=== PATIENT | female | born 1955 | race Caucasian/White ===

== ENCOUNTER → 2016-06-03 | Outpatient (CLI) | payer BC ==
[~2016-06-03] MED LIST: B-COTAB18 PO; CETI10TA84 PO; FENO145T26 PO; FRS/40 PO; GLC/500 PO; HMLI SC; INSDGI SC; LOSA1TAB38 PO; METF1TAB53 PO; MOME50SP5 NAE; MULT-513 PO; OMEG10007 PO; OXYC1TAB3 PO; PRLSR20 PO; SIMV40TA2 PO
== END | disposition home or self-care (01) ==
LOC: C.RDSM 15:00
PROVIDERS: ATTEND Physical Medicine & Rehabilitation Sports Medicine
DX: M25.531 Pain in right wrist (principal)

== ENCOUNTER 2016-06-20 12:43 | Emergency (ER) | payer SELFPAY ==
[~2016-06-20 12:43] MED LIST changes: -OXYC1TAB3 PO
[2016-06-20 12:47] VITALS: TEMP 37.1
[2016-06-20] MEDS ORDERED: OXYCODONE HCL IR 5 MG TAB (IMMEDIATE RELEASE) PO STA (12:57)
--- NOTE | 2016-06-20 13:54 | DIAGNOSTIC IMAGING REPORT ---
LEFT FOOT MIN 3 VIEWS ROUTINE CLINICAL HISTORY: fall trauma. Pain. COMPARISON: None. DISCUSSION: Considerable soft tissue edematous change dorsal to the metatarsals. No well-defined acute bony abnormality. Mild degenerative change. Bunion deformity distal first metatarsal. IMPRESSION: Considerable soft tissue edematous change. Mild degenerative change. No acute bony abnormality. Electronically signed by: Chris Weldon M.D. 06/20/2016 1:53 PM Dictated Date/Time: 06/20/2016 1:52 PM
--- NOTE | 2016-06-20 14:06 | DIAGNOSTIC IMAGING REPORT ---
LEFT HIP 2 VIEWS CLINICAL HISTORY: Fall with left hip pain. FINDINGS: AP and frog-leg views of the left hip are obtained. No prior studies are available for comparison at the time of dictation. The skeletal structures are osteopenic. No fracture is seen. Minimal arthritic change is identified in the left hip. Sclerotic change is noted in the left sacroiliac joint. Enthesophytes arise from the left anterior superior iliac spine. The overlying soft tissues are within normal limits. Small phleboliths are identified in the pelvis. IMPRESSION: No fracture is identified in the left hip. Electronically signed by: Kade Whyte M.D. 06/20/2016 2:05 PM Dictated Date/Time: 06/20/2016 2:00 PM
--- NOTE | 2016-06-20 14:08 | DIAGNOSTIC IMAGING REPORT ---
LEFT KNEE 1 OR 2 VIEWS ROUTINE CLINICAL HISTORY: knee pain/fall trauma. Pain. COMPARISON: None. DISCUSSION: Severe degenerative change all major joint compartments. Several synovial calcifications. No well-defined evidence for fracture. Severe degenerative change. No acute bony abnormality. IMPRESSION: Severe degenerative change. No acute bony abnormality. Electronically signed by: Chris Weldon M.D. 06/20/2016 2:07 PM Dictated Date/Time: 06/20/2016 2:06 PM
--- NOTE | 2016-06-20 14:25 | DIAGNOSTIC IMAGING REPORT ---
RIGHT SHOULDER 3 VIEWS HISTORY: shoulder pain/fall Right COMPARISON: None. FINDINGS: There is no fracture or dislocation. Soft tissues are unremarkable. The right clavicle appears intact. Mild degenerative changes within the right shoulder. IMPRESSION: No fracture or dislocation within the right shoulder. Electronically signed by: Andres Coronel M.D. 06/20/2016 2:23 PM Dictated Date/Time: 06/20/2016 2:22 PM
[2016-06-20] MEDS ORDERED: OXYC1TAB3 PO (15:21)
--- NOTE | 2016-06-20 15:22 | EMERGENCY ROOM VISIT NOTE ---
History First contact with patient: 12:50 Chief Complaint: LEG PAIN,LEG INJURY Stated Complaint: L LEG, KNEE AND FOOT PAIN History of Present Illness The patient is a 61 year old female who presents to the Emergency Room with complaints of left hip left knee left foot and right shoulder pain. The patient states that she was at a restaurant last night at 9 PM and fell on a wet floor and slipped landing onto her buttocks. She is now complaining of pain mainly in her left knee but she also is complaining of pain in the left hip left foot and slight pain in her right shoulder. The patient took ibuprofen just before coming to the emergency room. The patient states she is able to bear weight on the left leg but it is painful. The patient states that she is able to move her shoulder but it is just slightly painful with movement. She denies any pain radiating down her right arm or any numbness and tingling. The patient states that she has chronic edema in both legs. She normally takes Lasix but forgot to take it today. Review of Systems 10 system review was performed and was negative unless stated otherwise history of present illness. Past Medical/Surgical History Diabetes, hypertension, peripheral edema Social History Smoking Status: Never Smoker Alcohol Use: none Drug Use: none Marital Status: Housing Status: lives with family Occupation Status: employed Current/Historical Medications Scheduled B-Complex Vitamins (Vitamin B Complex), 1 TAB PO DAILY Cetirizine (Zyrtec), 10 MG PO DAILY Fenofibrate (Tricor ), 145 MG PO DAILY Fish Oil ([place]-3), 2 CAP PO DAILY Furosemide (Lasix), 40 MG PO DAILY Insulin Glargine (Lantus), 60-70 UNITS SC HS Insulin Lispro (Humalog), UNITS SC UD Losartan Potassium (Cozaar), 100 MG PO DAILY Metformin Hcl (Glucophage Ext Rel), 1,000 MG PO BID Metformin Hcl (Glucophage), 500 MG PO @ 1200 Mometasone Furoate (Nasonex), 1-2 SPRAY CYN DAILY Multivitamins/Minerals (Mvi With Minerals), 1 TAB PO DAILY Omeprazole (Prilosec), 20 MG PO BID Simvastatin (Zocor), 40 MG PO QPM Allergies Coded Allergies: No Known Allergies (Unverified , 06/20/16) Physical Exam Vital Signs Date Time Temp Pulse Resp B/P Pulse Ox O2 Delivery O2 Flow Rate FiO2 06/20/16 14:41 74 20 120/80 06/20/16 12:47 37.1 90 20 155/87 94 Room Air Physical Exam GENERAL: Obese 61-year-old white female appears in no acute distress. MENTAL Status: Alert and oriented 3. NECK: Supple, no lymphadenopathy noted. No carotid bruits noted. LUNGS: Clear auscultation without wheezes rales or rhonchi. CARDIAC: Regular rate and rhythm without murmur. Pulses is full and equal throughout. RIGHT SHOULDER: No gross bony deformity noted. No erythema or edema noted. The patient has point tenderness over the lateral aspect of the humeral head. Otherwise nontender. Full range of motion with pain elicited with abduction past 90. [employer] strength is 5 out of 5 as compared to the left. LEFT HIP: No gross bony deformity noted. No erythema or edema noted. The patient has slight tenderness palpation over the lateral aspect. Limited range of motion of the left hip secondary to pain. LEFT KNEE: No gross bony deformity noted. There is a prior incision noted on the knee from a prior knee surgery at age 17. The patient has limited range of motion secondary to pain. No ligament instability noted. No erythema noted. Difficult to evaluate for edema secondary to patient's size. BILATERAL LOWER EXTREMITIES: 2+ pitting edema bilateral lower legs. LEFT FOOT: No gross bony deformity noted. No erythema noted. There is edema noted which is pitting consistent with her peripheral edema. The patient is able to move her toes without difficulty. She has point tenderness to palpation over the great toe. Medical Decision & Procedures ER Provider Diagnostic Interpretation: LEFT FOOT MIN 3 VIEWS ROUTINE CLINICAL HISTORY: fall trauma. Pain. COMPARISON: None. DISCUSSION: Considerable soft tissue edematous change dorsal to the metatarsals. No well-defined acute bony abnormality. Mild degenerative change. Bunion deformity distal first metatarsal. IMPRESSION: Considerable soft tissue edematous change. Mild degenerative change. No acute bony abnormality. Electronically signed by: Chris Weldon M.D. 06/20/2016 1:53 PM LEFT HIP 2 VIEWS CLINICAL HISTORY: Fall with left hip pain. FINDINGS: AP and frog-leg views of the left hip are obtained. No prior studies are available for comparison at the time of dictation. The skeletal structures are osteopenic. No fracture is seen. Minimal arthritic change is identified in the left hip. Sclerotic change is noted in the left sacroiliac joint. Enthesophytes arise from the left anterior superior iliac spine. The overlying soft tissues are within normal limits. Small phleboliths are identified in the pelvis. IMPRESSION: No fracture is identified in the left hip. Electronically signed by: Kade Whyte M.D. 06/20/2016 2:05 PM LEFT KNEE 1 OR 2 VIEWS ROUTINE CLINICAL HISTORY: knee pain/fall trauma. Pain. COMPARISON: None. DISCUSSION: Severe degenerative change all major joint compartments. Several synovial calcifications. No well-defined evidence for fracture. Severe degenerative change. No acute bony abnormality. IMPRESSION: Severe degenerative change. No acute bony abnormality. Electronically signed by: Chris Weldon M.D. 06/20/2016 2:07 PM Dictated Date/Time: 06/20/2016 2:06 PM RIGHT SHOULDER 3 VIEWS HISTORY: shoulder pain/fall Right COMPARISON: None. FINDINGS: There is no fracture or dislocation. Soft tissues are unremarkable. The right clavicle appears intact. Mild degenerative changes within the right shoulder. IMPRESSION: No fracture or dislocation within the right shoulder. Electronically signed by: Andres Coronel M.D. 06/20/2016 2:23 PM Medications Administered Medications (Trade) Dose Ordered Sig/Oxana Route Start Time Stop Time Status Last Admin Dose Admin Oxycodone HCl (Roxicodone Immediate Rel Tab) 10 mg NOW STAT PO 06/20/16 12:57 06/20/16 13:00 DC 06/20/16 13:04 10 MG ED Course The patient was evaluated. The patient was given OxyIR 5 mg by mouth for pain. X-rays of the right shoulder, left hip, left knee and left foot were ordered and interpreted by the radiologist and myself as above without any acute findings on any of the x-rays. The patient was informed of the findings. She was placed in an Andrea wrap of the left knee and given a walker. The patient was discharged home in stable condition.. Medical Decision Differential diagnosis include fractures versus contusions of multiple areas Impression Primary Impression: Bilateral leg pain Additional Impressions: Right shoulder pain Left hip pain Left knee pain Left foot pain Departure Information Dispostion Home / Self-Care Condition GOOD Prescriptions Oxycodone Immediate Rel Tab (ROXICODONE IR) 5 Mg Tab 1-2 TAB PO Q6 Y for Pain, #24 TAB Prov: Maria Antonia Weldon PA-C 06/20/16 Referrals Salvador Penaloza M.D. (PCP) Forms HOME CARE DOCUMENTATION FORM, IMPORTANT VISIT INFORMATION Patient Instructions [facility] Additional Instructions Take OxyIR as directed for pain. Do not drive while taking the OxyIR. Ice intermittently to affected areas over the next 24 hours. Limit weightbearing over the next 24 hours. Wear Andrea wrap while ambulating until pain is tolerable. Use walker to aid in ambulation. Recommend follow-up with your family physician if symptoms persist for possible referral to orthopedics. Problem Qualifiers Additional Impressions: Right shoulder pain Chronicity: acute Qualified Codes: M25.511 - Pain in right shoulder Left knee pain Chronicity: acute Qualified Codes: M25.562 - Pain in left knee
[2016-06-20 15:30] VITALS: BP 120/80; PULSE 74; O2SAT 98
== END 2016-06-20 15:31 | disposition home or self-care (01) ==
LOC: C.EDB 12:44 → C.EDD 15:31
DX: M79.604 Pain in right leg (principal); M79.605 Pain in left leg; M25.511 Pain in right shoulder; M25.552 Pain in left hip; M25.562 Pain in left knee; M79.672 Pain in left foot; I10 Essential (primary) hypertension; E11.9 Type 2 diabetes mellitus without complications; Z79.4 Long term (current) use of insulin; Z79.899 Other long term (current) drug therapy

== ENCOUNTER → 2017-04-08 | Outpatient (CLI) | payer BC ==
--- NOTE | 2017-04-08 15:28 | MAMMOGRAPHY REPORT ---
BILATERAL DIGITAL SCREENING MAMMOGRAM TOMOSYNTHESIS WITH CAD: 04/08/2017 CLINICAL HISTORY: Routine screening. Patient has no complaints. TECHNIQUE: Breast tomosynthesis in addition to standard 2D mammography was performed. Current study was also evaluated with a Computer Aided Detection (CAD) system. COMPARISON: Comparison is made to exams dated: 04/05/2016 mammogram, 04/05/2015 mammogram, 4 mammogram, 04/05/2013 mammogram, 04/03/2012 mammogram, and 04/05/2011 mammogram - [facility]. BREAST COMPOSITION: There are scattered areas of fibroglandular density in both breasts. FINDINGS: There is a possible 9 mm mass in the upper outer middle one third of the right breast, for which additional spot compression tomosynthesis views and targeted ultrasound are recommended. No other new suspicious mass, architectural distortion or cluster of microcalcifications is seen bila terally. IMPRESSION: ACR BI-RADS CATEGORY 0: INCOMPLETE EVALUATION: NEED ADDITIONAL IMAGING EVALUATION The possible 9 mm mass in the upper outer right breast needs additional evaluation. The patient will be called to schedule an appointment. Approximately 10% of breast cancers are not detected with mammography. A negative mammographic report should not delay biopsy if a clinically suggestive mass is present. Julieta Romero M.D. ay/:04/08/2017 10:41:55 Wash Rack Operator: Mya MAGALLON(Monica)(Laura), [facility] letter sent: Addl Imaging 0 BI-RADS Code: ACR BI-RADS Category 0: Incomplete Evaluation: Need Additional Imaging Evaluation
== END | disposition home or self-care (01) ==
LOC: C.MAMM 09:37
PROVIDERS: ATTEND Internal Medicine
DX: Z12.31 Encounter for screening mammogram for malignant neoplasm of breast (principal); R92.8 Other abnormal and inconclusive findings on diagnostic imaging of breast

== ENCOUNTER → 2017-04-10 | Outpatient (CLI) | payer BC ==
--- NOTE | 2017-04-10 13:46 | MAMMOGRAPHY REPORT ---
UNILATERAL RIGHT DIGITAL DIAGNOSTIC MAMMOGRAM TOMOSYNTHESIS AND TARGETED RIGHT ULTRASOUND: 04/10/2017 CLINICAL HISTORY: Callback from screening mammogram for right breast mass. TECHNIQUE: Breast tomosynthesis in addition to standard 2D mammography was performed. Spot compress ion right CC and MLO 2-D and tomosynthesis images were obtained. COMPARISON: Comparison is made to exams dated: 04/08/2017 mammogram, 04/05/2016 mammogram, 5 mammogram, 04/06/2014 mammogram, 04/05/2013 mammogram, and 04/03/2012 mammogram - [facility]. BREAST COMPOSITION: There are scattered areas of fibroglandular density in the right breast. FINDINGS: Spot compression views demonstrate a persistent low-density lobulated mass measuring 11 mm within the right upper outer quadrant at approximately 9 to 10:00, best seen on the MLO tomosynthesis images. Targeted ultrasound was performed of the right breast in the region of the mammographic mass. In the right breast at 9:00, approximately 6 cm from the nipple, there is a lobulated circumscribed anechoi c mass with a few thin internal septations, measuring 11 x 4 x 6 mm. This correlates with the size, shape, and location of the mammographic mass and is benign and consistent with a cyst. IMPRESSION: ACR BI-RADS CATEGORY 2: BENIGN, TARGETED ULTRASOUND ACR BI-RADS CATEGORY 2: BENIGN Benign 11 mm cyst in the right 9:00 breast on ultrasound, which corresponds with the lobulated mammog raphic mass. There is no mammographic or targeted sonographic evidence of malignancy. A 1 year scree kimmie mammogram is recommended. The patient has been verbally notified of the results. Approximately 10% of breast cancers are not detected with mammography. A negative mammographic report should not delay biopsy if a clinically suggestive mass is present. Whitley Rodriguez M.D. ah/:04/10/2017 10:09:29 Tonger: Josephine ALVAREZ)(Laura), [facility] letter sent: Normal 1/2 BI-RADS Code: ACR BI-RADS Category 2: Benign Ultrasound BI-RADS: ACR BI-RADS Category 2: Benign
== END | disposition home or self-care (01) ==
LOC: C.MAMM 09:32
PROVIDERS: ATTEND Internal Medicine
DX: N60.01 Solitary cyst of right breast (principal)

== ENCOUNTER 2017-07-09 08:31 | Inpatient (IN) | payer OTHER ==
[~2017-07-09] VITALS: Ht 165.1 cm; Wt 119.6 kg
[2017-07-09] MEDS ORDERED: HYDROmorphone INJ 0.5 MG/0.5 ML SYR IV STA ×2 (08:41→09:38)
[2017-07-09] MEDS ORDERED: VANCOMYCIN IV 1,500 MG in SODIUM CHLORIDE 0.9% 250ML 250 ML IV STA (08:41)
[2017-07-09] MEDS ORDERED: VANCOMYCIN IV 1,500 MG in SODIUM CHLORIDE 0.9% 500ML 500 ML IV SCH ×2 (08:43→20:00)
[2017-07-09] MEDS ORDERED: CEFAZOLIN IV 2,000 MG in DEXTROSE 5% 50ML 50 ML IV SCH (08:45)
[2017-07-09] MEDS ORDERED: CEFAZOLIN IV 2,000 MG in SYRINGE 0 ML IV SCH (08:45)
[2017-07-09] MEDS ORDERED: VANCOMYCIN CONSULT ACTIVE PRN ×2 (08:45→10:45)
[2017-07-09] MEDS ORDERED: INSDGIPEN SC (08:49)
[2017-07-09] MEDS ORDERED: NVLGI/PEN SC (08:49)
[2017-07-09 08:53] LABS: BASO % 0.1 %; BASO ABS # 0.02 K/uL (0-0.2); HEMATOCRIT 39.3 % (37-47); IG# 0.11 K/uL (0.00-0.02); LYMPH % 2.2 %; LYMPH ABS # 0.45 K/uL (1.2-3.4); MEAN CELL VOLUME 89.7 fL (80-100); MEAN CORPUSCULAR HEMOGLOBIN 29.7 pg (25-34); MEAN CORPUSCULAR HGB CONC 33.1 g/dl (32-36); MEAN PLATELET VOLUME 11.7 fL (7.4-10.4); MONO % 2.5 %; MONO ABS # 0.51 K/uL (0.11-0.59); NEUT % 94.7 %; NEUT ABS # 19.53 K/uL (1.4-6.5); PLATELET COUNT 174 K/uL (130-400); RED CELL DISTRIBUTION WIDTH CV 14.7 % (11.5-14.5); RED CELL DISTRIBUTION WIDTH SD 48.4 fL (36.4-46.3); WHITE BLOOD COUNT 20.62 K/uL (4.8-10.8)
[2017-07-09 09:09] LABS: CREATININE 2.44 mg/dl (0.60-1.20); POTASSIUM 4.1 mmol/L (3.5-5.1)
[2017-07-09 09:10] LABS: ALBUMIN 3.4 gm/dl (3.4-5.0); CALCIUM 9.1 mg/dl (8.5-10.1)
[2017-07-09 09:12] LABS: TOTAL PROTEIN 7.3 gm/dl (6.4-8.2)
[2017-07-09] MEDS ORDERED: SODIUM CHLORIDE 0.9% 1000ML 1,000 ML IV STA ×3 (09:38→10:35)
[2017-07-09] MEDS ORDERED: INSULIN IV INFUSION PROTOCOL STA ×2 (09:39→10:08)
[2017-07-09] MEDS ORDERED: NovoLIN-R INSULIN PER UNIT CHARGE IV STA (09:39)
[2017-07-09] MEDS ORDERED: MODERATE STRESS LEVEL ONE ×2 (09:45→10:15)
[2017-07-09] MEDS ORDERED: GLUCOSE 40% GEL 15 GM TUBE PO PRN (10:00)
[2017-07-09] MEDS ORDERED: NovoLIN R BOLUS FROM BAG IV ONE (10:00)
[2017-07-09] MEDS ORDERED: DEXTROSE 50% 50 ML SYR IV PRN (10:00)
[2017-07-09] MEDS ORDERED: GLUCOSE 10 TABS/TUBE PO PRN (10:00)
[2017-07-09] MEDS ORDERED: GLUCAGON FOR INJ 1 MG VIAL SQ PRN (10:00)
[2017-07-09] MEDS ORDERED: DKA GOAL RANGE 150-250 mg/dl 1 EA ONE (10:15)
[2017-07-09] MEDS ORDERED: POLYETHYLENE (MIRALAX) 17 GM PACK PO PRN (10:15)
[2017-07-09] MEDS ORDERED: MAGNESIUM HYDROXIDE SUSP 30 ML UDC PO PRN (10:15)
[2017-07-09] MEDS ORDERED: PENDING NSS+20mEq KCL IVF SCH (10:15)
[2017-07-09] MEDS ORDERED: CEFAZOLIN IV 1,000 MG in DEXTROSE 5% 50ML 50 ML IV SCH (10:45)
[2017-07-09] MEDS ORDERED: PHARMACY GLYCEMIC MGMT CONSULT PRN (11:10)
--- NOTE | 2017-07-09 11:12 | History and Physical ---
History & Physical Date & Time of Service: Jul 09, 2017 at 10:50 Chief Complaint: Leg Pain Primary Care Physician: Salvador Penaloza M.D. History of Present Illness Source: patient, family Mr. Jordan is a 62 y/o female with PMHx of T2DM, HLD, Fatty Liver/Chronic Transaminitis, GERD, and PCOS who presents to the ED c/o RLE erythema/pain starting this AM. Patient states acutely she developed generalized fatigue and felt fevered with chills yesterday. She also has a cough, rhinorrhea, and nausea. She also had only pain in the RLE yesterday. She decided to go to bed at approx. 1800 yesterday due to not feeling well. She states she didn't eat much and only took her morning dose of Metformin. She does not remember if she took any Novolog but knows she did not take her Lantus. She had poor sleep overnight due to pain in the leg. When she awoke this morning her leg was significantly erythematous and more edematous then baseline. She states she felt lightheaded and dizzy this morning and felt very thirsty. She is having difficulty ambulating her her RLE. She reports H/O cellulitis in both legs many years ago. Has a skin crack in the plantar aspect of her foot. States this was strictly a crack in the skin and denies puncture wound. No drainage noted from skin crack. In the ED, patient with WBC of 20. BSG 299. Anion gap 17. Cr at 2.44. Vitals stable. Patient was aggressively hydrated and IV Abx initiated. Patient will be admitted for diabetic ketoacidosis, TERESA, and cellulitis of RLE. Past Medical/Surgical History 1. H/O B/L Lower Extremity Cellulitis 2. T2DM 3. HLD 4. Fatty Liver/Chronic Transaminitis 5. GERD 6. PCOS Family History Colon Cancer Diabetes mellitus Heart Disease Hypertension Kidney disease Social History Smoking Status: Never Smoker Smokeless Tobacco Use: No Alcohol Use: none Drug Use: none Marital Status: Occupational Status: employed Allergies Coded Allergies: No Known Allergies (Unverified , 06/20/16) Home Medications Scheduled B-Complex Vitamins (Vitamin B Complex), 1 TAB PO DAILY Cetirizine (Zyrtec), 10 MG PO DAILY Fenofibrate (Tricor ), 145 MG PO DAILY Fish Oil ([place]-3), 2 CAP PO DAILY Furosemide (Lasix), 40 MG PO DAILY Insulin Aspart (Novolog Flexpen), 1 DOSE SC UD Insulin Glargine (Lantus Solostar), 60-70 SC HS Losartan Potassium (Cozaar), 100 MG PO DAILY Metformin Hcl (Glucophage Ext Rel), 1,000 MG PO BID Metformin Hcl (Glucophage), 500 MG PO @ 1200 Multivitamins/Minerals (Mvi With Minerals), 1 TAB PO DAILY Omeprazole (Prilosec), 20 MG PO BID Simvastatin (Zocor), 40 MG PO QPM Review of Systems Constitutional: + fever, + chills, + fatigue ENT: + nasal symptoms, No sore throat, No trouble swallowing Respiratory: + cough, No sputum, No shortness of breath Cardiovascular: No chest pain, No palpitations Abdomen: + nausea, No pain, No vomiting, No diarrhea, No constipation, No GI bleeding Musculoskeletal: + swelling (B/L lower extremities - R > L), + problem reported (diffuse RLE pain below knee) Genitourinary - Female: No dysuria, No urinary frequency Endocrine: + excessive thirst Hematologic / Lymphatic: No abnormal bleeding/bruising Integumentary: + problem reported (acute development of erythema of RLE) Physical Exam Vital Signs Date Time Temp Pulse Resp B/P (MAP) Pulse Ox O2 Delivery O2 Flow Rate FiO2 07/09/17 10:16 95 07/09/17 10:10 94 Nasal Cannula 2.0 07/09/17 10:01 95 16 125/67 88 Room Air 07/09/17 08:42 37.2 100 16 150/74 94 Room Air General Appearance: WD/WN, no apparent distress, + obese Head: normocephalic, atraumatic Eyes: sclerae normal ENT: hearing grossly normal, pharynx normal Neck: supple, no JVD, trachea midline Respiratory/Chest: lungs clear, normal breath sounds, no respiratory distress, no accessory muscle use, + decreased breath sounds (bases b/l) Cardiovascular: regular rate, rhythm, no gallop, no murmur, + pertinent finding (distant heart sounds 2/2 body habitus) Abdomen/GI: normal bowel sounds, non tender, soft Extremities/Musculoskelatal: + pertinent finding (RLE erythema from foot to just below knee (area delineated with marker); tenderness to palpation with at least 1+ pitting edema but limited assessment 2/2 tenderness; immediate cap refill; small skin crack to heel of RLE; LLE with mild diop of medial collins with lymphedema like edema) Neurologic/Psych: alert, oriented x 3 Skin: + pertinent finding (see extremties) Diagnostics Laboratory Results Results Past 24 Hours Test 07/09/17 08:35 07/09/17 09:57 Range/Units White Blood Count 20.62 4.8-10.8 K/uL Red Blood Count 4.38 4.2-5.4 M/uL Hemoglobin 13.0 12.0-16.0 g/dL Hematocrit 39.3 37-47 % Mean Corpuscular Volume 89.7 80-100 fL Mean Corpuscular Hemoglobin 29.7 25-34 pg Mean Corpuscular Hemoglobin Concent 33.1 32-36 g/dl Platelet Count 174 130-400 K/uL Mean Platelet Volume 11.7 7.4-10.4 fL Neutrophils (%) (Auto) 94.7 % Lymphocytes (%) (Auto) 2.2 % Monocytes (%) (Auto) 2.5 % Eosinophils (%) (Auto) 0.0 % Basophils (%) (Auto) 0.1 % Neutrophils # (Auto) 19.53 1.4-6.5 K/uL Lymphocytes # (Auto) 0.45 1.2-3.4 K/uL Monocytes # (Auto) 0.51 0.11-0.59 K/uL Eosinophils # (Auto) 0.00 0-0.5 K/uL Basophils # (Auto) 0.02 0-0.2 K/uL RDW Standard Deviation 48.4 36.4-46.3 fL RDW Coefficient of Variation 14.7 11.5-14.5 % Immature Granulocyte % (Auto) 0.5 % Immature Granulocyte # (Auto) 0.11 0.00-0.02 K/uL Sodium Level 133 136-145 mmol/L Potassium Level 4.1 3.5-5.1 mmol/L Chloride Level 99 98-107 mmol/L Carbon Dioxide Level 17 21-32 mmol/L Anion Gap 17.0 3-11 mmol/L Blood Urea Nitrogen 36 7-18 mg/dl Creatinine 2.44 0.60-1.20 mg/dl Est Creatinine Clear Calc Drug Dose 32.9 ml/min Estimated GFR () 23.6 Estimated GFR (Non- 20.4 BUN/Creatinine Ratio 14.8 10-20 Random Glucose 299 70-99 mg/dl Calcium Level 9.1 8.5-10.1 mg/dl Total Bilirubin 0.9 0.2-1 mg/dl Direct Bilirubin 0.3 0-0.2 mg/dl Aspartate Amino Transf (AST/SGOT) 36 15-37 U/L Alanine Aminotransferase (ALT/SGPT) 40 12-78 U/L Alkaline Phosphatase 69 45-117 U/L Total Protein 7.3 6.4-8.2 gm/dl Albumin 3.4 3.4-5.0 gm/dl Venous Blood pH 7.38 7.36-7.41 Venous Blood Partial Pressure CO2 39 38.0-50.0 mmHg Venous Blood Partial Pressure O2 35 mmHg Venous Blood HCO3 23 mmol/L Venous Blood Oxygen Saturation 63.3 % Venous Blood Base Excess -2.3 mEq/L Lactic Acid Level 4.9 0.4-2.0 mmol/L Microbiology Results 07/09/17 Blood Culture, Received Pending 07/09/17 Blood Culture, Received Pending Impression Assessment and Plan Mr. Jordan is a 62 y/o female with PMHx of T2DM, HLD, Fatty Liver/Chronic Transaminitis, GERD, and PCOS who presents to the ED c/o RLE erythema/pain starting this AM. Diabetic Ketoacidosis/Metabolic Acidosis with T2DM: Anion Gap 17 and Lactic 4.9 - Patient reports missing insulin therapy yesterday - only took AM Metformin - A1c in records is 9 but according to outpatient records has improved to 7.9 and will obtain update - VBG was unremarkable - will repeat lactic acid given ABx initiated and hydration started - Insulin gtt until anion gap closes and transition to SC coverage - appreciate pharmacy assistance with glycemic management - Aggressive IV hydration in ED and will continue with NSS at 150 mL/hr - monitor K and can transition to supplementation pending labs - BMP and electrolyte checks Q4H - Hold home regimen of Metformin, Novolog Scale, and Lantus Scale Sepsis 2/2 RLE Cellulitis superimposed on Chronic Lower Extremity Edema: - Ancef 1 g IV daily and Vancomycin - Obtain U/S to R/O DVT Acute Kidney Injury 2/2 Dehydation/DKA/Sepsis: - Aggressive hydration and will monitor with Q4H labs until stabilized HLD/Fatty Liver Disease/Chronic Transaminitis: - LFTs normal at this time - continue fenofibrate 145 mg daily and simvastatin 40 mg daily GERD: - Protonix 40 mg daily DVT Prophylaxis: Heparin Code Status: FULL RESUSCITATION Disposition: - From home Resuscitation Status VTE Prophylaxis Will order VTE Prophylaxis: Yes
[2017-07-09 11:41] LABS: INR 1.1 (0.9-1.1); PTT PATIENT 27.7 SECONDS (21.0-31.0)
[2017-07-09] MEDS: HYDROmorphone INJ 0.5 MG/0.5 ML SYR IV PRN ×2 (11:47→15:47)
--- NOTE | 2017-07-09 12:14 | Pharmacy Progress Note ---
Pharmacy Abx Initial Consult Date of Service Jul 09, 2017. Pharmacy Dosing Scope Date of Consult: 07/09/17 Consultation requested by: Chuy Myers PA-C Pharmacy is consulted to initiate Vancomycin IV dosing therapy, order appropriate labs and adjust drug dose/frequency. Objective Height (Feet): 5 Height (Inches): 5.00 Weight (Kilograms): 135.000 Vital Signs (Past 12Hrs) Vital Signs Past 12 Hours Date Time Temp Pulse Resp B/P (MAP) Pulse Ox O2 Delivery O2 Flow Rate FiO2 07/09/17 10:16 95 07/09/17 10:10 94 Nasal Cannula 2.0 07/09/17 10:01 95 16 125/67 88 Room Air 07/09/17 08:42 37.2 100 16 150/74 94 Room Air Lab Results (24Hrs) Laboratory Tests (24 Hours) Test 07/09/17 08:35 07/09/17 09:57 White Blood Count 20.62 K/uL (4.8-10.8) H Red Blood Count 4.38 M/uL (4.2-5.4) Platelet Count 174 K/uL (130-400) Neutrophils (%) (Auto) 94.7 % Lymphocytes (%) (Auto) 2.2 % Monocytes (%) (Auto) 2.5 % Eosinophils (%) (Auto) 0.0 % Basophils (%) (Auto) 0.1 % Neutrophils # (Auto) 19.53 K/uL (1.4-6.5) H Lymphocytes # (Auto) 0.45 K/uL (1.2-3.4) L Monocytes # (Auto) 0.51 K/uL (0.11-0.59) Eosinophils # (Auto) 0.00 K/uL (0-0.5) Basophils # (Auto) 0.02 K/uL (0-0.2) Lactic Acid Level 4.9 mmol/L (0.4-2.0) *H Micro Results Date/Time Source Procedure Growth Status 07/09/17 09:57 Blood Blood Culture Pending Received 07/09/17 08:35 Blood Blood Culture Pending Received Assessment & Plan Assessment 62 year old female admitted with hyperglycemia, TERESA, and sepsis secondary RLE cellulitis. Plan Empiric Vancomycin IV for treatment of sepsis, RLE cellulitis. Vancomycin IV: * Patient given Vanc 1500 mg IV (11 mg/kg) in the ED @ 1018 * I have ordered a second dose of 1500 mg for today @ 1999 (I anticipate vanc level to be ~ 15 mcg/mL at that time) * Maintenance dose not ordered due to TERESA. Estimated half life based on current renal function; 22.3 hr, based on baseline; 9.9 hr * Goal trough level for sepsis,cellulitis : 15 to 20 mcg/mL * I have ordered a random level 07/10 @ 0800 (12 hours after dose) d/t TERESA. Also receiving Cefazolin IV (not pharm consult) Pharmacy will continue to follow and will adjust dose/frequency as necessary. Thank you.
[2017-07-09 12:50] LABS: HEMOGLOBIN A1C 8.6 % (4.5-5.6)
--- NOTE | 2017-07-09 12:50 | DIAGNOSTIC IMAGING REPORT ---
ULTRASOUND R VENOUS DOPP LOWER EXT UNILAT CLINICAL HISTORY: Edema/Erythema COMPARISON STUDY: No previous studies for comparison. FINDINGS: Real-time and color flow Doppler imaging were performed. Flow was seen within the femoral, popliteal and calf veins with no intraluminal thrombus demonstrated. The saphenous vein is patent. There is a tiny popliteal cyst. The study was limited from a technical standpoint due to the patient's body habitus. The peroneal veins of the calf were nonvisualized. IMPRESSION: 1. Moderately limited study from a technical standpoint 2. No evidence of right lower extremity DVT (the peroneal veins of the calf were nonvisualized). Electronically signed by: Chuy Montoya M.D. 07/09/2017 12:49 PM Dictated Date/Time: 07/09/2017 12:47 PM
[2017-07-09] MEDS ORDERED: INSULIN ASPART 100 UNITS/ML 3 ML PEN SC SCH ×2 (13:00)
[2017-07-09 13:25] VITALS: BP 110/73; PULSE 99; TEMP 37.1; O2SAT 95; BMI 51.0
[2017-07-09] MEDS ORDERED: SODIUM CHLORIDE 0.9% 1000ML 1,000 ML IV SCH (13:30)
[2017-07-09] MEDS: INSULIN REGULAR 250 UNITS in SODIUM CHLORIDE 0.9% 250ML 250 ML IV SCH (13:36)
[2017-07-09] MEDS ORDERED: INSULIN HUMAN REGULAR IV BOLUS 3 UNIT in SYRINGE 0 ML IV SCH (13:45)
[2017-07-09 13:55] LABS: CALCIUM 8.1 mg/dl (8.5-10.1); CREATININE 2.21 mg/dl (0.60-1.20); POTASSIUM 4.2 mmol/L (3.5-5.1)
[2017-07-09 13:59] LABS: PHOSPHORUS 3.9 mg/dl (2.5-4.9)
--- NOTE | 2017-07-09 14:00 | Pharmacy Progress Note ---
Glycemic Control Intl Consult Date of Service Jul 09, 2017. Scope Glycemic Pharmacist consulted by Lizzie Myers on 07/09/17 for glycemic control and to write orders per [facility] inpatient glycemic control protocol Objective Weight (Kilograms): 138.900 Accuchecks BSG (last 24hrs): Test 07/09/17 08:35 07/09/17 13:15 Random Glucose 299 mg/dl (70-99) Laboratory Data (last 24hrs) Test 07/09/17 08:35 07/09/17 13:15 Anion Gap 17.0 mmol/L BUN/Creatinine Ratio 14.8 Blood Urea Nitrogen 36 mg/dl Creatinine 2.44 mg/dl Hemoglobin A1c 8.6 % Potassium Level 4.1 mmol/L Sodium Level 133 mmol/L White Blood Count 20.62 K/uL Red Blood Count 4.38 M/uL Hemoglobin 13.0 g/dL Hematocrit 39.3 % Mean Corpuscular Volume 89.7 fL Mean Corpuscular Hemoglobin 29.7 pg Mean Corpuscular Hemoglobin Concent 33.1 g/dl Platelet Count 174 K/uL Mean Platelet Volume 11.7 fL Neutrophils (%) (Auto) 94.7 % Lymphocytes (%) (Auto) 2.2 % Monocytes (%) (Auto) 2.5 % Eosinophils (%) (Auto) 0.0 % Basophils (%) (Auto) 0.1 % Neutrophils # (Auto) 19.53 K/uL Lymphocytes # (Auto) 0.45 K/uL Monocytes # (Auto) 0.51 K/uL Eosinophils # (Auto) 0.00 K/uL Basophils # (Auto) 0.02 K/uL HbA1c Test 07/09/17 08:35 Hemoglobin A1c 8.6 % (4.5-5.6) H Recent Pertinent Medications Outpatient Anti-diabetic Regimen: * Lantus 60-70 SQ HS plus Novolog scale with meals; metformin XR 1000 mg PO BID + metformin 500 mg QDL * A1c = 8.6 % 07/09/17 Risk Factors for Insulin Resistance: * Infection: cellulitis on Ancef and vancomycin * Diet: clear liquid, type 2 diabetes Assessment & Plan ASSESSMENT: * Ms Jordan is a 62 y/o F with a PMH of HLD, fatty liver disease, GERD, PCOS, and poorly controlled type 2 diabetes (per Elements of Diabetes Care Scoring Scale patient's goal HbA1C is around 6.6-7.5%). The patient is admitted today with elevated blood sugars and cellulitis. The patient's lactic acid is elevated at 4.9 and she has an acute kidney injury. Anion gap is slightly elevated at 17 and bicarbonate is 17. * Patient is started on insulin infusion secondary to infection and metabolic changes. No plan for titration off as uncertain how patient will respond to infusion/her needs. If infusion instructs to hold reasonable to reduce goal range. PLAN FOR INPATIENT GLYCEMIC CONTROL: * Starting IV insulin infusion per moderate (moderate/severe) stress protocol * Goal Range 150 - 250 mg/dl * In the critical care setting, continuous IV insulin infusion has been shown to be the best method for achieving glycemic targets. * Holding outpatient oral diabetes medications * Please note that the plan above was derived based on current level of insulin resistance and hospital stress. These recommendations are appropriate for inpatient admission only. Plan of care upon discharge will need to be reassessed to avoid potential outpatient hypo/hyperglycemia. Thank you.
--- NOTE | 2017-07-09 14:34 | EMERGENCY ROOM VISIT NOTE ---
History Report prepared by Janes: Rome Henry Under the Supervision of: Dr. Baeu Reyes D.O. First contact with patient: 08:33 Stated Complaint: LEG PAIN History of Present Illness The patient is a 62 year old female who presents to the Emergency Room by EMS with complaints of constant right lower leg pain and redness beginning yesterday. She has a history of cellulitis of her legs and states that her current symptoms feel similar. She states that she had difficulty sleeping last night due to her leg being so sensitive. The patient has a history of plantar fascitis and initially thought her symptoms to be due to this. She also complains of nausea, subjective fevers, chills, lightheadedness with standing, mild cough, and runny nose. Her additional symptoms began yesterday as well. Pt denies headache, change in vision, chest pain, SOB, abdominal pain, vomiting, diarrhea, pain with urination, and melena. She has not been eating or drinking. Pain is a 10 out of 10 on, sharp and constant in nature. Source of History: patient Onset: Yesterday Position: leg (right lower) Quality: other (pain and redness) Timing: constant Associated Symptoms: + fevers (subjective), + chills, + cough (mild), + nausea, No headache, No chest pain, No SOB, No vomiting, No abdominal pain, No melena, No diarrhea, No urinary symptoms Note: Additional symptoms: runny nose and lightheadedness with standing. Review of Systems See HPI for pertinent positives & negatives. A total of 10 systems reviewed and were otherwise negative. Past Medical & Surgical Medical Problems: (1) Cellulitis (2) Diabetes (3) Diabetic Ketoacidosis (4) GERD (gastroesophageal reflux disease) (5) HTN (hypertension) Family History No pertinent family history stated. Social History Smoking Status: Never Smoker Alcohol Use: none Drug Use: none Marital Status: Housing Status: lives with family Occupation Status: employed Current/Historical Medications Scheduled B-Complex Vitamins (Vitamin B Complex), 1 TAB PO DAILY Cetirizine (Zyrtec), 10 MG PO DAILY Fenofibrate (Tricor ), 145 MG PO DAILY Fish Oil (Elk-3), 2 CAP PO DAILY Furosemide (Lasix), 40 MG PO DAILY Insulin Aspart (Novolog Flexpen), 1 DOSE SC UD Insulin Glargine (Lantus Solostar), 60-70 SC HS Losartan Potassium (Cozaar), 100 MG PO DAILY Metformin Hcl (Glucophage Ext Rel), 1,000 MG PO BID Metformin Hcl (Glucophage), 500 MG PO @ 1200 Multivitamins/Minerals (Mvi With Minerals), 1 TAB PO DAILY Omeprazole (Prilosec), 20 MG PO BID Simvastatin (Zocor), 40 MG PO QPM Allergies Coded Allergies: No Known Allergies (Unverified , 06/20/16) Physical Exam Vital Signs Date Time Temp Pulse Resp B/P (MAP) Pulse Ox O2 Delivery O2 Flow Rate FiO2 07/09/17 10:16 95 07/09/17 10:10 94 Nasal Cannula 2.0 07/09/17 10:01 95 16 125/67 88 Room Air 07/09/17 08:42 37.2 100 16 150/74 94 Room Air Physical Exam GENERAL: Laying in bed, alert, moderate distress, non-toxic EYE EXAM: normal conjunctiva. OROPHARYNX: no exudate, no erythema, lips, buccal mucosa, and tongue normal and mucous membranes are moist NECK: supple, no nuchal rigidity, no adenopathy, non-tender LUNGS: Clear to auscultation. Normal chest wall mechanics HEART: no murmurs, S1 normal and S2 normal ABDOMEN: abdomen soft, non-tender, normo-active bowel sounds, no masses, no rebound or guarding. BACK: Back is symmetrical on inspection and there is no deformity, no midline tenderness, no CVA tenderness. SKIN: no rashes and no bruising UPPER EXTREMITIES: upper extremities are grossly normal. LOWER EXTREMITIES: Circumferential redness from the foot to the right knee. Ulcer at the base of the right foot with no drainage. Calves are equal bilaterally. NEURO EXAM: Normal sensorium, cranial nerves II-XII grossly intact, normal speech, no gross weakness of arms, no gross weakness of legs. Medical Decision & Procedures Laboratory Results 07/09/17 08:35 Red Blood Count 4.38, Mean Corpuscular Volume 89.7, Mean Corpuscular Hemoglobin 29.7, Mean Corpuscular Hemoglobin Concent 33.1, Mean Platelet Volume 11.7, Neutrophils (%) (Auto) 94.7, Lymphocytes (%) (Auto) 2.2, Monocytes (%) (Auto) 2.5, Eosinophils (%) (Auto) 0.0, Basophils (%) (Auto) 0.1, Neutrophils # (Auto) 19.53, Lymphocytes # (Auto) 0.45, Monocytes # (Auto) 0.51, Eosinophils # (Auto) 0.00, Basophils # (Auto) 0.02 Test 07/09/17 08:35 07/09/17 09:57 White Blood Count 20.62 K/uL (4.8-10.8) Red Blood Count 4.38 M/uL (4.2-5.4) Hemoglobin 13.0 g/dL (12.0-16.0) Hematocrit 39.3 % (37-47) Mean Corpuscular Volume 89.7 fL (80-100) Mean Corpuscular Hemoglobin 29.7 pg (25-34) Mean Corpuscular Hemoglobin Concent 33.1 g/dl (32-36) Platelet Count 174 K/uL (130-400) Mean Platelet Volume 11.7 fL (7.4-10.4) Neutrophils (%) (Auto) 94.7 % Lymphocytes (%) (Auto) 2.2 % Monocytes (%) (Auto) 2.5 % Eosinophils (%) (Auto) 0.0 % Basophils (%) (Auto) 0.1 % Neutrophils # (Auto) 19.53 K/uL (1.4-6.5) Lymphocytes # (Auto) 0.45 K/uL (1.2-3.4) Monocytes # (Auto) 0.51 K/uL (0.11-0.59) Eosinophils # (Auto) 0.00 K/uL (0-0.5) Basophils # (Auto) 0.02 K/uL (0-0.2) RDW Standard Deviation 48.4 fL (36.4-46.3) RDW Coefficient of Variation 14.7 % (11.5-14.5) Immature Granulocyte % (Auto) 0.5 % Immature Granulocyte # (Auto) 0.11 K/uL (0.00-0.02) Prothrombin Time 11.5 SECONDS (9.0-12.0) Prothromb Time International Ratio 1.1 (0.9-1.1) Activated Partial Thromboplast Time 27.7 SECONDS (21.0-31.0) Partial Thromboplastin Ratio 1.1 Estimated Average Glucose 200 mg/dl Hemoglobin A1c 8.6 % (4.5-5.6) Total Bilirubin 0.9 mg/dl (0.2-1) Direct Bilirubin 0.3 mg/dl (0-0.2) Aspartate Amino Transf (AST/SGOT) 36 U/L (15-37) Alanine Aminotransferase (ALT/SGPT) 40 U/L (12-78) Alkaline Phosphatase 69 U/L (45-117) Total Protein 7.3 gm/dl (6.4-8.2) Albumin 3.4 gm/dl (3.4-5.0) Venous Blood pH 7.38 (7.36-7.41) Venous Blood Partial Pressure CO2 39 mmHg (38.0-50.0) Venous Blood Partial Pressure O2 35 mmHg Venous Blood HCO3 23 mmol/L Venous Blood Oxygen Saturation 63.3 % Venous Blood Base Excess -2.3 mEq/L Laboratory results per my review. Medications Administered Medications (Trade) Dose Ordered Sig/Oxana Route Start Time Stop Time Status Last Admin Dose Admin Hydromorphone HCl (Dilaudid Inj) 0.5 mg NOW STAT IV 07/09/17 08:41 07/09/17 08:43 DC 07/09/17 08:58 0.5 MG Vancomycin HCl 1500 mg/Sodium Chloride 530 ml @ 200 mls/hr TODAY@0843 IV 07/09/17 08:43 07/09/17 11:45 DC 07/09/17 10:18 200 MLS/HR Sodium Chloride 1,000 ml @ 999 mls/hr Q1H1M STAT IV 07/09/17 09:38 07/09/17 10:38 DC 07/09/17 09:58 999 MLS/HR Hydromorphone HCl (Dilaudid Inj) 0.5 mg NOW STAT IV 07/09/17 09:38 07/09/17 09:39 DC 07/09/17 09:56 0.5 MG Insulin Human Regular (Insulin IV Infusion Protocol) 1 ea NOW STAT N/A 07/09/17 09:39 07/09/17 09:41 DC 07/09/17 09:39 1 EA Miscellaneous (Insulin Protocol Moderate Stress Level) 1 ea ONE ONCE N/A 07/09/17 09:45 07/09/17 09:46 DC 3/28/18 09:45 1 EA Sodium Chloride 1,000 ml @ 999 mls/hr Q1H1M STAT IV 07/09/17 09:44 07/09/17 10:44 DC 07/09/17 11:25 999 MLS/HR Cefazolin Sodium 2000 mg/Syringe 15 ml @ 3.75 mls/ min TODAY@0845 IV 07/09/17 08:45 07/09/17 10:00 DC 07/09/17 10:17 3.75 MLS/MIN Insulin Human Regular 250 units/ Sodium Chloride 252.5 ml @ 0 mls/hr Q24H IV 07/09/17 10:00 08/08/17 09:59 07/09/17 13:36 3 MLS/HR Sodium Chloride 1,000 ml @ 999 mls/hr Q1H1M STAT IV 07/09/17 10:35 07/09/17 11:35 DC 07/09/17 11:25 999 MLS/HR ED Course ED COURSE: Vital signs were reviewed and showed tachycardia and hypertension. The patients medical record was reviewed The above diagnostic studies were performed and reviewed. ED treatments and interventions as stated above. 0834: The patient was evaluated in room B11B. A complete history and physical examination was performed. 0841: Ordered Dilaudid Inj 0.5 mg IV, Vancomycin HCl 1500 mg/Sodium Chloride 280 ml @ 125 mls/hr IV. 0845: Ordered Cefazolin Sodium 2000 mg/Dextrose 65 mL @ 100 mL/hr IV. 0938: Ordered Dilaudid Inj 0.5 mg IV, Sodium Chloride 1000 ml @ 999 mls/hr IV, Insulin IV Infusion Protocal. 0943: Upon reevaluation, the patient is resting. I discussed my findings with the patient and she understands and agrees with the treatment plan. Based on the patients age, coexisting illnesses, exam and lab findings the decision to treat as an inpatient was made. The patient remained stable while under my care. The patient will be evaluated for further management. 0944: Ordered Sodium Chloride 1000 ml @ 999 mls/hr IV. Medical Decision Differential diagnosis includes etiologies such as cellulitis, abscess, MRSA infection, DVT, necrotizing fasciitis, dermatitis, drug eruption, as well as others were entertained. Patient is a 62-year-old female who presents the ER for severe right lower leg pain associated with erythema, swelling, chills which all started in the past 24 hours. She notes this feels like her previous bout cellulitis. She has not been eating and drinking much. Labs show a leukocytosis of over 20,000. Creatinine is elevated at 2.4 associated with a cath and a CO2 of 17. Lactate was elevated at 4.9. Blood cultures were drawn. Patient was given 3 L normal saline associated with IV antibiotics. She was admitted to internal medicine with sepsis secondary to cellulitis and DKA on insulin drip following an insulin bolus with blood sugars of 400. Medication Reconcilliation Current Medication List: was personally reviewed by me Blood Pressure Screening Patient's blood pressure: Elevated blood pressure Blood pressure disposition: Referred to PCP Consults Time Called: [phone] Consulting Physician: Dr. Camille CRESPO Hospitalist Returned Call: [phone] I reviewed the patient's case with Dr. Obrien. ZAK will evaluate the patient for further management. Impression Primary Impression: Sepsis Additional Impressions: Cellulitis DKA (diabetic ketoacidosis) Critical Care I have personally spent 35 minutes of critical care time in the direct management of this patient. This includes bedside care, interpretation of diagnostic studies, and testing, discussion with consultants, patient, and family members, and other required patient management activities. This 35 minutes is in excess of all separately billable procedures. Scribe Attestation The scribe's documentation has been prepared under my direction and personally reviewed by me in its entirety. I confirm that the note above accurately reflects all work, treatment, procedures, and medical decision making performed by me. Departure Information Dispostion Being Evaluated By Hospitalist Referrals Salvador Penaloza M.D. (PCP) Problem Qualifiers Primary Impression: Sepsis Sepsis type: sepsis due to unspecified organism Qualified Codes: A41.9 - Sepsis, unspecified organism Additional Impressions: Cellulitis Site of cellulitis: unspecified site Qualified Codes: L03.90 - Cellulitis, unspecified DKA (diabetic ketoacidosis) Diabetes mellitus type: other specified (including CHEMO) Diabetes mellitus complication detail: without coma Qualified Codes: E13.10 - Other specified diabetes mellitus with ketoacidosis without coma
[2017-07-09] MEDS ORDERED: MAGNESIUM SULFATE 1GM / D5W 1 GM in PREMIXED IN D5W 100 ML IV STA (14:36)
[2017-07-09] MEDS ORDERED: INFLUENZA VIRUS QUAD VACCINE 0.5 ML SYR IM. ONE (15:30)
[2017-07-09] MEDS ORDERED: INFLUENZA ADMINISTRATION CHARGE ONE (15:30)
[2017-07-09 15:38] VITALS: BP 131/57; PULSE 99; TEMP 37.1; O2SAT 95
[2017-07-09] MEDS: LACTOBACILLUS ACIDOPHILUS (FLORANEX) TAB PO SCH (15:47)
[2017-07-09] MEDS: HEPARIN SOD 5000 UNIT/0.5 ML CARP SQ SCH ×2 (15:49→22:51)
[2017-07-09 16:08] VITALS: BMI 51.0
[2017-07-09 16:44] LABS: CALCIUM 8.6 mg/dl (8.5-10.1); CREATININE 2.05 mg/dl (0.60-1.20); PHOSPHORUS 3.4 mg/dl (2.5-4.9)
[2017-07-09] MEDS: INSULIN ASPART 100 UNITS/ML 3 ML PEN SC SCH (17:15)
[2017-07-09] MEDS: CEFAZOLIN IV 2,000 MG in SYRINGE 0 ML IV SCH (18:15)
[2017-07-09] MEDS: NSS + 20MEQ KCL 1000ML 1,000 ML IV SCH (20:40)
[2017-07-09] MEDS: ACETAMINOPHEN 325 MG TAB PO PRN (20:40)
[2017-07-09] MEDS: SIMVASTATIN 40 MG TAB PO SCH (20:40)
[2017-07-09 20:51] LABS: CALCIUM 8.2 mg/dl (8.5-10.1); CREATININE 1.92 mg/dl (0.60-1.20)
[2017-07-09 20:58] LABS: PHOSPHORUS 2.1 mg/dl (2.5-4.9)
[2017-07-09] MEDS ORDERED: INSULIN GLARGINE SOLOSTAR 100 UNITS/ML 3 ML PEN SC SCH (21:00)
[2017-07-09 23:47] VITALS: BP 139/66; PULSE 95; TEMP 38.7; O2SAT 91
[2017-07-10] VITALS (8 sets, daily range): BP systolic 112–144; BP diastolic 45–73; PULSE 89–98; TEMP 36.8–37.7; O2SAT 90–99
[2017-07-10] MEDS: NSS + 20MEQ KCL 1000ML 1,000 ML IV SCH ×2 (02:09→09:45)
[2017-07-10] MEDS: CEFAZOLIN IV 2,000 MG in SYRINGE 0 ML IV SCH ×3 (02:09→17:14)
[2017-07-10] MEDS: HEPARIN SOD 5000 UNIT/0.5 ML CARP SQ SCH ×3 (06:01→20:52)
[2017-07-10] MEDS: LACTOBACILLUS ACIDOPHILUS (FLORANEX) TAB PO SCH ×3 (07:36→17:11)
[2017-07-10] MEDS: CETIRIZINE HCL 10 MG TAB PO SCH (07:36)
[2017-07-10] MEDS: PANTOprazole SOD 40 MG TAB PO SCH (07:37)
[2017-07-10] MEDS: FENOFIBRATE 145 MG TAB PO SCH (07:37)
--- NOTE | 2017-07-10 09:01 | Hospitalist Progress Note ---
Hospitalist Progress Note Date of Service Jul 10, 2017. Subjective Pt evaluation today including: conversation w/ patient, physical exam, lab review, review of studies, review of inpatient medication list Patient seen and evaluated. No acute events overnight. Anion gap closed and sugars better controlled. Insulin gtt quickly was able to be titrated off. Kidney function improving. Patient reports feeling a little bit better today. Continues to have leg pain mostly with trying to ambulate. Not much physical improvement in erythema today but has not progressed + BCx x 2 with gram + cocci and will await report Only complaint today is of a headache and lack of sleep Constitutional: + problem reported (headache), No fever, No chills Respiratory: No cough, No shortness of breath Cardiovascular: No chest pain Abdomen: No pain, No nausea, No vomiting, No diarrhea, No constipation Musculoskeletal: + problem reported (RLE pain mostly with ambulation) Female : No dysuria Heme: No abnormal bleeding/bruising Skin: + problem reported (continued erythema/edema of RLE) Medications Current Inpatient Medications Medications (Trade) Dose Ordered Sig/Oxana Route Start Time Stop Time Status Last Admin Dose Admin Insulin Human Regular 250 units/ Sodium Chloride 252.5 ml @ 0 mls/hr Q24H IV 07/09/17 10:00 08/08/17 09:59 07/09/17 13:36 3 MLS/HR Glucose (Glucose 40% Gel) 15-30 GRAMS 15 GRAMS... UD PRN PO 07/09/17 10:00 08/08/17 09:59 Glucose (Glucose Chew Tab) 4-8 Tablets 4 Tabl... UD PRN PO 07/09/17 10:00 08/08/17 09:59 Dextrose (Dextrose 50% 50ML Syringe) 25-50ML OF 50% DW IV FOR... UD PRN IV 07/09/17 10:00 08/08/17 09:59 Glucagon (Glucagon Inj) 1 mg UD PRN SQ 07/09/17 10:00 08/08/17 09:59 Heparin Sodium (Porcine) (Heparin Sq 5000 Unit/0.5ml) 5,000 unit Q8 SQ 07/09/17 14:00 08/08/17 13:59 07/10/17 06:01 5,000 UNIT Acetaminophen (Tylenol Tab) 650 mg Q4H PRN PO 07/09/17 10:15 08/08/17 10:14 07/09/17 20:40 650 MG Al Hydrox/Mg Hydrox/Simethicone (Maalox Max Susp) 15 ml Q4H PRN PO 07/09/17 10:15 08/08/17 10:14 Magnesium Hydroxide (Milk Of Magnesia Susp) 30 ml Q12H PRN PO 07/09/17 10:15 08/08/17 10:14 Ondansetron HCl (Zofran Inj) 4 mg Q6H PRN IV 07/09/17 10:15 08/08/17 10:14 Polyethylene (Miralax Powder Packet) 17 gm DAILY PRN PO 07/09/17 10:15 08/08/17 10:14 Insulin Aspart (novoLOG ASPART) [facility]ING [facility] 07/09/17 13:00 08/08/17 12:59 Miscellaneous Information (Consult Glycemic Management Pharmacy) 1 ea UD PRN N/A 07/09/17 11:10 08/08/17 11:09 Miscellaneous Information (Consult) 1 UD PRN N/A 07/09/17 10:45 08/08/17 10:44 Cetirizine HCl (zyrTEC TAB) 10 mg DAILY PO 07/10/17 09:00 08/09/17 08:59 07/10/17 07:36 10 MG Fenofibrate (Tricor Tab) 145 mg DAILY PO 07/10/17 09:00 08/09/17 08:59 07/10/17 07:37 145 MG Simvastatin (Zocor Tab) 40 mg QPM PO 07/09/17 21:00 08/08/17 20:59 07/09/17 20:40 40 MG Pantoprazole Sodium (Protonix Tab) 40 mg QAM PO 07/10/17 09:00 08/09/17 08:59 07/10/17 07:37 40 MG Hydromorphone HCl (Dilaudid Inj) 0.5 mg Q3H PRN IV 07/09/17 10:45 07/23/17 10:44 07/09/17 15:47 0.5 MG Lactobacillus Acidophilus (Floranex Tab) 4 tab TIDM PO 07/09/17 16:45 08/08/17 16:44 07/10/17 07:36 4 TAB Cefazolin Sodium 2000 mg/Syringe 15 ml @ 3.75 mls/ min Q8H IV 07/09/17 18:00 07/19/17 09:59 07/10/17 02:09 3.75 MLS/MIN Potassium Chloride/Sodium Chloride 1,000 ml @ 150 mls/hr Q6H40M IV 07/09/17 20:15 08/08/17 20:14 07/10/17 02:09 150 MLS/HR Objective Vital Signs Date Time Temp Pulse Resp B/P (MAP) Pulse Ox O2 Delivery O2 Flow Rate FiO2 07/10/17 07:34 95 Room Air 07/10/17 05:48 36.8 89 22 144/63 (90) 94 Nasal Cannula 2.0 07/10/17 04:15 Room Air 07/10/17 00:01 Room Air 07/09/17 23:47 38.7 95 22 139/66 (90) 91 Nasal Cannula 2.0 07/09/17 15:38 37.1 99 22 131/57 (81) 95 Nasal Cannula 2.0 07/09/17 13:25 37.1 99 22 110/73 95 Nasal Cannula 2.0 07/09/17 12:10 96 20 122/74 95 07/09/17 10:16 95 07/09/17 10:10 94 Nasal Cannula 2.0 07/09/17 10:01 95 16 125/67 88 Room Air Physical Exam General Appearance: WD/WN, no apparent distress Eyes: sclerae normal ENT: hearing grossly normal Neck: supple, no JVD, trachea midline Respiratory/Chest: lungs clear, normal breath sounds, no respiratory distress, no accessory muscle use, + decreased breath sounds (at bases - likely due to body habitus) Cardiovascular: regular rate, rhythm, no gallop, no murmur Abdomen: normal bowel sounds, non tender, soft Extremities: + pertinent finding (RLE remains edematous and erythematous without weeping, has not progressed passed the demarcated line; LLE chronic edema without erythema) Neurologic/Psychiatric: alert Skin: normal color (other than documented in extremities) Laboratory Results Last 24 Hours Test 07/09/17 09:57 07/09/17 10:29 07/09/17 13:09 07/09/17 13:15 Venous Blood pH 7.38 Venous Blood Partial Pressure CO2 39 mmHg Venous Blood Partial Pressure O2 35 mmHg Venous Blood HCO3 23 mmol/L Venous Blood Oxygen Saturation 63.3 % Venous Blood Base Excess -2.3 mEq/L Lactic Acid Level 4.9 mmol/L Bedside Glucose 295 mg/dl 273 mg/dl Sodium Level 135 mmol/L Potassium Level 4.2 mmol/L Chloride Level 104 mmol/L Carbon Dioxide Level 21 mmol/L Anion Gap 11.0 mmol/L Blood Urea Nitrogen 36 mg/dl Creatinine 2.21 mg/dl Est Creatinine Clear Calc Drug Dose 36.9 ml/min Estimated GFR () 26.6 Estimated GFR (Non- 23.0 BUN/Creatinine Ratio 16.3 Random Glucose 280 mg/dl Calcium Level 8.1 mg/dl Phosphorus Level 3.9 mg/dl Magnesium Level 1.7 mg/dl Procalcitonin 13.98 ng/ml Test 07/09/17 13:25 07/09/17 13:49 07/09/17 14:25 07/09/17 15:40 Venous Blood pH 7.35 Lactic Acid Level 4.0 mmol/L Hepatitis C Antibody Screen NEG Bedside Glucose 302 mg/dl 279 mg/dl Test 07/09/17 16:16 07/09/17 16:29 07/09/17 17:28 07/09/17 18:59 Venous Blood pH 7.30 Sodium Level 136 mmol/L Potassium Level 4.0 mmol/L Chloride Level 102 mmol/L Carbon Dioxide Level 21 mmol/L Anion Gap 13.0 mmol/L Blood Urea Nitrogen 37 mg/dl Creatinine 2.05 mg/dl Est Creatinine Clear Calc Drug Dose 39.8 ml/min Estimated GFR () 29.2 Estimated GFR (Non- 25.2 BUN/Creatinine Ratio 17.8 Random Glucose 287 mg/dl Calcium Level 8.6 mg/dl Phosphorus Level 3.4 mg/dl Magnesium Level 1.9 mg/dl Bedside Glucose 254 mg/dl 285 mg/dl 259 mg/dl Test 07/09/17 20:01 07/09/17 20:20 07/09/17 21:07 07/09/17 22:09 Bedside Glucose 231 mg/dl 215 mg/dl 217 mg/dl Venous Blood pH 7.43 Sodium Level 133 mmol/L Potassium Level 4.0 mmol/L Chloride Level 103 mmol/L Carbon Dioxide Level 22 mmol/L Anion Gap 9.0 mmol/L Blood Urea Nitrogen 34 mg/dl Creatinine 1.92 mg/dl Est Creatinine Clear Calc Drug Dose 42.5 ml/min Estimated GFR () 31.6 Estimated GFR (Non- 27.2 BUN/Creatinine Ratio 17.5 Random Glucose 230 mg/dl Calcium Level 8.2 mg/dl Phosphorus Level 2.1 mg/dl Magnesium Level 1.9 mg/dl Test 07/09/17 22:57 07/10/17 00:12 07/10/17 01:04 07/10/17 02:08 Bedside Glucose 175 mg/dl 142 mg/dl 165 mg/dl 148 mg/dl Test 07/10/17 03:05 07/10/17 04:03 07/10/17 04:57 07/10/17 06:02 Bedside Glucose 150 mg/dl 171 mg/dl 171 mg/dl 161 mg/dl Test 07/10/17 06:50 07/10/17 07:52 Bedside Glucose 160 mg/dl Random Vancomycin Level 20.2 mcg/ml Assessment and Plan Mr. Jordan is a 62 y/o female with PMHx of T2DM, HLD, Fatty Liver/Chronic Transaminitis, GERD, and PCOS who presents to the ED c/o RLE erythema/pain starting this AM. Diabetic Ketoacidosis/Metabolic Acidosis with T2DM: RESOLVED - Anion Gap Closed - A1c 8.6 - Initially placed on insulin gtt due to presence of anion gap and currently transitioning to SC insulin - will continue to hold Metformin - appreciate pharmacy assistance with glycemic management - Continue fluids with K supplementation - advance diet and likely can reduce fluids today and possibly stop them tomorrow - Daily BMP Sepsis 2/2 RLE Cellulitis superimposed on Chronic Lower Extremity Edema: Gram + Bacteremia - Ancef 2 g IV Q8H daily and Vancomycin Acute Kidney Injury 2/2 Dehydration/DKA/Sepsis: IMPROVING - Continues to improve with IVF - currently at 1.92 - continue to trend with daily BMP HLD/Fatty Liver Disease/Chronic Transaminitis: STABLE - LFTs normal at this time - continue Fenofibrate 145 mg daily and Simvastatin 40 mg daily GERD: - Protonix 40 mg daily DVT Prophylaxis: Heparin Code Status: FULL RESUSCITATION Disposition: - Await BCx and will need repeat to assess for sterility - possible D/C next 2- 3 days Continued [facility] stay due to: multiple IV medications needed Discharge planning: home
[2017-07-10] MEDS: INSULIN ASPART 100 UNITS/ML 3 ML PEN SC SCH ×6 (09:09→23:57)
[2017-07-10] MEDS: ACETAMINOPHEN 325 MG TAB PO PRN (09:45)
[2017-07-10 10:01] LABS: CREATININE 1.83 mg/dl (0.60-1.20)
[2017-07-10] MEDS ORDERED: INSULIN GLARGINE SOLOSTAR 100 UNITS/ML 3 ML PEN SC ONE (10:45)
--- NOTE | 2017-07-10 10:50 | Pharmacy Progress Note ---
Pharmacy Abx Dose Progress Nt Date of Service Jul 10, 2017. Pharmacy Dosing Scope The patient is currently receiving the following antimicrobial agents per Pharmacy consult: Vancomycin Objective Height (Feet): 5 Height (Inches): 5.00 Weight (Kilograms): 141.900 Vital Signs (Past 12Hrs) Vital Signs Past 12 Hours Date Time Temp Pulse Resp B/P (MAP) Pulse Ox O2 Delivery O2 Flow Rate FiO2 07/10/17 07:34 95 Room Air 07/10/17 05:48 36.8 89 22 144/63 (90) 94 Nasal Cannula 2.0 07/10/17 04:15 Room Air 07/10/17 00:01 Room Air 07/09/17 23:47 38.7 95 22 139/66 (90) 91 Nasal Cannula 2.0 Lab Results (24Hrs) Laboratory Tests (24 Hours) Test 07/09/17 13:15 07/09/17 13:25 Procalcitonin 13.98 ng/ml (0-0.5) H Lactic Acid Level 4.0 mmol/L (0.4-2.0) *H Micro Results Date/Time Source Procedure Growth Status 07/09/17 09:57 Blood Blood Culture - Preliminary Gram Positive Cocci Resulted 07/09/17 08:35 Blood Blood Culture - Preliminary Gram Positive Cocci Resulted Assessment & Plan Assessment Ms. Jordan's random lvl this AM came back therapeutic, 20.2mcg/mL. Leukocytosis w/ left shift. Fever. Lactic acid and Procalcitonin elevated. She presented w/ RLE cellulitis but has subsequently grown GPC in 2/2 bottles. Vancomycin dosing in Ms. Jordan will prove to be a challenge given her habitus and poor renal fxn. Her baseline Scr: 1.0/eCrCl=80cc/min. Current pt population p'kinetics: t1/ 2=17h, ke=[id number]. Will dose Vancomycin on current renal fxn. I surmise that her renal fxn will improve with IVF but not to her baseline. If renal fxn continues to trend toward baseline, shortening dosing interval may be prudent. Will discuss with primary team about ordering an ECHO to r/o IE. Plan Vancomycin: * Will start Vancomycin 1750mg (13mg/kg) q18 set to start at 1200 07/10/17 * Goal trough for confirmed bacteremia 15-20mcg/mL * Trough ordered for 07/12/17 @ 2990, this will be at [facility] will continue to follow and will adjust dose/frequency as necessary. Thank you.
--- NOTE | 2017-07-10 10:59 | Pharmacy Progress Note ---
Pharmacy Glycemic Short Note 2 Date of Service Jul 10, 2017. OUTPATIENT ANTIDIABETIC REGIMEN: * Lantus 60-70 units at bedtime and Novolog with scale ASSESSMENT: * Ms Jordan is a 62 y/o F with a PMH of HLD, fatty liver disease, GERD, PCOS, and poorly controlled type 2 diabetes (per Elements of Diabetes Care Scoring Scale patient's goal HbA1C is around 6.6-7.5%). The patient was admitted yesterday with elevated blood sugars and cellulitis. The patient's lactic acid was elevated at 4.9 and she has an acute kidney injury. Anion gap is slightly elevated at 17 and bicarbonate is 17. Patient was started on insulin infusion secondary to infection and metabolic changes. * Today, the patient has stabilized at 2.7 units/hr since midnight Plan to give an additional 35 units this morning to make 1.5 of the patient's home dose. Turn infusion off around 1330 so patient has been on for 24 hours. Give scale for the evening to accommodate higher dosing. Weight-based stress of 3 dosing will be used for Novolog (also correlates with dosing of 120 units/day -- 50 units of Lantus plus 2.7 units/hr x 24 hours). Overnight accuchecks ordered. PLAN FOR INPATIENT GLYCEMIC CONTROL: * Hold outpatient oral diabetes medications * Basal insulin * Lantus 35 units SQ x 1 then 40-60 units SQ BID * 40 units if blood sugar less than 120 mg/dL, 50 units if blood sugar 120-180 mg/dL, 60 units if blood sugar greater than 180 mg/dL * Bolus insulin * NovoLog per scale ACHS or Q6hrs while NPO * Goal Range: Low 110 mg/dL - High 140 mg/dL * Correction Factor: 10 mg/dL/unit * Nutritional / Prandial insulin per carb ratio of 1 unit per 4 grams CHO consumed
[2017-07-10] MEDS: VANCOMYCIN IV 1,750 MG in SODIUM CHLORIDE 0.9% 500ML 500 ML IV SCH (11:16)
[2017-07-10] MEDS: INSULIN REGULAR 250 UNITS in SODIUM CHLORIDE 0.9% 250ML 250 ML IV SCH (11:16)
[2017-07-10] MEDS ORDERED: NURSING VERBAL MED ORDER ONE ×2 (13:00)
[2017-07-10] MEDS ORDERED: DC IV INSULIN INFUSION ONE (13:30)
[2017-07-10] MEDS: ALUMINUM/MAGNESIUM/SIMETH (MAALOX MAX) 30 ML UDC PO PRN ×2 (14:20→20:45)
[2017-07-10] MEDS: HYDROCODONE/ACETAMIN 5/325MG TAB PO PRN ×2 (14:21→20:45)
[2017-07-10 15:12] LABS: CALCIUM 8.5 mg/dl (8.5-10.1); CREATININE 1.75 mg/dl (0.60-1.20); POTASSIUM 3.9 mmol/L (3.5-5.1)
[2017-07-10 16:05] LABS: HEMATOCRIT 37.4 % (37-47); HEMOGLOBIN 12.1 g/dL (12.0-16.0); MEAN CELL VOLUME 91.2 fL (80-100); MEAN CORPUSCULAR HEMOGLOBIN 29.5 pg (25-34); MEAN CORPUSCULAR HGB CONC 32.4 g/dl (32-36); MEAN PLATELET VOLUME 11.4 fL (7.4-10.4); PLATELET COUNT 121 K/uL (130-400); RED CELL DISTRIBUTION WIDTH SD 50.9 fL (36.4-46.3); WHITE BLOOD COUNT 8.38 K/uL (4.8-10.8)
[2017-07-10] MEDS: SIMVASTATIN 40 MG TAB PO SCH (20:45)
[2017-07-10] MEDS ORDERED: INSULIN GLARGINE SOLOSTAR 100 UNITS/ML 3 ML PEN SC SCH (21:00)
[2017-07-11] VITALS (12 sets, daily range): BP systolic 94–163; BP diastolic 46–83; PULSE 81–97; TEMP 36.7–37.3; O2SAT 93–98
[2017-07-11] MEDS: CEFAZOLIN IV 2,000 MG in SYRINGE 0 ML IV SCH ×2 (02:00→10:00)
[2017-07-11] MEDS: INSULIN ASPART 100 UNITS/ML 3 ML PEN SC SCH ×5 (04:15→21:39)
[2017-07-11] MEDS: HYDROCODONE/ACETAMIN 5/325MG TAB PO PRN ×2 (05:04→17:12)
[2017-07-11] MEDS: VANCOMYCIN IV 1,750 MG in SODIUM CHLORIDE 0.9% 500ML 500 ML IV SCH (05:06)
[2017-07-11] MEDS: HEPARIN SOD 5000 UNIT/0.5 ML CARP SQ SCH ×3 (05:07→21:39)
[2017-07-11 05:59] LABS: HEMATOCRIT 33.9 % (37-47); HEMOGLOBIN 11.4 g/dL (12.0-16.0); MEAN CELL VOLUME 89.9 fL (80-100); MEAN CORPUSCULAR HEMOGLOBIN 30.2 pg (25-34); MEAN CORPUSCULAR HGB CONC 33.6 g/dl (32-36); MEAN PLATELET VOLUME 11.8 fL (7.4-10.4); PLATELET COUNT 124 K/uL (130-400); RED CELL DISTRIBUTION WIDTH CV 14.9 % (11.5-14.5); RED CELL DISTRIBUTION WIDTH SD 49.1 fL (36.4-46.3); WHITE BLOOD COUNT 6.42 K/uL (4.8-10.8)
[2017-07-11 06:28] LABS: CALCIUM 8.3 mg/dl (8.5-10.1); CREATININE 1.52 mg/dl (0.60-1.20); POTASSIUM 3.5 mmol/L (3.5-5.1)
[2017-07-11] MEDS: LACTOBACILLUS ACIDOPHILUS (FLORANEX) TAB PO SCH ×3 (08:06→17:10)
[2017-07-11] MEDS: PANTOprazole SOD 40 MG TAB PO SCH (08:06)
[2017-07-11] MEDS: CETIRIZINE HCL 10 MG TAB PO SCH (08:07)
[2017-07-11] MEDS: FENOFIBRATE 145 MG TAB PO SCH (08:07)
[2017-07-11] MEDS ORDERED: FUROSEMIDE 40 MG TAB PO SCH (09:00)
--- NOTE | 2017-07-11 11:29 | INFECT. DISEASE CONSULTATION ---
DATE OF CONSULTATION: 07/11/2017 HISTORY OF PRESENT ILLNESS: This is a 62-year-old female who was admitted to the hospital with worsening right lower extremity pain and erythema. She states that she did have fevers and chills 1 day prior to this, but her leg was not erythematous, not painful and she was able to ambulate without difficulty. She woke up the next morning and noticed worsening erythema and pain in her legs. She denies any trauma to the area. This continued to become more painful and erythematous and she presented to the Emergency Room. She did have an ultrasound, which was negative for clot. She was started on empiric antibiotics. She currently is on vancomycin and Ancef and appears to be tolerating them well. Her T-max is 38.7. She initially had a white blood cell count of 20,000 in the ER, but this has improved to 6000. She did have blood cultures done in the Emergency Room on the , which are growing group A strep in 2/2 bottles. Her repeat blood cultures from the are pending. Her creatinine was elevated at 2.4, but has improved to 1.5. On my examination today, she denies any additional fevers or chills. She denies any abdominal pain, nausea, vomiting or diarrhea. She is eating without difficulty. She denies any chest pain, cough or shortness of breath. With regards to her right lower extremity, she still remains with pain, swelling and erythema, but states this is slightly improved. Her remaining review of systems is unremarkable. PAST MEDICAL HISTORY: Significant for a history of cellulitis, type 2 diabetes, hyperlipidemia, fatty liver with chronic transaminitis, GERD, and PCOS. FAMILY HISTORY: Noncontributory. SOCIAL HISTORY: Negative for tobacco use, alcohol use or drug use. ALLERGIES: She has no known drug allergies. MEDICATIONS: Include Lasix, NovoLog, Percocet, vancomycin, Zyrtec, TriCor, Protonix, Zocor, Ancef, Floranex, subQ heparin, Tylenol, Dilaudid, Maalox, milk of magnesia, Zofran, MiraLax. PHYSICAL EXAMINATION: VITAL SIGNS: She is currently afebrile, pulse 90, respiratory rate 18, blood pressure is 94/46, oxygen saturation is 98% on room air. GENERAL: She is awake, alert and oriented x3. She is in no acute distress. HEENT: Mucous membranes are moist. Extraocular muscles are intact. HEART: Regular. LUNGS: Clear, but decreased at the bases. ABDOMEN: Soft and nondistended. There is significant right lower extremity erythema, warmth and edema. There is no tenderness to palpation. LABORATORY STUDIES: CBC reveals a white blood cell count of 6.4, hemoglobin 11.4, platelets 124. Chemistry panel reveals a sodium of 135, potassium 3.5, chloride 106, bicarbonate 21, BUN 35, creatinine 1.5, glucose is 141. LFTs in the ER were normal. Vancomycin level yesterday was 20.9. Hep C antibody is negative. Again, initial blood cultures are growing group A strep. Final sensitivities are pending. Repeat blood cultures on the are pending. A stool for C. diff on the is negative. Ultrasound was negative for DVT. ASSESSMENT AND PLAN: 1. Group B strep septicemia. 2. Right lower extremity cellulitis. 3. Leukocytosis, improved. She will continue on Ancef. Her vancomycin can be discontinued. I did discuss with her primary service. Certainly, she will likely need a prolonged course of antibiotics secondary to the severity of her cellulitis. I think within the likely range of 21 days, I would prefer to treat her with IV antibiotics upon discharge. If her repeat blood cultures are negative, a PICC line could be placed and depending on sensitivities, she could be placed on a daily dose of Rocephin for ease of use. She certainly can follow up with infectious diseases post-discharge from the hospital. Thank you for this consultation.
--- NOTE | 2017-07-11 11:35 | Progress Note ---
Progress Note Date of Service Jul 11, 2017. Progress Note ID Consult Dictated #[id number] A/P: 1. Group A Strep Sepsis 2. RLE Cellulitis 3. Leukocytosis - improved -Continue ancef for now, can stop vanco -Will likely require 21 days IV abx, if sensitive would change to rocephin 2 g daily -thank you
[2017-07-11] MEDS ORDERED: INSULIN GLARGINE SOLOSTAR 100 UNITS/ML 3 ML PEN SC ONE (12:00)
--- NOTE | 2017-07-11 13:02 | Pharmacy Progress Note ---
Pharmacy Glycemic Short Note 2 Date of Service Jul 11, 2017. OUTPATIENT ANTIDIABETIC REGIMEN: * Lantus 60-70 units at bedtime and Novolog with scale ASSESSMENT: * Ms Jordan is a 62 y/o F with a PMH of HLD, fatty liver disease, GERD, PCOS, and poorly controlled type 2 diabetes (per Elements of Diabetes Care Scoring Scale patient's goal HbA1C is around 6.6-7.5%). The patient was admitted with elevated blood sugars and cellulitis. The patient's lactic acid was elevated at 4.9 and she has an acute kidney injury. Patient was initially started on insulin infusion secondary to infection and metabolic changes. Yesterday she was transitioned off of the insulin infusion. * She was given 35 units of Lantus yesterday morning and then received 50 units per the scale in the evening. Patient received 3 units of insulin overnight. Blood sugars after infusion was turned off were [phone] mg/dL and fasting this morning was 141 mg/dL. Lunch as 296 mg/dL. This is most likely from a lack of basal insulin... gave additional 20 units this morning and increased scale. * Continue weight-based stress of 3 Novolog for the time being as the patient will have some insulin resistance from the insulin infusion. Expect this to be loosened as hospitalization progresses. Continue to hold metformin while hospitalized. PLAN FOR INPATIENT GLYCEMIC CONTROL: * Hold outpatient oral diabetes medications * Basal insulin * Lantus 50-70 units SQ HS * 50 units if blood sugar less than 120 mg/dL, 60 units if blood sugar 120-180 mg/dL, 70 units if blood sugar greater than 180 mg/dL * Bolus insulin * NovoLog per scale ACHS or Q6hrs while NPO * Goal Range: Low 110 mg/dL - High 140 mg/dL * Correction Factor: 10 mg/dL/unit * Nutritional / Prandial insulin per carb ratio of 1 unit per 4 grams CHO consumed RECOMMENDATIONS FOR DISCHARGE * Patient is not controlled on home regimen.... recommend evaluating patient for noncompliance as these are very high doses of insulin. Work with patient to reinforce importance of glycemic management. Work with outpatient provider to titrate insulin to desired blood glucose readings.
--- NOTE | 2017-07-11 14:36 | Progress Note ---
Subjective Date of Service: Jul 11, 2017. Subjective Pt evaluation today including: conversation w/ patient, physical exam, chart review, lab review, review of studies, conversation w/ it support consultant, review of inpatient medication list Normal spiking fever, T-max trend down, has good urine output, but still reported significant right lower extremity pain and hot and swelling Problem List Medical Problems: (1) Bilateral leg pain Status: Acute (2) DKA (diabetic ketoacidosis) Status: Acute (3) Left foot pain Status: Acute (4) Left hip pain Status: Acute (5) Left knee pain Status: Acute (6) Right shoulder pain Status: Acute (7) Sepsis Status: Acute Review of Systems Constitutional: + fever, + weakness, + fatigue, No chills, No sweats, No weight loss, No problem reported Eyes: No worsening of vision, No eye pain, No redness, No discharge, No diplopia ENT: No hearing loss, No unusual epistaxis, No nasal symptoms, No sore throat, No tinnitus, No dental problems, No trouble swallowing Respiratory: No cough, No sputum, No wheezing, No shortness of breath, No dyspnea on exertion, No dyspnea at rest, No hemoptysis Cardiac: + edema, No chest pain, No orthopnea, No PND, No claudication, No palpitations Abdomen: No pain, No nausea, No vomiting, No diarrhea, No constipation Musculoskeletal: + joint pain, No muscle pain, No swelling, No calf pain Female : No dysuria, No urinary frequency, No hematuria, No incontinence, No abnormal vaginal bleeding, No vaginal discharge Neurologic: No memory loss, No paralysis, No weakness, No numbness/tingling, No vertigo, No balance problems Psychiatric: No depression symptoms, No anhedonism, No anxiety, No insomnia, No substance abuse Heme: No abnormal bleeding/bruising, No clotting problems, No swollen lymph nodes, No night sweats Endo: No fatigue, No excessive thirst, No excessive urination Skin: + rash, No itch, No new/changing skin lesions, No color change, No bleeding Objective Vital Signs Date Time Temp Pulse Resp B/P (MAP) Pulse Ox O2 Delivery O2 Flow Rate FiO2 07/11/17 12:00 95 Room Air 07/11/17 11:08 36.8 90 18 163/83 (109) 93 07/11/17 08:00 98 Room Air 07/11/17 07:50 36.8 90 18 94/46 (62) 93 07/11/17 04:00 Room Air 07/11/17 03:19 36.8 94 18 119/63 (81) 94 Nasal Cannula 3.0 07/11/17 00:16 37.3 97 19 121/65 (83) 94 Nasal Cannula 3.0 07/11/17 00:01 Room Air 07/10/17 20:23 37.0 98 20 122/73 (89) 99 Nasal Cannula 2.0 07/10/17 20:00 Room Air 07/10/17 16:00 95 Room Air 07/10/17 15:31 37.2 95 20 112/54 (73) 93 Room Air Physical Exam General Appearance: WD/WN, no apparent distress, + obese Eyes: normal inspection, PERRL, EOMI, sclerae normal ENT: normal ENT inspection, hearing grossly normal, pharynx normal Neck: supple, no adenopathy, thyroid normal, no JVD, no carotid bruits, trachea midline Respiratory/Chest: chest non-tender, normal breath sounds, no respiratory distress, no accessory muscle use, + decreased breath sounds Cardiovascular: regular rate, rhythm, no gallop, no JVD, no murmur, + pertinent finding (2-3+ right bigger than left) Abdomen: normal bowel sounds, non tender, soft, no organomegaly, no pulsatile mass Extremities: normal range of motion, non-tender, normal inspection, no pedal edema, no calf tenderness, normal capillary refill, pelvis stable Neurologic/Psychiatric: patent drafter II-XII nml as tested, no motor/sensory deficits, alert, normal mood/affect, oriented x 3 Skin: normal color, warm/dry, no rash Lymphatic: no adenopathy Laboratory Results Last 24 Hours Test 07/10/17 16:24 07/10/17 20:28 07/10/17 23:54 07/11/17 04:20 Bedside Glucose 162 mg/dl 175 mg/dl 167 mg/dl 124 mg/dl Test 07/11/17 05:22 07/11/17 06:38 07/11/17 11:20 White Blood Count 6.42 K/uL Red Blood Count 3.77 M/uL Hemoglobin 11.4 g/dL Hematocrit 33.9 % Mean Corpuscular Volume 89.9 fL Mean Corpuscular Hemoglobin 30.2 pg Mean Corpuscular Hemoglobin Concent 33.6 g/dl RDW Standard Deviation 49.1 fL RDW Coefficient of Variation 14.9 % Platelet Count 124 K/uL Mean Platelet Volume 11.8 fL Sodium Level 135 mmol/L Potassium Level 3.5 mmol/L Chloride Level 106 mmol/L Carbon Dioxide Level 21 mmol/L Anion Gap 8.0 mmol/L Blood Urea Nitrogen 35 mg/dl Creatinine 1.52 mg/dl Est Creatinine Clear Calc Drug Dose 53.2 ml/min Estimated GFR () 41.9 Estimated GFR (Non- 36.1 BUN/Creatinine Ratio 22.9 Random Glucose 131 mg/dl Calcium Level 8.3 mg/dl Phosphorus Level 2.0 mg/dl Magnesium Level 2.4 mg/dl Bedside Glucose 141 mg/dl 296 mg/dl Assessment and Plan 62 y/o female admitted because of sepsis, bacteremia, secondary to right lower extremity cellulitis, associated with RLE erythema/pain upon admission Mild diabetic Ketoacidosis/Metabolic Acidosis with uncontrolled T2DM upon admission: RESOLVED - Anion Gap Closed - A1c 8.6 Was placed on insulin gtt due to presence of anion gap and currently transitioning to SC insulin continue to hold Metformin - appreciate pharmacy assistance with glycemic management Continue Lantus and insulin sliding scale Sepsis 2/2 RLE Cellulitis superimposed on Chronic Lower Extremity Edema: Gram + Bacteremia Strep bacteremia likely from cellulitis, Discussed with infectious disease, started Rocephin 2 g IV daily, for totally 21 days from the time of negative repeat blood culture, can consider PICC line when repeated culture negative Acute Kidney Injury 2/2 Dehydration/DKA/Sepsis: Stable IMPROVING HLD/Fatty Liver Disease/Chronic Transaminitis: STABLE GERD: - Protonix 40 mg daily Possible fluid overload, was on 40 mg p.o. Lasix daily at home, has restarted Lasix at 20 mg p.o. daily , we will follow-up renal function PMHx of T2DM, HLD, Fatty Liver/Chronic Transaminitis, GERD, and PCOS DVT Prophylaxis: Heparin Code Status: FULL RESUSCITATION Continued [facility] stay due to: multiple IV medications needed Discharge planning: home
[2017-07-11] MEDS: ALBUT/IPRATROP 3MG/0.5MG NEB 3 ML VIAL INH SCH ×2 (15:50→20:00)
[2017-07-11] MEDS: CEFTRIAXONE SOD INJ 2000 MG in DEXTROSE 5% 50ML IV SCH (17:09)
[2017-07-11] MEDS: SIMVASTATIN 40 MG TAB PO SCH (21:37)
[2017-07-11] MEDS: INSULIN GLARGINE SOLOSTAR 100 UNITS/ML 3 ML PEN SC SCH (21:38)
[2017-07-11] MEDS ORDERED: VANCOMYCIN TROUGH ONE (23:30)
[2017-07-12] VITALS (14 sets, daily range): BP systolic 112–166; BP diastolic 71–89; PULSE 74–101; TEMP 36.5–37.7; O2SAT 94–96; Ht 165.1 cm; Wt 119.6 kg
[2017-07-12] MEDS: HEPARIN SOD 5000 UNIT/0.5 ML CARP SQ SCH ×3 (06:06→21:11)
[2017-07-12 06:11] LABS: HEMATOCRIT 35.2 % (37-47); HEMOGLOBIN 11.8 g/dL (12.0-16.0); MEAN CELL VOLUME 88.4 fL (80-100); MEAN CORPUSCULAR HEMOGLOBIN 29.6 pg (25-34); MEAN CORPUSCULAR HGB CONC 33.5 g/dl (32-36); MEAN PLATELET VOLUME 11.2 fL (7.4-10.4); PLATELET COUNT 132 K/uL (130-400); RED CELL DISTRIBUTION WIDTH SD 48.6 fL (36.4-46.3)
[2017-07-12 06:47] LABS: CALCIUM 8.7 mg/dl (8.5-10.1); CREATININE 1.44 mg/dl (0.60-1.20); PHOSPHORUS 1.6 mg/dl (2.5-4.9); POTASSIUM 3.1 mmol/L (3.5-5.1)
[2017-07-12] MEDS: ALBUT/IPRATROP 3MG/0.5MG NEB 3 ML VIAL INH SCH ×3 (06:54→15:21)
[2017-07-12] MEDS ORDERED: POTASSIUM CHLORIDE 10 MEQ TABCR PO STA (07:59)
[2017-07-12] MEDS ORDERED: POTASSIUM PHOS 3 MMOL/1 ML INFUSION IV STA (07:59)
[2017-07-12] MEDS ORDERED: POTASSIUM PHOSPHATE INJ 30 MMOL in SODIUM CHLORIDE 0.9% 500ML 500 ML IV ONE (08:15)
[2017-07-12] MEDS: INSULIN ASPART 100 UNITS/ML 3 ML PEN SC SCH ×4 (08:54→20:41)
[2017-07-12] MEDS: POTASSIUM CHLORIDE 20 MEQ TABCR PO SCH (08:57)
[2017-07-12] MEDS: FENOFIBRATE 145 MG TAB PO SCH (08:58)
[2017-07-12] MEDS: PANTOprazole SOD 40 MG TAB PO SCH (08:58)
[2017-07-12] MEDS: LACTOBACILLUS ACIDOPHILUS (FLORANEX) TAB PO SCH ×3 (08:58→17:39)
[2017-07-12] MEDS: CETIRIZINE HCL 10 MG TAB PO SCH (08:58)
[2017-07-12] MEDS ORDERED: FUROSEMIDE 20 MG TAB PO SCH (09:00)
[2017-07-12] MEDS ORDERED: PERFLUTREN LIPID MICROSPHERE (DEFINITY) IV ONE (09:35)
--- NOTE | 2017-07-12 11:41 | ECHOCARDIOGRAM REPORT ---
*NOTICE TO RECEIVING LIBERTARIAN AGENCY This information is strictly Confidential and protected under [place] law. [place] law prohibits you from making any further disclosure of this information unless further disclosure is expressly permitted by the written consent of the person to whom it pertains or is authorized by law. A general authorization for the release of medical or other information is not sufficient for this purpose. Hospital accepts no responsibility if the information is made available to any other person, INCLUDING THE PATIENT. Interpretation Summary * Name: TEAGAN PERRY Study Date: 07/12/2017 08:59 AM BP: 135/71 mmHg * Patient Location: C.2E\S\E203\S\1 HR: 94 * : 1955 (M/d/yyyy) Gender: Female Height: 65 in * Age: 62 yrs Ethnicity: CA Weight: 312 lb * Ordering Physician: Kyree Obrien * Referring Physician: Self, Referred * Performed By: Ena Sawant RDCS * * Reason For Study: CHF * BSA: 2.4 m2 * -- Conclusions -- * Technically limited study, contrast enhanced. * Left ventricular systolic function is normal. * No regional wall motion abnormalities noted. * Ejection Fraction = 65-70%. * There is borderline concentric left ventricular hypertrophy. * Grade I diastolic dysfunction, (abnormal relaxation pattern). Procedure Details * A complete two-dimensional transthoracic echocardiogram was performed (2D, M-mode, Doppler and color flow Doppler). * A contrast injection of Definity was performed to improve assessment of LV function. * Contrast was injected into an intravenous site in the left arm. * One vial of Definity ultrasound contrast was diluted in normal saline to a total volume of 10 ml. A total of '2' ml of solution was administered during imaging. * Lot # [id number] of Definity utilized for procedure. * Expiration date JUL 31. * The attending nurse who injected the contrast agent was Errol Valenzuela RN. Left Ventricle * The left ventricle is normal in size. * There is borderline concentric left ventricular hypertrophy. * Ejection Fraction = 65-70%. * Left ventricular systolic function is normal. * No regional wall motion abnormalities noted. Right Ventricle * The right ventricle is not well visualized. * The right ventricular systolic function is normal as assessed by tricuspid annular plane systolic excursion (TAPSE) (normal >1.5 cm). Atria * Borderline left atrial enlargement. * Right atrium not well visualized. * There is no evidence of atrial septal defect, but resolution does not allow assessment for a patent foramen ovale. Mitral Valve * The mitral valve anatomy is normal. * There is no mitral valve stenosis. * Significant mitral regurgitation is absent. Tricuspid Valve * The tricuspid valve is not well visualized. * There is no tricuspid stenosis. * Significant tricuspid regurgitation is absent. Aortic Valve * The aortic valve is not well visualized. * The aortic valve opens well. * No hemodynamically significant valvular aortic stenosis. * There is no significant aortic regurgitation. Pulmonic Valve * The pulmonary valve is not well seen, but the Doppler examination is normal without significant regurgitation or stenosis. Great Vessels * The aortic root and proximal ascending aorta are normal sized. * The pulmonary is not well visualized. Pericardium/Pleural * There is no pericardial effusion. Great Vessels * Normal inferior vena cava size and collapsability with sniff indicates a normal right atrial pressure of 3 mmHg Left Ventricular Diastolic Function * Grade I diastolic dysfunction, (abnormal relaxation pattern). MMode 2D Measurements and Calculations IVSd 1.6 cm LVIDd 3.9 cm LVIDs 2.6 cm LVPWd 1.3 cm IVS/LVPW 1.2 FS 32.9 % EDV(Teich) 67.4 ml ESV(Teich) 25.6 ml EF(Teich) 62.0 % EDV(cubed) 61.0 ml ESV(cubed) 18.4 ml EF(cubed) 69.8 % LV mass(C)d 208.9 grams LV mass(C)dI 87.4 grams/m\S\2 SV(Teich) 41.8 ml SI(Teich) 17.5 ml/m\S\2 SV(cubed) 42.6 ml SI(cubed) 17.8 ml/m\S\2 Ao root diam 2.4 cm Ao root area 4.4 cm\S\2 LA dimension 4.0 cm asc Aorta Diam 3.1 cm LA/Ao 1.7 LVOT diam 2.0 cm LVOT area 3.0 cm\S\2 LVAd ap4 32.1 cm\S\2 LVLd ap4 8.2 cm EDV(MOD-sp4) 106.5 ml EDV(sp4-el) 106.7 ml LVAs ap4 17.4 cm\S\2 LVLs ap4 6.7 cm ESV(MOD-sp4) 38.2 ml ESV(sp4-el) 38.7 ml EF(MOD-sp4) 64.1 % EF(sp4-el) 63.8 % LVAd ap2 31.0 cm\S\2 LVLd ap2 7.8 cm EDV(MOD-sp2) 100.3 ml EDV(sp2-el) 103.7 ml LVAs ap2 15.7 cm\S\2 LVLs ap2 5.7 cm ESV(MOD-sp2) 35.6 ml ESV(sp2-el) 37.0 ml EF(MOD-sp2) 64.5 % EF(sp2-el) 64.3 % LVLd %diff -4.37 % EDV(MOD-bp) 102.6 ml LVLs %diff -17.41 % ESV(MOD-bp) 39.9 ml EF(MOD-bp) 61.1 % SV(MOD-sp4) 68.3 ml SI(MOD-sp4) 28.6 ml/m\S\2 SV(MOD-sp2) 64.7 ml SI(MOD-sp2) 27.1 ml/m\S\2 SV(MOD-bp) 62.7 ml SI(MOD-bp) 26.3 ml/m\S\2 SV(sp4-el) 68.1 ml SI(sp4-el) 28.5 ml/m\S\2 SV(sp2-el) 66.6 ml SI(sp2-el) 27.9 ml/m\S\2 Doppler Measurements and Calculations MV E max philly 85.7 cm/sec MV A max philly 122.3 cm/sec MV E/A 0.70 MV dec time 0.26 sec Ao V2 max 236.2 cm/sec Ao max PG 22.3 mmHg Ao max PG (full) 10.2 mmHg TRUPTI(V,A) 2.2 cm\S\2 TRUPTI(V,D) 2.2 cm\S\2 LV V1 max PG 12.1 mmHg LV V1 max 173.8 cm/sec PA V2 max 158.8 cm/sec PA max PG 10.1 mmHg PA acc slope 1242.6 cm/sec\S\2 PA acc time 0.08 sec TR max philly 160.2 cm/sec PA pr(Accel) 42.6 mmHg
[2017-07-12] MEDS ORDERED: LOPERAMIDE HCL 2 MG CAP PO PRN (12:45)
[2017-07-12] MEDS ORDERED: FUROSEMIDE 20 MG TAB PO STA (12:45)
--- NOTE | 2017-07-12 13:38 | Progress Note ---
Subjective Date of Service: Jul 12, 2017. Subjective Pt evaluation today including: conversation w/ patient, conversation w/ family , physical exam, chart review, lab review, review of studies, review of inpatient medication list Voiding: brown catheter in place Mild labored breathing, on oxygen, decreased appetite, no spiking fever, generally feeling a little bit better than yesterday, however right lower extremity still red hot swelling and tender, mild pain has somehow up to bilateral upper thigh, which could be from muscle spasm Problem List Medical Problems: (1) Bilateral leg pain Status: Acute (2) DKA (diabetic ketoacidosis) Status: Acute (3) Left foot pain Status: Acute (4) Left hip pain Status: Acute (5) Left knee pain Status: Acute (6) Right shoulder pain Status: Acute (7) Sepsis Status: Acute Review of Systems Constitutional: + weakness, + fatigue, No fever, No chills, No sweats, No weight loss, No problem reported Eyes: No worsening of vision, No eye pain, No redness, No discharge, No diplopia ENT: No hearing loss, No unusual epistaxis, No nasal symptoms, No sore throat, No tinnitus, No dental problems, No trouble swallowing Respiratory: No cough, No sputum, No wheezing, No shortness of breath, No dyspnea on exertion, No dyspnea at rest, No hemoptysis Cardiac: + edema, No chest pain, No orthopnea, No PND, No claudication, No palpitations Abdomen: No pain, No nausea, No vomiting, No diarrhea, No constipation Musculoskeletal: + joint pain, + swelling, No muscle pain, No calf pain Female : No dysuria, No urinary frequency, No hematuria, No incontinence, No abnormal vaginal bleeding, No vaginal discharge Neurologic: No memory loss, No paralysis, No weakness, No numbness/tingling, No vertigo, No balance problems Psychiatric: No depression symptoms, No anhedonism, No anxiety, No insomnia, No substance abuse Heme: No abnormal bleeding/bruising, No clotting problems, No swollen lymph nodes, No night sweats Endo: No fatigue, No excessive thirst, No excessive urination Skin: + rash, No itch, No new/changing skin lesions, No color change, No bleeding Objective Vital Signs Date Time Temp Pulse Resp B/P (MAP) Pulse Ox O2 Delivery O2 Flow Rate FiO2 3/31/18 12:00 95 Nasal Cannula 2.0 07/12/17 11:41 36.5 92 20 139/79 (99) 95 Nasal Cannula 2.0 07/12/17 11:19 93 18 96 Nasal Cannula 2.0 07/12/17 08:00 96 Nasal Cannula 2.0 07/12/17 07:38 37.7 94 20 135/71 (92) 96 Nasal Cannula 2.0 07/12/17 07:22 83 18 96 Nasal Cannula 3.0 07/12/17 04:00 96 Nasal Cannula 3.0 07/12/17 03:56 36.6 74 23 141/71 (94) 96 Nasal Cannula 3.0 07/12/17 00:12 96 Nasal Cannula 3.0 07/11/17 23:10 36.7 95 21 126/67 (86) 98 Nasal Cannula 3.0 07/11/17 21:03 91 18 96 Nasal Cannula 3.0 07/11/17 20:00 95 Nasal Cannula 2.0 07/11/17 19:30 37.1 90 20 133/74 (93) 94 Nasal Cannula 2.0 07/11/17 16:00 95 Room Air 07/11/17 16:00 37.0 81 22 154/63 (93) 94 Room Air 07/11/17 15:54 96 18 97 Nasal Cannula 3.0 Physical Exam General Appearance: WD/WN, no apparent distress, + obese (Morbid obesity) Eyes: normal inspection, PERRL, EOMI, sclerae normal ENT: normal ENT inspection, hearing grossly normal, pharynx normal Neck: supple, no adenopathy, thyroid normal, no JVD, no carotid bruits, trachea midline Respiratory/Chest: chest non-tender, normal breath sounds, no respiratory distress, no accessory muscle use, + decreased breath sounds, + wheezing ( Occasional) Cardiovascular: regular rate, rhythm, no gallop, no JVD, no murmur, + pertinent finding (1+, right lower extremity more swelling) Abdomen: normal bowel sounds, non tender, soft, no organomegaly, no pulsatile mass Extremities: no calf tenderness, normal capillary refill, pelvis stable, + swelling, + pertinent finding Neurologic/Psychiatric: roller skater II-XII nml as tested, no motor/sensory deficits, alert, normal mood/affect, oriented x 3 Skin: + pertinent finding (Right lower extremity below knee erythema swelling and hot minimal improvement) Lymphatic: no adenopathy Laboratory Results Last 24 Hours Test 07/11/17 15:43 07/11/17 16:10 07/11/17 20:49 07/12/17 06:02 Arterial Blood pH 7.47 Arterial Blood Partial Pressure CO2 31 mmHg Arterial Blood Partial Pressure O2 76 mm/Hg Arterial Blood HCO3 22 mmol/L Arterial Blood Oxygen Saturation 95.4 % Arterial Blood Base Excess -1.0 mEq/L Arterial Blood Gas Delivery 3 LITERS Devin Test POS Pro-B-Type Natriuretic Peptide 1136 pg/ml Bedside Glucose 201 mg/dl 235 mg/dl White Blood Count 10.50 K/uL Red Blood Count 3.98 M/uL Hemoglobin 11.8 g/dL Hematocrit 35.2 % Mean Corpuscular Volume 88.4 fL Mean Corpuscular Hemoglobin 29.6 pg Mean Corpuscular Hemoglobin Concent 33.5 g/dl RDW Standard Deviation 48.6 fL RDW Coefficient of Variation 15.0 % Platelet Count 132 K/uL Mean Platelet Volume 11.2 fL Venous Blood pH 7.44 Sodium Level 135 mmol/L Potassium Level 3.1 mmol/L Chloride Level 104 mmol/L Carbon Dioxide Level 21 mmol/L Anion Gap 10.0 mmol/L Blood Urea Nitrogen 29 mg/dl Creatinine 1.44 mg/dl Est Creatinine Clear Calc Drug Dose 57.4 ml/min Estimated GFR () 44.7 Estimated GFR (Non- 38.6 BUN/Creatinine Ratio 20.4 Random Glucose 156 mg/dl Calcium Level 8.7 mg/dl Phosphorus Level 1.6 mg/dl Magnesium Level 2.4 mg/dl Test 07/12/17 06:53 07/12/17 11:00 Bedside Glucose 149 mg/dl 228 mg/dl Assessment and Plan 62 y/o female admitted on July 09, 2017 because of sepsis, bacteremia, secondary to right lower extremity cellulitis, associated with RLE erythema/ pain upon admission Sepsis 2/2 RLE Cellulitis superimposed on Chronic Lower Extremity Edema: Group B strep bacteremia likely from cellulitis, Discussed with infectious disease, started Rocephin 2 g IV daily, for totally 21 days from the time of negative repeat blood culture, can consider PICC line when repeated culture negative, possible request PICC placement tomorrow, has obtained consent for PICC Possible mild CHF exacerbation with diastolic dysfunction grade 1, with mild elevated BNP, lower extremity swelling, Is on 40 mg Lasix p.o. daily at home, has tolerated 20 mg p.o. nightly daily on Lasix, yesterday, will increase to 40 mg p.o. daily ecgo on july 12 2017: * Technically limited study, contrast enhanced. * Left ventricular systolic function is normal. * No regional wall motion abnormalities noted. * Ejection Fraction = 65-70%. * There is borderline concentric left ventricular hypertrophy. * Grade I diastolic dysfunction, (abnormal relaxation pattern). Diarrhea, possible from side effect of antibiotic, C. difficile is negative, start Imodium Acute Kidney Injury 2/2 Dehydration/DKA/Sepsis: Stable IMPROVING HLD/Fatty Liver Disease/Chronic Transaminitis: STABLE GERD: Protonix 40 mg daily Mild diabetic Ketoacidosis/Metabolic Acidosis with uncontrolled T2DM upon admission: RESOLVED - Anion Gap Closed - A1c 8.6 Was placed on insulin gtt due to presence of anion gap and currently transitioning to SC insulin continue to hold Metformin - appreciate pharmacy assistance with glycemic management Continue Lantus and insulin sliding scale PMHx of T2DM, HLD, Fatty Liver/Chronic Transaminitis, GERD, and PCOS DVT Prophylaxis: Heparin Code Status: FULL RESUSCITATION, increase activity, PT OT, discussed with patient and family about patient conditions, answered all questions Continued [facility] stay due to: multiple IV medications needed Discharge planning: home
--- NOTE | 2017-07-12 14:05 | DIAGNOSTIC IMAGING REPORT ---
CT SCAN OF THE RIGHT LOWER EXTREMITY WITHOUT IV CONTRAST CLINICAL HISTORY: Cellulitis. COMPARISON STUDY: Right lower extremity venous ultrasound dated 07/09/2017. TECHNIQUE: CT scan of the right lower extremity is performed from the knee to the ankle. Images are reviewed in the axial, sagittal, and coronal planes. IV contrast was not administered as per the referring clinician. Note that the examination was performed in suboptimal fashion without IV contrast. A dose lowering technique was utilized adhering to the principles of ALARA. CT DOSE: 283.13 mGy.cm FINDINGS: The skeletal structures are osteopenic. There is no evidence of right tibial or fibular fracture. No bony erosion or periostitis is identified. The knee and ankle joints are grossly maintained noting arthritic change. There is fatty atrophy of the regional musculature. There is diffuse edema and fluid seen throughout the superficial and deep soft tissues of the right lower extremity. Associated dermal thickening is noted. No organized fluid collection is identified on this unenhanced examination to suggest abscess. No subcutaneous gas is identified. No fluid is seen tracking along the myofascial bundles. IMPRESSION: 1. Osteopenia and degenerative change as above. No acute bony abnormality is seen in the right tibia or fibula. 2. Diffuse soft tissue edema and dermal thickening is noted and consistent with the reported history of cellulitis. 3. No organized fluid collection is seen to suggest abscess. Electronically signed by: Kade Whyte M.D. 07/12/2017 2:04 PM Dictated Date/Time: 07/12/2017 1:59 PM
[2017-07-12] MEDS ORDERED: VANCOMYCIN TROUGH ONE (17:30)
[2017-07-12] MEDS: INSULIN GLARGINE SOLOSTAR 100 UNITS/ML 3 ML PEN SC SCH (17:41)
[2017-07-12] MEDS: CEFTRIAXONE SOD INJ 2000 MG in DEXTROSE 5% 50ML IV SCH (17:46)
[2017-07-12] MEDS: IPRATROPIUM BROMIDE/ALBUTEROL respimat INH INH SCH (21:08)
[2017-07-12] MEDS: SIMVASTATIN 40 MG TAB PO SCH (21:08)
[2017-07-13] VITALS (11 sets, daily range): BP systolic 129–161; BP diastolic 61–97; PULSE 85–90; TEMP 36–38.2; O2SAT 91–96
[2017-07-13] MEDS: HYDROmorphone INJ 0.5 MG/0.5 ML SYR IV PRN (03:07)
[2017-07-13] MEDS: HEPARIN SOD 5000 UNIT/0.5 ML CARP SQ SCH ×3 (05:23→21:09)
[2017-07-13 06:12] LABS: CREATININE 1.46 mg/dl (0.60-1.20)
--- NOTE | 2017-07-13 09:48 | Hospitalist Progress Note ---
Hospitalist Progress Note Date of Service Jul 13, 2017. Subjective Pt evaluation today including: conversation w/ patient, physical exam, chart review, lab review, review of studies, review of inpatient medication list Patient seen and evaluated. No acute events overnight. Telemetry reveals NSR in 80-90s with intermittent low 100s sinus tach Patient reports pain is somewhat improved but still with pain. Erythema with new delineated areas that have been marked. Not much visual improvement with lower extremity edema Repeat BCx negative and no further leukocytosis. Continues to have intermittent fevers. She states she does not feel SOB at this time. Constitutional: + fever Respiratory: No cough, No shortness of breath Cardiovascular: No chest pain Abdomen: + diarrhea, No pain, No nausea, No vomiting, No GI bleeding Musculoskeletal: + problem reported (RLE pain and swelling) Female : No dysuria Medications Current Inpatient Medications Medications (Trade) Dose Ordered Sig/Oxana Route Start Time Stop Time Status Last Admin Dose Admin Glucose (Glucose 40% Gel) 15-30 GRAMS 15 GRAMS... UD PRN PO 07/09/17 10:00 08/08/17 09:59 Glucose (Glucose Chew Tab) 4-8 Tablets 4 Tabl... UD PRN PO 07/09/17 10:00 08/08/17 09:59 Dextrose (Dextrose 50% 50ML Syringe) 25-50ML OF 50% DW IV FOR... UD PRN IV 07/09/17 10:00 08/08/17 09:59 Glucagon (Glucagon Inj) 1 mg UD PRN SQ 07/09/17 10:00 08/08/17 09:59 Heparin Sodium (Porcine) (Heparin Sq 5000 Unit/0.5ml) 5,000 unit Q8 SQ 07/09/17 14:00 08/08/17 13:59 07/12/17 21:11 5,000 UNIT Acetaminophen (Tylenol Tab) 650 mg Q4H PRN PO 07/09/17 10:15 08/08/17 10:14 07/10/17 09:45 650 MG Al Hydrox/Mg Hydrox/Simethicone (Maalox Max Susp) 15 ml Q4H PRN PO 07/09/17 10:15 08/08/17 10:14 07/10/17 20:45 15 ML Magnesium Hydroxide (Milk Of Magnesia Susp) 30 ml Q12H PRN PO 07/09/17 10:15 08/08/17 10:14 Ondansetron HCl (Zofran Inj) 4 mg Q6H PRN IV 07/09/17 10:15 08/08/17 10:14 Polyethylene (Miralax Powder Packet) 17 gm DAILY PRN PO 07/09/17 10:15 08/08/17 10:14 Miscellaneous Information (Consult Glycemic Management Pharmacy) 1 ea UD PRN N/A 07/09/17 11:10 08/08/17 11:09 Cetirizine HCl (zyrTEC TAB) 10 mg DAILY PO 07/10/17 09:00 08/09/17 08:59 07/12/17 08:58 10 MG Fenofibrate (Tricor Tab) 145 mg DAILY PO 07/10/17 09:00 08/09/17 08:59 07/12/17 08:58 145 MG Simvastatin (Zocor Tab) 40 mg QPM PO 07/09/17 21:00 08/08/17 20:59 07/12/17 21:08 40 MG Pantoprazole Sodium (Protonix Tab) 40 mg QAM PO 07/10/17 09:00 08/09/17 08:59 07/12/17 08:58 40 MG Hydromorphone HCl (Dilaudid Inj) 0.5 mg Q3H PRN IV 07/09/17 10:45 07/23/17 10:44 07/13/17 03:07 0.5 MG Lactobacillus Acidophilus (Floranex Tab) 4 tab TIDM PO 07/09/17 16:45 08/08/17 16:44 07/12/17 17:39 4 TAB Insulin Aspart (novoLOG ASPART) SLIDING SCALE If CARB RA... ACHS SC 07/10/17 16:15 08/09/17 16:14 07/12/17 17:41 22 UNITS Acetaminophen/ Hydrocodone Bitart ([place] 5/325 Tab) 1 tab Q6H PRN PO 07/10/17 13:00 07/24/17 12:59 07/11/17 17:12 1 TAB Insulin Glargine (Lantus Solostar Pen) SEE PROTOCOL TEXT HS SC 07/11/17 21:00 08/10/17 20:59 07/12/17 17:41 80 UNITS Ceftriaxone Sodium 2000 mg/ Dextrose 70 ml @ 140 mls/hr DAILY@1800 IV 07/11/17 18:00 08/01/17 17:59 07/12/17 17:46 140 MLS/HR Albuterol/ Ipratropium (Duoneb) 3 ml QIDR INH 07/11/17 16:00 08/10/17 15:59 Future Hold 07/12/17 11:19 3 ML Potassium Chloride (Klor-Con Tab) 20 meq DAILY PO 07/12/17 09:00 07/15/17 08:59 07/12/17 08:57 20 MEQ Loperamide HCl (Imodium Cap) 2 mg Q6 PRN PO 07/12/17 12:45 08/11/17 12:44 07/12/17 13:14 2 MG Furosemide (Lasix Tab) 40 mg DAILY PO 07/13/17 09:00 08/10/17 08:59 Albuterol/ Ipratropium (Combivent Respimat Inh) 1 puffs QID INH 07/12/17 21:00 08/11/17 20:59 07/12/17 21:08 1 PUFFS Objective Vital Signs Date Time Temp Pulse Resp B/P (MAP) Pulse Ox O2 Delivery O2 Flow Rate FiO2 07/13/17 07:44 36.3 85 20 148/69 (95) 95 Nasal Cannula 2.0 07/13/17 05:21 38.2 07/13/17 04:00 94 Nasal Cannula 3.0 07/13/17 03:45 36.7 90 24 129/61 (83) 91 Nasal Cannula 2.0 07/13/17 00:00 94 Nasal Cannula 3.0 07/12/17 23:19 36.7 97 23 138/89 (105) 96 Nasal Cannula 2.0 07/12/17 20:38 37.1 101 20 112/74 (87) 94 Nasal Cannula 2.0 07/12/17 20:00 96 Nasal Cannula 3.0 07/12/17 16:27 95 Nasal Cannula 2.0 07/12/17 15:42 36.7 98 20 166/79 (108) 95 Nasal Cannula 2.0 07/12/17 12:00 95 Nasal Cannula 2.0 07/12/17 11:41 36.5 92 20 139/79 (99) 95 Nasal Cannula 2.0 07/12/17 11:19 93 18 96 Nasal Cannula 2.0 Physical Exam General Appearance: WD/WN, no apparent distress, + obese Eyes: sclerae normal ENT: hearing grossly normal Neck: supple, no JVD, trachea midline Respiratory/Chest: no respiratory distress, no accessory muscle use, + wheezing (intermittent, expiratory) Cardiovascular: regular rate, rhythm, no gallop, no murmur Abdomen: normal bowel sounds, non tender, soft Extremities: + pertinent finding (continued erythema with blistering and weeping of RLE; new erythematous areas of R thigh without weeping (areas marked with marker)) Neurologic/Psychiatric: alert Laboratory Results Last 24 Hours Test 07/12/17 11:00 07/12/17 16:18 07/12/17 20:40 07/13/17 05:27 Bedside Glucose 228 mg/dl 184 mg/dl 127 mg/dl Venous Blood pH 7.41 Creatinine 1.46 mg/dl Est Creatinine Clear Calc Drug Dose 55.9 ml/min Estimated GFR () 43.9 Estimated GFR (Non- 37.9 Test 07/13/17 05:56 07/13/17 06:45 Lactic Acid Level 1.1 mmol/L Bedside Glucose 161 mg/dl Assessment and Plan Mr. Jordan is a 62 y/o female with PMHx of T2DM, HLD, Fatty Liver/Chronic Transaminitis, GERD, and PCOS who presents to the ED c/o RLE erythema/pain starting this AM. Diabetic Ketoacidosis/Metabolic Acidosis with T2DM: RESOLVED - Anion Gap Closed - A1c 8.6 - Initially placed on insulin gtt due to presence of anion gap and currently transitioning to SC insulin - will continue to hold Metformin - appreciate pharmacy assistance with glycemic management - Currently maintained on Lantus and SSI - possibility of non-compliance with home regimen Sepsis 2/2 RLE Cellulitis superimposed on Chronic Lower Extremity Edema and Group B Strep Bacteremia - Rocephin 2 g IV daily - Repeat BCx are NGTD; Can place PICC line - ID following - plan for at least 21 days IV antibiotics Acute Kidney Injury 2/2 Dehydration/DKA/Sepsis: IMPROVING - Continues to improve with IVF - currently at 1.92 - continue to trend with daily BMP Mild Acute Diastolic CHF: - Echo reveals normal EF with grade I diastolic dysfunction - Some of her lower extremity edema appears to be lymphedema and will monitor; currently down to + 300 cc balance as aggressive hydration given initially on admission due to TERESA and DKA - Lasix 40 mg daily and monitor renal function Diarrhea 2/2 Abx: - May even be initiation of probiotics on admission as some can have loose stool with initiation - C. diff negative; Imodium 2 mg Q6H PRN HLD/Fatty Liver Disease/Chronic Transaminitis: STABLE - LFTs normal at this time - continue Fenofibrate 145 mg daily and Simvastatin 40 mg daily GERD: - Protonix 40 mg daily DVT Prophylaxis: Heparin Code Status: FULL RESUSCITATION Disposition: - PT/OT evaluations - assess for need for rehab? Continued [facility] stay due to: multiple IV medications needed Discharge planning: uncertain
[2017-07-13] MEDS: INSULIN ASPART 100 UNITS/ML 3 ML PEN SC SCH ×4 (09:55→19:58)
[2017-07-13] MEDS: LACTOBACILLUS ACIDOPHILUS (FLORANEX) TAB PO SCH ×3 (09:57→16:45)
[2017-07-13] MEDS: POTASSIUM CHLORIDE 20 MEQ TABCR PO SCH (09:57)
[2017-07-13] MEDS: FUROSEMIDE 40 MG TAB PO SCH (09:58)
[2017-07-13] MEDS: PANTOprazole SOD 40 MG TAB PO SCH (09:58)
[2017-07-13] MEDS: FENOFIBRATE 145 MG TAB PO SCH (09:58)
[2017-07-13] MEDS: CETIRIZINE HCL 10 MG TAB PO SCH (09:59)
[2017-07-13] MEDS: IPRATROPIUM BROMIDE/ALBUTEROL respimat INH INH SCH ×5 (10:00→20:36)
--- NOTE | 2017-07-13 11:15 | Pharmacy Progress Note ---
Pharmacy Glycemic Short Note 2 Date of Service Jul 13, 2017. OUTPATIENT ANTIDIABETIC REGIMEN: * Lantus 60-70 units at bedtime and Novolog with scale Item Value Date Time Bedside Glucose 149 mg/dl H 07/12/17 0653 Bedside Glucose 228 mg/dl H 07/12/17 1100 Bedside Glucose 184 mg/dl H 07/12/17 1618 Bedside Glucose 127 mg/dl H 07/12/17 2040 Bedside Glucose 161 mg/dl H 07/13/17 0645 ASSESSMENT: * 62yo T2DM female with suboptimal degree of outpatient control. Goal A1c is likely 7.5-8% based on age/comorbidities * Pt with Severe hyperglycemia on admission and was initiated on IV insulin infusion. Pt transitioned to SQ basal bolus on 07/10/17. Pharmacy has been titrating Sq insulin doses daily based on BSG trends. * Pt has been receiving 130 units of insulin per day with near adequate control * 80 units of basal insulin * 50 units of prandial/correctional insulin * AM fasting BSG is slightly above goal range at 161 mg/dl. Hesitant to increase basal insulin dosing further as regimen is already heavily weighted towards basal insulin. Higher insulin doses needed in house as compared to outpatient secondary to infection and metformin on hold. * Post-prandial BSGs are slightly elevated by CR tightened last evening. No changes needed today. PLAN FOR INPATIENT GLYCEMIC CONTROL: * Hold outpatient oral diabetes medications * Basal insulin * Lantus 80 units SQ HS * Bolus insulin * NovoLog per scale ACHS or Q6hrs while NPO * Goal Range: Low 110 mg/dL - High 140 mg/dL * Correction Factor: 10 mg/dL/unit * Nutritional / Prandial insulin per carb ratio of 1 unit per 4 grams CHO consumed RECOMMENDATIONS FOR DISCHARGE * Work with outpatient provider to titrate insulin to desired blood glucose readings.
[2017-07-13] MEDS: CEFTRIAXONE SOD INJ 2000 MG in DEXTROSE 5% 50ML IV SCH (18:13)
[2017-07-13] MEDS: SIMVASTATIN 40 MG TAB PO SCH (19:54)
[2017-07-13] MEDS ORDERED: INSULIN GLARGINE SOLOSTAR 100 UNITS/ML 3 ML PEN SC SCH (21:00)
[2017-07-14] VITALS (8 sets, daily range): BP systolic 109–163; BP diastolic 57–77; PULSE 84–91; TEMP 36.4–37.2; O2SAT 93–96
[2017-07-14] MEDS: HEPARIN SOD 5000 UNIT/0.5 ML CARP SQ SCH ×3 (06:05→21:15)
[2017-07-14 06:54] LABS: CALCIUM 9.1 mg/dl (8.5-10.1); CREATININE 1.32 mg/dl (0.60-1.20); POTASSIUM 3.1 mmol/L (3.5-5.1)
[2017-07-14] MEDS: INSULIN ASPART 100 UNITS/ML 3 ML PEN SC SCH ×3 (07:00→16:15)
[2017-07-14 07:12] LABS: HEMATOCRIT 37.2 % (37-47); HEMOGLOBIN 12.6 g/dL (12.0-16.0); MEAN CELL VOLUME 88.8 fL (80-100); MEAN CORPUSCULAR HEMOGLOBIN 30.1 pg (25-34); MEAN CORPUSCULAR HGB CONC 33.9 g/dl (32-36); MEAN PLATELET VOLUME 10.9 fL (7.4-10.4); PLATELET COUNT 224 K/uL (130-400); RED CELL DISTRIBUTION WIDTH CV 15.4 % (11.5-14.5); RED CELL DISTRIBUTION WIDTH SD 49.6 fL (36.4-46.3); WHITE BLOOD COUNT 34.08 K/uL (4.8-10.8)
[2017-07-14] MEDS ORDERED: POTASSIUM CHLORIDE 10 MEQ TABCR PO STA (07:29)
[2017-07-14] MEDS: LACTOBACILLUS ACIDOPHILUS (FLORANEX) TAB PO SCH ×3 (08:15→16:45)
[2017-07-14] MEDS: IPRATROPIUM BROMIDE/ALBUTEROL respimat INH INH SCH ×4 (08:15→21:00)
[2017-07-14] MEDS: PANTOprazole SOD 40 MG TAB PO SCH (08:15)
[2017-07-14] MEDS: POTASSIUM CHLORIDE 20 MEQ TABCR PO SCH (08:16)
[2017-07-14] MEDS: FUROSEMIDE 40 MG TAB PO SCH (08:16)
[2017-07-14] MEDS: FENOFIBRATE 145 MG TAB PO SCH (08:16)
[2017-07-14] MEDS: CETIRIZINE HCL 10 MG TAB PO SCH (08:16)
--- NOTE | 2017-07-14 09:33 | Hospitalist Progress Note ---
Hospitalist Progress Note Date of Service Jul 14, 2017. Subjective Pt evaluation today including: conversation w/ patient, physical exam, chart review, lab review, review of studies, review of inpatient medication list Patient seen and evaluated. WBC went from 10 to 34 surprisingly patient states she is feeling a little better today. RLE is weeping and with large blistering with clearing of the erythema. Dorsalis Pedis is strong. Cellulitis is marked but no improvement. CT did not reveal abscess but question if MRI needs to be obtained to further assess. Patient has been afebrile x 24 hours. Will add C. diff however it appears most of her BMs are more mucous instead of stool. She is having cramping abdominal pain and C. diff could explain the jump in WBC. May even be reactive given diffuse cellulitis. Will appreciate ID recommendations if Abx should be further adjusted however BCx with group B strep was sensitive to Rocephin. May even need to repeat BCx to assess for possible other organisms? Constitutional: No fever, No chills Respiratory: + cough, No sputum, No shortness of breath Cardiovascular: No chest pain, No orthopnea Abdomen: + pain (cramping), No nausea, No vomiting, No diarrhea, No constipation, No GI bleeding Musculoskeletal: + swelling (B/L Lower Extremities;), + problem reported ( Pain in RLE but reports improvement from yesterday) Female : No dysuria Heme: No abnormal bleeding/bruising Medications Current Inpatient Medications Medications (Trade) Dose Ordered Sig/Oxana Route Start Time Stop Time Status Last Admin Dose Admin Glucose (Glucose 40% Gel) 15-30 GRAMS 15 GRAMS... UD PRN PO 07/09/17 10:00 08/08/17 09:59 Glucose (Glucose Chew Tab) 4-8 Tablets 4 Tabl... UD PRN PO 07/09/17 10:00 08/08/17 09:59 Dextrose (Dextrose 50% 50ML Syringe) 25-50ML OF 50% DW IV FOR... UD PRN IV 07/09/17 10:00 08/08/17 09:59 Glucagon (Glucagon Inj) 1 mg UD PRN SQ 07/09/17 10:00 08/08/17 09:59 Heparin Sodium (Porcine) (Heparin Sq 5000 Unit/0.5ml) 5,000 unit Q8 SQ 07/09/17 14:00 08/08/17 13:59 07/14/17 06:05 5,000 UNIT Acetaminophen (Tylenol Tab) 650 mg Q4H PRN PO 07/09/17 10:15 08/08/17 10:14 07/10/17 09:45 650 MG Al Hydrox/Mg Hydrox/Simethicone (Maalox Max Susp) 15 ml Q4H PRN PO 07/09/17 10:15 08/08/17 10:14 07/10/17 20:45 15 ML Magnesium Hydroxide (Milk Of Magnesia Susp) 30 ml Q12H PRN PO 07/09/17 10:15 08/08/17 10:14 Ondansetron HCl (Zofran Inj) 4 mg Q6H PRN IV 07/09/17 10:15 08/08/17 10:14 Polyethylene (Miralax Powder Packet) 17 gm DAILY PRN PO 07/09/17 10:15 08/08/17 10:14 Miscellaneous Information (Consult Glycemic Management Pharmacy) 1 ea UD PRN N/A 07/09/17 11:10 08/08/17 11:09 Cetirizine HCl (zyrTEC TAB) 10 mg DAILY PO 07/10/17 09:00 08/09/17 08:59 07/14/17 08:16 10 MG Fenofibrate (Tricor Tab) 145 mg DAILY PO 07/10/17 09:00 08/09/17 08:59 07/14/17 08:16 145 MG Simvastatin (Zocor Tab) 40 mg QPM PO 07/09/17 21:00 08/08/17 20:59 07/13/17 19:54 40 MG Pantoprazole Sodium (Protonix Tab) 40 mg QAM PO 07/10/17 09:00 08/09/17 08:59 07/14/17 08:15 40 MG Hydromorphone HCl (Dilaudid Inj) 0.5 mg Q3H PRN IV 07/09/17 10:45 07/23/17 10:44 07/13/17 03:07 0.5 MG Lactobacillus Acidophilus (Floranex Tab) 4 tab TIDM PO 07/09/17 16:45 08/08/17 16:44 07/14/17 08:15 4 TAB Insulin Aspart (novoLOG ASPART) SLIDING SCALE If CARB RA... ACHS SC 07/10/17 16:15 08/09/17 16:14 07/13/17 19:58 1 UNITS Acetaminophen/ Hydrocodone Bitart (Davis 5/325 Tab) 1 tab Q6H PRN PO 07/10/17 13:00 07/24/17 12:59 07/11/17 17:12 1 TAB Ceftriaxone Sodium 2000 mg/ Dextrose 70 ml @ 140 mls/hr DAILY@1800 IV 07/11/17 18:00 08/01/17 17:59 07/13/17 18:13 140 MLS/HR Albuterol/ Ipratropium (Duoneb) 3 ml QIDR INH 07/11/17 16:00 08/10/17 15:59 Future Hold 07/12/17 11:19 3 ML Potassium Chloride (Klor-Con Tab) 20 meq DAILY PO 07/12/17 09:00 07/15/17 08:59 07/14/17 08:16 20 MEQ Loperamide HCl (Imodium Cap) 2 mg Q6 PRN PO 07/12/17 12:45 08/11/17 12:44 07/12/17 13:14 2 MG Furosemide (Lasix Tab) 40 mg DAILY PO 07/13/17 09:00 08/10/17 08:59 07/14/17 08:16 40 MG Albuterol/ Ipratropium (Combivent Respimat Inh) 1 puffs QID INH 07/12/17 21:00 08/11/17 20:59 07/13/17 14:01 1 PUFFS Insulin Glargine (Lantus Solostar Pen) 80 units HS SC 07/13/17 21:00 08/12/17 20:59 07/13/17 19:59 80 UNITS Objective Vital Signs Date Time Temp Pulse Resp B/P (MAP) Pulse Ox O2 Delivery O2 Flow Rate FiO2 07/14/17 07:02 37.2 85 22 154/76 (102) 95 Nasal Cannula 2.0 07/14/17 04:00 Nasal Cannula 2.0 07/14/17 03:37 36.9 84 23 151/77 (101) 96 2.0 07/14/17 00:01 Nasal Cannula 2.0 07/13/17 23:11 37.0 89 23 161/78 (105) 92 Nasal Cannula 2.0 07/13/17 20:00 Nasal Cannula 2.0 07/13/17 19:50 36.6 86 18 153/79 (103) 94 Nasal Cannula 2.0 07/13/17 16:11 37.0 86 22 158/74 (102) 96 Nasal Cannula 2.0 07/13/17 16:00 95 Nasal Cannula 2.0 07/13/17 11:57 95 Nasal Cannula 2.0 07/13/17 11:43 36.0 86 20 155/97 (116) 95 Nasal Cannula Physical Exam General Appearance: WD/WN, no apparent distress Eyes: sclerae normal ENT: hearing grossly normal Neck: supple, no JVD, trachea midline Respiratory/Chest: no respiratory distress, no accessory muscle use, + decreased breath sounds (bases b/l) Cardiovascular: regular rate, rhythm, no gallop, no murmur Abdomen: normal bowel sounds, non tender, soft, + distended Extremities: + pertinent finding (RLE with diffuse erythema extending into R thigh; weeping and blistering with clearing of erythema in those areas; 3-4+ pitting edema; dorsalis pedis 2+) Neurologic/Psychiatric: alert Skin: normal color (other than specified in extremities) Laboratory Results Last 24 Hours Test 07/13/17 11:22 07/13/17 16:09 07/13/17 19:53 07/14/17 06:10 Bedside Glucose 210 mg/dl 122 mg/dl 147 mg/dl White Blood Count 34.08 K/uL Red Blood Count 4.19 M/uL Hemoglobin 12.6 g/dL Hematocrit 37.2 % Mean Corpuscular Volume 88.8 fL Mean Corpuscular Hemoglobin 30.1 pg Mean Corpuscular Hemoglobin Concent 33.9 g/dl RDW Standard Deviation 49.6 fL RDW Coefficient of Variation 15.4 % Platelet Count 224 K/uL Mean Platelet Volume 10.9 fL Sodium Level 137 mmol/L Potassium Level 3.1 mmol/L Chloride Level 104 mmol/L Carbon Dioxide Level 23 mmol/L Anion Gap 10.0 mmol/L Blood Urea Nitrogen 34 mg/dl Creatinine 1.32 mg/dl Est Creatinine Clear Calc Drug Dose 61.5 ml/min Estimated GFR () 49.6 Estimated GFR (Non- 42.8 BUN/Creatinine Ratio 25.5 Random Glucose 121 mg/dl Calcium Level 9.1 mg/dl Test 07/14/17 06:31 Bedside Glucose 109 mg/dl Assessment and Plan Mr. Jordan is a 62 y/o female with PMHx of T2DM, HLD, Fatty Liver/Chronic Transaminitis, GERD, and PCOS who presents to the ED c/o RLE erythema/pain starting this AM. Diabetic Ketoacidosis/Metabolic Acidosis with T2DM: RESOLVED - Anion Gap Closed - A1c 8.6 - Appreciate pharmacy assistance with glycemic management - maintaining improved BSGs with Lantus and SSI with adjustments per pharmacy Sepsis 2/2 RLE Cellulitis superimposed on Chronic Lower Extremity Edema and Group B Strep Bacteremia: - BCx reveal susceptibility to Rocephin however so far no improvement in cellulitis and possibly worsened; Repeat BCx promote sterility; WBC significantly increased to 34 which may be a reactive process; May need further imaging to better assess the RLE vs other infection; will obtain C. diff given Abx - Rocephin 2 g IV daily - ID following - plan for at least 21 days IV antibiotics Acute Kidney Injury 2/2 Dehydration/DKA/Sepsis: IMPROVING - Continues to improve with IVF - currently at 1.32 - continue to trend with daily BMP Mild Acute Diastolic CHF: - Echo reveals normal EF with grade I diastolic dysfunction - Some of her lower extremity edema appears to be lymphedema and will monitor; currently down to - 200 cc balance as aggressive hydration given initially on admission due to TERESA and DKA - Lasix 40 mg daily and monitor renal function Diarrhea 2/2 Abx: - May even be initiation of probiotics on admission as some can have loose stool with initiation - C. diff negative but will repeat given rapid increase in leukocytosis; Imodium 2 mg Q6H PRN HLD/Fatty Liver Disease/Chronic Transaminitis: STABLE - LFTs normal at this time - continue Fenofibrate 145 mg daily and Simvastatin 40 mg daily GERD: - Protonix 40 mg daily DVT Prophylaxis: Heparin Code Status: FULL RESUSCITATION Disposition: - PT/OT evaluations - assess for need for rehab? - Suspect continued stay due to acutely ill Continued [facility] stay due to: multiple IV medications needed Discharge planning: uncertain
--- NOTE | 2017-07-14 11:00 | Progress Note ---
Subjective Date of Service: Jul 14, 2017. Subjective Pt evaluation today including: conversation w/ patient, physical exam, chart review, lab review pt remains on rocephin, tolerating well. no fevers/chills. repeat cultures negative. wbc significantly increased, c diff negative previously. ct leg did not show abscess. pt is lethargic on exam. states leg is sore, denies drainage. remaining ros reviewed and are negative. Problem List Medical Problems: (1) Bilateral leg pain Status: Acute (2) DKA (diabetic ketoacidosis) Status: Acute (3) Left foot pain Status: Acute (4) Left hip pain Status: Acute (5) Left knee pain Status: Acute (6) Right shoulder pain Status: Acute (7) Sepsis Status: Acute Objective Vital Signs Date Time Temp Pulse Resp B/P (MAP) Pulse Ox O2 Delivery O2 Flow Rate FiO2 07/14/17 08:00 Nasal Cannula 2.0 07/14/17 07:02 37.2 85 22 154/76 (102) 95 Nasal Cannula 2.0 07/14/17 04:00 Nasal Cannula 2.0 07/14/17 03:37 36.9 84 23 151/77 (101) 96 2.0 07/14/17 00:01 Nasal Cannula 2.0 07/13/17 23:11 37.0 89 23 161/78 (105) 92 Nasal Cannula 2.0 07/13/17 20:00 Nasal Cannula 2.0 07/13/17 19:50 36.6 86 18 153/79 (103) 94 Nasal Cannula 2.0 07/13/17 16:11 37.0 86 22 158/74 (102) 96 Nasal Cannula 2.0 07/13/17 16:00 95 Nasal Cannula 2.0 07/13/17 11:57 95 Nasal Cannula 2.0 07/13/17 11:43 36.0 86 20 155/97 (116) 95 Nasal Cannula Physical Exam General Appearance: WD/WN, + pertinent finding (lethargic) Eyes: normal inspection ENT: + pertinent finding (mmd) Neck: supple Respiratory/Chest: lungs clear, + decreased breath sounds Cardiovascular: regular rate, rhythm Abdomen: soft Extremities: + inflammation, + swelling Neurologic/Psychiatric: alert Skin: normal color Comments: leg with no increased erythema but not improved. no warmth, + edema, large blister posterior calf. Laboratory Results Item Value Date Time Blood Culture - Final Complete 07/09/17 0957 Blood Group A Beta Strep Blood Culture - Final Complete 07/09/17 0835 Blood Group A Beta Strep Blood Culture - Preliminary Resulted 07/11/17 0737 Blood NO GROWTH TO DATE. Blood Culture - Preliminary Resulted 07/11/17 0736 Blood NO GROWTH TO DATE. C.difficile Toxin B Gene (PCR) - Final Complete 07/10/172019 Stool No C. difficile toxin B gene detected Last 24 Hours Test 07/13/17 11:22 07/13/17 16:09 07/13/17 19:53 07/14/17 06:10 Bedside Glucose 210 mg/dl 122 mg/dl 147 mg/dl White Blood Count 34.08 K/uL Red Blood Count 4.19 M/uL Hemoglobin 12.6 g/dL Hematocrit 37.2 % Mean Corpuscular Volume 88.8 fL Mean Corpuscular Hemoglobin 30.1 pg Mean Corpuscular Hemoglobin Concent 33.9 g/dl RDW Standard Deviation 49.6 fL RDW Coefficient of Variation 15.4 % Platelet Count 224 K/uL Mean Platelet Volume 10.9 fL Blood Smear Review Sodium Level 137 mmol/L Potassium Level 3.1 mmol/L Chloride Level 104 mmol/L Carbon Dioxide Level 23 mmol/L Anion Gap 10.0 mmol/L Blood Urea Nitrogen 34 mg/dl Creatinine 1.32 mg/dl Est Creatinine Clear Calc Drug Dose 61.5 ml/min Estimated GFR () 49.6 Estimated GFR (Non- 42.8 BUN/Creatinine Ratio 25.5 Random Glucose 121 mg/dl Calcium Level 9.1 mg/dl Test 07/14/17 06:31 Bedside Glucose 109 mg/dl Assessment and Plan (1) Beta-hemolytic group A streptococcal sepsis Assessment & Plan: add clinda, continue rocephin. await additional image findings/ortho eval (2) Cellulitis (3) Leukocytosis (4) Cellulitis Continued [facility] stay due to: multiple IV medications needed Discharge planning: uncertain Problem Qualifiers (1) Cellulitis: Site of cellulitis: unspecified site Qualified Codes: L03.90 - Cellulitis, unspecified
--- NOTE | 2017-07-14 12:04 | HISTORY & PHYSICAL EXAMINATION ---
DATE OF ADMISSION: 07/09/2017 CHIEF COMPLAINT: Right lower extremity difficulty. REASON FOR CONSULTATION: Cellulitis right lower extremity, possible necrotizing fasciitis. HISTORY OF PRESENT ILLNESS: Kiki is a pleasant 62 years of age. She is morbidly obese. She is tremendously compromised here seeing her this morning. Evidently, she does get out of bed to chair, I think it will be a difficult task. She developed right lower extremity difficulties over the last several days starting on July 09, which was about 4-5 days ago. She states a week ago she was doing quite well. She had increasing leg pain, had significant erythema, edema, came to the Emergency Room and admitted for evaluation and treatment. She has had some progression of her lower extremity swelling, erythema, and now drainage over the last 48-72 hours. PAST MEDICAL HISTORY: Positive for diabetes mellitus, GERD, fatty liver, lower extremity cellulitis, diabetes mellitus. FAMILY HISTORY: Colon CA, diabetes, heart disease, hypertension. SOCIAL HISTORY: Nonsmoker, no alcohol use, no drug use. , employed. ALLERGIES: Negative. MEDICATIONS: Fairly lengthy. I am reviewing these here. I am not dictating upon these just to be concise. REVIEW OF SYSTEMS: She does not have any fevers or chills here this morning. Denies any ear, nose and throat issues. Denies chest pain, palpitations. She denies nausea, vomiting. She does have distention, quite obese, but no significant pain. No dysuria or frequency. OBJECTIVE: GENERAL: Alert, oriented and cooperative here this morning 62 in distress, certainly concerned, certainly frightened with her overall situation. HEENT: Pupils react to light and accommodation. Ear, nose and throat clear. Pulse at the right radial area normal sinus rhythm about 80 beats per minute. VITAL SIGNS: Respirations 22, blood pressure is 150/60, pulse ox 95. EXTREMITIES: Her right lower extremity, which is the reason of the consult is worrisome. There was significant edema and cellulitis from the foot up to the knee ____ the knee progresses to the thigh. It is nonpainful when she lies here. Any type of passive stretch of the extremity does not cause her significant amount of pain. It is painful with elevation. She has some weeping blisters on the posterior aspect, significant redness ____ +3 pitting edema throughout. There are some markers of demarcation showing the levels of cellulitis. There might be some improvements from this morning on the antibiotics. IMPRESSION: First of all, it is a very difficult problem and I do not have any great input. I have never seen the case just like this before. I have seen cellulitis many times of course and necrotizing fasciitis. This does not seem to be a necrotizing fasciitis. It is more of a cellulitis bacterial involvement. Since she is comfortable in the supine position lying here, I would say probably there is a necrotizing fasciitis. The CT scan did not show any fluid or abscess formation. Does have a high white count. Cultures are pending. Also, I do not think there is any type of compartment syndrome progressing here either. PLAN: At this point in time, ____ what to do overall. I would recommend continue searching for the appropriate antibiotic to treat the appropriate bacteria. There is a chance there is a fungal-type infection going on as well. It is hard to say. I await infectious disease consultation as well. I am not in favor of any type of surgery such as opening up the lower extremity, I think it would be complete disaster and would lead to an amputation. If the patient gets out of control and we cannot figure out or get this rectified, then she will need to be transferred to a higher level of care would be appropriate and not in violation of ____ rules. I will continue to follow.
--- NOTE | 2017-07-14 12:12 | Pharmacy Progress Note ---
Glycemic: Assessment & Plan Date of Service Jul 14, 2017. Assessment & Plan The patient is currently receiving 128 units of insulin per day. BSGs ranging 109 - 210 mg/dl over the past 24hrs. The patient received 80 units of lantus last night. Due to the significant decrease in fasting BSG I will slightly decrease lantus dose and provide a scale for this evening. Meal time coverage continue to be appropriate. * Basal insulin: Lantus based on BSG scale units every evening * Correctional Insulin: Novolog Correction per scale ACHS Goal Range: Low 110 mg/dL - High 140 mg/dL Correction Factor: 10 mg/dL/unit * Prandial insulin: Per carb ratio of 1 unit per 3 grams CHO consumed Pharmacy will continue to monitor patient daily and write orders per [facility] inpatient glycemic control protocol. Thanks. * Please note that the plan above was derived based on current level of insulin resistance and hospital stress. These recommendations are appropriate for inpatient admission only. Plan of care upon discharge will need to be reassessed to avoid potential outpatient hypo/hyperglycemia.
[2017-07-14] MEDS: CLINDAMYCIN IV 600 MG in DEXTROSE 5% 50ML 50 ML IV SCH ×2 (12:22→21:09)
--- NOTE | 2017-07-14 15:06 | DIAGNOSTIC IMAGING REPORT ---
KUB CLINICAL HISTORY: Ileus. FINDINGS: 3 AP supine abdominal radiographs are correlated with abdominal CT dated 11/20/2010. The examination is degraded by large body habitus. There is gaseous distention of the small bowel loops and colon. No evidence of intraperitoneal free air is seen. No abnormal abdominal calcifications are identified. The skeletal structures are osteopenic. The lumbosacral spine and bony pelvis are grossly intact. IMPRESSION: There is nonspecific gaseous distention of the small bowel and colon. This could represent ileus versus bowel obstruction. Clinical correlation will be essential. Electronically signed by: Kade Whyte M.D. 07/14/2017 3:04 PM Dictated Date/Time: 07/14/2017 3:02 PM
[2017-07-14] MEDS: NSS + 20MEQ KCL 1000ML 1,000 ML IV SCH (15:29)
--- NOTE | 2017-07-14 16:41 | Medical Consult ---
Consultation Date of Consultation: Jul 14, 2017. Attending Physician: Kyree Obrien MD, PhD History of Present Illness 62 y/o female admitted 5 days ago for RLE cellulitis and DKA. KUB was ordered today for abdominal distention, and surgery consulted for ileus vs SBO. She didn 't have an appetite for a day or two prior to admission. Was then NPO a few days , went on to do ok with liquids but had nausea when given broccoli. Did not complain of any specific pain to me but nurse reports she hasn't wanted to move much today due to discomfort. No previous surgery. Her PCP had U/S done at 611 in Mar 2017 because her abdomen was firm, but she does not know the results. She had approx 12 bowel movements a few days ago and had a dose of Imodium and today she has passed some mucus and flatus. Has colonoscopy every 5 years, last was 4 years ago and had first polyp removed. C. diff was negative. Father has gastric cancer, mother had pancreatic cancer. Past Medical/Surgical History Medical Problems: (1) Cellulitis (2) Diabetes (3) Diabetic Ketoacidosis (4) GERD (gastroesophageal reflux disease) (5) HTN (hypertension) Surgical: no previous abdominal surgery Family History Colon Cancer Diabetes mellitus Heart Disease Hypertension Kidney disease Social History Smoking Status: Never Smoker Smokeless Tobacco Use: No Alcohol Use: none Drug Use: none Marital Status: Housing Status: lives with family Occupation Status: employed Allergies Coded Allergies: No Known Allergies (Unverified , 06/20/16) Current Inpatient Medications Current Inpatient Medications Medications (Trade) Dose Ordered Sig/Oxana Route Start Time Stop Time Status Last Admin Dose Admin Glucose (Glucose 40% Gel) 15-30 GRAMS 15 GRAMS... UD PRN PO 07/09/17 10:00 08/08/17 09:59 Glucose (Glucose Chew Tab) 4-8 Tablets 4 Tabl... UD PRN PO 07/09/17 10:00 08/08/17 09:59 Dextrose (Dextrose 50% 50ML Syringe) 25-50ML OF 50% DW IV FOR... UD PRN IV 07/09/17 10:00 08/08/17 09:59 Glucagon (Glucagon Inj) 1 mg UD PRN SQ 07/09/17 10:00 08/08/17 09:59 Heparin Sodium (Porcine) (Heparin Sq 5000 Unit/0.5ml) 5,000 unit Q8 SQ 07/09/17 14:00 08/08/17 13:59 07/14/17 06:05 5,000 UNIT Acetaminophen (Tylenol Tab) 650 mg Q4H PRN PO 07/09/17 10:15 08/08/17 10:14 07/10/17 09:45 650 MG Al Hydrox/Mg Hydrox/Simethicone (Maalox Max Susp) 15 ml Q4H PRN PO 07/09/17 10:15 08/08/17 10:14 07/10/17 20:45 15 ML Magnesium Hydroxide (Milk Of Magnesia Susp) 30 ml Q12H PRN PO 07/09/17 10:15 08/08/17 10:14 Ondansetron HCl (Zofran Inj) 4 mg Q6H PRN IV 07/09/17 10:15 08/08/17 10:14 Polyethylene (Miralax Powder Packet) 17 gm DAILY PRN PO 07/09/17 10:15 08/08/17 10:14 Miscellaneous Information (Consult Glycemic Management Pharmacy) 1 ea UD PRN N/A 07/09/17 11:10 08/08/17 11:09 Cetirizine HCl (zyrTEC TAB) 10 mg DAILY PO 07/10/17 09:00 08/09/17 08:59 07/14/17 08:16 10 MG Fenofibrate (Tricor Tab) 145 mg DAILY PO 07/10/17 09:00 08/09/17 08:59 07/14/17 08:16 145 MG Simvastatin (Zocor Tab) 40 mg QPM PO 07/09/17 21:00 08/08/17 20:59 07/13/17 19:54 40 MG Pantoprazole Sodium (Protonix Tab) 40 mg QAM PO 07/10/17 09:00 08/09/17 08:59 07/14/17 08:15 40 MG Hydromorphone HCl (Dilaudid Inj) 0.5 mg Q3H PRN IV 07/09/17 10:45 07/23/17 10:44 07/13/17 03:07 0.5 MG Lactobacillus Acidophilus (Floranex Tab) 4 tab TIDM PO 07/09/17 16:45 08/08/17 16:44 07/14/17 12:21 4 TAB Insulin Aspart (novoLOG ASPART) SLIDING SCALE If CARB RA... ACHS SC 07/10/17 16:15 08/09/17 16:14 07/14/17 12:24 17 UNITS Acetaminophen/ Hydrocodone Bitart ([place] 5/325 Tab) 1 tab Q6H PRN PO 07/10/17 13:00 07/24/17 12:59 07/11/17 17:12 1 TAB Ceftriaxone Sodium 2000 mg/ Dextrose 70 ml @ 140 mls/hr DAILY@1800 IV 07/11/17 18:00 08/01/17 17:59 07/13/17 18:13 140 MLS/HR Albuterol/ Ipratropium (Duoneb) 3 ml QIDR INH 07/11/17 16:00 08/10/17 15:59 Future Hold 07/12/17 11:19 3 ML Potassium Chloride (Klor-Con Tab) 20 meq DAILY PO 07/12/17 09:00 07/15/17 08:59 07/14/17 08:16 20 MEQ Loperamide HCl (Imodium Cap) 2 mg Q6 PRN PO 07/12/17 12:45 08/11/17 12:44 07/12/17 13:14 2 MG Furosemide (Lasix Tab) 40 mg DAILY PO 07/13/17 09:00 08/10/17 08:59 07/14/17 08:16 40 MG Albuterol/ Ipratropium (Combivent Respimat Inh) 1 puffs QID INH 07/12/17 21:00 08/11/17 20:59 07/14/17 12:21 1 PUFFS Clindamycin Phosphate 600 mg/ Dextrose 54 ml @ 100 mls/hr Q8H IV 07/14/17 12:00 07/28/17 11:59 07/14/17 12:22 100 MLS/HR Heparin Sodium (Porcine) (Heparin 10 Unit/ ml 5 ml Flush) 5 ml PRN PRN FLUSH 07/14/17 12:00 08/13/17 11:59 Insulin Glargine (Lantus Solostar Pen) see protocol HS SC 07/14/17 21:00 08/13/17 20:59 Potassium Chloride/Sodium Chloride 1,000 ml @ 75 mls/hr [id number] IV 07/14/17 16:00 08/13/17 15:59 07/14/17 15:29 75 MLS/HR Review of Systems Abdomen: + nausea, + diarrhea (off and onsince starting metformin), No pain, No vomiting, No GI bleeding Physical Exam Date Time Temp Pulse Resp B/P (MAP) Pulse Ox O2 Delivery O2 Flow Rate FiO2 07/14/17 12:11 93 Nasal Cannula 2.0 07/14/17 11:35 36.4 89 18 149/73 (98) 93 Nasal Cannula 07/14/17 08:00 Nasal Cannula 2.0 07/14/17 07:02 37.2 85 22 154/76 (102) 95 Nasal Cannula 2.0 07/14/17 04:00 Nasal Cannula 2.0 07/14/17 03:37 36.9 84 23 151/77 (101) 96 2.0 07/14/17 00:01 Nasal Cannula 2.0 07/13/17 23:11 37.0 89 23 161/78 (105) 92 Nasal Cannula 2.0 07/13/17 20:00 Nasal Cannula 2.0 07/13/17 19:50 36.6 86 18 153/79 (103) 94 Nasal Cannula 2.0 General Appearance: no apparent distress, + obese Respiratory/Chest: lungs clear, no respiratory distress Cardiovascular: regular rate, rhythm, + pertinent finding (LLE edema +1) Abdomen/GI: + tenderness (minimal generalized), + distended Extremities/Musculoskelatal: + pertinent finding (significant induration and erythema right calf and erythema skips the knee but present in the thigh ) Laboratory Results Last 24 Hours Test 07/13/17 19:53 07/14/17 06:10 07/14/17 06:31 07/14/17 11:16 Bedside Glucose 147 mg/dl 109 mg/dl 176 mg/dl White Blood Count 34.08 K/uL Red Blood Count 4.19 M/uL Hemoglobin 12.6 g/dL Hematocrit 37.2 % Mean Corpuscular Volume 88.8 fL Mean Corpuscular Hemoglobin 30.1 pg Mean Corpuscular Hemoglobin Concent 33.9 g/dl RDW Standard Deviation 49.6 fL RDW Coefficient of Variation 15.4 % Platelet Count 224 K/uL Mean Platelet Volume 10.9 fL Blood Smear Review Sodium Level 137 mmol/L Potassium Level 3.1 mmol/L Chloride Level 104 mmol/L Carbon Dioxide Level 23 mmol/L Anion Gap 10.0 mmol/L Blood Urea Nitrogen 34 mg/dl Creatinine 1.32 mg/dl Est Creatinine Clear Calc Drug Dose 61.5 ml/min Estimated GFR () 49.6 Estimated GFR (Non- 42.8 BUN/Creatinine Ratio 25.5 Random Glucose 121 mg/dl Calcium Level 9.1 mg/dl Assessment & Plan Abdominal distention, ileus vs SBO WBC spiked today although afebrile and HR normal. Difficult to examine. XR and U/S also limited. Will order CT to further evaluate.
[2017-07-14] MEDS: CEFTRIAXONE SOD INJ 2000 MG in DEXTROSE 5% 50ML IV SCH (18:36)
--- NOTE | 2017-07-14 20:39 | DIAGNOSTIC IMAGING REPORT ---
ABD/PELVIS ORAL CONT ONLY CLINICAL HISTORY: Abdominal distention. Evaluate for small bowel obstruction. COMPARISON STUDY: CT of the abdomen and pelvis November 20, 2010, MRI of the abdomen April 09, 2012 and KUB July 14, 2017. FINDINGS: No pneumatosis, free air or portal venous gas is present. There is probable fatty infiltration of the liver. Moderate splenomegaly has increased since exam of November 20, 2010. Unenhanced images of the spleen and kidneys are unremarkable. There is no hydronephrosis. Pancreatic glandular atrophy is noted. Equivocal peripancreatic infiltration is noted. There are pancreatic parenchymal calcifications. Oral contrast reaches the cecum. There is mild small bowel dilatation and moderate colonic dilatation without transition point. Ascending colon measures 9.7 cm in transverse dimension. There is no evidence for a bowel obstruction. There is mild left groin edema. There is no fluid collection to suggest an abscess. No lymphadenopathy. No hydronephrosis is present. There is mild anasarca. Colonic diverticulosis without evidence for acute diverticulitis. IMPRESSION: 1. No evidence for a bowel obstruction. 2. Moderate colonic dilatation and mild small bowel dilatation. Oral contrast reaches the cecum. No transition point. The findings favor an ileus or pseudoobstruction. 3. Equivocal peripancreatic infiltration. Acute pancreatitis is considered unlikely however the findings could be correlated with biochemical assays. 4. Moderate nonspecific splenomegaly. 5. Mild anasarca and trace ascites. Electronically signed by: Robbie Box M.D. 07/14/2017 8:37 PM Dictated Date/Time: 07/14/2017 8:27 PM
[2017-07-14] MEDS: SIMVASTATIN 40 MG TAB PO SCH (21:00)
[2017-07-14] MEDS: INSULIN GLARGINE SOLOSTAR 100 UNITS/ML 3 ML PEN SC SCH (21:14)
[2017-07-14] MEDS ORDERED: NURSING VERBAL MED ORDER ONE (21:30)
[2017-07-15] VITALS (10 sets, daily range): BP systolic 120–155; BP diastolic 68–76; PULSE 81–84; TEMP 36.7–37; O2SAT 94–96
[2017-07-15] MEDS: INSULIN ASPART 100 UNITS/ML 3 ML PEN SC SCH ×5 (00:21→21:22)
[2017-07-15] MEDS: CLINDAMYCIN IV 600 MG in DEXTROSE 5% 50ML 50 ML IV SCH ×3 (03:22→21:12)
[2017-07-15] MEDS: NSS + 20MEQ KCL 1000ML 1,000 ML IV SCH (05:53)
[2017-07-15] MEDS: HEPARIN SOD 5000 UNIT/0.5 ML CARP SQ SCH ×3 (05:57→21:34)
[2017-07-15 06:09] LABS: HEMATOCRIT 35.7 % (37-47); HEMOGLOBIN 11.9 g/dL (12.0-16.0); MEAN CELL VOLUME 88.6 fL (80-100); MEAN CORPUSCULAR HEMOGLOBIN 29.5 pg (25-34); MEAN CORPUSCULAR HGB CONC 33.3 g/dl (32-36); NUCLEATED RED BLOOD CELL ABS 0.03 K/uL (0-0); PLATELET COUNT 264 K/uL (130-400); RED CELL DISTRIBUTION WIDTH CV 15.7 % (11.5-14.5); RED CELL DISTRIBUTION WIDTH SD 50.7 fL (36.4-46.3); WHITE BLOOD COUNT 35.58 K/uL (4.8-10.8)
[2017-07-15 06:30] LABS: CALCIUM 8.7 mg/dl (8.5-10.1); CREATININE 1.19 mg/dl (0.60-1.20); POTASSIUM 3.3 mmol/L (3.5-5.1)
--- NOTE | 2017-07-15 07:39 | Surgery Progress Note ---
Surgery Progress Note Date of Service Jul 15, 2017. Subjective wants to eat/drink, no complaints Objective Vital Signs: Date Time Temp Pulse Resp B/P (MAP) Pulse Ox O2 Delivery O2 Flow Rate FiO2 07/15/17 04:00 94 Nasal Cannula 2.0 07/15/17 03:27 36.7 81 20 155/75 (101) 94 Nasal Cannula 2.0 07/14/17 23:59 93 Nasal Cannula 2.0 07/14/17 23:29 37.0 85 22 163/74 (103) 93 Nasal Cannula 2.0 07/14/17 20:00 95 Nasal Cannula 2.0 07/14/17 16:22 37.0 91 20 109/57 (74) 95 Nasal Cannula 2.0 07/14/17 12:11 93 Nasal Cannula 2.0 07/14/17 11:35 36.4 89 18 149/73 (98) 93 Nasal Cannula 07/14/17 08:00 Nasal Cannula 2.0 Abdomen: non tender, soft Laboratory Results: Results Past 24 Hours Test 07/14/17 11:16 07/14/17 16:26 07/14/17 21:02 07/14/17 21:30 Range/Units Bedside Glucose 176 144 148 70-90 mg/dl Lipase 754 73-393 U/L Test 07/15/17 00:08 07/15/17 05:31 07/15/17 05:45 07/15/17 06:18 Range/Units Bedside Glucose 141 147 124 70-90 mg/dl White Blood Count 35.58 4.8-10.8 K/uL Red Blood Count 4.03 4.2-5.4 M/uL Hemoglobin 11.9 12.0-16.0 g/dL Hematocrit 35.7 37-47 % Mean Corpuscular Volume 88.6 80-100 fL Mean Corpuscular Hemoglobin 29.5 25-34 pg Mean Corpuscular Hemoglobin Concent 33.3 32-36 g/dl RDW Standard Deviation 50.7 36.4-46.3 fL RDW Coefficient of Variation 15.7 11.5-14.5 % Platelet Count 264 130-400 K/uL Mean Platelet Volume 11.0 7.4-10.4 fL Nucleated RBC Absolute Count (auto) 0.03 0-0 K/uL Nucleated Red Blood Cells % 0.1 % Sodium Level 140 136-145 mmol/L Potassium Level 3.3 3.5-5.1 mmol/L Chloride Level 106 98-107 mmol/L Carbon Dioxide Level 25 21-32 mmol/L Anion Gap 9.0 3-11 mmol/L Blood Urea Nitrogen 35 7-18 mg/dl Creatinine 1.19 0.60-1.20 mg/dl Est Creatinine Clear Calc Drug Dose 68.9 ml/min Estimated GFR () 56.3 Estimated GFR (Non- 48.5 BUN/Creatinine Ratio 29.0 10-20 Random Glucose 138 70-99 mg/dl Calcium Level 8.7 8.5-10.1 mg/dl Magnesium Level 2.2 1.8-2.4 mg/dl Microbiology Results 07/14/17 C.difficile Toxin B Gene (PCR) - Final, Complete No C. difficile toxin B gene detected Assessment & Plan RLE cellulitis CT with some small bowel and colon dilation favors ileus. She is on fluid restriction, but can begin diet as tolerated.
[2017-07-15] MEDS: IPRATROPIUM BROMIDE/ALBUTEROL respimat INH INH SCH ×4 (08:30→21:11)
[2017-07-15] MEDS: LACTOBACILLUS ACIDOPHILUS (FLORANEX) TAB PO SCH ×3 (08:30→17:25)
[2017-07-15] MEDS: FUROSEMIDE 40 MG TAB PO SCH (08:31)
[2017-07-15] MEDS: FENOFIBRATE 145 MG TAB PO SCH (08:31)
[2017-07-15] MEDS: PANTOprazole SOD 40 MG TAB PO SCH (08:31)
[2017-07-15] MEDS: CETIRIZINE HCL 10 MG TAB PO SCH (08:31)
--- NOTE | 2017-07-15 11:11 | Hospitalist Progress Note ---
Hospitalist Progress Note Date of Service Jul 15, 2017. (Lizzie Myers PA-C) Subjective Pt evaluation today including: conversation w/ patient, physical exam, chart review, lab review, review of studies, review of inpatient medication list Patient seen and evaluated. No acute events overnight. Sinus rhythm on monitor. Had a CT with evidence of ileus and peripancreatic infiltration with mild elevation of Lipase Patient would like to eat but is still distended. Will start with clear liquids and will loosen fluid restriction to 1800 mL. Erythema is slowly starting to recede today in some areas but still with blistering and significant edema No pain with rest only with bearing weight. Leukocytosis remains high. Constitutional: No fever, No chills Respiratory: No cough, No shortness of breath Cardiovascular: No chest pain Abdomen: No pain, No nausea, No vomiting, No diarrhea, No constipation Musculoskeletal: + swelling (B/L lower extremities with R > L) Female : No dysuria Heme: No abnormal bleeding/bruising (Lizzie Myers, ALMAC) Medications Current Inpatient Medications Medications (Trade) Dose Ordered Sig/Oxana Route Start Time Stop Time Status Last Admin Dose Admin Glucose (Glucose 40% Gel) 15-30 GRAMS 15 GRAMS... UD PRN PO 07/09/17 10:00 08/08/17 09:59 Glucose (Glucose Chew Tab) 4-8 Tablets 4 Tabl... UD PRN PO 07/09/17 10:00 08/08/17 09:59 Dextrose (Dextrose 50% 50ML Syringe) 25-50ML OF 50% DW IV FOR... UD PRN IV 07/09/17 10:00 08/08/17 09:59 Glucagon (Glucagon Inj) 1 mg UD PRN SQ 07/09/17 10:00 08/08/17 09:59 Heparin Sodium (Porcine) (Heparin Sq 5000 Unit/0.5ml) 5,000 unit Q8 SQ 07/09/17 14:00 08/08/17 13:59 07/15/17 05:57 5,000 UNIT Acetaminophen (Tylenol Tab) 650 mg Q4H PRN PO 07/09/17 10:15 08/08/17 10:14 07/10/17 09:45 650 MG Al Hydrox/Mg Hydrox/Simethicone (Maalox Max Susp) 15 ml Q4H PRN PO 07/09/17 10:15 08/08/17 10:14 07/10/17 20:45 15 ML Magnesium Hydroxide (Milk Of Magnesia Susp) 30 ml Q12H PRN PO 07/09/17 10:15 08/08/17 10:14 Ondansetron HCl (Zofran Inj) 4 mg Q6H PRN IV 07/09/17 10:15 08/08/17 10:14 Polyethylene (Miralax Powder Packet) 17 gm DAILY PRN PO 07/09/17 10:15 08/08/17 10:14 Miscellaneous Information (Consult Glycemic Management Pharmacy) 1 ea UD PRN N/A 07/09/17 11:10 08/08/17 11:09 Cetirizine HCl (zyrTEC TAB) 10 mg DAILY PO 07/10/17 09:00 08/09/17 08:59 07/15/17 08:31 10 MG Fenofibrate (Tricor Tab) 145 mg DAILY PO 07/10/17 09:00 08/09/17 08:59 07/15/17 08:31 145 MG Simvastatin (Zocor Tab) 40 mg QPM PO 07/09/17 21:00 08/08/17 20:59 07/13/17 19:54 40 MG Pantoprazole Sodium (Protonix Tab) 40 mg QAM PO 07/10/17 09:00 08/09/17 08:59 07/15/17 08:31 40 MG Hydromorphone HCl (Dilaudid Inj) 0.5 mg Q3H PRN IV 07/09/17 10:45 07/23/17 10:44 07/13/17 03:07 0.5 MG Lactobacillus Acidophilus (Floranex Tab) 4 tab TIDM PO 07/09/17 16:45 08/08/17 16:44 07/15/17 08:30 4 TAB Acetaminophen/ Hydrocodone Bitart ([place] 5/325 Tab) 1 tab Q6H PRN PO 07/10/17 13:00 07/24/17 12:59 07/11/17 17:12 1 TAB Ceftriaxone Sodium 2000 mg/ Dextrose 70 ml @ 140 mls/hr DAILY@1800 IV 07/11/17 18:00 08/01/17 17:59 4/2/18 18:36 140 MLS/HR Albuterol/ Ipratropium (Duoneb) 3 ml QIDR INH 07/11/17 16:00 08/10/17 15:59 Future Hold 07/12/17 11:19 3 ML Loperamide HCl (Imodium Cap) 2 mg Q6 PRN PO 07/12/17 12:45 08/11/17 12:44 07/12/17 13:14 2 MG Furosemide (Lasix Tab) 40 mg DAILY PO 07/13/17 09:00 08/10/17 08:59 07/15/17 08:31 40 MG Albuterol/ Ipratropium (Combivent Respimat Inh) 1 puffs QID INH 07/12/17 21:00 08/11/17 20:59 07/15/17 08:30 1 PUFFS Clindamycin Phosphate 600 mg/ Dextrose 54 ml @ 100 mls/hr Q8H IV 07/14/17 12:00 07/28/17 11:59 07/15/17 03:22 100 MLS/HR Heparin Sodium (Porcine) (Heparin 10 Unit/ ml 5 ml Flush) 5 ml PRN PRN FLUSH 07/14/17 12:00 08/13/17 11:59 Insulin Glargine (Lantus Solostar Pen) see protocol HS SC 07/14/17 21:00 08/13/17 20:59 07/14/17 21:14 70 UNITS Potassium Chloride/Sodium Chloride 1,000 ml @ 75 mls/hr [id number] IV 07/14/17 16:00 08/13/17 15:59 07/15/17 05:53 75 MLS/HR Insulin Aspart (novoLOG ASPART) SLIDING SCALE If CARB RA... Q6 SC 07/15/17 00:00 08/14/17 00:00 07/15/17 05:56 1 UNITS (Lizzie Myers, MELISSA) Objective Vital Signs Date Time Temp Pulse Resp B/P (MAP) Pulse Ox O2 Delivery O2 Flow Rate FiO2 07/15/17 08:25 36.9 82 20 140/72 (94) 94 07/15/17 08:00 94 Room Air 2.0 Nasal Cannula 07/15/17 04:00 94 Nasal Cannula 2.0 4/3/18 03:27 36.7 81 20 155/75 (101) 94 Nasal Cannula 2.0 07/14/17 23:59 93 Nasal Cannula 2.0 07/14/17 23:29 37.0 85 22 163/74 (103) 93 Nasal Cannula 2.0 07/14/17 20:00 95 Nasal Cannula 2.0 07/14/17 16:22 37.0 91 20 109/57 (74) 95 Nasal Cannula 2.0 07/14/17 12:11 93 Nasal Cannula 2.0 07/14/17 11:35 36.4 89 18 149/73 (98) 93 Nasal Cannula (Lizzie Myers PA-C) Physical Exam General Appearance: WD/WN, no apparent distress Eyes: sclerae normal ENT: hearing grossly normal Neck: supple, no JVD, trachea midline Respiratory/Chest: lungs clear, no respiratory distress, no accessory muscle use, + decreased breath sounds (bases b/l) Cardiovascular: regular rate, rhythm, no gallop, no murmur Abdomen: normal bowel sounds, non tender, + distended Extremities: + pertinent finding (RLE with diffuse erythema that appears to be reducing around marked sights; edema remains unchanged and seems superimposed on lymphedema; dorsalis pedis remains 2+) Neurologic/Psychiatric: alert Skin: normal color, warm/dry (Lizzie Myers, RAGHAVENDRA-C) Laboratory Results Last 24 Hours Test 07/14/17 11:16 07/14/17 16:26 07/14/17 21:02 07/14/17 21:30 Bedside Glucose 176 mg/dl 144 mg/dl 148 mg/dl Lipase 754 U/L Test 07/15/17 00:08 07/15/17 05:31 07/15/17 05:45 07/15/17 06:18 Bedside Glucose 141 mg/dl 147 mg/dl 124 mg/dl White Blood Count 35.58 K/uL Red Blood Count 4.03 M/uL Hemoglobin 11.9 g/dL Hematocrit 35.7 % Mean Corpuscular Volume 88.6 fL Mean Corpuscular Hemoglobin 29.5 pg Mean Corpuscular Hemoglobin Concent 33.3 g/dl RDW Standard Deviation 50.7 fL RDW Coefficient of Variation 15.7 % Platelet Count 264 K/uL Mean Platelet Volume 11.0 fL Nucleated RBC Absolute Count (auto) 0.03 K/uL Nucleated Red Blood Cells % 0.1 % Sodium Level 140 mmol/L Potassium Level 3.3 mmol/L Chloride Level 106 mmol/L Carbon Dioxide Level 25 mmol/L Anion Gap 9.0 mmol/L Blood Urea Nitrogen 35 mg/dl Creatinine 1.19 mg/dl Est Creatinine Clear Calc Drug Dose 68.9 ml/min Estimated GFR () 56.3 Estimated GFR (Non- 48.5 BUN/Creatinine Ratio 29.0 Random Glucose 138 mg/dl Calcium Level 8.7 mg/dl Magnesium Level 2.2 mg/dl (Lizzie Myers, MELISSA) Assessment and Plan Mr. Jordan is a 62 y/o female with PMHx of T2DM, HLD, Fatty Liver/Chronic Transaminitis, GERD, and PCOS who presents to the ED c/o RLE erythema/pain starting this AM. Diabetic Ketoacidosis/Metabolic Acidosis with T2DM: RESOLVED - Anion Gap Closed - A1c 8.6 - STABLE - Appreciate pharmacy assistance with glycemic management - maintaining improved BSGs with Lantus and SSI with adjustments per pharmacy Sepsis 2/2 RLE Cellulitis superimposed on Chronic Lower Extremity Edema and Group B Strep Bacteremia: STARTING TO IMPROVE - WBC remain elevated at 34 which may be in part from a reactive process; Did assess for C. diff and is negative - Rocephin 2 g IV daily and Clindamycin 600 mg Q8H added on 07/14 - ID following - continue to monitor and likely needs at least 21 days coverage Ileus: - CT supporting ileus and did mention peripancreatic infiltration with mildly elevated lipase - Will advance diet to clear liquids and will loosen fluid restriction to 1800 cc - Gen Surg following - appreciate recommendations Acute Kidney Injury 2/2 Dehydration/DKA/Sepsis: RESOLVED - Continue to trend with daily BMP Mild Acute Diastolic CHF: RESOLVED - Echo reveals normal EF with grade I diastolic dysfunction - Some of her lower extremity edema appears to be lymphedema and will monitor - Lasix 40 mg daily and monitor renal function Diarrhea 2/2 Abx: RESOLVED - Have more mucous like stool - will monitor; did repeat C. diff given significant leukocytosis but is negative HLD/Fatty Liver Disease/Chronic Transaminitis: STABLE - Fenofibrate 145 mg daily and Simvastatin 40 mg daily GERD: - Protonix 40 mg daily DVT Prophylaxis: Heparin Code Status: FULL RESUSCITATION Disposition: - PT/OT evaluations - assess for need for rehab? - Suspect continued stay due to acutely ill - uncertain of D/C at this time Continued [facility] stay due to: inadequate po fluid intake, multiple IV medications needed Discharge planning: uncertain (Lizzie Myers, PACatrachitaC) PA Physician Supervision Note: I interviewed and examined the patient. Discussed with Lizzie Myers PAC and agree with findings and plan as documented in the note. Any exceptions or clarifications are listed here: None This pt is fatigued and has mild improvement to RLE cellulitis with skin blistering daughter is at bedside and updated 36.7 81 20 155/75 diabetic le cellulitis, erythema is receeding slowly complicated by chronic LE swelling associated with morbid obesity and likley stasis dermatitis car is regular, lungs are clear, legs are with b/l edema and erythema to rle with blisters and bullae continue antibiotics with ID oversight, if bullae and blisters unroof will need wound care mangment, diabetes is being treated and will follow Documented By: Malcolm Oconnor (Malcolm Oconnor M.D.)
--- NOTE | 2017-07-15 11:33 | Progress Note ---
Subjective Date of Service: Jul 15, 2017. Subjective Pt evaluation today including: conversation w/ patient, conversation w/ family , physical exam, chart review, lab review family at bedside, feeling better today, thirsty, asking for something to drink , on fluid restriction. repeat cultures negative to date. c diff negative, no diarrhea, denies abd pain. no f/c. leg feeling better. less eryhtema but pain when moved. tolerating abx, clinda added yesterday. ct a/p without significant findings. wbc remains elevated. all remaining ros reviewed and are negative. Problem List Medical Problems: (1) Bilateral leg pain Status: Acute (2) DKA (diabetic ketoacidosis) Status: Acute (3) Left foot pain Status: Acute (4) Left hip pain Status: Acute (5) Left knee pain Status: Acute (6) Right shoulder pain Status: Acute (7) Sepsis Status: Acute Objective Vital Signs Date Time Temp Pulse Resp B/P (MAP) Pulse Ox O2 Delivery O2 Flow Rate FiO2 07/15/17 08:25 36.9 82 20 140/72 (94) 94 07/15/17 08:00 94 Room Air 2.0 Nasal Cannula 07/15/17 04:00 94 Nasal Cannula 2.0 07/15/17 03:27 36.7 81 20 155/75 (101) 94 Nasal Cannula 2.0 07/14/17 23:59 93 Nasal Cannula 2.0 07/14/17 23:29 37.0 85 22 163/74 (103) 93 Nasal Cannula 2.0 07/14/17 20:00 95 Nasal Cannula 2.0 07/14/17 16:22 37.0 91 20 109/57 (74) 95 Nasal Cannula 2.0 07/14/17 12:11 93 Nasal Cannula 2.0 07/14/17 11:35 36.4 89 18 149/73 (98) 93 Nasal Cannula Physical Exam General Appearance: WD/WN, no apparent distress Eyes: normal inspection, EOMI Neck: supple Respiratory/Chest: lungs clear, normal breath sounds, no respiratory distress, + decreased breath sounds Cardiovascular: regular rate, rhythm Abdomen: soft Extremities: + inflammation, + pedal edema, + swelling Neurologic/Psychiatric: alert, oriented x 3 Skin: normal color Comments: rle erythema improving, no warmth, non tender. still with edema and significant blistering. Laboratory Results Item Value Date Time Blood Culture - Final Complete 07/09/17 0957 Blood Group A Beta Strep Blood Culture - Final Complete 07/09/17 0835 Blood Group A Beta Strep Blood Culture - Preliminary Resulted 07/11/17 0737 Blood NO GROWTH TO DATE. Blood Culture - Preliminary Resulted 07/11/17 0736 Blood NO GROWTH TO DATE. C.difficile Toxin B Gene (PCR) - Final Complete 07/10/17 2020 Stool No C. difficile toxin B gene detected C.difficile Toxin B Gene (PCR) - Final Complete 07/14/17 1350 Stool No C. difficile toxin B gene detected Last 24 Hours Test 07/14/17 16:26 07/14/17 21:02 07/14/17 21:30 07/15/17 00:08 Bedside Glucose 144 mg/dl 148 mg/dl 141 mg/dl Lipase 754 U/L Test 07/15/17 05:31 07/15/17 05:45 07/15/17 06:18 White Blood Count 35.58 K/uL Red Blood Count 4.03 M/uL Hemoglobin 11.9 g/dL Hematocrit 35.7 % Mean Corpuscular Volume 88.6 fL Mean Corpuscular Hemoglobin 29.5 pg Mean Corpuscular Hemoglobin Concent 33.3 g/dl RDW Standard Deviation 50.7 fL RDW Coefficient of Variation 15.7 % Platelet Count 264 K/uL Mean Platelet Volume 11.0 fL Nucleated RBC Absolute Count (auto) 0.03 K/uL Nucleated Red Blood Cells % 0.1 % Sodium Level 140 mmol/L Potassium Level 3.3 mmol/L Chloride Level 106 mmol/L Carbon Dioxide Level 25 mmol/L Anion Gap 9.0 mmol/L Blood Urea Nitrogen 35 mg/dl Creatinine 1.19 mg/dl Est Creatinine Clear Calc Drug Dose 68.9 ml/min Estimated GFR () 56.3 Estimated GFR (Non- 48.5 BUN/Creatinine Ratio 29.0 Random Glucose 138 mg/dl Calcium Level 8.7 mg/dl Magnesium Level 2.2 mg/dl Bedside Glucose 147 mg/dl 124 mg/dl Assessment and Plan (1) Beta-hemolytic group A streptococcal sepsis Assessment & Plan: add clinda, continue rocephin. await additional image findings/ortho eval (2) Cellulitis (3) Leukocytosis (4) Cellulitis Continued [facility] stay due to: inadequate po fluid intake, multiple IV medications needed Discharge planning: uncertain Problem Qualifiers (1) Cellulitis: Site of cellulitis: unspecified site Qualified Codes: L03.90 - Cellulitis, unspecified
[2017-07-15] MEDS: CEFTRIAXONE SOD INJ 2000 MG in DEXTROSE 5% 50ML IV SCH (18:45)
[2017-07-15] MEDS: SIMVASTATIN 40 MG TAB PO SCH (21:14)
[2017-07-15] MEDS: INSULIN GLARGINE SOLOSTAR 100 UNITS/ML 3 ML PEN SC SCH (21:33)
[2017-07-15] MEDS: ACETAMINOPHEN 325 MG TAB PO PRN (22:33)
[2017-07-16 00:02] VITALS: BP 116/54; PULSE 84; TEMP 36.6; O2SAT 94
[2017-07-16] MEDS: CLINDAMYCIN IV 600 MG in DEXTROSE 5% 50ML 50 ML IV SCH ×3 (03:03→21:07)
[2017-07-16 06:05] LABS: CALCIUM 8.5 mg/dl (8.5-10.1); CREATININE 1.07 mg/dl (0.60-1.20); POTASSIUM 3.1 mmol/L (3.5-5.1)
[2017-07-16] MEDS: HEPARIN SOD 5000 UNIT/0.5 ML CARP SQ SCH ×3 (06:12→21:14)
[2017-07-16 07:11] VITALS: BP 95/62; PULSE 81; TEMP 36.4; O2SAT 97
[2017-07-16] MEDS: IPRATROPIUM BROMIDE/ALBUTEROL respimat INH INH SCH ×4 (08:19→21:08)
[2017-07-16] MEDS: PANTOprazole SOD 40 MG TAB PO SCH (08:20)
[2017-07-16] MEDS: FENOFIBRATE 145 MG TAB PO SCH (08:21)
[2017-07-16] MEDS: CETIRIZINE HCL 10 MG TAB PO SCH (08:21)
[2017-07-16] MEDS: FUROSEMIDE 40 MG TAB PO SCH (08:21)
[2017-07-16] MEDS: LACTOBACILLUS ACIDOPHILUS (FLORANEX) TAB PO SCH ×3 (08:21→18:05)
[2017-07-16] MEDS: INSULIN ASPART 100 UNITS/ML 3 ML PEN SC SCH ×4 (08:29→21:13)
[2017-07-16] MEDS ORDERED: MAGNESIUM CITRATE 296 ML/BTL PO ONE (08:30)
--- NOTE | 2017-07-16 08:35 | Surgery Progress Note ---
Surgery Progress Note Date of Service Jul 16, 2017. Subjective some nausea last night, tolerating clears this AM, hasn't had BM in several days other than mucus Objective Vital Signs: Date Time Temp Pulse Resp B/P (MAP) Pulse Ox O2 Delivery O2 Flow Rate FiO2 07/16/17 07:11 36.4 81 22 95/62 (73) 97 2.0 07/16/17 00:02 36.6 84 24 116/54 (74) 94 2.0 07/15/17 23:59 94 Nasal Cannula 2.0 07/15/17 16:00 95 Nasal Cannula 2.0 07/15/17 15:05 37.0 84 18 120/68 (85) 95 Nasal Cannula 2.0 07/15/17 14:00 37.0 84 18 95 2.0 07/15/17 12:00 96 Nasal Cannula 2.0 07/15/17 11:52 36.7 84 20 139/76 (97) 96 Abdomen: non tender Laboratory Results: Results Past 24 Hours Test 07/15/17 11:24 07/15/17 17:19 07/15/17 20:03 07/16/17 05:11 Range/Units Bedside Glucose 150 105 133 70-90 mg/dl Sodium Level 137 136-145 mmol/L Potassium Level 3.1 3.5-5.1 mmol/L Chloride Level 104 98-107 mmol/L Carbon Dioxide Level 24 21-32 mmol/L Anion Gap 9.0 3-11 mmol/L Blood Urea Nitrogen 33 7-18 mg/dl Creatinine 1.07 0.60-1.20 mg/dl Est Creatinine Clear Calc Drug Dose 76.6 ml/min Estimated GFR () 64.0 Estimated GFR (Non- 55.2 BUN/Creatinine Ratio 31.1 10-20 Random Glucose 91 70-99 mg/dl Calcium Level 8.5 8.5-10.1 mg/dl Magnesium Level 2.2 1.8-2.4 mg/dl Assessment & Plan RLE cellulitis Ileus Will try dose of mag citrate. Tolerating clears, advance to fulls as tolerated. Seen with Dr. Ortega.
[2017-07-16 08:36] VITALS: BP 122/74; PULSE 84
[2017-07-16 08:37] VITALS: O2SAT 94
[2017-07-16] MEDS: POTASSIUM CHLORIDE 20 MEQ TABCR PO SCH ×2 (09:49→18:11)
[2017-07-16] MEDS: HYDROCODONE/ACETAMIN 5/325MG TAB PO PRN (13:15)
--- NOTE | 2017-07-16 14:20 | Pharmacy Progress Note ---
Glycemic: Assessment & Plan Date of Service Jul 16, 2017. Assessment & Plan Ms. Jordan received 95units of insulin 07/15/17. Daily insulin requirement appears to be decreasing. BSGs ranging from 91-103-106 over the past 24hrs. Ms. Jordan received 70units of lantus 07/15/17. Will adjust lantus scale: 60units or 65units based on BSGs to prevent any future fasting lows. Meal time coverage has been good. However, BSGs have been steadily trending down over the past 24hrs. Will loosen up CR to 5. I hesitate to adjust both the CF/CR. * Basal insulin: Lantus based on BSG scale tonight: give 60units with BSG <120, >/=120 give 65units * Correctional Insulin: Novolog Correction per scale ACHS Goal Range: Low 110 mg/dL - High 140 mg/dL Correction Factor: 10 mg/dL/unit * Prandial insulin: Per carb ratio of 1 unit per 5 grams CHO consumed Pharmacy will continue to monitor patient daily and write orders per [facility] inpatient glycemic control protocol. Thanks. * Please note that the plan above was derived based on current level of insulin resistance and hospital stress. These recommendations are appropriate for inpatient admission only. Plan of care upon discharge will need to be reassessed to avoid potential outpatient hypo/hyperglycemia.
--- NOTE | 2017-07-16 14:21 | Progress Note ---
Subjective Date of Service: Jul 16, 2017. Subjective Pt evaluation today including: conversation w/ patient, conversation w/ family , physical exam, chart review, lab review pt transferred, oob to chair on my exam, feeling tired. no f/c tolerating abx. leg now wrapped, states blisters opened spontaneously this am. no pain. repeat blood cultures negative. wound care following. no n/v/d/abd pain. no cbc today, daughter concerned regarding wbc. all remaining ros reviewed and are negative. Problem List Medical Problems: (1) Bilateral leg pain Status: Acute (2) DKA (diabetic ketoacidosis) Status: Acute (3) Left foot pain Status: Acute (4) Left hip pain Status: Acute (5) Left knee pain Status: Acute (6) Right shoulder pain Status: Acute (7) Sepsis Status: Acute Objective Vital Signs Date Time Temp Pulse Resp B/P (MAP) Pulse Ox O2 Delivery O2 Flow Rate FiO2 07/16/17 08:37 94 Room Air 2.0 Nasal Cannula 07/16/17 08:36 84 122/74 (90) 07/16/17 07:11 36.4 81 22 95/62 (73) 97 2.0 07/16/17 00:02 36.6 84 24 116/54 (74) 94 2.0 07/15/17 23:59 94 Nasal Cannula 2.0 07/15/17 16:00 95 Nasal Cannula 2.0 07/15/17 15:05 37.0 84 18 120/68 (85) 95 Nasal Cannula 2.0 Physical Exam General Appearance: WD/WN, no apparent distress Eyes: normal inspection, EOMI Neck: supple Respiratory/Chest: normal breath sounds, no respiratory distress Cardiovascular: regular rate, rhythm Abdomen: soft Extremities: non-tender, + inflammation, + swelling, + pertinent finding ( dressing c/d/i, less erythema today) Neurologic/Psychiatric: alert, oriented x 3 Skin: normal color Laboratory Results Item Value Date Time Blood Culture - Preliminary Resulted 07/11/17 0736 Blood NO GROWTH TO DATE. Blood Culture - Preliminary Resulted 07/11/17 0737 Blood NO GROWTH TO DATE. C.difficile Toxin B Gene (PCR) - Final Complete 07/14/17 1350 Stool No C. difficile toxin B gene detected Blood Culture - Final Complete 07/09/17 0957 Blood Group A Beta Strep Blood Culture - Final Complete 07/09/17 0835 Blood Group A Beta Strep Last 24 Hours Test 07/15/17 17:19 07/15/17 20:03 07/16/17 05:11 07/16/17 07:15 Bedside Glucose 105 mg/dl 133 mg/dl 103 mg/dl Sodium Level 137 mmol/L Potassium Level 3.1 mmol/L Chloride Level 104 mmol/L Carbon Dioxide Level 24 mmol/L Anion Gap 9.0 mmol/L Blood Urea Nitrogen 33 mg/dl Creatinine 1.07 mg/dl Est Creatinine Clear Calc Drug Dose 76.6 ml/min Estimated GFR () 64.0 Estimated GFR (Non- 55.2 BUN/Creatinine Ratio 31.1 Random Glucose 91 mg/dl Calcium Level 8.5 mg/dl Magnesium Level 2.2 mg/dl Test 07/16/17 11:15 Bedside Glucose 106 mg/dl Assessment and Plan (1) Beta-hemolytic group A streptococcal sepsis Assessment & Plan: add clinda, continue rocephin. await additional image findings/ortho eval (2) Cellulitis Assessment & Plan: continue abx and local wound care. will likely 14 days IV abx with transition to po abx. can follow in wound center post d/c. (3) Leukocytosis Assessment & Plan: follow cbc. Continued [facility] stay due to: inadequate po fluid intake, multiple IV medications needed Discharge planning: uncertain
[2017-07-16 15:09] VITALS: BP 153/73; PULSE 92; TEMP 36.3; O2SAT 94
[2017-07-16 16:03] VITALS: O2SAT 94
--- NOTE | 2017-07-16 16:50 | Hospitalist Progress Note ---
Hospitalist Progress Note Date of Service Jul 16, 2017. (Lizzie Myers PA-C) Subjective Pt evaluation today including: conversation w/ patient, physical exam, chart review, lab review, review of studies, review of inpatient medication list Patient seen and evaluated. No acute events overnight. Continues to have mucus like stool but no actual BM. Trial milk of molasses but not really holding and was unsuccessful. Reviewed CT and stool does appear more in the ascending colon but contrast was able to reach the cecum so does not appear as an obstruction. Unfortunately KUB will likely be limited given body habitus. Abd remains distended and will keep on clears. Will do Miralax BID. Likely will implement Golytely until BM occurs. Wound care in to see patient and dressing applied. Appreciate their assistance Constitutional: No fever, No chills Respiratory: No shortness of breath Cardiovascular: No chest pain Abdomen: No pain, No nausea, No vomiting, No diarrhea Female : No dysuria Heme: No abnormal bleeding/bruising (Lizzie Myers, ALMAC) Medications Current Inpatient Medications Medications (Trade) Dose Ordered Sig/Oxana Route Start Time Stop Time Status Last Admin Dose Admin Glucose (Glucose 40% Gel) 15-30 GRAMS 15 GRAMS... UD PRN PO 07/09/17 10:00 08/08/17 09:59 Glucose (Glucose Chew Tab) 4-8 Tablets 4 Tabl... UD PRN PO 07/09/17 10:00 08/08/17 09:59 Dextrose (Dextrose 50% 50ML Syringe) 25-50ML OF 50% DW IV FOR... UD PRN IV 07/09/17 10:00 08/08/17 09:59 Glucagon (Glucagon Inj) 1 mg UD PRN SQ 07/09/17 10:00 08/08/17 09:59 Heparin Sodium (Porcine) (Heparin Sq 5000 Unit/0.5ml) 5,000 unit Q8 SQ 07/09/17 14:00 08/08/17 13:59 07/16/17 13:11 5,000 UNIT Acetaminophen (Tylenol Tab) 650 mg Q4H PRN PO 07/09/17 10:15 08/08/17 10:14 07/15/17 22:33 650 MG Al Hydrox/Mg Hydrox/Simethicone (Maalox Max Susp) 15 ml Q4H PRN PO 07/09/17 10:15 08/08/17 10:14 07/10/17 20:45 15 ML Magnesium Hydroxide (Milk Of Magnesia Susp) 30 ml Q12H PRN PO 07/09/17 10:15 08/08/17 10:14 Ondansetron HCl (Zofran Inj) 4 mg Q6H PRN IV 07/09/17 10:15 08/08/17 10:14 Miscellaneous Information (Consult Glycemic Management Pharmacy) 1 ea UD PRN N/A 07/09/17 11:10 08/08/17 11:09 Cetirizine HCl (zyrTEC TAB) 10 mg DAILY PO 07/10/17 09:00 08/09/17 08:59 07/16/17 08:21 10 MG Fenofibrate (Tricor Tab) 145 mg DAILY PO 07/10/17 09:00 08/09/17 08:59 07/16/17 08:21 145 MG Simvastatin (Zocor Tab) 40 mg QPM PO 07/09/17 21:00 08/08/17 20:59 07/15/17 21:14 40 MG Pantoprazole Sodium (Protonix Tab) 40 mg QAM PO 07/10/17 09:00 08/09/17 08:59 07/16/17 08:20 40 MG Hydromorphone HCl (Dilaudid Inj) 0.5 mg Q3H PRN IV 07/09/17 10:45 07/23/17 10:44 07/13/17 03:07 0.5 MG Lactobacillus Acidophilus (Floranex Tab) 4 tab TIDM PO 07/09/17 16:45 08/08/17 16:44 07/16/17 13:01 4 TAB Acetaminophen/ Hydrocodone Bitart (Hemphill 5/325 Tab) 1 tab Q6H PRN PO 07/10/17 13:00 07/24/17 12:59 07/16/17 13:15 1 TAB Ceftriaxone Sodium 2000 mg/ Dextrose 70 ml @ 140 mls/hr DAILY@1800 IV 07/11/17 18:00 08/01/17 17:59 07/15/17 18:45 140 MLS/HR Loperamide HCl (Imodium Cap) 2 mg Q6 PRN PO 3/31/18 12:45 08/11/17 12:44 07/12/17 13:14 2 MG Furosemide (Lasix Tab) 40 mg DAILY PO 07/13/17 09:00 08/10/17 08:59 07/16/17 08:21 40 MG Albuterol/ Ipratropium (Combivent Respimat Inh) 1 puffs QID INH 07/12/17 21:00 08/11/17 20:59 07/16/17 13:01 1 PUFFS Clindamycin Phosphate 600 mg/ Dextrose 54 ml @ 100 mls/hr Q8H IV 07/14/17 12:00 07/28/17 11:59 07/16/17 13:01 100 MLS/HR Heparin Sodium (Porcine) (Heparin 10 Unit/ ml 5 ml Flush) 5 ml PRN PRN FLUSH 07/14/17 12:00 08/13/17 11:59 07/16/17 05:30 5 ML Insulin Glargine (Lantus Solostar Pen) see protocol HS SC 07/14/17 21:00 08/13/17 20:59 07/15/17 21:33 70 UNITS Insulin Aspart (novoLOG ASPART) SLIDING SCALE If CARB RA... ACHS SC 07/15/17 16:15 08/14/17 16:14 07/16/17 13:03 13 UNITS Potassium Chloride (Klor-Con Tab) 20 meq BIDM PO 07/16/17 09:30 07/17/17 08:01 07/16/17 09:49 20 MEQ Polyethylene (Miralax Powder Packet) 17 gm BID PO 07/16/17 20:00 08/08/17 10:14 (Lizzie Myers, PA-C) Objective Vital Signs Date Time Temp Pulse Resp B/P (MAP) Pulse Ox O2 Delivery O2 Flow Rate FiO2 07/16/17 15:09 36.3 92 18 153/73 (99) 94 Nasal Cannula 2.0 07/16/17 08:37 94 Room Air 2.0 Nasal Cannula 07/16/17 08:36 84 122/74 (90) 07/16/17 07:11 36.4 81 22 95/62 (73) 97 2.0 07/16/17 00:02 36.6 84 24 116/54 (74) 94 2.0 07/15/17 23:59 94 Nasal Cannula 2.0 (Lizzie Myers PA-C) Physical Exam General Appearance: no apparent distress ENT: hearing grossly normal Neck: supple, no JVD, trachea midline Respiratory/Chest: lungs clear, no respiratory distress, no accessory muscle use, + decreased breath sounds Cardiovascular: regular rate, rhythm Abdomen: normal bowel sounds, + distended Extremities: + pertinent finding (RLE with dressing applied remains erythematous but appears to be improving) Neurologic/Psychiatric: alert (Lizzie Myers PA-C) Laboratory Results Last 24 Hours Test 07/15/17 17:19 07/15/17 20:03 07/16/17 05:11 07/16/17 07:15 Bedside Glucose 105 mg/dl 133 mg/dl 103 mg/dl Sodium Level 137 mmol/L Potassium Level 3.1 mmol/L Chloride Level 104 mmol/L Carbon Dioxide Level 24 mmol/L Anion Gap 9.0 mmol/L Blood Urea Nitrogen 33 mg/dl Creatinine 1.07 mg/dl Est Creatinine Clear Calc Drug Dose 76.6 ml/min Estimated GFR () 64.0 Estimated GFR (Non- 55.2 BUN/Creatinine Ratio 31.1 Random Glucose 91 mg/dl Calcium Level 8.5 mg/dl Magnesium Level 2.2 mg/dl Test 07/16/17 11:15 Bedside Glucose 106 mg/dl (Lizzie Myers PA-C) Assessment and Plan Mr. Jordan is a 62 y/o female with PMHx of T2DM, HLD, Fatty Liver/Chronic Transaminitis, GERD, and PCOS who presents to the ED c/o RLE erythema/pain starting this AM. Diabetic Ketoacidosis/Metabolic Acidosis with T2DM: RESOLVED - Anion Gap Closed - A1c 8.6 - STABLE - Will need to watch for hypoglycemia given reduced diet at this point - Appreciate pharmacy assistance with glycemic management - maintaining improved BSGs with Lantus and SSI with adjustments per pharmacy Sepsis 2/2 RLE Cellulitis superimposed on Chronic Lower Extremity Edema and Group B Strep Bacteremia: SLOW IMPROVEMENT - Will assess CBC tomorrow to assess for any changes with WBC - clinically appearing better and this may be some reactive process - Rocephin 2 g IV daily and Clindamycin 600 mg Q8H added on 07/14 - ID following - appreciate recommendations for ongoing Abx coverage Ileus: - CT supporting ileus and did mention peripancreatic infiltration with mildly elevated lipase - Maintain clear liquids; implement more aggressive bowel regimen as mostly just defecating mucous; likely will implement Golytely until BM -- Milk of Molasses was unsuccessful but unsure of ability to appropriately hold enema - Gen Surg following - appreciate recommendations Acute Kidney Injury 2/2 Dehydration/DKA/Sepsis: RESOLVED - Continue to trend with daily BMP Mild Acute Diastolic CHF: RESOLVED - Echo reveals normal EF with grade I diastolic dysfunction - Some of her lower extremity edema appears to be lymphedema and will monitor - Lasix 40 mg daily and monitor renal function Diarrhea 2/2 Abx: RESOLVED - Continues to have mucous-like bowel movements; continue with bowel regimen HLD/Fatty Liver Disease/Chronic Transaminitis: STABLE - Fenofibrate 145 mg daily and Simvastatin 40 mg daily GERD: - Protonix 40 mg daily DVT Prophylaxis: Heparin Code Status: FULL RESUSCITATION Disposition: - PT/OT evaluations - recommendation for rehab on D/C; - Continued stay due to acutely ill - uncertain of D/C at this time Continued [facility] stay due to: ambulation difficulties, multiple IV medications needed Discharge planning: rehab hospital (Lizzie Myers, PA-C) PA Physician Supervision Note: I interviewed and examined the patient. Discussed with Yadira Myers PAC and agree with findings and plan as documented in the note. Any exceptions or clarifications are listed here: None Pt had unroofing of her leg blister on the lower right leg 364 84 122/74 22 car is regular, le swelling is lessening and erythema is reducing continue parenteral antibiotics, local wound care and elevation along with gentle diuresis, TERESA and acute diastolic heart failure transitioned to chronic Documented By: Malcolm Oconnor (Malcolm Oconnor M.D.)
[2017-07-16] MEDS: CEFTRIAXONE SOD INJ 2000 MG in DEXTROSE 5% 50ML IV SCH (18:20)
[2017-07-16] MEDS: SIMVASTATIN 40 MG TAB PO SCH (21:08)
[2017-07-16] MEDS: POLYETHYLENE (MIRALAX) 17 GM PACK PO SCH (21:08)
[2017-07-16] MEDS: INSULIN GLARGINE SOLOSTAR 100 UNITS/ML 3 ML PEN SC SCH (21:14)
[2017-07-17 00:24] VITALS: BP 122/92; PULSE 87; TEMP 36.6; O2SAT 96
[2017-07-17] MEDS: ONDANSETRON INJ 2 MG/ML 2 ML VIAL IV PRN (04:08)
[2017-07-17] MEDS ORDERED: PROCHLORPERAZINE INJ 5 MG in SYRINGE 4 ML IV STA (05:33)
[2017-07-17] MEDS: CLINDAMYCIN IV 600 MG in DEXTROSE 5% 50ML 50 ML IV SCH ×3 (05:59→21:47)
[2017-07-17] MEDS: HEPARIN SOD 5000 UNIT/0.5 ML CARP SQ SCH ×3 (06:00→21:54)
[2017-07-17 06:18] LABS: HEMATOCRIT 37.6 % (37-47); HEMOGLOBIN 12.9 g/dL (12.0-16.0); MEAN CELL VOLUME 89.1 fL (80-100); MEAN CORPUSCULAR HEMOGLOBIN 30.6 pg (25-34); MEAN CORPUSCULAR HGB CONC 34.3 g/dl (32-36); MEAN PLATELET VOLUME 10.4 fL (7.4-10.4); NUCLEATED RED BLOOD CELL ABS 0.06 K/uL (0-0); PLATELET COUNT 349 K/uL (130-400); RED CELL DISTRIBUTION WIDTH CV 15.6 % (11.5-14.5); RED CELL DISTRIBUTION WIDTH SD 49.8 fL (36.4-46.3); WHITE BLOOD COUNT 40.22 K/uL (4.8-10.8)
[2017-07-17 06:32] LABS: CALCIUM 8.2 mg/dl (8.5-10.1); CREATININE 1.17 mg/dl (0.60-1.20); POTASSIUM 3.5 mmol/L (3.5-5.1)
[2017-07-17 07:13] VITALS: BP 133/79; PULSE 88; TEMP 36.8; O2SAT 93
[2017-07-17] MEDS: LACTOBACILLUS ACIDOPHILUS (FLORANEX) TAB PO SCH ×3 (08:00→17:54)
--- NOTE | 2017-07-17 08:39 | Pharmacy Progress Note ---
Pharmacy Glycemic Short Note 2 Date of Service Jul 17, 2017. OUTPATIENT ANTIDIABETIC REGIMEN: * Lantus 60-70 units at bedtime and Novolog with scale ASSESSMENT: * 62yo T2DM female with suboptimal degree of outpatient control. Goal A1c is likely 7.5-8% based on age/comorbidities * Pt with Severe hyperglycemia on admission and was initiated on IV insulin infusion. Pt transitioned to SQ basal bolus on 07/10/17. Pharmacy has been titrating Sq insulin doses daily based on BSG trends. * Pt has been receiving 85-100 units of insulin per day with near adequate control * 65 units of basal insulin * 33 units of prandial/correctional insulin * AM fasting BSG is slightly above goal range at 179 mg/dl. Patient did receive only 65 units of basal yesterday per scale. Therefore increased back to 70 units of Lantus for evening with 60 units to be given if blood sugar less than 120 mg/dL. * Post-prandial BSGs trended upwards yesterday. Carbohydrate ratio had been loosened yesterday to 1 units per 5 grams of carbohydrates consumed. Tighten back to 1 unit per 4 grams of carbohydrates consumed. PLAN FOR INPATIENT GLYCEMIC CONTROL: * Hold outpatient oral diabetes medications * Basal insulin * Lantus 70 units SQ HS if blood sugar 120 mg/dL or greater; 60 units if blood sugar less than 120 mg/dL. * Bolus insulin * NovoLog per scale ACHS or Q6hrs while NPO * Goal Range: Low 110 mg/dL - High 140 mg/dL * Correction Factor: 10 mg/dL/unit * Nutritional / Prandial insulin per carb ratio of 1 unit per 4 grams CHO consumed RECOMMENDATIONS FOR DISCHARGE * Work with outpatient provider to titrate insulin to desired blood glucose readings as patient's HbA1C is out of goal range.
[2017-07-17] MEDS: IPRATROPIUM BROMIDE/ALBUTEROL respimat INH INH SCH ×4 (08:55→21:48)
[2017-07-17] MEDS: INSULIN ASPART 100 UNITS/ML 3 ML PEN SC SCH ×4 (08:58→21:52)
--- NOTE | 2017-07-17 09:51 | DIAGNOSTIC IMAGING REPORT ---
ABDOMEN 2VIEW W/PA CHEST RTN (11 views) CLINICAL HISTORY: Small bowel obstruction. Abdominal distention. COMPARISON STUDY: CT scan dated July 14, 2017 FINDINGS: The erect chest reveals a right-sided PICC catheter projected over the atriocaval junction. The heart is mildly enlarged. No free intraperitoneal air is visualized. There is no focal pulmonary consolidation. Erect and decubitus views of the abdomen reveal dilated large and small bowel loops with multiple air-fluid levels. There is decreased gas within the left colon as compared with the remainder the colon. The findings are consistent with either a left colonic obstruction or ileus/pseudoobstruction. IMPRESSION: 1. No evidence of free air 2. Moderately dilated large and small bowel loops. The findings are consistent with either left colonic obstruction, or ileus/pseudoobstruction. This should be noted that no obstructing left-sided colonic mass was demonstrated on the recent CT scan. Electronically signed by: Chuy Montoya M.D. 07/17/2017 9:49 AM Dictated Date/Time: 07/17/2017 9:46 AM
[2017-07-17] MEDS ORDERED: SOAP SUDS ENEMA PR ONE (10:15)
[2017-07-17] MEDS: SODIUM CHLORIDE 0.9% 1000ML 1,000 ML IV SCH ×2 (11:35→21:55)
[2017-07-17] MEDS: CETIRIZINE HCL 10 MG TAB PO SCH (11:35)
[2017-07-17] MEDS: POTASSIUM CHLORIDE 20 MEQ TABCR PO SCH (11:35)
[2017-07-17] MEDS: FENOFIBRATE 145 MG TAB PO SCH (11:35)
[2017-07-17] MEDS: PANTOprazole SOD 40 MG TAB PO SCH (11:36)
[2017-07-17] MEDS: FUROSEMIDE 40 MG TAB PO SCH (11:36)
[2017-07-17] MEDS: POLYETHYLENE (MIRALAX) 17 GM PACK PO SCH ×2 (11:38→21:48)
--- NOTE | 2017-07-17 14:12 | Progress Note ---
Subjective Date of Service: Jul 17, 2017. Subjective afebrile. wbc increased to 40. abd x ray will dilated loops small bowel. tolerating abx. repeat blood cultures negative. underoing wound care. Problem List Medical Problems: (1) Bilateral leg pain Status: Acute (2) DKA (diabetic ketoacidosis) Status: Acute (3) Left foot pain Status: Acute (4) Left hip pain Status: Acute (5) Left knee pain Status: Acute (6) Right shoulder pain Status: Acute (7) Sepsis Status: Acute Objective Vital Signs Date Time Temp Pulse Resp B/P (MAP) Pulse Ox O2 Delivery O2 Flow Rate FiO2 07/17/17 10:23 Nasal Cannula 2.0 07/17/17 07:13 36.8 88 20 133/79 (97) 93 2.0 07/17/17 00:24 36.6 87 20 122/92 (102) 96 2.5 07/17/17 00:00 Nasal Cannula 2.0 07/16/17 16:03 94 Nasal Cannula 2.0 07/16/17 15:09 36.3 92 18 153/73 (99) 94 Nasal Cannula 2.0 Laboratory Results Item Value Date Time Blood Culture - Preliminary Resulted 07/11/17 0736 Blood NO GROWTH TO DATE. Blood Culture - Preliminary Resulted 07/11/17 0737 Blood NO GROWTH TO DATE. C.difficile Toxin B Gene (PCR) - Final Complete 07/14/17 1350 Stool No C. difficile toxin B gene detected Blood Culture - Final Complete 07/09/17 0957 Blood Group A Beta Strep Blood Culture - Final Complete 07/09/17 0835 Blood Group A Beta Strep Blood Culture - Final Complete 07/11/17 0737 Blood NO GROWTH Blood Culture - Final Complete 07/11/17 0736 Blood NO GROWTH Last 24 Hours Test 07/16/17 17:02 07/16/17 20:57 07/17/17 05:21 07/17/17 07:32 Bedside Glucose 136 mg/dl 155 mg/dl 179 mg/dl White Blood Count 40.22 K/uL Red Blood Count 4.22 M/uL Hemoglobin 12.9 g/dL Hematocrit 37.6 % Mean Corpuscular Volume 89.1 fL Mean Corpuscular Hemoglobin 30.6 pg Mean Corpuscular Hemoglobin Concent 34.3 g/dl RDW Standard Deviation 49.8 fL RDW Coefficient of Variation 15.6 % Platelet Count 349 K/uL Mean Platelet Volume 10.4 fL Nucleated RBC Absolute Count (auto) 0.06 K/uL Nucleated Red Blood Cells % 0.1 % Sodium Level 136 mmol/L Potassium Level 3.5 mmol/L Chloride Level 100 mmol/L Carbon Dioxide Level 28 mmol/L Anion Gap 8.0 mmol/L Blood Urea Nitrogen 31 mg/dl Creatinine 1.17 mg/dl Est Creatinine Clear Calc Drug Dose 70.1 ml/min Estimated GFR () 57.4 Estimated GFR (Non- 49.6 BUN/Creatinine Ratio 26.8 Random Glucose 164 mg/dl Calcium Level 8.2 mg/dl Magnesium Level 2.6 mg/dl Total Creatine Kinase 58 U/L Lipase 255 U/L Test 07/17/17 11:27 Bedside Glucose 166 mg/dl Assessment and Plan (1) Beta-hemolytic group A streptococcal sepsis Assessment & Plan: add clinda, continue rocephin.will need min 14 days IV abx from first negative blood culture. then likely transition to po abx. will follow in wound center post d/c. (2) Cellulitis (3) Leukocytosis Assessment & Plan: doubt related to strep infection. Continued [facility] stay due to: ambulation difficulties, multiple IV medications needed Discharge planning: rehab hospital
--- NOTE | 2017-07-17 15:41 | Surgery Progress Note ---
Surgery Progress Note Date of Service Jul 17, 2017. Subjective feels better this afternoon after two BM's after enema/Miralax, right abdominal discomfort/bloating has resolved Objective Vital Signs: Date Time Temp Pulse Resp B/P (MAP) Pulse Ox O2 Delivery O2 Flow Rate FiO2 07/17/17 10:23 Nasal Cannula 2.0 07/17/17 07:13 36.8 88 20 133/79 (97) 93 2.0 07/17/17 00:24 36.6 87 20 122/92 (102) 96 2.5 07/17/17 00:00 Nasal Cannula 2.0 07/16/17 16:03 94 Nasal Cannula 2.0 Abdomen: non tender, soft, + distended (mild) Extremities: + pertinent finding (thigh erythema resolved, calf erythema less intense and receeding from foot and knee) Laboratory Results: Results Past 24 Hours Test 07/16/17 17:02 07/16/17 20:57 07/17/17 05:21 07/17/17 07:32 Range/Units Bedside Glucose 136 155 179 70-90 mg/dl White Blood Count 40.22 4.8-10.8 K/uL Red Blood Count 4.22 4.2-5.4 M/uL Hemoglobin 12.9 12.0-16.0 g/dL Hematocrit 37.6 37-47 % Mean Corpuscular Volume 89.1 80-100 fL Mean Corpuscular Hemoglobin 30.6 25-34 pg Mean Corpuscular Hemoglobin Concent 34.3 32-36 g/dl RDW Standard Deviation 49.8 36.4-46.3 fL RDW Coefficient of Variation 15.6 11.5-14.5 % Platelet Count 349 130-400 K/uL Mean Platelet Volume 10.4 7.4-10.4 fL Nucleated RBC Absolute Count (auto) 0.06 0-0 K/uL Nucleated Red Blood Cells % 0.1 % Sodium Level 136 136-145 mmol/L Potassium Level 3.5 3.5-5.1 mmol/L Chloride Level 100 98-107 mmol/L Carbon Dioxide Level 28 21-32 mmol/L Anion Gap 8.0 3-11 mmol/L Blood Urea Nitrogen 31 7-18 mg/dl Creatinine 1.17 0.60-1.20 mg/dl Est Creatinine Clear Calc Drug Dose 70.1 ml/min Estimated GFR () 57.4 Estimated GFR (Non- 49.6 BUN/Creatinine Ratio 26.8 10-20 Random Glucose 164 70-99 mg/dl Calcium Level 8.2 8.5-10.1 mg/dl Magnesium Level 2.6 1.8-2.4 mg/dl Total Creatine Kinase 58 26-192 U/L Lipase 255 73-393 U/L Test 07/17/17 11:27 Range/Units Bedside Glucose 166 70-90 mg/dl Diagnostic Interpretation: ABDOMEN 2VIEW W/PA CHEST RTN (11 views) CLINICAL HISTORY: Small bowel obstruction. Abdominal distention. COMPARISON STUDY: CT scan dated July 14, 2017 FINDINGS: The erect chest reveals a right-sided PICC catheter projected over the atriocaval junction. The heart is mildly enlarged. No free intraperitoneal air is visualized. There is no focal pulmonary consolidation. Erect and decubitus views of the abdomen reveal dilated large and small bowel loops with multiple air-fluid levels. There is decreased gas within the left colon as compared with the remainder the colon. The findings are consistent with either a left colonic obstruction or ileus/pseudoobstruction. IMPRESSION: 1. No evidence of free air 2. Moderately dilated large and small bowel loops. The findings are consistent with either left colonic obstruction, or ileus/pseudoobstruction. This should be noted that no obstructing left-sided colonic mass was demonstrated on the recent CT scan. Electronically signed by: Chuy Montoya M.D. 07/17/2017 9:49 AM Dictated Date/Time: 07/17/2017 9:46 AM Assessment & Plan RLE cellulitis Ileus Abdomen is improved since XR were taken this AM. WBC remains elevated but cellulitis is improving and there is no apparent abdominal source. CPK and lipase are normal. Discussed with Dr. Oconnor.
[2017-07-17 15:57] VITALS: BP 136/77; PULSE 87; TEMP 36.2; O2SAT 98
[2017-07-17 16:03] VITALS: O2SAT 94
--- NOTE | 2017-07-17 18:02 | Progress Note ---
Subjective Date of Service: Jul 17, 2017. Subjective this pt has massive abdominal distension and X ray reveals colonic and small bowel dilation. The pt did eventually had bowel movements after soap suds enema , there is some discussion of decompression colonoscopy but since we have had some bowel production will hold at this time according general surgery Problem List Medical Problems: (1) Bilateral leg pain Status: Acute (2) DKA (diabetic ketoacidosis) Status: Acute (3) Left foot pain Status: Acute (4) Left hip pain Status: Acute (5) Left knee pain Status: Acute (6) Right shoulder pain Status: Acute (7) Sepsis Status: Acute Review of Systems Constitutional: + weakness, + fatigue, No fever, No chills Respiratory: No cough, No shortness of breath Cardiac: No chest pain, No edema Abdomen: + pain, No nausea, No vomiting, No diarrhea, No constipation Female : No dysuria, No urinary frequency Psychiatric: No depression symptoms, No anxiety Skin: + rash, + color change Objective Vital Signs Date Time Temp Pulse Resp B/P (MAP) Pulse Ox O2 Delivery O2 Flow Rate FiO2 07/17/17 15:57 36.2 87 24 136/77 (96) 98 Nasal Cannula 2.0 07/17/17 10:23 Nasal Cannula 2.0 07/17/17 07:13 36.8 88 20 133/79 (97) 93 2.0 07/17/17 00:24 36.6 87 20 122/92 (102) 96 2.5 07/17/17 00:00 Nasal Cannula 2.0 Physical Exam General Appearance: WD/WN, + mild distress Eyes: normal inspection, sclerae normal Neck: supple, no JVD Respiratory/Chest: chest non-tender, lungs clear, + decreased breath sounds Cardiovascular: regular rate, rhythm, no murmur Abdomen: normal bowel sounds, soft, + distended, + guarding Extremities: normal range of motion, no pedal edema, no calf tenderness 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, alert, oriented x 3 Skin: normal color, no rash Laboratory Results Last 24 Hours Test 07/16/17 20:57 07/17/17 05:21 07/17/17 07:32 07/17/17 11:27 Bedside Glucose 155 mg/dl 179 mg/dl 166 mg/dl White Blood Count 40.22 K/uL Red Blood Count 4.22 M/uL Hemoglobin 12.9 g/dL Hematocrit 37.6 % Mean Corpuscular Volume 89.1 fL Mean Corpuscular Hemoglobin 30.6 pg Mean Corpuscular Hemoglobin Concent 34.3 g/dl RDW Standard Deviation 49.8 fL RDW Coefficient of Variation 15.6 % Platelet Count 349 K/uL Mean Platelet Volume 10.4 fL Nucleated RBC Absolute Count (auto) 0.06 K/uL Nucleated Red Blood Cells % 0.1 % Sodium Level 136 mmol/L Potassium Level 3.5 mmol/L Chloride Level 100 mmol/L Carbon Dioxide Level 28 mmol/L Anion Gap 8.0 mmol/L Blood Urea Nitrogen 31 mg/dl Creatinine 1.17 mg/dl Est Creatinine Clear Calc Drug Dose 70.1 ml/min Estimated GFR () 57.4 Estimated GFR (Non- 49.6 BUN/Creatinine Ratio 26.8 Random Glucose 164 mg/dl Calcium Level 8.2 mg/dl Magnesium Level 2.6 mg/dl Total Creatine Kinase 58 U/L Lipase 255 U/L Test 07/17/17 16:38 Bedside Glucose 167 mg/dl Assessment and Plan Mr. Jordan is a 62 y/o female with PMHx of T2DM, HLD, Fatty Liver/Chronic Transaminitis, GERD, and PCOS who presents to the ED c/o RLE erythema/pain Ileus:colonic and small bowel feels maybe pseudoobstruction as did have abdominal CT without suggestion of bowel pathology - CT supporting ileus and did mention peripancreatic infiltration with mildly elevated lipase npo status, ivf, did have results with sse, now will have increased cathartics, - Gen Surg following - appreciate them following Diabetic Ketoacidosis/Metabolic Acidosis with T2DM: RESOLVED - Anion Gap Closed - A1c 8.6 - STABLE pharmacy assistance with glycemic management - maintaining improved BSGs with Lantus and SSI Sepsis 2/2 RLE Cellulitis superimposed on Chronic Lower Extremity Edema and Group B Strep Bacteremia: continues with SLOW IMPROVEMENT - wbc remains elevated but no acidosis suggested on peripheral chem - Rocephin 2 g IV daily and Clindamycin 600 mg Q8H added on 07/14 - ID following Acute Kidney Injury 2/2 Dehydration/DKA/Sepsis: RESOLVED, follow closely with ivf and npo status - Mild Acute Diastolic CHF: RESOLVED, once again follow carefully with ivf - Echo reveals normal EF with grade I diastolic dysfunction - Lasix 40 mg daily Diarrhea 2/2 Abx: RESOLVED HLD/Fatty Liver Disease/Chronic Transaminitis: STABLE- Fenofibrate 145 mg daily and Simvastatin 40 mg daily GERD:- Protonix 40 mg daily DVT Prophylaxis: Heparin Code Status: FULL RESUSCITATION Continued [facility] stay due to: ambulation difficulties, multiple IV medications needed Discharge planning: rehab hospital
[2017-07-17] MEDS: CEFTRIAXONE SOD INJ 2000 MG in DEXTROSE 5% 50ML IV SCH (18:08)
[2017-07-17] MEDS: METHYLNALTREXONE BROMIDE INJ 12 MG/0.6 ML SYR SQ SCH (19:23)
[2017-07-17] MEDS: SIMVASTATIN 40 MG TAB PO SCH (21:48)
[2017-07-17] MEDS ORDERED: INSULIN GLARGINE SC SCH (22:00)
[2017-07-17] MEDS ORDERED: INSULIN GLARGINE SOLOSTAR 100 UNITS/ML 3 ML PEN SC SCH (22:00)
[2017-07-17 23:48] VITALS: BP 137/72; PULSE 83; TEMP 36.4; O2SAT 95
[2017-07-18] MEDS: CLINDAMYCIN IV 600 MG in DEXTROSE 5% 50ML 50 ML IV SCH ×3 (03:26→21:32)
[2017-07-18 05:47] LABS: HEMATOCRIT 33.9 % (37-47); MEAN CELL VOLUME 89.7 fL (80-100); MEAN CORPUSCULAR HEMOGLOBIN 29.1 pg (25-34); MEAN CORPUSCULAR HGB CONC 32.4 g/dl (32-36); MEAN PLATELET VOLUME 9.8 fL (7.4-10.4); PLATELET COUNT 265 K/uL (130-400); RED CELL DISTRIBUTION WIDTH CV 15.6 % (11.5-14.5); RED CELL DISTRIBUTION WIDTH SD 50.2 fL (36.4-46.3); WHITE BLOOD COUNT 25.71 K/uL (4.8-10.8)
[2017-07-18] MEDS: INSULIN ASPART 100 UNITS/ML 3 ML PEN SC SCH ×3 (06:01→21:33)
[2017-07-18] MEDS: HEPARIN SOD 5000 UNIT/0.5 ML CARP SQ SCH ×3 (06:19→21:35)
[2017-07-18 06:23] LABS: CALCIUM 7.9 mg/dl (8.5-10.1); CREATININE 1.12 mg/dl (0.60-1.20); POTASSIUM 3.5 mmol/L (3.5-5.1)
--- NOTE | 2017-07-18 07:54 | Surgery Progress Note ---
Surgery Progress Note Date of Service Jul 18, 2017. Subjective no BM since yesterday afternoon, no nausea, hungry Objective Vital Signs: Date Time Temp Pulse Resp B/P (MAP) Pulse Ox O2 Delivery O2 Flow Rate FiO2 07/18/17 00:00 Nasal Cannula 2.0 07/17/17 23:48 36.4 83 20 137/72 (93) 95 Nasal Cannula 2.0 07/17/17 16:03 94 Nasal Cannula 2.0 07/17/17 15:57 36.2 87 24 136/77 (96) 98 Nasal Cannula 2.0 07/17/17 10:23 Nasal Cannula 2.0 Abdomen: non tender, soft, + distended (minimal) Extremities: + pertinent finding (less erythema) Laboratory Results: Results Past 24 Hours Test 07/17/17 11:27 07/17/17 16:38 07/17/17 20:40 07/18/17 05:12 Range/Units Bedside Glucose 166 167 163 70-90 mg/dl White Blood Count 25.71 4.8-10.8 K/uL Red Blood Count 3.78 4.2-5.4 M/uL Hemoglobin 11.0 12.0-16.0 g/dL Hematocrit 33.9 37-47 % Mean Corpuscular Volume 89.7 80-100 fL Mean Corpuscular Hemoglobin 29.1 25-34 pg Mean Corpuscular Hemoglobin Concent 32.4 32-36 g/dl RDW Standard Deviation 50.2 36.4-46.3 fL RDW Coefficient of Variation 15.6 11.5-14.5 % Platelet Count 265 130-400 K/uL Mean Platelet Volume 9.8 7.4-10.4 fL Sodium Level 134 136-145 mmol/L Potassium Level 3.5 3.5-5.1 mmol/L Chloride Level 100 98-107 mmol/L Carbon Dioxide Level 29 21-32 mmol/L Anion Gap 5.0 3-11 mmol/L Blood Urea Nitrogen 31 7-18 mg/dl Creatinine 1.12 0.60-1.20 mg/dl Est Creatinine Clear Calc Drug Dose 73.2 ml/min Estimated GFR () 60.5 Estimated GFR (Non- 52.2 BUN/Creatinine Ratio 27.3 10-20 Random Glucose 132 70-99 mg/dl Calcium Level 7.9 8.5-10.1 mg/dl Test 07/18/17 05:54 Range/Units Bedside Glucose 128 70-90 mg/dl Assessment & Plan RLE cellulitis Ileus WBC improving. If her bowel function does not continue to improve would consider GI consult. She also has PICC for PPN/TPN if her intake is not improving. Will sign out to [facility] surgery for he weekend.
[2017-07-18] MEDS: PANTOprazole SOD 40 MG TAB PO SCH (08:09)
[2017-07-18] MEDS: CETIRIZINE HCL 10 MG TAB PO SCH (08:09)
[2017-07-18] MEDS: LACTOBACILLUS ACIDOPHILUS (FLORANEX) TAB PO SCH ×3 (08:09→18:47)
[2017-07-18] MEDS: FENOFIBRATE 145 MG TAB PO SCH (08:09)
[2017-07-18] MEDS: POLYETHYLENE (MIRALAX) 17 GM PACK PO SCH ×4 (08:09→21:33)
[2017-07-18] MEDS: FUROSEMIDE 40 MG TAB PO SCH (08:09)
[2017-07-18] MEDS: IPRATROPIUM BROMIDE/ALBUTEROL respimat INH INH SCH ×4 (08:09→21:32)
[2017-07-18] MEDS: SODIUM CHLORIDE 0.9% 1000ML 1,000 ML IV SCH ×2 (08:15→18:43)
[2017-07-18 08:24] VITALS: BP 130/73; PULSE 80; TEMP 36.5; O2SAT 96
--- NOTE | 2017-07-18 09:34 | Pharmacy Progress Note ---
Pharmacy Glycemic Short Note 2 Date of Service Jul 18, 2017. OUTPATIENT ANTIDIABETIC REGIMEN: * Lantus 60-70 units at bedtime and Novolog with scale ASSESSMENT: * 62yo T2DM female with suboptimal degree of outpatient control. Goal A1c is likely 7.5-8% based on age/comorbidities * Pt with Severe hyperglycemia on admission and was initiated on IV insulin infusion. Pt transitioned to SQ basal bolus on 07/10/17. Pharmacy has been titrating Sq insulin doses daily based on BSG trends. * Pt has been receiving 85-100 units of insulin per day with near adequate control. With new NPO status, this has reduced to 64 units yesterday. * 50 units of basal insulin * 14 units of prandial/correctional insulin * AM fasting BSG is within goal range at 128 mg/dL. At lunchtime patient was restarted on a clear liquid diet. Provide a scale of Lantus for tonight as uncertain how patient will respond to diet and how her blood sugars will fluctuate. * Post-prandial BSGs trended downwards yesterday. Loosened correction factor to 12 mg/dL/unit as do not want to aggressive correct blood sugars with patient just resumed on diet. * Continue to hold oral medications. PLAN FOR INPATIENT GLYCEMIC CONTROL: * Hold outpatient oral diabetes medications * Basal insulin * Lantus 50 units SQ HS if blood sugar 120 mg/dL -180 mg/dl; 40 units if blood sugar less than 120 mg/dL; 60 units if blood sugar greater than 180 mg/dL. * Bolus insulin * NovoLog per scale ACHS or Q6hrs while NPO * Goal Range: Low 120 mg/dL - High 160 mg/dL * Correction Factor: 12 mg/dL/unit * Nutritional / Prandial insulin per carb ratio of 1 unit per 4 grams CHO consumed RECOMMENDATIONS FOR DISCHARGE * Work with outpatient provider to titrate insulin to desired blood glucose readings as patient's HbA1C is out of goal range.
--- NOTE | 2017-07-18 09:43 | DIAGNOSTIC IMAGING REPORT ---
ABDOMEN 2 VIEWS HISTORY: eval colonic atony COMPARISON: Chest and abdominal series 07/17/2017. FINDINGS: No pneumoperitoneum. No pneumatosis. Multiple distended gas and fluid-filled loops of large and small bowel seen throughout the abdomen. The transverse colon is distended up to 10 cm. IMPRESSION: No significant change in the multiple distended gas and fluid-filled loops of large and small bowel seen throughout the abdomen. This could represent an ileus or pseudoobstruction. A distal large bowel obstruction could also have a similar appearance. Electronically signed by: Andres Coronel M.D. 07/18/2017 9:42 AM Dictated Date/Time: 07/18/2017 9:40 AM
--- NOTE | 2017-07-18 10:29 | SURGERY PROGRESS NOTE ---
DATE: 07/18/2017 Kiki is resting comfortably. She is hungry. She has no abdominal discomfort. Her last vitals showed a temperature of 36.5, pulse 80, respirations 20, blood pressure 130/73, O2 sats 96 on 2 liters. White count is down this morning 25,000, hemoglobin is 11. The BUN is 31, creatinine 1.1. She had 1 bowel movement yesterday. She has had nothing further today. The imaging are concerning. She does have a moderate colonic distention about 10 cm. I discussed the situation with Dr. Oconnor. I think it may be prudent to have the gastroenterology see the patient for possibility of decompressing her. We had put a rectal tube there yesterday. I am not sure how much it helped or not.
--- NOTE | 2017-07-18 11:03 | Gastrointestinal Consultation ---
Gastrointestinal Consultation Date of Consultation: Jul 18, 2017 Attending Physician: Dr. Oconnor Consulting Physician: Dr. Goff/LUCIO Santiago Reason for Consultation: Pseudoobstruction History of Present Illness Patient is a 62 year old female with a history of morbid obesity admitted with DKA and sepsis related to RLE cellulitis. She states that during her hospital course, she has had reduced fecal output in the setting of opioid analgesic use. She denies any nausea or vomiting or abdominal pain. In fact, patient states her abdomen has been firm "for as long as I can remember". She has been sedentary in the hospital and states she has been out of bed yesterday but not today and minimally during her hospitalization due to weakness. She has been improving in regard to her infection and WBC has been improving with antibiotics. She is being managed by Dr. Lowery of [place]. Patient has also been followed by general surgery and ortho. CT and x-ray imaging have been performed due to reduced fecal output. Imaging demonstrates colonic wall dilation measuring up to nearly 10cm. There is fecal and gas retention suggestive of ileus vs pseudoobstruction. She has been given MiraLAX BID, milk and molasses enema and soap suds enema yesterday with some fecal output. No bowel movement today. Repeat x ray this morning without any significant change. No prior history of C Difficile colitis or use of psychiatric medications. Has had recent opioid analgesics as an outpatient and has used during this hospitalization. Due for routine colorectal screening this year. Past Medical/Surgical History Medical Problems: (1) Bilateral leg pain Status: Acute (2) DKA (diabetic ketoacidosis) Status: Acute (3) Left foot pain Status: Acute (4) Left hip pain Status: Acute (5) Left knee pain Status: Acute (6) Right shoulder pain Status: Acute (7) Sepsis Status: Acute Past Medical History: 1. GERD 2. Chronic pancreatitis 3. Dermatitis 4. Diabetes, type 2 with complications 5. Hyperlipidemia 6. Hypertension 7. Muscle spasm 8. Osteoarthritis 9. Sleep apnea 10. Plantar fasciitis Past Surgical History: 1. Colonoscopy 2. Hand surgery 3. Knee surgery 4. Left foot surgery Family History Colon Cancer Diabetes mellitus Heart Disease Hypertension Kidney disease Colon cancer but not IBD Social History Smoking Status: Never Smoker Alcohol Use: none Drug Use: none Marital Status: Housing Status: lives with family Occupation Status: employed Allergies Coded Allergies: No Known Allergies (Unverified , 06/20/16) Current Medications Home Meds and Scripts Medications Dose Route/Sig Max Daily Dose Days Date Category Dose Instructions Lantus Solostar (Insulin Glargine) 100 Unit/Ml Inj 60-70 SC HS 07/09/17 Reported Novolog Flexpen (Insulin Aspart) 100 Units/Ml Inj 1 Dose SC UD 07/09/17 Reported DIRECTED PER SLIDING SCALE Vitamin B Complex (B-Complex Vitamins) 1 Tab Tab 1 Tab PO DAILY 04/02/13 Reported Zocor (Simvastatin) 40 Mg Tab 40 Mg PO QPM 04/02/13 Reported Prilosec (Omeprazole) 20 Mg Capcr 20 Mg PO BID 04/02/13 Reported Mvi With Minerals (Multivitamins/Minerals) Tab 1 Tab PO DAILY 04/02/13 Reported Glucophage (Metformin Hcl) 500 Mg Tab 500 Mg PO @ 1200 04/02/13 Reported Glucophage Ext Rel (Metformin Hcl) 1,000 Mg Tab 1,000 Mg PO BID 04/02/13 Reported Cozaar (Losartan Potassium) 100 Mg Tab 100 Mg PO DAILY 04/02/13 Reported Lasix (Furosemide) 40 Mg Tab 40 Mg PO DAILY 04/02/[address] [place]-3 (Fish Oil) 1 Ea Cap 2 Cap PO DAILY 04/02/13 Reported Tricor (Fenofibrate) 145 Mg Tab 145 Mg PO DAILY 04/02/13 Reported Zyrtec (Cetirizine HCl) 10 Mg Tab 10 Mg PO DAILY 04/02/13 Reported Review of Systems Constitutional: + see HPI, + weakness, + fatigue, No fever, No chills Eyes: No problem reported ENT: No problem reported Respiratory: + shortness of breath, No dyspnea at rest Cardiac: No chest pain, No palpitations Abdomen: + see HPI Musculoskeletal: + swelling Female : No problem reported Neuro: No problem reported Psych: No problem reported Skin: No problem reported Physical Exam Date Time Temp Pulse Resp B/P (MAP) Pulse Ox O2 Delivery O2 Flow Rate FiO2 07/18/17 08:24 36.5 80 20 130/73 (92) 96 Nasal Cannula 2.0 07/18/17 08:10 Nasal Cannula 2.0 07/18/17 00:00 Nasal Cannula 2.0 07/17/17 23:48 36.4 83 20 137/72 (93) 95 Nasal Cannula 2.0 07/17/17 16:03 94 Nasal Cannula 2.0 07/17/17 15:57 36.2 87 24 136/77 (96) 98 Nasal Cannula 2.0 General Appearance: no apparent distress, + obese Eyes: EOMI ENT: hearing grossly normal Neck: supple Respiratory/Chest: lungs clear, + decreased breath sounds (bases) Cardiovascular: regular rate, rhythm Abdomen: non tender, + abnormal bowel sounds (hypoactive), + distended Extremities: + inflammation, + swelling (RLE) Neurologic/Psych: alert Skin: warm/dry Laboratory Results Last 24 Hours Test 07/17/17 11:27 07/17/17 16:38 07/17/17 20:40 07/18/17 05:12 Bedside Glucose 166 mg/dl 167 mg/dl 163 mg/dl White Blood Count 25.71 K/uL Red Blood Count 3.78 M/uL Hemoglobin 11.0 g/dL Hematocrit 33.9 % Mean Corpuscular Volume 89.7 fL Mean Corpuscular Hemoglobin 29.1 pg Mean Corpuscular Hemoglobin Concent 32.4 g/dl RDW Standard Deviation 50.2 fL RDW Coefficient of Variation 15.6 % Platelet Count 265 K/uL Mean Platelet Volume 9.8 fL Sodium Level 134 mmol/L Potassium Level 3.5 mmol/L Chloride Level 100 mmol/L Carbon Dioxide Level 29 mmol/L Anion Gap 5.0 mmol/L Blood Urea Nitrogen 31 mg/dl Creatinine 1.12 mg/dl Est Creatinine Clear Calc Drug Dose 73.2 ml/min Estimated GFR () 60.5 Estimated GFR (Non- 52.2 BUN/Creatinine Ratio 27.3 Random Glucose 132 mg/dl Calcium Level 7.9 mg/dl Test 07/18/17 05:54 07/18/17 07:55 Bedside Glucose 128 mg/dl 129 mg/dl Impression Patient is a 62 year old female admitted with RLE cellulitis and DKA with decreased fecal output and abnormal imaging suggestive of colonic dilation and ileus vs pseudoobstruction. Plan 1. Patient refuses GoLytely PO and via NG. 2. Increase MiraLAX to 17 g QID in 8 ounces of liquid. 3. Continue Relistor 12 mg every other day. Limit use of opioid analgesics. 4. Encouraged ambulation to stimulate GI motility. 5. Supportive care per primary team. Thank you for allowing us to participate in the care of this patient. If you have any questions or concerns, please do not hesitate to contact us. Agree with LUCIO Santiago as above Nursing and patient reports that she had a BM today Gen: Morbidly obese, chronic ill-appearing, NAD Abd: Soft, NT, slightly distended, +BS Continue current therapy Limit narcotic analgesics as they can cause decreased GI motility. Ensure that electrolytes remain in normal range. No plans for invasive workup at this time.
[2017-07-18] MEDS ORDERED: INSULIN ASPART 100 UNITS/ML 3 ML PEN SC SCH (12:00)
--- NOTE | 2017-07-18 14:33 | Progress Note ---
Subjective Date of Service: Jul 18, 2017. Subjective pt wbc improved to 25 today, rectal tube placed. gi following. Repeat blood cultures from 07/11 negative and final. tolerating abx. afebrile. wound care ongoing. Problem List Medical Problems: (1) Bilateral leg pain Status: Acute (2) DKA (diabetic ketoacidosis) Status: Acute (3) Left foot pain Status: Acute (4) Left hip pain Status: Acute (5) Left knee pain Status: Acute (6) Right shoulder pain Status: Acute (7) Sepsis Status: Acute Objective Vital Signs Date Time Temp Pulse Resp B/P (MAP) Pulse Ox O2 Delivery O2 Flow Rate FiO2 07/18/17 08:24 36.5 80 20 130/73 (92) 96 Nasal Cannula 2.0 07/18/17 08:10 Nasal Cannula 2.0 07/18/17 00:00 Nasal Cannula 2.0 07/17/17 23:48 36.4 83 20 137/72 (93) 95 Nasal Cannula 2.0 07/17/17 16:03 94 Nasal Cannula 2.0 07/17/17 15:57 36.2 87 24 136/77 (96) 98 Nasal Cannula 2.0 Laboratory Results Item Value Date Time Blood Culture - Final Complete 07/11/17 0737 Blood NO GROWTH Blood Culture - Final Complete 07/11/17 0736 Blood NO GROWTH Blood Culture - Final Complete 07/09/17 0957 Blood Group A Beta Strep Blood Culture - Final Complete 07/09/17 0835 Blood Group A Beta Strep Last 24 Hours Test 07/17/17 16:38 07/17/17 20:40 07/18/17 05:12 07/18/17 05:54 Bedside Glucose 167 mg/dl 163 mg/dl 128 mg/dl White Blood Count 25.71 K/uL Red Blood Count 3.78 M/uL Hemoglobin 11.0 g/dL Hematocrit 33.9 % Mean Corpuscular Volume 89.7 fL Mean Corpuscular Hemoglobin 29.1 pg Mean Corpuscular Hemoglobin Concent 32.4 g/dl RDW Standard Deviation 50.2 fL RDW Coefficient of Variation 15.6 % Platelet Count 265 K/uL Mean Platelet Volume 9.8 fL Sodium Level 134 mmol/L Potassium Level 3.5 mmol/L Chloride Level 100 mmol/L Carbon Dioxide Level 29 mmol/L Anion Gap 5.0 mmol/L Blood Urea Nitrogen 31 mg/dl Creatinine 1.12 mg/dl Est Creatinine Clear Calc Drug Dose 73.2 ml/min Estimated GFR () 60.5 Estimated GFR (Non- 52.2 BUN/Creatinine Ratio 27.3 Random Glucose 132 mg/dl Calcium Level 7.9 mg/dl Test 07/18/17 07:55 07/18/17 11:35 Bedside Glucose 129 mg/dl 129 mg/dl Assessment and Plan (1) Beta-hemolytic group A streptococcal sepsis Assessment & Plan: add clinda, continue rocephin.will need min 14 days IV abx from first negative blood culture. then likely transition to po abx with clinda. will follow in wound center post d/c and duration will be determined as wound heals. (2) Cellulitis (3) Leukocytosis Continued [facility] stay due to: ambulation difficulties, multiple IV medications needed Discharge planning: rehab hospital
[2017-07-18] MEDS ORDERED: NURSING VERBAL MED ORDER ONE (15:30)
[2017-07-18 16:09] VITALS: O2SAT 94
[2017-07-18 16:45] VITALS: BP 133/73; PULSE 87; TEMP 36.3; O2SAT 96
--- NOTE | 2017-07-18 18:08 | Progress Note ---
Subjective Date of Service: Jul 18, 2017. Subjective this pt states she feels somewhat better, she has some improvement in her abdominal distension and is desiring to take in po, general surgery and Gi medicine are not planning to have any intervention and have increased her cathartics Problem List Medical Problems: (1) Bilateral leg pain Status: Acute (2) DKA (diabetic ketoacidosis) Status: Acute (3) Left foot pain Status: Acute (4) Left hip pain Status: Acute (5) Left knee pain Status: Acute (6) Right shoulder pain Status: Acute (7) Sepsis Status: Acute Review of Systems Constitutional: No fever, No chills, No weakness, No fatigue Respiratory: No cough, No shortness of breath Cardiac: No chest pain, No edema Abdomen: + pain, + nausea, + diarrhea, + constipation Female : No dysuria, No urinary frequency Psychiatric: No depression symptoms, No anxiety Objective Vital Signs Date Time Temp Pulse Resp B/P (MAP) Pulse Ox O2 Delivery O2 Flow Rate FiO2 07/18/17 16:45 36.3 87 20 133/73 (93) 96 2.0 07/18/17 08:24 36.5 80 20 130/73 (92) 96 Nasal Cannula 2.0 07/18/17 08:10 Nasal Cannula 2.0 07/18/17 00:00 Nasal Cannula 2.0 07/17/17 23:48 36.4 83 20 137/72 (93) 95 Nasal Cannula 2.0 Physical Exam General Appearance: WD/WN, + mild distress Eyes: normal inspection, sclerae normal Neck: supple, no carotid bruits Respiratory/Chest: chest non-tender, lungs clear, normal breath sounds Cardiovascular: regular rate, rhythm, no murmur Abdomen: + distended, + guarding, + tenderness Extremities: non-tender, no pedal edema Neurologic/Psychiatric: alert, oriented x 3 Laboratory Results Last 24 Hours Test 07/17/17 20:40 07/18/17 05:12 07/18/17 05:54 07/18/17 07:55 Bedside Glucose 163 mg/dl 128 mg/dl 129 mg/dl White Blood Count 25.71 K/uL Red Blood Count 3.78 M/uL Hemoglobin 11.0 g/dL Hematocrit 33.9 % Mean Corpuscular Volume 89.7 fL Mean Corpuscular Hemoglobin 29.1 pg Mean Corpuscular Hemoglobin Concent 32.4 g/dl RDW Standard Deviation 50.2 fL RDW Coefficient of Variation 15.6 % Platelet Count 265 K/uL Mean Platelet Volume 9.8 fL Sodium Level 134 mmol/L Potassium Level 3.5 mmol/L Chloride Level 100 mmol/L Carbon Dioxide Level 29 mmol/L Anion Gap 5.0 mmol/L Blood Urea Nitrogen 31 mg/dl Creatinine 1.12 mg/dl Est Creatinine Clear Calc Drug Dose 73.2 ml/min Estimated GFR () 60.5 Estimated GFR (Non- 52.2 BUN/Creatinine Ratio 27.3 Random Glucose 132 mg/dl Calcium Level 7.9 mg/dl Test 07/18/17 11:35 07/18/17 16:25 Bedside Glucose 129 mg/dl 146 mg/dl Assessment and Plan Mr. Jordan is a 62 y/o female with PMHx of T2DM, HLD, Fatty Liver/Chronic Transaminitis, GERD, and PCOS who presents to the ED c/o RLE erythema/pain Ileus:colonic and small bowel feels pseudoobstruction as did have abdominal CT without suggestion of bowel pathology - CT supporting ileus and did mention peripancreatic infiltration with mildly elevated lipase clear liquid diet, contine ivf, increased cathartics, - Gen Surg/ Gi medicine following - appreciate them following Diabetic Ketoacidosis/Metabolic Acidosis with T2DM: RESOLVED - Anion Gap Closed - A1c 8.6 - STABLE pharmacy assistance with glycemic management - maintaining improved BSGs with Lantus and SSI this has been adjusted with recent npo status Sepsis 2/2 RLE Cellulitis superimposed on Chronic Lower Extremity Edema and Group B Strep Bacteremia: continues with improvement in leg with less swelling but still with blisters and will have wound care provider evaluate - wbc remains has improved overnight - Rocephin 2 g IV daily and Clindamycin 600 mg Q8H added on 07/14 - ID following Acute Kidney Injury 2/2 Dehydration/DKA/Sepsis: RESOLVED, - Mild Acute Diastolic CHF: RESOLVED, once again follow carefully with ivf - Echo reveals normal EF with grade I diastolic dysfunction Diarrhea 2/2 Abx: RESOLVED HLD/Fatty Liver Disease/Chronic Transaminitis: STABLE- Fenofibrate 145 mg daily and Simvastatin 40 mg daily GERD:- Protonix 40 mg daily DVT Prophylaxis: Heparin Code Status: FULL RESUSCITATION Continued [facility] stay due to: ambulation difficulties, multiple IV medications needed Discharge planning: rehab hospital
[2017-07-18] MEDS: CEFTRIAXONE SOD INJ 2000 MG in DEXTROSE 5% 50ML IV SCH (18:43)
[2017-07-18] MEDS: SIMVASTATIN 40 MG TAB PO SCH (21:33)
[2017-07-18] MEDS: INSULIN GLARGINE SOLOSTAR 100 UNITS/ML 3 ML PEN SQ SCH (21:35)
[2017-07-18] MEDS: HYDROmorphone INJ 0.5 MG/0.5 ML SYR IV PRN (23:41)
[2017-07-19] VITALS (8 sets, daily range): BP systolic 130–157; BP diastolic 70–97; PULSE 79–97; TEMP 36.4–36.8; O2SAT 92–97
[2017-07-19] MEDS: CLINDAMYCIN IV 600 MG in DEXTROSE 5% 50ML 50 ML IV SCH ×3 (04:52→19:54)
[2017-07-19] MEDS: HEPARIN SOD 5000 UNIT/0.5 ML CARP SQ SCH ×3 (06:27→21:12)
[2017-07-19 06:28] LABS: HEMATOCRIT 33.2 % (37-47); HEMOGLOBIN 10.7 g/dL (12.0-16.0); MEAN CORPUSCULAR HEMOGLOBIN 29.3 pg (25-34); MEAN CORPUSCULAR HGB CONC 32.2 g/dl (32-36); NUCLEATED RED BLOOD CELL ABS 0.03 K/uL (0-0); PLATELET COUNT 244 K/uL (130-400); RED CELL DISTRIBUTION WIDTH CV 15.7 % (11.5-14.5); RED CELL DISTRIBUTION WIDTH SD 51.9 fL (36.4-46.3); WHITE BLOOD COUNT 18.52 K/uL (4.8-10.8)
[2017-07-19 07:04] LABS: CALCIUM 8.1 mg/dl (8.5-10.1); CREATININE 0.93 mg/dl (0.60-1.20); POTASSIUM 3.5 mmol/L (3.5-5.1)
[2017-07-19] MEDS: POLYETHYLENE (MIRALAX) 17 GM PACK PO SCH ×4 (08:00→20:00)
[2017-07-19] MEDS: IPRATROPIUM BROMIDE/ALBUTEROL respimat INH INH SCH ×4 (08:31→19:54)
[2017-07-19] MEDS: FUROSEMIDE 40 MG TAB PO SCH (08:33)
[2017-07-19] MEDS: CETIRIZINE HCL 10 MG TAB PO SCH (08:34)
[2017-07-19] MEDS: FENOFIBRATE 145 MG TAB PO SCH (08:34)
[2017-07-19] MEDS: LACTOBACILLUS ACIDOPHILUS (FLORANEX) TAB PO SCH ×3 (08:34→17:38)
[2017-07-19] MEDS: INSULIN ASPART 100 UNITS/ML 3 ML PEN SC SCH ×4 (08:36→21:09)
[2017-07-19] MEDS: PANTOprazole SOD 40 MG TAB PO SCH (08:37)
[2017-07-19] MEDS: SODIUM CHLORIDE 0.9% 1000ML 1,000 ML IV SCH (08:42)
--- NOTE | 2017-07-19 10:44 | Pharmacy Progress Note ---
Pharmacy Glycemic Short Note 2 Date of Service Jul 19, 2017. OUTPATIENT ANTIDIABETIC REGIMEN: * Lantus 60-70 units at bedtime and Novolog with scale ASSESSMENT: * 62yo T2DM female with suboptimal degree of outpatient control. Goal A1c is likely 7.5-8% based on age/comorbidities * Pt with Severe hyperglycemia on admission and was initiated on IV insulin infusion. Pt transitioned to SQ basal bolus on 07/10/17. Pharmacy has been titrating Sq insulin doses daily based on BSG trends. * Pt has been receiving 85-100 units of insulin per day with near adequate control. With new NPO status changed to clear liquid diet, this has been closer to 65 units * 50 units of basal insulin * 15 units of prandial/correctional insulin * AM fasting BSG is below goal range at 99 mg/dL. This is excellent control and will most likely trend upwards with improved diet. Still though will remove 60 units entry for Lantus and increase threshold for patient to receive 50 units of Lantus tonight. Do not want to try further downwards. * Post-prandial BSGs trended upwards yesterday once diet was restarted. Loosened correction factor to 12 mg/dL/unit yesterday and will continue that. Tighten carbohydrate ratio back to 3. * Continue to hold oral medications. PLAN FOR INPATIENT GLYCEMIC CONTROL: * Hold outpatient oral diabetes medications * Basal insulin * Lantus 50 units SQ HS if blood sugar 160 mg/dL or greater; 40 units if blood sugar less than 160 mg/dL * Bolus insulin * NovoLog per scale ACHS or Q6hrs while NPO * Goal Range: Low 120 mg/dL - High 160 mg/dL * Correction Factor: 12 mg/dL/unit * Nutritional / Prandial insulin per carb ratio of 1 unit per 3 grams CHO consumed (tighten) RECOMMENDATIONS FOR DISCHARGE * Work with outpatient provider to titrate insulin to desired blood glucose readings as patient's HbA1C is out of goal range.
[2017-07-19] MEDS: ACETAMINOPHEN 325 MG TAB PO PRN (11:16)
--- NOTE | 2017-07-19 12:39 | Surgery Progress Note ---
Surgery Progress Note Date of Service Jul 19, 2017. Subjective + bowel movement (large bm this AM), + flatus, No nausea, No vomiting Feels better today Feels as though abdomen less distended Asking for more to eat Denies abdominal pain Objective Vital Signs: Date Time Temp Pulse Resp B/P (MAP) Pulse Ox O2 Delivery O2 Flow Rate FiO2 07/19/17 08:00 Nasal Cannula 2.0 07/19/17 07:06 36.6 79 20 130/70 (90) 96 2.0 07/19/17 00:03 36.5 84 20 134/73 (93) 97 Nasal Cannula 2.0 07/19/17 00:00 94 Nasal Cannula 2.0 07/18/17 16:45 36.3 87 20 133/73 (93) 96 2.0 07/18/17 16:09 94 Nasal Cannula 2.0 Abdomen: normal bowel sounds, non tender, soft, + distended Laboratory Results: Results Past 24 Hours Test 07/18/17 16:25 07/18/17 20:29 07/19/17 06:04 07/19/17 07:45 Range/Units Bedside Glucose 146 154 98 70-90 mg/dl White Blood Count 18.52 4.8-10.8 K/uL Red Blood Count 3.65 4.2-5.4 M/uL Hemoglobin 10.7 12.0-16.0 g/dL Hematocrit 33.2 37-47 % Mean Corpuscular Volume 91.0 80-100 fL Mean Corpuscular Hemoglobin 29.3 25-34 pg Mean Corpuscular Hemoglobin Concent 32.2 32-36 g/dl RDW Standard Deviation 51.9 36.4-46.3 fL RDW Coefficient of Variation 15.7 11.5-14.5 % Platelet Count 244 130-400 K/uL Mean Platelet Volume 10.0 7.4-10.4 fL Nucleated RBC Absolute Count (auto) 0.03 0-0 K/uL Nucleated Red Blood Cells % 0.1 % Sodium Level 135 136-145 mmol/L Potassium Level 3.5 3.5-5.1 mmol/L Chloride Level 103 98-107 mmol/L Carbon Dioxide Level 28 21-32 mmol/L Anion Gap 4.0 3-11 mmol/L Blood Urea Nitrogen 24 7-18 mg/dl Creatinine 0.93 0.60-1.20 mg/dl Est Creatinine Clear Calc Drug Dose 88.2 ml/min Estimated GFR () 75.8 Estimated GFR (Non- 65.4 BUN/Creatinine Ratio 25.8 10-20 Random Glucose 99 70-99 mg/dl Calcium Level 8.1 8.5-10.1 mg/dl Assessment & Plan Ileus/colonic distension Bowels moving this AM No indication for surgical intervention at this time
--- NOTE | 2017-07-19 14:46 | Progress Note ---
Subjective Date of Service: Jul 19, 2017. Subjective pt has had a bowel movement today again, reducing wbc( that seems to coincide with starting clindamycin) and continued improving rle erythema Problem List Medical Problems: (1) Bilateral leg pain Status: Acute (2) DKA (diabetic ketoacidosis) Status: Acute (3) Left foot pain Status: Acute (4) Left hip pain Status: Acute (5) Left knee pain Status: Acute (6) Right shoulder pain Status: Acute (7) Sepsis Status: Acute Review of Systems Constitutional: + weakness, No fever, No chills, No fatigue Respiratory: No cough, No wheezing, No shortness of breath Cardiac: + edema, No chest pain Abdomen: No pain, No nausea, No vomiting, No diarrhea, No constipation Female : No dysuria, No urinary frequency Neurologic: No memory loss, No weakness Psychiatric: + depression symptoms, No anxiety Objective Vital Signs Date Time Temp Pulse Resp B/P (MAP) Pulse Ox O2 Delivery O2 Flow Rate FiO2 07/19/17 07:06 36.6 79 20 130/70 (90) 96 2.0 07/19/17 00:03 36.5 84 20 134/73 (93) 97 Nasal Cannula 2.0 07/19/17 00:00 94 Nasal Cannula 2.0 07/18/17 16:45 36.3 87 20 133/73 (93) 96 2.0 07/18/17 16:09 94 Nasal Cannula 2.0 07/18/17 08:24 36.5 80 20 130/73 (92) 96 Nasal Cannula 2.0 07/18/17 08:10 Nasal Cannula 2.0 Physical Exam General Appearance: + mild distress, + obese Respiratory/Chest: chest non-tender, lungs clear Cardiovascular: regular rate, rhythm, no murmur Abdomen: normal bowel sounds, + distended Extremities: no pedal edema, no calf tenderness Neurologic/Psychiatric: alert, oriented x 3 Skin: normal color, warm/dry, no rash Laboratory Results Last 24 Hours Test 07/18/17 07:55 07/18/17 11:35 07/18/17 16:25 07/18/17 20:29 Bedside Glucose 129 mg/dl 129 mg/dl 146 mg/dl 154 mg/dl Test 07/19/17 06:04 White Blood Count 18.52 K/uL Red Blood Count 3.65 M/uL Hemoglobin 10.7 g/dL Hematocrit 33.2 % Mean Corpuscular Volume 91.0 fL Mean Corpuscular Hemoglobin 29.3 pg Mean Corpuscular Hemoglobin Concent 32.2 g/dl RDW Standard Deviation 51.9 fL RDW Coefficient of Variation 15.7 % Platelet Count 244 K/uL Mean Platelet Volume 10.0 fL Nucleated RBC Absolute Count (auto) 0.03 K/uL Nucleated Red Blood Cells % 0.1 % Sodium Level 135 mmol/L Potassium Level 3.5 mmol/L Chloride Level 103 mmol/L Carbon Dioxide Level 28 mmol/L Anion Gap 4.0 mmol/L Blood Urea Nitrogen 24 mg/dl Creatinine 0.93 mg/dl Est Creatinine Clear Calc Drug Dose 88.2 ml/min Estimated GFR () 75.8 Estimated GFR (Non- 65.4 BUN/Creatinine Ratio 25.8 Random Glucose 99 mg/dl Calcium Level 8.1 mg/dl Assessment and Plan Mr. Jordan is a 62 y/o female with PMHx of T2DM, HLD, Fatty Liver/Chronic Transaminitis, GERD, and PCOS who presents to the ED c/o RLE erythema/pain Ileus:colonic and small bowel feels pseudoobstruction as did have abdominal CT without suggestion of bowel pathology tolerating clear liquid diet will progress to full liquids with surgery oversight, contine ivf, increased cathartics, - Gen Surg/ Gi medicine following -no intervention planned at this time Diabetic Ketoacidosis/Metabolic Acidosis with T2DM: RESOLVED - Anion Gap Closed - A1c 8.6 - STABLE pharmacy assistance with glycemic management - maintaining improved BSGs with Lantus and SSI pt it starting to take po again Sepsis 2/2 RLE Cellulitis superimposed on Chronic Lower Extremity Edema and Group B Strep Bacteremia: continues with improvement in leg with less swelling but still with blisters and will have wound care provider evaluate - wbc continues to trending downward seems to correlate with starting clindamycin - Rocephin 2 g IV daily and Clindamycin 600 mg Q8H added on 4/2 Acute Kidney Injury 2/2 Dehydration/DKA/Sepsis:following renal function - Mild Acute Diastolic CHF: remains stable - Echo reveals normal EF with grade I diastolic dysfunction Diarrhea has reverted to constipation, initially remedied with SSE and increased cathartics plus relistor, this continues as her bowel habits are not completely returned to normal HLD/Fatty Liver Disease/Chronic Transaminitis continues with- Fenofibrate 145 mg daily and Simvastatin 40 mg daily GERD:- Protonix 40 mg daily DVT Prophylaxis: Heparin Code Status: FULL RESUSCITATION Continued [facility] stay due to: ambulation difficulties, multiple IV medications needed Discharge planning: rehab hospital
[2017-07-19] MEDS: ALUMINUM/MAGNESIUM/SIMETH (MAALOX MAX) 30 ML UDC PO PRN (16:58)
[2017-07-19] MEDS: METHYLNALTREXONE BROMIDE INJ 12 MG/0.6 ML SYR SQ SCH (17:39)
[2017-07-19] MEDS: CEFTRIAXONE SOD INJ 2000 MG in DEXTROSE 5% 50ML IV SCH (17:55)
[2017-07-19] MEDS: ONDANSETRON INJ 2 MG/ML 2 ML VIAL IV PRN (19:55)
[2017-07-19] MEDS: SIMVASTATIN 40 MG TAB PO SCH (21:11)
[2017-07-19] MEDS: INSULIN GLARGINE SOLOSTAR 100 UNITS/ML 3 ML PEN SQ SCH (22:00)
[2017-07-19] MEDS: PROMETHAZINE HCL INJ 25 MG in SODIUM CHLORIDE 0.9% 50ML 50 ML IV PRN (23:16)
[2017-07-20] MEDS ORDERED: INSULIN GLARGINE SOLOSTAR 100 UNITS/ML 3 ML PEN SQ STA (00:08)
[2017-07-20] MEDS ORDERED: INSULIN ASPART 100 UNITS/ML 3 ML PEN SC SCH ×2 (04:00)
[2017-07-20] MEDS: CLINDAMYCIN IV 600 MG in DEXTROSE 5% 50ML 50 ML IV SCH ×3 (04:49→19:44)
[2017-07-20] MEDS: HEPARIN SOD 5000 UNIT/0.5 ML CARP SQ SCH ×3 (05:47→21:37)
[2017-07-20 06:28] LABS: HEMATOCRIT 33.6 % (37-47); HEMOGLOBIN 10.9 g/dL (12.0-16.0); MEAN CELL VOLUME 91.1 fL (80-100); MEAN CORPUSCULAR HEMOGLOBIN 29.5 pg (25-34); MEAN CORPUSCULAR HGB CONC 32.4 g/dl (32-36); MEAN PLATELET VOLUME 10.2 fL (7.4-10.4); PLATELET COUNT 273 K/uL (130-400); RED CELL DISTRIBUTION WIDTH CV 15.6 % (11.5-14.5); WHITE BLOOD COUNT 21.75 K/uL (4.8-10.8)
[2017-07-20 06:35] LABS: CALCIUM 8.1 mg/dl (8.5-10.1); CREATININE 0.91 mg/dl (0.60-1.20); POTASSIUM 3.7 mmol/L (3.5-5.1)
[2017-07-20 07:26] VITALS: BP 151/84; PULSE 97; TEMP 36.9; O2SAT 94
[2017-07-20] MEDS: ACETAMINOPHEN 325 MG TAB PO PRN (07:43)
[2017-07-20] MEDS: IPRATROPIUM BROMIDE/ALBUTEROL respimat INH INH SCH ×4 (07:43→19:44)
[2017-07-20] MEDS: FENOFIBRATE 145 MG TAB PO SCH (07:43)
[2017-07-20] MEDS: CETIRIZINE HCL 10 MG TAB PO SCH (07:44)
[2017-07-20] MEDS: FUROSEMIDE 40 MG TAB PO SCH (07:44)
[2017-07-20] MEDS: PANTOprazole SOD 40 MG TAB PO SCH (07:44)
[2017-07-20] MEDS: LACTOBACILLUS ACIDOPHILUS (FLORANEX) TAB PO SCH ×2 (07:45→11:34)
[2017-07-20] MEDS: POLYETHYLENE (MIRALAX) 17 GM PACK PO SCH (07:45)
--- NOTE | 2017-07-20 09:00 | DIAGNOSTIC IMAGING REPORT ---
ABDOMEN 2 VIEWS CLINICAL HISTORY: abdominal distension COMPARISON STUDY: 07/18/2017 FINDINGS: Supine and decubitus views the abdomen are provided for interpretation. There is persistent bowel dilatation. There are multiple air-fluid levels. No free air is visualized. IMPRESSION: Persistent large and small bowel dilatation with multiple air-fluid levels. Electronically signed by: Chuy Montoya M.D. 07/20/2017 8:58 AM Dictated Date/Time: 07/20/2017 8:57 AM
[2017-07-20] MEDS: INSULIN ASPART 100 UNITS/ML 3 ML PEN SC SCH ×4 (09:07→23:38)
[2017-07-20] MEDS: METOCLOPRAMIDE HCL INJ 20 MG in SODIUM CHLORIDE 0.9% 50ML 50 ML IV PRN (10:07)
--- NOTE | 2017-07-20 10:42 | Pharmacy Progress Note ---
Pharmacy Glycemic Short Note 2 Date of Service Jul 20, 2017. OUTPATIENT ANTIDIABETIC REGIMEN: * Lantus 60-70 units at bedtime and Novolog with scale ASSESSMENT: * 62yo T2DM female with suboptimal degree of outpatient control. Goal A1c is likely 7.5-8% based on age/comorbidities * Pt with Severe hyperglycemia on admission and was initiated on IV insulin infusion. Pt transitioned to SQ basal bolus on 07/10/17. Pharmacy has been titrating Sq insulin doses daily based on BSG trends. * Pt has been receiving 85-100 units of insulin per day with near adequate control. With new NPO status changed to clear liquid diet, this has been closer to 53 units * 20 units of basal insulin * 33 units of prandial/correctional insulin * AM fasting BSG is below goal range at 120 mg/dL. This is excellent control and will most likely trend upwards with improved diet. Towards the evening, the patient develop nausea and is not currently tolerating diet. Trends of fasting indicates that 50 units is too aggressive and 20 units may not be enough. Adjusted scale to accommodate. * Post-prandial BSGs trended downwards yesterday - loosen Novolog parameters. * Continue to hold oral medications. PLAN FOR INPATIENT GLYCEMIC CONTROL: * Hold outpatient oral diabetes medications * Basal insulin * Lantus 30 units SQ HS if blood sugar greater than 160 mg; 20 units if blood sugar less than 140 mg/dL * Bolus insulin * NovoLog per scale ACHS or Q6hrs while NPO * Goal Range: Low 120 mg/dL - High 160 mg/dL * Correction Factor: 20 mg/dL/unit * Nutritional / Prandial insulin per carb ratio of 1 unit per 6 grams CHO consumed RECOMMENDATIONS FOR DISCHARGE * Work with outpatient provider to titrate insulin to desired blood glucose readings as patient's HbA1C is out of goal range.
[2017-07-20] MEDS ORDERED: HYDROmorphone INJ 0.5 MG/0.5 ML SYR IV PRN (12:00)
[2017-07-20] MEDS ORDERED: SCOPOLAMINE 1.5 MG TDSY TD SCH (12:00)
--- NOTE | 2017-07-20 12:25 | Surgery Progress Note ---
Surgery Progress Note Date of Service Jul 20, 2017. Subjective + bowel movement, + flatus, + nausea, + vomiting Not feeling as well this AM Objective Vital Signs: Date Time Temp Pulse Resp B/P (MAP) Pulse Ox O2 Delivery O2 Flow Rate FiO2 07/20/17 08:00 Nasal Cannula 2.0 07/20/17 07:26 36.9 97 22 151/84 (106) 94 Nasal Cannula 2.0 07/20/17 00:05 Room Air 2.0 07/19/17 23:39 36.8 94 18 146/76 (99) 92 Nasal Cannula 2.0 07/19/17 20:45 97 141/79 (99) 07/19/17 20:15 Room Air 2.0 07/19/17 18:01 137/82 (100) 07/19/17 16:09 36.4 94 21 137/85 (102) 93 Room Air 07/19/17 16:00 Nasal Cannula Abdomen: + distended (more than yesterday), + tenderness (minimal) Laboratory Results: Results Past 24 Hours Test 07/19/17 16:54 07/19/17 20:15 07/19/17 20:49 07/19/17 22:24 Range/Units Bedside Glucose 81 71 77 86 70-90 mg/dl Test 07/20/17 00:04 07/20/17 04:53 07/20/17 05:54 07/20/17 07:39 Range/Units Bedside Glucose 116 120 101 70-90 mg/dl White Blood Count 21.75 4.8-10.8 K/uL Red Blood Count 3.69 4.2-5.4 M/uL Hemoglobin 10.9 12.0-16.0 g/dL Hematocrit 33.6 37-47 % Mean Corpuscular Volume 91.1 80-100 fL Mean Corpuscular Hemoglobin 29.5 25-34 pg Mean Corpuscular Hemoglobin Concent 32.4 32-36 g/dl RDW Standard Deviation 51.0 36.4-46.3 fL RDW Coefficient of Variation 15.6 11.5-14.5 % Platelet Count 273 130-400 K/uL Mean Platelet Volume 10.2 7.4-10.4 fL Sodium Level 137 136-145 mmol/L Potassium Level 3.7 3.5-5.1 mmol/L Chloride Level 102 98-107 mmol/L Carbon Dioxide Level 29 21-32 mmol/L Anion Gap 6.0 3-11 mmol/L Blood Urea Nitrogen 18 7-18 mg/dl Creatinine 0.91 0.60-1.20 mg/dl Est Creatinine Clear Calc Drug Dose 90.1 ml/min Estimated GFR () 77.8 Estimated GFR (Non- 67.1 BUN/Creatinine Ratio 19.8 10-20 Random Glucose 122 70-99 mg/dl Calcium Level 8.1 8.5-10.1 mg/dl Test 07/20/17 11:28 Range/Units Bedside Glucose 121 70-90 mg/dl Assessment & Plan Ileus/colonic distension Bowels are moving but also having nausea and vomiting NGT to be placed AXR noted Suspect pseudoobstruction Consider discussion with GI for decompression No indication for surgical intervention at this time
[2017-07-20] MEDS: HYDROmorphone INJ 2 MG/ML SYR/VIAL IV PRN ×3 (12:34→23:38)
[2017-07-20] MEDS: BISACODYL 5 MG TABEC PO SCH ×2 (12:46→19:51)
[2017-07-20] MEDS: SODIUM CHLORIDE 0.9% 1000ML 1,000 ML IV SCH ×2 (12:46→21:38)
--- NOTE | 2017-07-20 15:00 | Progress Note ---
Subjective Date of Service: Jul 20, 2017. Subjective this pt has marked distension of abdomen and some vomiting last pm, she is still having some bm but obviously not enought given clinical picture and ileus remaining on x ray Problem List Medical Problems: (1) Bilateral leg pain Status: Acute (2) DKA (diabetic ketoacidosis) Status: Acute (3) Left foot pain Status: Acute (4) Left hip pain Status: Acute (5) Left knee pain Status: Acute (6) Right shoulder pain Status: Acute (7) Sepsis Status: Acute Review of Systems Constitutional: + weakness, + fatigue, No fever, No chills Respiratory: + shortness of breath, + dyspnea on exertion, No cough Cardiac: No chest pain, No orthopnea, No edema Abdomen: + pain, + nausea, + vomiting, + constipation Neurologic: No memory loss, No weakness Objective Vital Signs Date Time Temp Pulse Resp B/P (MAP) Pulse Ox O2 Delivery O2 Flow Rate FiO2 07/20/17 08:00 Nasal Cannula 2.0 07/20/17 07:26 36.9 97 22 151/84 (106) 94 Nasal Cannula 2.0 07/20/17 00:05 Room Air 2.0 07/19/17 23:39 36.8 94 18 146/76 (99) 92 Nasal Cannula 2.0 07/19/17 20:45 97 141/79 (99) 07/19/17 20:15 Room Air 2.0 07/19/17 18:01 137/82 (100) 07/19/17 16:09 36.4 94 21 137/85 (102) 93 Room Air 07/19/17 16:00 Nasal Cannula Physical Exam General Appearance: + moderate distress, + obese Eyes: normal inspection, sclerae normal Respiratory/Chest: chest non-tender, + decreased breath sounds Cardiovascular: regular rate, rhythm, no murmur Abdomen: + abnormal bowel sounds, + distended, + guarding Extremities: no calf tenderness, + pedal edema, + pertinent finding (erythema is improving) Neurologic/Psychiatric: alert, normal mood/affect Laboratory Results Last 24 Hours Test 07/19/17 16:54 07/19/17 20:15 07/19/17 20:49 07/19/17 22:24 Bedside Glucose 81 mg/dl 71 mg/dl 77 mg/dl 86 mg/dl Test 07/20/17 00:04 07/20/17 04:53 07/20/17 05:54 07/20/17 07:39 Bedside Glucose 116 mg/dl 120 mg/dl 101 mg/dl White Blood Count 21.75 K/uL Red Blood Count 3.69 M/uL Hemoglobin 10.9 g/dL Hematocrit 33.6 % Mean Corpuscular Volume 91.1 fL Mean Corpuscular Hemoglobin 29.5 pg Mean Corpuscular Hemoglobin Concent 32.4 g/dl RDW Standard Deviation 51.0 fL RDW Coefficient of Variation 15.6 % Platelet Count 273 K/uL Mean Platelet Volume 10.2 fL Sodium Level 137 mmol/L Potassium Level 3.7 mmol/L Chloride Level 102 mmol/L Carbon Dioxide Level 29 mmol/L Anion Gap 6.0 mmol/L Blood Urea Nitrogen 18 mg/dl Creatinine 0.91 mg/dl Est Creatinine Clear Calc Drug Dose 90.1 ml/min Estimated GFR () 77.8 Estimated GFR (Non- 67.1 BUN/Creatinine Ratio 19.8 Random Glucose 122 mg/dl Calcium Level 8.1 mg/dl Test 07/20/17 11:28 Bedside Glucose 121 mg/dl Assessment and Plan Mr. Jordan is a 62 y/o female with PMHx of T2DM, HLD, Fatty Liver/Chronic Transaminitis, GERD, and PCOS who presents to the ED c/o RLE erythema/pain Ileus:colonic and small bowel feels pseudoobstruction as did have abdominal CT without suggestion of bowel pathology Markedly clinically worsening will have NGT 07/20 will make npo except chips and meds, contine ivf, holding cathartics - Gen Surg/ Gi medicine following -may need to consider decompression Diabetic Ketoacidosis/Metabolic Acidosis with T2DM: RESOLVED - Anion Gap Closed - A1c 8.6 - STABLE pharmacy assistance with glycemic management - SSI Sepsis 2/2 RLE Cellulitis superimposed on Chronic Lower Extremity Edema and Group B Strep Bacteremia: continues with improvement - wbc continues to be elevated - Rocephin 2 g IV daily and Clindamycin 600 mg Q8H added on 2 Acute Kidney Injury 2/2 Dehydration/DKA/Sepsis:following renal function - Mild Acute Diastolic CHF: remains stable, has not had issues with ivf thus far in her stay - Echo reveals normal EF with grade I diastolic dysfunction constipation, initially remedied with SSE and increased cathartics plus relistor, this continues as her bowel habits are not completely returned to normal HLD/Fatty Liver Disease/Chronic Transaminitis continues with- Fenofibrate 145 mg daily and Simvastatin 40 mg daily GERD:- Protonix 40 mg daily DVT Prophylaxis: Heparin Code Status: FULL RESUSCITATION Continued [facility] stay due to: ambulation difficulties, multiple IV medications needed Discharge planning: rehab hospital
[2017-07-20 15:04] VITALS: BP 149/86; PULSE 90; TEMP 36.8; O2SAT 95
[2017-07-20] MEDS: CHECK SCOPOLAMINE PATCH PLACEMENT SCH ×2 (16:00→23:38)
[2017-07-20] MEDS ORDERED: NURSING VERBAL MED ORDER ONE (16:45)
[2017-07-20] MEDS: CEFTRIAXONE SOD INJ 2000 MG in DEXTROSE 5% 50ML IV SCH (17:59)
[2017-07-20] MEDS: PANTOprazole INJ 40 MG in SYRINGE 0 ML IV SCH (21:16)
[2017-07-20] MEDS: INSULIN GLARGINE SOLOSTAR 100 UNITS/ML 3 ML PEN SQ SCH (21:42)
[2017-07-20 22:31] VITALS: BP 142/77; PULSE 88; TEMP 36.7; O2SAT 93
[2017-07-21] MEDS: CLINDAMYCIN IV 600 MG in DEXTROSE 5% 50ML 50 ML IV SCH ×3 (03:33→20:06)
[2017-07-21] MEDS: INSULIN ASPART 100 UNITS/ML 3 ML PEN SC SCH ×3 (05:53→17:57)
[2017-07-21] MEDS: HEPARIN SOD 5000 UNIT/0.5 ML CARP SQ SCH ×3 (05:53→20:43)
[2017-07-21] MEDS: HYDROmorphone INJ 2 MG/ML SYR/VIAL IV PRN ×2 (06:06→22:43)
[2017-07-21 06:09] LABS: HEMATOCRIT 34.3 % (37-47); MEAN CELL VOLUME 92.2 fL (80-100); MEAN CORPUSCULAR HEMOGLOBIN 29.6 pg (25-34); MEAN CORPUSCULAR HGB CONC 32.1 g/dl (32-36); PLATELET COUNT 249 K/uL (130-400); RED CELL DISTRIBUTION WIDTH CV 15.9 % (11.5-14.5); RED CELL DISTRIBUTION WIDTH SD 53.1 fL (36.4-46.3); WHITE BLOOD COUNT 17.17 K/uL (4.8-10.8)
[2017-07-21 06:40] LABS: CALCIUM 8.2 mg/dl (8.5-10.1); CREATININE 0.84 mg/dl (0.60-1.20)
[2017-07-21 07:02] VITALS: BP 159/79; PULSE 93; TEMP 36.8; O2SAT 91
[2017-07-21] MEDS: CHECK SCOPOLAMINE PATCH PLACEMENT SCH ×3 (07:27→22:43)
[2017-07-21] MEDS: IPRATROPIUM BROMIDE/ALBUTEROL respimat INH INH SCH ×4 (07:28→20:06)
[2017-07-21] MEDS: SODIUM CHLORIDE 0.9% 1000ML 1,000 ML IV SCH ×2 (07:30→16:59)
[2017-07-21] MEDS: BISACODYL 5 MG TABEC PO SCH ×2 (07:30→20:11)
[2017-07-21 08:00] VITALS: O2SAT 91
[2017-07-21] MEDS: PANTOprazole INJ 40 MG in SYRINGE 0 ML IV SCH ×2 (09:07→20:43)
--- NOTE | 2017-07-21 10:58 | Progress Note ---
Subjective Date of Service: Jul 21, 2017. Subjective pt working with PT, family at bedside. pt with improved wbc, 17, but worsening abd distention, now with NGT. states she feels miserable. repeat blood cultures negative and final. tolerating abx, remains on rocephin and clinda. wound care ongoing. Problem List Medical Problems: (1) Bilateral leg pain Status: Acute (2) DKA (diabetic ketoacidosis) Status: Acute (3) Left foot pain Status: Acute (4) Left hip pain Status: Acute (5) Left knee pain Status: Acute (6) Right shoulder pain Status: Acute (7) Sepsis Status: Acute Objective Vital Signs Date Time Temp Pulse Resp B/P (MAP) Pulse Ox O2 Delivery O2 Flow Rate FiO2 07/21/17 08:00 91 Room Air 07/21/17 07:02 36.8 93 20 159/79 (105) 91 Room Air 07/20/17 23:50 Nasal Cannula 2.0 07/20/17 22:31 36.7 88 20 142/77 (98) 93 Nasal Cannula 2.0 07/20/17 19:45 Nasal Cannula 2.0 07/20/17 15:04 36.8 90 20 149/86 (107) 95 Nasal Cannula 2.0 Physical Exam General Appearance: WD/WN Eyes: normal inspection ENT: + pertinent finding (ngt in place) Neck: supple Respiratory/Chest: no respiratory distress Extremities: + pedal edema Neurologic/Psychiatric: alert Comments: dressing c/d/i Laboratory Results Item Value Date Time Blood Culture - Final Complete 07/11/17 0737 Blood NO GROWTH Blood Culture - Final Complete 07/11/17 0736 Blood NO GROWTH Blood Culture - Final Complete 07/09/17 0957 Blood Group A Beta Strep Blood Culture - Final Complete 07/09/17 0835 Blood Group A Beta Strep Last 24 Hours Test 07/20/17 11:28 07/20/17 18:05 07/20/17 21:40 07/20/17 23:31 Bedside Glucose 121 mg/dl 116 mg/dl 124 mg/dl 110 mg/dl Test 07/21/17 05:31 07/21/17 05:58 Bedside Glucose 114 mg/dl White Blood Count 17.17 K/uL Red Blood Count 3.72 M/uL Hemoglobin 11.0 g/dL Hematocrit 34.3 % Mean Corpuscular Volume 92.2 fL Mean Corpuscular Hemoglobin 29.6 pg Mean Corpuscular Hemoglobin Concent 32.1 g/dl RDW Standard Deviation 53.1 fL RDW Coefficient of Variation 15.9 % Platelet Count 249 K/uL Mean Platelet Volume 10.0 fL Sodium Level 136 mmol/L Potassium Level 4.0 mmol/L Chloride Level 102 mmol/L Carbon Dioxide Level 27 mmol/L Anion Gap 7.0 mmol/L Blood Urea Nitrogen 17 mg/dl Creatinine 0.84 mg/dl Est Creatinine Clear Calc Drug Dose 97.6 ml/min Estimated GFR () 85.7 Estimated GFR (Non- 74.0 BUN/Creatinine Ratio 19.7 Random Glucose 125 mg/dl Calcium Level 8.2 mg/dl Assessment and Plan (1) Beta-hemolytic group A streptococcal sepsis Assessment & Plan: add clinda, continue rocephin.will need min 14 days IV abx from first negative blood culture. then likely transition to po abx with clinda. will follow in wound center post d/c and duration will be determined as wound heals. (2) Cellulitis (3) Leukocytosis Continued [facility] stay due to: ambulation difficulties, multiple IV medications needed Discharge planning: rehab hospital
--- NOTE | 2017-07-21 12:23 | Surgery Progress Note ---
Surgery Progress Note Date of Service Jul 21, 2017. Subjective NG placed yesterday after she had bloating/nausea from full liquids, had another BM this morning but loose/liquid, felt better after NG was placed Objective Vital Signs: Date Time Temp Pulse Resp B/P (MAP) Pulse Ox O2 Delivery O2 Flow Rate FiO2 07/21/17 08:00 91 Room Air 07/21/17 07:02 36.8 93 20 159/79 (105) 91 Room Air 07/20/17 23:50 Nasal Cannula 2.0 07/20/17 22:31 36.7 88 20 142/77 (98) 93 Nasal Cannula 2.0 07/20/17 19:45 Nasal Cannula 2.0 07/20/17 15:04 36.8 90 20 149/86 (107) 95 Nasal Cannula 2.0 Physical Exam: nasogastric drainage (120) Abdomen: non tender, soft, + distended Laboratory Results: Results Past 24 Hours Test 07/20/17 18:05 07/20/17 21:40 07/20/17 23:31 07/21/17 05:31 Range/Units Bedside Glucose 116 124 110 114 70-90 mg/dl Test 07/21/17 05:58 Range/Units White Blood Count 17.17 4.8-10.8 K/uL Red Blood Count 3.72 4.2-5.4 M/uL Hemoglobin 11.0 12.0-16.0 g/dL Hematocrit 34.3 37-47 % Mean Corpuscular Volume 92.2 80-100 fL Mean Corpuscular Hemoglobin 29.6 25-34 pg Mean Corpuscular Hemoglobin Concent 32.1 32-36 g/dl RDW Standard Deviation 53.1 36.4-46.3 fL RDW Coefficient of Variation 15.9 11.5-14.5 % Platelet Count 249 130-400 K/uL Mean Platelet Volume 10.0 7.4-10.4 fL Sodium Level 136 136-145 mmol/L Potassium Level 4.0 3.5-5.1 mmol/L Chloride Level 102 98-107 mmol/L Carbon Dioxide Level 27 21-32 mmol/L Anion Gap 7.0 3-11 mmol/L Blood Urea Nitrogen 17 7-18 mg/dl Creatinine 0.84 0.60-1.20 mg/dl Est Creatinine Clear Calc Drug Dose 97.6 ml/min Estimated GFR () 85.7 Estimated GFR (Non- 74.0 BUN/Creatinine Ratio 19.7 10-20 Random Glucose 125 70-99 mg/dl Calcium Level 8.2 8.5-10.1 mg/dl Assessment & Plan RLE cellulitis Ileus Limited progress, not able to advance past clear liquids. Discussed with Dr. Goff who will re-evaluate her.
--- NOTE | 2017-07-21 13:54 | Pharmacy Progress Note ---
Glycemic: Assessment & Plan Date of Service Jul 21, 2017. Assessment & Plan The patient is currently receiving ~20 units of insulin per day while NPO. This is all basal insulin, no correctional insulin has been needed. No proandial insulin needed since pt NPO. BSGs ranging 110 - 125 mg/dl over the past 24hrs. * Basal insulin: Lantus 20 units every 24 hours given at bedtime ( this is reduced dosing for NPO) * Correctional Insulin: Novolog Correction per scale ACHS Goal Range: Low 120 mg/dL - High 160 mg/dL Correction Factor: 20 mg/dL/unit * Prandial insulin: Per carb ratio of 1 unit per 6 grams CHO consumed BSGs continue to improve, no changes needed to inpatient regimen at this time. Pharmacy will continue to monitor patient daily and write orders per [facility] inpatient glycemic control protocol. Thanks. * Please note that the plan above was derived based on current level of insulin resistance and hospital stress. These recommendations are appropriate for inpatient admission only. Plan of care upon discharge will need to be reassessed to avoid potential outpatient hypo/hyperglycemia.
[2017-07-21 15:19] VITALS: BP 161/82; PULSE 95; TEMP 36.7; O2SAT 96
--- NOTE | 2017-07-21 16:47 | Progress Note ---
Subjective Date of Service: Jul 21, 2017. Subjective Pt evaluation today including: conversation w/ patient, conversation w/ family , physical exam, chart review, lab review, review of studies, review of inpatient medication list Pain: controlled PO Intake: currently NPO Voiding: no voiding problems patient reported having bowel movement at 7 am , was diarrhea 3 BMs yesterday all diarrhea Problem List Medical Problems: (1) Bilateral leg pain Status: Acute (2) DKA (diabetic ketoacidosis) Status: Acute (3) Left foot pain Status: Acute (4) Left hip pain Status: Acute (5) Left knee pain Status: Acute (6) Right shoulder pain Status: Acute (7) Sepsis Status: Acute Review of Systems Constitutional: + weakness, + fatigue, No see HPI, No fever, No chills, No sweats, No weight loss, No problem reported Eyes: No see HPI, No worsening of vision, No eye pain, No redness, No discharge , No diplopia, No problem reported ENT: No see HPI, No hearing loss, No unusual epistaxis, No nasal symptoms, No sore throat, No tinnitus, No dental problems, No trouble swallowing, No problem reported Respiratory: No see HPI, No cough, No sputum, No wheezing, No shortness of breath, No dyspnea on exertion, No dyspnea at rest, No hemoptysis, No problem reported Cardiac: No see HPI, No chest pain, No orthopnea, No PND, No edema, No claudication, No palpitations, No problem reported Breast: No see HPI, No breast lump, No change in shape, No nipple discharge, No breast pain, No problem reported Abdomen: + pain, + diarrhea, + problem reported (distension), No see HPI, No nausea, No vomiting, No constipation, No GI bleeding Musculoskeletal: + swelling, No see HPI, No joint pain, No muscle pain, No calf pain, No problem reported Female : No see HPI, No dysuria, No urinary frequency, No hematuria, No incontinence, No abnormal vaginal bleeding, No vaginal discharge, No problem reported Neurologic: No see HPI, No memory loss, No paralysis, No weakness, No numbness/ tingling, No vertigo, No balance problems, No problem reported Psychiatric: No see HPI, No depression symptoms, No anhedonism, No anxiety, No insomnia, No substance abuse, No problem reported Heme: No see HPI, No abnormal bleeding/bruising, No clotting problems, No swollen lymph nodes, No night sweats, No problem reported Endo: No see HPI, No fatigue, No excessive thirst, No excessive urination, No problem reported Skin: + rash, + problem reported (B/L lower ext wrapped), No see HPI, No new/ changing skin lesions, No color change, No bleeding Objective Vital Signs Date Time Temp Pulse Resp B/P (MAP) Pulse Ox O2 Delivery O2 Flow Rate FiO2 07/21/17 15:19 36.7 95 20 161/82 (108) 96 Nasal Cannula 2.0 07/21/17 08:00 91 Room Air 07/21/17 07:02 36.8 93 20 159/79 (105) 91 Room Air 07/20/17 23:50 Nasal Cannula 2.0 07/20/17 22:31 36.7 88 20 142/77 (98) 93 Nasal Cannula 2.0 07/20/17 19:45 Nasal Cannula 2.0 Physical Exam General Appearance: + mild distress, + obese Eyes: normal inspection, EOMI ENT: normal ENT inspection, hearing grossly normal Neck: supple Respiratory/Chest: chest non-tender, lungs clear, normal breath sounds, no respiratory distress, no accessory muscle use Cardiovascular: regular rate, rhythm, no edema, no gallop, no JVD, no murmur Abdomen: normal bowel sounds, no organomegaly, no pulsatile mass, + distended Extremities: normal range of motion, non-tender, normal inspection, + swelling 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, no motor/sensory deficits, alert, normal mood/affect, oriented x 3 Skin: normal color, + pertinent finding (b/l lower ext are wrapped) Laboratory Results Last 24 Hours Test 07/20/17 18:05 07/20/17 21:40 07/20/17 23:31 07/21/17 05:31 Bedside Glucose 116 mg/dl 124 mg/dl 110 mg/dl 114 mg/dl Test 07/21/17 05:58 White Blood Count 17.17 K/uL Red Blood Count 3.72 M/uL Hemoglobin 11.0 g/dL Hematocrit 34.3 % Mean Corpuscular Volume 92.2 fL Mean Corpuscular Hemoglobin 29.6 pg Mean Corpuscular Hemoglobin Concent 32.1 g/dl RDW Standard Deviation 53.1 fL RDW Coefficient of Variation 15.9 % Platelet Count 249 K/uL Mean Platelet Volume 10.0 fL Sodium Level 136 mmol/L Potassium Level 4.0 mmol/L Chloride Level 102 mmol/L Carbon Dioxide Level 27 mmol/L Anion Gap 7.0 mmol/L Blood Urea Nitrogen 17 mg/dl Creatinine 0.84 mg/dl Est Creatinine Clear Calc Drug Dose 97.6 ml/min Estimated GFR () 85.7 Estimated GFR (Non- 74.0 BUN/Creatinine Ratio 19.7 Random Glucose 125 mg/dl Calcium Level 8.2 mg/dl Assessment and Plan 62 years old female with morbid obesity, DMII, dyslipidemia, jeane liver/ transaminitis, PCOS and GERD p/w DKA, severe sepsis and RLE cellulitis, she developed intestinal obstruction while in the hospital. Assessment: severe Sepsis POA Lower ext cellulitis with bacteremia DKA resolved Ileus / pseudoobstruction Acute Kidney Injury 2/2 Dehydration/DKA/Sepsis Diastolic CHF , acute on chronic Fatty liver/transaminitis dyslipidemia GERD Plan: continue Abx as per ID, CTX/clinda continue npo but allow ice chips continue NGT surgery consult appreciated, no surgical intervention at this point awaiting GI input pharmacy assistance with glycemic management - SSI Echo reviewed, revealed normal EF with grade I diastolic dysfunction continues with- Fenofibrate 145 mg daily and Simvastatin 40 mg daily continue Protonix 40 mg daily DVT Prophylaxis: Heparin Code Status: FULL RESUSCITATION Continued [facility] stay due to: ambulation difficulties, multiple IV medications needed Discharge planning: rehab hospital
[2017-07-21] MEDS: CEFTRIAXONE SOD INJ 2000 MG in DEXTROSE 5% 50ML IV SCH (16:59)
[2017-07-21] MEDS: METHYLNALTREXONE BROMIDE INJ 12 MG/0.6 ML SYR SQ SCH (16:59)
--- NOTE | 2017-07-21 18:01 | PROGRESS NOTE ---
DATE: 07/21/2017 RACE: . SUBJECTIVE: I had the pleasure of seeing Kiki Jordan at her bedside today. She continues to complain of abdominal distention. She had nausea, vomiting yesterday requiring NG tube placement. She does note that since that time she has had improvement in her abdominal distention. She does report having multiple bowel movements over the last 24 hours, mainly liquid in nature and her most recent abdominal x-ray was yesterday and showed persistent large and small bowel dilation with multiple air fluid levels. She has received Relistor throughout the last 5 days, receiving at 12 mg subQ every other day. She is still receiving narcotic analgesics. She does complain of some generalized abdominal tenderness, though does admit that her distention has improved. She denies any further complaints. PHYSICAL EXAMINATION: Includes, VITAL SIGNS: Temp 36.7, pulse 95, respirations 20, blood pressure 161/82, pulse ox 96% on 2 L via nasal cannula. GENERAL: She is morbidly obese, chronic ill appearing. CHEST: Decreased breath sounds in bilateral bases. CARDIOVASCULAR SYSTEM: Regular rate and rhythm. ABDOMEN: Soft. It is distended. There are positive bowel sounds. There is no appreciable hepatosplenomegaly. LABORATORY STUDIES: From today show sodium 136, potassium 4.0, chloride 102, bicarbonate 27, BUN 17, creatinine 0.84, blood glucose 125. White blood cell count 17.17, hemoglobin 11, hematocrit 34.3, and platelet count of 249. IMPRESSION: A 62-year-old female with morbid obesity and colonic pseudoobstruction versus ileus. PLAN: I would recommend continuing Relistor 12 mg every other day. I would also recommend that the patient not receive narcotic analgesics as this can cause decreased GI motility throughout the GI tract. I would recommend ambulation and sitting up to stimulate GI motility. I would also recommend maintaining electrolytes in the normal range, more specifically, potassium, which it is today. I would recommend that she undergo a colonoscopy tomorrow which will be unprepped and I will make further recommendations following this exam. Once again, thanks for allowing me to participate in the care of this patient. If you have any further questions, please do not hesitate in contacting me.
[2017-07-21] MEDS: INSULIN GLARGINE SOLOSTAR 100 UNITS/ML 3 ML PEN SQ SCH (21:42)
[2017-07-21 23:33] VITALS: BP_SYST 135; BP_SYST 141; BP_DIAS 67; BP_DIAS 74; PULSE 97; TEMP 36.9; O2SAT 100
[2017-07-22] VITALS (9 sets, daily range): BP systolic 122–165; BP diastolic 62–79; PULSE 83–98; TEMP 36.4–37.7; O2SAT 93–99
[2017-07-22] MEDS: CLINDAMYCIN IV 600 MG in DEXTROSE 5% 50ML 50 ML IV SCH ×3 (04:11→20:50)
[2017-07-22] MEDS: SODIUM CHLORIDE 0.9% 1000ML 1,000 ML IV SCH ×2 (04:12→17:14)
[2017-07-22] MEDS: INSULIN ASPART 100 UNITS/ML 3 ML PEN SC SCH ×5 (06:00→20:54)
[2017-07-22] MEDS: HEPARIN SOD 5000 UNIT/0.5 ML CARP SQ SCH ×3 (06:00→20:56)
[2017-07-22 06:21] LABS: HEMOGLOBIN 10.9 g/dL (12.0-16.0); MEAN CELL VOLUME 92.8 fL (80-100); MEAN CORPUSCULAR HEMOGLOBIN 28.9 pg (25-34); MEAN CORPUSCULAR HGB CONC 31.1 g/dl (32-36); MEAN PLATELET VOLUME 10.1 fL (7.4-10.4); PLATELET COUNT 252 K/uL (130-400); RED CELL DISTRIBUTION WIDTH CV 15.8 % (11.5-14.5); RED CELL DISTRIBUTION WIDTH SD 52.8 fL (36.4-46.3)
[2017-07-22 06:58] LABS: CALCIUM 8.3 mg/dl (8.5-10.1); CREATININE 0.85 mg/dl (0.60-1.20)
[2017-07-22] MEDS: BISACODYL 5 MG TABEC PO SCH ×2 (07:34→20:00)
[2017-07-22] MEDS: IPRATROPIUM BROMIDE/ALBUTEROL respimat INH INH SCH ×4 (07:35→20:50)
[2017-07-22] MEDS: CHECK SCOPOLAMINE PATCH PLACEMENT SCH ×2 (07:35→17:11)
--- NOTE | 2017-07-22 09:00 | Surgery Progress Note ---
Surgery Progress Note Date of Service Jul 22, 2017. Subjective No complaints, No flatus Objective Vital Signs: Date Time Temp Pulse Resp B/P (MAP) Pulse Ox O2 Delivery O2 Flow Rate FiO2 07/22/17 06:52 36.8 94 22 136/70 (92) 93 07/22/17 00:37 Nasal Cannula 2.0 07/21/17 23:33 36.9 97 20 141/74 (96) 100 CPAP 3.0 07/21/17 20:19 Nasal Cannula 2.0 07/21/17 16:00 Nasal Cannula 2.0 07/21/17 15:19 36.7 95 20 161/82 (108) 96 Nasal Cannula 2.0 Physical Exam: nasogastric drainage (450/50) Abdomen: non tender, soft, + distended Laboratory Results: Results Past 24 Hours Test 07/21/17 12:03 07/21/17 17:40 07/21/17 21:36 07/21/17 23:53 Range/Units Bedside Glucose 120 122 147 109 70-90 mg/dl Test 07/22/17 06:00 07/22/17 06:22 Range/Units White Blood Count 11.60 4.8-10.8 K/uL Red Blood Count 3.77 4.2-5.4 M/uL Hemoglobin 10.9 12.0-16.0 g/dL Hematocrit 35.0 37-47 % Mean Corpuscular Volume 92.8 80-100 fL Mean Corpuscular Hemoglobin 28.9 25-34 pg Mean Corpuscular Hemoglobin Concent 31.1 32-36 g/dl RDW Standard Deviation 52.8 36.4-46.3 fL RDW Coefficient of Variation 15.8 11.5-14.5 % Platelet Count 252 130-400 K/uL Mean Platelet Volume 10.1 7.4-10.4 fL Sodium Level 138 136-145 mmol/L Potassium Level 4.0 3.5-5.1 mmol/L Chloride Level 105 98-107 mmol/L Carbon Dioxide Level 26 21-32 mmol/L Anion Gap 7.0 3-11 mmol/L Blood Urea Nitrogen 19 7-18 mg/dl Creatinine 0.85 0.60-1.20 mg/dl Est Creatinine Clear Calc Drug Dose 96.5 ml/min Estimated GFR () 84.5 Estimated GFR (Non- 72.9 BUN/Creatinine Ratio 22.4 10-20 Random Glucose 162 70-99 mg/dl Calcium Level 8.3 8.5-10.1 mg/dl Bedside Glucose 145 70-90 mg/dl Assessment & Plan RLE cellulitis Ileus Limited progress, not able to advance past clear liquids. Colonoscopy today. Seen with Dr. Ortega
[2017-07-22] MEDS: PANTOprazole INJ 40 MG in SYRINGE 0 ML IV SCH ×2 (09:04→20:51)
--- NOTE | 2017-07-22 09:27 | Wound Consultation: Inpatient ---
Wound Consultation Date of Consultation: Jul 21, 2017. Attending Physician: Ayush Walker MD Reason for Consultation: Cellulitis/ulceration right lower extremity History of Present Illness Patient was recently admitted to [facility] for further evaluation and treatment of cellulitis to the right lower extremity. Patient states she noticed a crack in her right heel approximately 1 month ago and suddenly developed redness swelling and pain in the right lower leg approximately 2 weeks ago. Patient currently denies any fever chills or night sweats. Patient denies any chest pain shortness of breath abdominal discomfort nausea or vomiting. Patient states she has had a prior history of cellulitis. Patient denies any other systemic complaints at this time. Family History Colon Cancer Diabetes mellitus Heart Disease Hypertension Kidney disease Social History Smoking Status: Never Smoker Smokeless Tobacco Use: No Alcohol Use: none Drug Use: none Marital Status: Housing Status: lives with family Occupation Status: employed Allergies Coded Allergies: No Known Allergies (Unverified , 06/20/16) Home Medications Scheduled B-Complex Vitamins (Vitamin B Complex), 1 TAB PO DAILY Cetirizine (Zyrtec), 10 MG PO DAILY Fenofibrate (Tricor ), 145 MG PO DAILY Fish Oil (Dinosaur-3), 2 CAP PO DAILY Furosemide (Lasix), 40 MG PO DAILY Insulin Aspart (Novolog Flexpen), 1 DOSE SC UD Insulin Glargine (Lantus Solostar), 60-70 SC HS Losartan Potassium (Cozaar), 100 MG PO DAILY Metformin Hcl (Glucophage Ext Rel), 1,000 MG PO BID Metformin Hcl (Glucophage), 500 MG PO @ 1200 Multivitamins/Minerals (Mvi With Minerals), 1 TAB PO DAILY Omeprazole (Prilosec), 20 MG PO BID Simvastatin (Zocor), 40 MG PO QPM Inpatient Medications Current Inpatient Medications Medications (Trade) Dose Ordered Sig/Oxana Route Start Time Stop Time Status Last Admin Dose Admin Glucose (Glucose 40% Gel) 15-30 GRAMS 15 GRAMS... UD PRN PO 07/09/17 10:00 08/08/17 09:59 Glucose (Glucose Chew Tab) 4-8 Tablets 4 Tabl... UD PRN PO 07/09/17 10:00 08/08/17 09:59 Dextrose (Dextrose 50% 50ML Syringe) 25-50ML OF 50% DW IV FOR... UD PRN IV 07/09/17 10:00 08/08/17 09:59 Glucagon (Glucagon Inj) 1 mg UD PRN SQ 07/09/17 10:00 08/08/17 09:59 Heparin Sodium (Porcine) (Heparin Sq 5000 Unit/0.5ml) 5,000 unit Q8 SQ 07/09/17 14:00 08/08/17 13:59 07/21/17 20:43 5,000 UNIT Acetaminophen (Tylenol Tab) 650 mg Q4H PRN PO 07/09/17 10:15 08/08/17 10:14 Future Hold 07/20/17 07:43 650 MG Al Hydrox/Mg Hydrox/Simethicone (Maalox Max Susp) 15 ml Q4H PRN PO 07/09/17 10:15 08/08/17 10:14 Future Hold 07/19/17 16:58 15 ML Magnesium Hydroxide (Milk Of Magnesia Susp) 30 ml Q12H PRN PO 07/09/17 10:15 08/08/17 10:14 Future Hold 07/16/17 21:20 30 ML Ondansetron HCl (Zofran Inj) 4 mg Q6H PRN IV 07/09/17 10:15 08/08/17 10:14 07/19/17 19:55 4 MG Miscellaneous Information (Consult Glycemic Management Pharmacy) 1 ea UD PRN N/A 07/09/17 11:10 08/08/17 11:09 Cetirizine HCl (zyrTEC TAB) 10 mg DAILY PO 07/10/17 09:00 08/09/17 08:59 Future Hold 07/20/17 07:44 10 MG Fenofibrate (Tricor Tab) 145 mg DAILY PO 07/10/17 09:00 08/09/17 08:59 Future Hold 07/20/17 07:43 145 MG Simvastatin (Zocor Tab) 40 mg QPM PO 07/09/17 21:00 08/08/17 20:59 Future Hold 07/19/17 21:11 40 MG Pantoprazole Sodium (Protonix Tab) 40 mg QAM PO 07/10/17 09:00 08/09/17 08:59 Future Hold 07/20/17 07:44 40 MG Lactobacillus Acidophilus (Floranex Tab) 4 tab TIDM PO 07/09/17 16:45 08/08/17 16:44 Future Hold 07/20/17 11:34 4 TAB Ceftriaxone Sodium 2000 mg/ Dextrose 70 ml @ 140 mls/hr DAILY@1800 IV 07/11/17 18:00 08/01/17 17:59 07/21/17 16:59 140 MLS/HR Loperamide HCl (Imodium Cap) 2 mg Q6 PRN PO 07/12/17 12:45 08/11/17 12:44 Future Hold 07/12/17 13:14 2 MG Furosemide (Lasix Tab) 40 mg DAILY PO 07/13/17 09:00 08/10/17 08:59 Future Hold 07/20/17 07:44 40 MG Albuterol/ Ipratropium (Combivent Respimat Inh) 1 puffs QID INH 07/12/17 21:00 08/11/17 20:59 07/22/17 07:35 1 PUFFS Clindamycin Phosphate 600 mg/ Dextrose 54 ml @ 100 mls/hr Q8H IV 07/14/17 12:00 07/28/17 11:59 07/22/17 04:11 100 MLS/HR Heparin Sodium (Porcine) (Heparin 10 Unit/ ml 5 ml Flush) 5 ml PRN PRN FLUSH 07/14/17 12:00 08/13/17 11:59 07/20/17 10:52 5 ML Methylnaltrexone Decker (Relistor Inj) 12 mg Q2D SQ 07/17/17 18:15 08/16/17 18:14 07/21/17 16:59 12 MG Insulin Glargine (Lantus Solostar Pen) SEE PROTOCOL TEXT HS SQ 07/18/17 22:00 08/17/17 21:59 07/21/17 21:42 20 UNITS Polyethylene (Miralax Powder Packet) 17 gm QID PO 07/18/17 12:00 08/08/17 10:14 Future Hold 07/19/17 17:38 17 GM Promethazine HCl 25 mg/Sodium Chloride 51 ml @ 204 mls/hr Q6H PRN IV 07/19/17 22:45 08/18/17 22:44 07/19/17 23:16 204 MLS/HR Metoclopramide HCl 20 mg/Sodium Chloride 54 ml @ 162 mls/hr Q6H PRN IV 07/20/17 03:30 08/19/17 03:29 07/20/17 10:07 162 MLS/HR Bisacodyl (Dulcolax Tab) 10 mg BID PO 07/20/17 12:00 08/19/17 11:59 07/21/17 20:11 10 MG Scopolamine (Transderm-Scop Patch) 1.5 mg Q3D@0900 TD 07/20/17 12:00 08/19/17 11:59 07/20/17 12:59 1.5 MG Miscellaneous (Remove Transderm-Scop Patch) 1 ea Q3D@0859 N/A 07/23/17 08:59 08/22/17 08:58 Miscellaneous Information (Check Scopolamine Patch Placement) 1 ea QS N/A 07/20/17 16:00 08/19/17 15:59 07/22/17 07:35 1 EA Pantoprazole Sodium 40 mg/ Syringe 10 ml @ 5 mls/min DAILY@09,21 IV 07/20/17 21:00 08/19/17 20:59 07/22/17 09:04 5 MLS/MIN Hydromorphone HCl (Dilaudid Inj) 0.5 mg Q4H PRN IV 07/20/17 12:00 07/23/17 10:44 07/21/17 10:34 0.5 MG Sodium Chloride 1,000 ml @ 100 mls/hr Q10H IV 07/20/17 12:00 08/19/17 11:59 07/22/17 04:12 100 MLS/HR Hydromorphone HCl (Dilaudid Inj) 1 mg Q4 PRN IV 07/20/17 12:00 08/03/17 11:59 07/21/17 22:43 1 MG Insulin Aspart (novoLOG ASPART) SLIDING SCALE If CARB RA... Q6 SC 07/20/17 18:00 08/17/17 16:29 Physical Exam Date Time Temp Pulse Resp B/P (MAP) Pulse Ox O2 Delivery O2 Flow Rate FiO2 07/22/17 06:52 36.8 94 22 136/70 (92) 93 07/22/17 00:37 Nasal Cannula 2.0 07/21/17 23:33 36.9 97 20 141/74 (96) 100 CPAP 3.0 07/21/17 20:19 Nasal Cannula 2.0 07/21/17 16:00 Nasal Cannula 2.0 07/21/17 15:19 36.7 95 20 161/82 (108) 96 Nasal Cannula 2.0 General: The patient is lying in a hospital bed in no distress. Alert, cooperative and appropriate to all questions. HEENT: Pupils equal and reactive to light. Sclera clear, EOM intact. Neck: Supple, No JVD noted Chest: CTA in all levin. No deformity Heart: RRR without murmurs, S3, S4, thrills, rubs or heaves Extremities: Edema with erythema is noted to the distal right lower extremity. The site also includes blister formation and early ulcerations to be noted scattered throughout the site. Prior markings delineated the proximal extent of the inflammatory process has contracted. Current site today measures 12 x 28 x 0.1 cm. No active drainage or odor is present. +2-3 edema of the lower extremity is noted which the patient states is chronic. Distal pulses both the dorsal pedalis and posterior tibial +2. Distal neurovascular bundle is intact. Neurological: Alert and oriented x3. No focal deficits. Laboratory Results Last 24 Hours Test 07/21/17 12:03 07/21/17 17:40 07/21/17 21:36 07/21/17 23:53 Bedside Glucose 120 mg/dl 122 mg/dl 147 mg/dl 109 mg/dl Test 07/22/17 06:00 07/22/17 06:22 White Blood Count 11.60 K/uL Red Blood Count 3.77 M/uL Hemoglobin 10.9 g/dL Hematocrit 35.0 % Mean Corpuscular Volume 92.8 fL Mean Corpuscular Hemoglobin 28.9 pg Mean Corpuscular Hemoglobin Concent 31.1 g/dl RDW Standard Deviation 52.8 fL RDW Coefficient of Variation 15.8 % Platelet Count 252 K/uL Mean Platelet Volume 10.1 fL Sodium Level 138 mmol/L Potassium Level 4.0 mmol/L Chloride Level 105 mmol/L Carbon Dioxide Level 26 mmol/L Anion Gap 7.0 mmol/L Blood Urea Nitrogen 19 mg/dl Creatinine 0.85 mg/dl Est Creatinine Clear Calc Drug Dose 96.5 ml/min Estimated GFR () 84.5 Estimated GFR (Non- 72.9 BUN/Creatinine Ratio 22.4 Random Glucose 162 mg/dl Calcium Level 8.3 mg/dl Bedside Glucose 145 mg/dl Assessment & Plan Assessment: Cellulitis with scattered blister formation right lower extremity Plan: At this time the blister sites did require debridement. With patient's permission after the application of topical Xylocaine 4% the sites were deroofed and removed with underlying slough removed as well using a #5 curette. Minimal bleeding occurred which was controlled with direct pressure. The area will be dressed with Aquacel Ag ABDs and a Coban light compression wrap. Patient will be rewrapped and evaluated again tomorrow. This represented a non- excisional debridement of approximately 200 cm. Patient will continue her current antibiotic therapy with bed rest and elevation as possible.
[2017-07-22] MEDS ORDERED: MINERAL OIL 30 ML UDC ONE (12:53)
[2017-07-22] MEDS ORDERED: PROPOFOL IV EMULSION 10 MG/ML 20 ML VIAL IV ONE (14:47)
[2017-07-22] MEDS ORDERED: LIDOCAINE HCL 2% 2 ML VIAL (20MG/ML) ONE (14:47)
--- NOTE | 2017-07-22 15:00 | Anesthesiology Progress Note ---
Anesthesia Post Op Note Date & Time Jul 22, 2017 at 15:00 Vital Signs Pain Intensity: 5.0 Vital Signs Past 12 Hours Date Time Temp Pulse Resp B/P (MAP) Pulse Ox O2 Delivery O2 Flow Rate FiO2 07/22/17 14:53 97 18 123/66 (85) 95 Nasal Cannula 2 07/22/17 13:14 83 15 97 Nasal Cannula 2.0 07/22/17 13:12 36.7 103 24 146/78 (100) 95 Nasal Cannula 2 07/22/17 08:00 Nasal Cannula 2.0 07/22/17 06:52 36.8 94 22 136/70 (92) 93 Notes Mental Status: alert / awake / arousable, participated in evaluation Pt Amnestic to Procedure: Yes Nausea / Vomiting: adequately controlled Pain: adequately controlled Airway Patency, RR, SpO2: stable & adequate BP & HR: stable & adequate Hydration State: stable & adequate Anesthetic Complications: no major complications apparent
--- NOTE | 2017-07-22 15:01 | GI REPORT ---
Procedure Date: 07/22/2017 2:08 PM Procedure: Colonoscopy Indications: Abnormal CT of the GI tract, Colonic decompression Medicines: Monitored Anesthesia Care Complications: No immediate complications. Estimated Blood Loss: Estimated blood loss: none. Procedure: Pre-Anesthesia Assessment: - Prior to the procedure, a History and Physical was performed, and patient medications and allergies were reviewed. The patient's tolerance of previous anesthesia was also reviewed. The risks and benefits of the procedure and the sedation options and risks were discussed with the patient. All questions were answered, and informed consent was obtained. Prior Anticoagulants: The patient has taken no previous anticoagulant or antiplatelet agents. ASA Grade Assessment: IV - A patient with severe systemic disease that is a constant threat to life. After reviewing the risks and benefits, the patient was deemed in satisfactory condition to undergo the procedure. After I obtained informed consent, the scope was passed under direct vision. Throughout the procedure, the patient's blood pressure, pulse, and oxygen saturations were monitored continuously. The scope was introduced through the anus and advanced to the terminal ileum. The colonoscopy was performed without difficulty. The patient tolerated the procedure well. The terminal ileum, ileocecal valve, appendiceal orifice, and rectum were photographed. Findings: Hemorrhoids were found on perianal exam. A large amount of semi-liquid stool was found in the entire colon, precluding visualization. Multiple small-mouthed diverticula were found in the sigmoid colon. Non-bleeding external internal hemorrhoids were found during retroflexion and during perianal exam. The hemorrhoids were small. Impression: - Hemorrhoids found on perianal exam. - Stool in the entire examined colon. - Diverticulosis in the sigmoid colon. - Non-bleeding external internal hemorrhoids. - No specimens collected. Recommendation: - Return patient to [facility] for ongoing care. - Advance diet as tolerated. - Continue present medications. Viral Goff DO 07/22/2017 3:01:28 PM This report has been signed electronically. Note Initiated On: 07/22/2017 2:08 PM I attest to the content of the Intraoperative Record and orders documented therein, exceptions below
[2017-07-22] MEDS ORDERED: NURSING VERBAL MED ORDER ONE (16:30)
[2017-07-22] MEDS: CEFTRIAXONE SOD INJ 2000 MG in DEXTROSE 5% 50ML IV SCH (17:46)
--- NOTE | 2017-07-22 20:40 | Progress Note ---
Subjective Date of Service: Jul 22, 2017. Subjective Pt evaluation today including: conversation w/ patient, conversation w/ family , physical exam, chart review, lab review, review of studies Pain: controlled PO Intake: adequate feeling much better after colonoscopy Problem List Medical Problems: (1) Bilateral leg pain Status: Acute (2) DKA (diabetic ketoacidosis) Status: Acute (3) Left foot pain Status: Acute (4) Left hip pain Status: Acute (5) Left knee pain Status: Acute (6) Right shoulder pain Status: Acute (7) Sepsis Status: Acute Review of Systems Constitutional: No see HPI, No fever, No chills, No sweats, No weight loss, No weakness, No fatigue, No problem reported Eyes: No see HPI, No worsening of vision, No eye pain, No redness, No discharge , No diplopia, No problem reported ENT: No see HPI, No hearing loss, No unusual epistaxis, No nasal symptoms, No sore throat, No tinnitus, No dental problems, No trouble swallowing, No problem reported Respiratory: No see HPI, No cough, No sputum, No wheezing, No shortness of breath, No dyspnea on exertion, No dyspnea at rest, No hemoptysis, No problem reported Cardiac: No see HPI, No chest pain, No orthopnea, No PND, No edema, No claudication, No palpitations, No problem reported Abdomen: + nausea, + vomiting, No see HPI, No pain, No diarrhea, No constipation, No GI bleeding, No problem reported Musculoskeletal: + joint pain, + muscle pain, No see HPI, No swelling, No calf pain, No problem reported Female : No see HPI, No dysuria, No urinary frequency, No hematuria, No incontinence, No abnormal vaginal bleeding, No vaginal discharge, No problem reported Neurologic: No see HPI, No memory loss, No paralysis, No weakness, No numbness/ tingling, No vertigo, No balance problems, No problem reported Psychiatric: No see HPI, No depression symptoms, No anhedonism, No anxiety, No insomnia, No substance abuse, No problem reported Heme: No see HPI, No abnormal bleeding/bruising, No clotting problems, No swollen lymph nodes, No night sweats, No problem reported Endo: No see HPI, No fatigue, No excessive thirst, No excessive urination, No problem reported Skin: No see HPI, No rash, No itch, No new/changing skin lesions, No color change, No bleeding, No problem reported Medications Current Inpatient Medications Medications (Trade) Dose Ordered Sig/Oxana Route Start Time Stop Time Status Last Admin Dose Admin Glucose (Glucose 40% Gel) 15-30 GRAMS 15 GRAMS... UD PRN PO 07/09/17 10:00 08/08/17 09:59 Glucose (Glucose Chew Tab) 4-8 Tablets 4 Tabl... UD PRN PO 07/09/17 10:00 08/08/17 09:59 Dextrose (Dextrose 50% 50ML Syringe) 25-50ML OF 50% DW IV FOR... UD PRN IV 07/09/17 10:00 08/08/17 09:59 Glucagon (Glucagon Inj) 1 mg UD PRN SQ 07/09/17 10:00 08/08/17 09:59 Heparin Sodium (Porcine) (Heparin Sq 5000 Unit/0.5ml) 5,000 unit Q8 SQ 07/09/17 14:00 08/08/17 13:59 07/22/17 17:17 5,000 UNIT Acetaminophen (Tylenol Tab) 650 mg Q4H PRN PO 07/09/17 10:15 08/08/17 10:14 Future Hold 07/20/17 07:43 650 MG Al Hydrox/Mg Hydrox/Simethicone (Maalox Max Susp) 15 ml Q4H PRN PO 07/09/17 10:15 08/08/17 10:14 Future Hold 07/19/17 16:58 15 ML Magnesium Hydroxide (Milk Of Magnesia Susp) 30 ml Q12H PRN PO 07/09/17 10:15 08/08/17 10:14 Future Hold 07/16/17 21:20 30 ML Ondansetron HCl (Zofran Inj) 4 mg Q6H PRN IV 07/09/17 10:15 08/08/17 10:14 07/19/17 19:55 4 MG Miscellaneous Information (Consult Glycemic Management Pharmacy) 1 ea UD PRN N/A 07/09/17 11:10 08/08/17 11:09 Cetirizine HCl (zyrTEC TAB) 10 mg DAILY PO 07/10/17 09:00 08/09/17 08:59 Future Hold 07/20/17 07:44 10 MG Fenofibrate (Tricor Tab) 145 mg DAILY PO 07/10/17 09:00 08/09/17 08:59 Future Hold 07/20/17 07:43 145 MG Simvastatin (Zocor Tab) 40 mg QPM PO 07/09/17 21:00 08/08/17 20:59 Future Hold 07/19/17 21:11 40 MG Pantoprazole Sodium (Protonix Tab) 40 mg QAM PO 07/10/17 09:00 08/09/17 08:59 Future Hold 07/20/17 07:44 40 MG Lactobacillus Acidophilus (Floranex Tab) 4 tab TIDM PO 07/09/17 16:45 08/08/17 16:44 Future Hold 07/20/17 11:34 4 TAB Ceftriaxone Sodium 2000 mg/ Dextrose 70 ml @ 140 mls/hr DAILY@1800 IV 07/11/17 18:00 08/01/17 17:59 07/22/17 17:46 140 MLS/HR Loperamide HCl (Imodium Cap) 2 mg Q6 PRN PO 07/12/17 12:45 08/11/17 12:44 Future Hold 07/12/17 13:14 2 MG Furosemide (Lasix Tab) 40 mg DAILY PO 07/13/17 09:00 08/10/17 08:59 Future Hold 07/20/17 07:44 40 MG Albuterol/ Ipratropium (Combivent Respimat Inh) 1 puffs QID INH 07/12/17 21:00 08/11/17 20:59 07/22/17 17:10 1 PUFFS Clindamycin Phosphate 600 mg/ Dextrose 54 ml @ 100 mls/hr Q8H IV 07/14/17 12:00 07/28/17 11:59 07/22/17 12:37 100 MLS/HR Heparin Sodium (Porcine) (Heparin 10 Unit/ ml 5 ml Flush) 5 ml PRN PRN FLUSH 07/14/17 12:00 08/13/17 11:59 07/20/17 10:52 5 ML Methylnaltrexone [place] (Relistor Inj) 12 mg Q2D SQ 07/17/17 18:15 08/16/17 18:14 07/21/17 16:59 12 MG Insulin Glargine (Lantus Solostar Pen) SEE PROTOCOL TEXT HS SQ 07/18/17 22:00 08/17/17 21:59 07/21/17 21:42 20 UNITS Polyethylene (Miralax Powder Packet) 17 gm QID PO 07/18/17 12:00 08/08/17 10:14 Future Hold 07/19/17 17:38 17 GM Promethazine HCl 25 mg/Sodium Chloride 51 ml @ 204 mls/hr Q6H PRN IV 07/19/17 22:45 08/18/17 22:44 07/19/17 23:16 204 MLS/HR Metoclopramide HCl 20 mg/Sodium Chloride 54 ml @ 162 mls/hr Q6H PRN IV 07/20/17 03:30 08/19/17 03:29 07/20/17 10:07 162 MLS/HR Bisacodyl (Dulcolax Tab) 10 mg BID PO 07/20/17 12:00 08/19/17 11:59 07/21/17 20:11 10 MG Scopolamine (Transderm-Scop Patch) 1.5 mg Q3D@0900 TD 07/20/17 12:00 08/19/17 11:59 07/20/17 12:59 1.5 MG Miscellaneous (Remove Transderm-Scop Patch) 1 ea Q3D@0859 N/A 07/23/17 08:59 08/22/17 08:58 Miscellaneous Information (Check Scopolamine Patch Placement) 1 ea QS N/A 07/20/17 16:00 08/19/17 15:59 07/22/17 17:11 1 EA Pantoprazole Sodium 40 mg/ Syringe 10 ml @ 5 mls/min DAILY@ IV 07/20/17 21:00 08/19/17 20:59 07/22/17 09:04 5 MLS/MIN Hydromorphone HCl (Dilaudid Inj) 0.5 mg Q4H PRN IV 07/20/17 12:00 07/23/17 10:44 07/21/17 10:34 0.5 MG Sodium Chloride 1,000 ml @ 100 mls/hr Q10H IV 07/20/17 12:00 08/19/17 11:59 07/22/17 17:14 100 MLS/HR Hydromorphone HCl (Dilaudid Inj) 1 mg Q4 PRN IV 07/20/17 12:00 08/03/17 11:59 07/21/17 22:43 1 MG Insulin Aspart (novoLOG ASPART) SLIDING SCALE If CARB RA... ACHS SC 07/22/17 16:30 08/21/17 16:29 Objective Vital Signs Date Time Temp Pulse Resp B/P (MAP) Pulse Ox O2 Delivery O2 Flow Rate FiO2 07/22/17 19:41 36.8 93 18 132/75 (94) 94 Nasal Cannula 2.0 07/22/17 18:00 36.4 91 18 153/72 (99) 96 Nasal Cannula 2.0 07/22/17 17:00 36.5 92 18 146/79 (101) 98 Room Air 07/22/17 16:06 37.7 93 20 165/73 (103) 99 Nasal Cannula 2.0 07/22/17 15:55 36.8 98 20 159/73 (101) 98 Nasal Cannula 2.0 07/22/17 15:33 36.8 98 20 159/73 (101) 93 Nasal Cannula 2.0 07/22/17 15:21 96 18 135/65 (88) 96 Nasal Cannula 2 07/22/17 15:07 95 18 145/74 (97) 96 Nasal Cannula 2 07/22/17 14:53 97 18 123/66 (85) 95 Nasal Cannula 2 07/22/17 13:14 83 15 97 Nasal Cannula 2.0 07/22/17 13:12 36.7 103 24 146/78 (100) 95 Nasal Cannula 2 07/22/17 08:00 Nasal Cannula 2.0 07/22/17 06:52 36.8 94 22 136/70 (92) 93 07/22/17 00:37 Nasal Cannula 2.0 07/21/17 23:33 36.9 97 20 141/74 (96) 100 CPAP 3.0 Physical Exam General Appearance: WD/WN, no apparent distress Eyes: normal inspection, PERRL, EOMI ENT: normal ENT inspection, hearing grossly normal Neck: supple Respiratory/Chest: chest non-tender, lungs clear, normal breath sounds, no respiratory distress, no accessory muscle use Cardiovascular: regular rate, rhythm, no edema, no gallop, no JVD, no murmur Abdomen: normal bowel sounds, non tender, no pulsatile mass, + distended Extremities: normal range of motion, non-tender, normal inspection, no pedal edema, no calf tenderness 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, no motor/sensory deficits, alert, normal mood/affect, oriented x 3 Skin: normal color, warm/dry, no rash Laboratory Results Last 24 Hours Test 07/21/17 21:36 07/21/17 23:53 07/22/17 06:00 07/22/17 06:22 Bedside Glucose 147 mg/dl 109 mg/dl 145 mg/dl White Blood Count 11.60 K/uL Red Blood Count 3.77 M/uL Hemoglobin 10.9 g/dL Hematocrit 35.0 % Mean Corpuscular Volume 92.8 fL Mean Corpuscular Hemoglobin 28.9 pg Mean Corpuscular Hemoglobin Concent 31.1 g/dl RDW Standard Deviation 52.8 fL RDW Coefficient of Variation 15.8 % Platelet Count 252 K/uL Mean Platelet Volume 10.1 fL Sodium Level 138 mmol/L Potassium Level 4.0 mmol/L Chloride Level 105 mmol/L Carbon Dioxide Level 26 mmol/L Anion Gap 7.0 mmol/L Blood Urea Nitrogen 19 mg/dl Creatinine 0.85 mg/dl Est Creatinine Clear Calc Drug Dose 96.5 ml/min Estimated GFR () 84.5 Estimated GFR (Non- 72.9 BUN/Creatinine Ratio 22.4 Random Glucose 162 mg/dl Calcium Level 8.3 mg/dl Test 07/22/17 08:02 07/22/17 11:35 07/22/17 16:37 07/22/17 19:40 Bedside Glucose 138 mg/dl 167 mg/dl 155 mg/dl 192 mg/dl Assessment and Plan 62 years old female with morbid obesity, DMII, dyslipidemia, jeane liver/ transaminitis, PCOS and GERD p/w DKA, severe sepsis and RLE cellulitis, she developed intestinal obstruction while in the hospital. Assessment: severe Sepsis POA Lower ext cellulitis with bacteremia DKA resolved Ileus / pseudoobstruction Acute Kidney Injury 2/2 Dehydration/DKA/Sepsis Diastolic CHF , acute on chronic Fatty liver/transaminitis dyslipidemia GERD Plan: continue Abx as per ID, CTX/clinda advance to liquid continue NGT surgery consult appreciated, no surgical intervention at this point s/p colonoscopy, found Hemorrhoids, diverticulosis in sigmoid colon. DC dilaudid, start toradol for pain DC scopolamine patch pharmacy assistance with glycemic management - SSI Echo reviewed, revealed normal EF with grade I diastolic dysfunction continues with- Fenofibrate 145 mg daily and Simvastatin 40 mg daily continue Protonix 40 mg daily DVT Prophylaxis: Heparin Code Status: FULL RESUSCITATION Continued [facility] stay due to: ambulation difficulties, multiple IV medications needed Discharge planning: rehab hospital
[2017-07-22] MEDS: INSULIN GLARGINE SOLOSTAR 100 UNITS/ML 3 ML PEN SQ SCH (20:55)
[2017-07-23] MEDS: SODIUM CHLORIDE 0.9% 1000ML 1,000 ML IV SCH ×3 (00:27→23:13)
[2017-07-23] MEDS: KETOROLAC TROMETHAMINE 15 MG/ML VIAL IV. PRN ×2 (00:28→20:42)
[2017-07-23] MEDS: CLINDAMYCIN IV 600 MG in DEXTROSE 5% 50ML 50 ML IV SCH ×3 (03:59→23:12)
[2017-07-23] MEDS: HEPARIN SOD 5000 UNIT/0.5 ML CARP SQ SCH ×3 (05:57→20:41)
[2017-07-23 06:11] LABS: BASO % 0.2 %; BASO ABS # 0.02 K/uL (0-0.2); EOS % 0.8 %; EOS ABS # 0.07 K/uL (0-0.5); HEMATOCRIT 31.8 % (37-47); HEMOGLOBIN 10.1 g/dL (12.0-16.0); IG# 0.04 K/uL (0.00-0.02); LYMPH ABS # 0.94 K/uL (1.2-3.4); MEAN CELL VOLUME 91.6 fL (80-100); MEAN CORPUSCULAR HEMOGLOBIN 29.1 pg (25-34); MEAN CORPUSCULAR HGB CONC 31.8 g/dl (32-36); MEAN PLATELET VOLUME 9.8 fL (7.4-10.4); MONO % 5.9 %; NEUT % 81.6 %; NEUT ABS # 6.97 K/uL (1.4-6.5); PLATELET COUNT 223 K/uL (130-400); RED CELL DISTRIBUTION WIDTH CV 15.7 % (11.5-14.5); RED CELL DISTRIBUTION WIDTH SD 52.1 fL (36.4-46.3); WHITE BLOOD COUNT 8.54 K/uL (4.8-10.8)
[2017-07-23 06:58] LABS: ALBUMIN 1.7 gm/dl (3.4-5.0); CALCIUM 7.9 mg/dl (8.5-10.1); CREATININE 0.77 mg/dl (0.60-1.20); POTASSIUM 3.3 mmol/L (3.5-5.1); TOTAL PROTEIN 5.6 gm/dl (6.4-8.2)
[2017-07-23 07:25] VITALS: BP 135/68; PULSE 86; TEMP 36.6; O2SAT 96
[2017-07-23] MEDS: BISACODYL 5 MG TABEC PO SCH ×2 (08:00→20:00)
[2017-07-23] MEDS: IPRATROPIUM BROMIDE/ALBUTEROL respimat INH INH SCH ×4 (08:32→20:37)
[2017-07-23] MEDS: PANTOprazole INJ 40 MG in SYRINGE 0 ML IV SCH ×2 (08:33→20:38)
[2017-07-23] MEDS: INSULIN ASPART 100 UNITS/ML 3 ML PEN SC SCH ×4 (08:35→20:38)
--- NOTE | 2017-07-23 09:46 | Surgery Progress Note ---
Surgery Progress Note Date of Service Jul 23, 2017. Subjective multiple BMs yesterday and one today, still has NG and drinking juice Objective Vital Signs: Date Time Temp Pulse Resp B/P (MAP) Pulse Ox O2 Delivery O2 Flow Rate FiO2 07/23/17 07:25 36.6 86 20 135/68 (90) 96 Room Air 07/23/17 01:22 Room Air 07/22/17 22:09 36.8 91 20 122/62 (82) 94 Room Air 07/22/17 19:41 36.8 93 18 132/75 (94) 94 Nasal Cannula 2.0 07/22/17 18:00 36.4 91 18 153/72 (99) 96 Nasal Cannula 2.0 07/22/17 17:00 36.5 92 18 146/79 (101) 98 Room Air 07/22/17 16:06 37.7 93 20 165/73 (103) 99 Nasal Cannula 2.0 07/22/17 16:00 Nasal Cannula 2.0 07/22/17 15:55 36.8 98 20 159/73 (101) 98 Nasal Cannula 2.0 07/22/17 15:33 36.8 98 20 159/73 (101) 93 Nasal Cannula 2.0 07/22/17 15:21 96 18 135/65 (88) 96 Nasal Cannula 2 07/22/17 15:07 95 18 145/74 (97) 96 Nasal Cannula 2 07/22/17 14:53 97 18 123/66 (85) 95 Nasal Cannula 2 07/22/17 13:14 83 15 97 Nasal Cannula 2.0 07/22/17 13:12 36.7 103 24 146/78 (100) 95 Nasal Cannula 2 Physical Exam: nasogastric drainage (50/400) Abdomen: non tender, non distended, soft Laboratory Results: Results Past 24 Hours Test 07/22/17 11:35 07/22/17 16:37 07/22/17 19:40 07/23/17 05:55 Range/Units Bedside Glucose 167 155 192 70-90 mg/dl White Blood Count 8.54 4.8-10.8 K/uL Red Blood Count 3.47 4.2-5.4 M/uL Hemoglobin 10.1 12.0-16.0 g/dL Hematocrit 31.8 37-47 % Mean Corpuscular Volume 91.6 80-100 fL Mean Corpuscular Hemoglobin 29.1 25-34 pg Mean Corpuscular Hemoglobin Concent 31.8 32-36 g/dl Platelet Count 223 130-400 K/uL Mean Platelet Volume 9.8 7.4-10.4 fL Neutrophils (%) (Auto) 81.6 % Lymphocytes (%) (Auto) 11.0 % Monocytes (%) (Auto) 5.9 % Eosinophils (%) (Auto) 0.8 % Basophils (%) (Auto) 0.2 % Neutrophils # (Auto) 6.97 1.4-6.5 K/uL Lymphocytes # (Auto) 0.94 1.2-3.4 K/uL Monocytes # (Auto) 0.50 0.11-0.59 K/uL Eosinophils # (Auto) 0.07 0-0.5 K/uL Basophils # (Auto) 0.02 0-0.2 K/uL RDW Standard Deviation 52.1 36.4-46.3 fL RDW Coefficient of Variation 15.7 11.5-14.5 % Immature Granulocyte % (Auto) 0.5 % Immature Granulocyte # (Auto) 0.04 0.00-0.02 K/uL Sodium Level 136 136-145 mmol/L Potassium Level 3.3 3.5-5.1 mmol/L Chloride Level 106 98-107 mmol/L Carbon Dioxide Level 25 21-32 mmol/L Anion Gap 5.0 3-11 mmol/L Blood Urea Nitrogen 17 7-18 mg/dl Creatinine 0.77 0.60-1.20 mg/dl Est Creatinine Clear Calc Drug Dose 106.5 ml/min Estimated GFR () 95.2 Estimated GFR (Non- 82.2 BUN/Creatinine Ratio 21.4 10-20 Random Glucose 150 70-99 mg/dl Calcium Level 7.9 8.5-10.1 mg/dl Magnesium Level 2.0 1.8-2.4 mg/dl Total Bilirubin 0.6 0.2-1 mg/dl Aspartate Amino Transf (AST/SGOT) 15 15-37 U/L Alanine Aminotransferase (ALT/SGPT) 12 12-78 U/L Alkaline Phosphatase 80 45-117 U/L Total Protein 5.6 6.4-8.2 gm/dl Albumin 1.7 3.4-5.0 gm/dl Globulin 3.9 2.5-4.0 gm/dl Albumin/Globulin Ratio 0.4 0.9-2 Test 07/23/17 07:46 Range/Units Bedside Glucose 134 70-90 mg/dl Assessment & Plan RLE cellulitis Ileus seen this AM by GI XR pending, consider removing NG if improved
--- NOTE | 2017-07-23 09:48 | Gastroenterology Progress Note ---
Progress Note Date of Service: Jul 23, 2017 Subjective Pt evaluation today including: conversation w/ patient, physical exam, lab review, review of studies Patient is a 62 yo female with abnormal CT scan indicated possible dilatation of the colon and small bowel favoring an ileus vs pseudo-obstruction. She underwent a CT scan yesterday for colonic decompression and further evaluation. Stool was noted throughout the colon as well as diverticula. She is being followed by surgery. She still has an NG tube in place. She reports that she has no abdominal pain today. She notes that she moved her bowels this morning. She offers no further complaints today. She is no longer on narcotic analgesics. She is on Relistor 12 mg injections every other day. Review of Systems Constitutional: No fever, No chills Eyes: No problem reported ENT: No hearing loss Respiratory: No cough, No shortness of breath Cardiac: No chest pain Abdomen: No pain, No nausea, No vomiting, No diarrhea, No constipation Musculoskeletal: No joint pain Medications Current Inpatient Medications Medications (Trade) Dose Ordered Sig/Oxana Route Start Time Stop Time Status Last Admin Dose Admin Glucose (Glucose 40% Gel) 15-30 GRAMS 15 GRAMS... UD PRN PO 07/09/17 10:00 08/08/17 09:59 Glucose (Glucose Chew Tab) 4-8 Tablets 4 Tabl... UD PRN PO 07/09/17 10:00 08/08/17 09:59 Dextrose (Dextrose 50% 50ML Syringe) 25-50ML OF 50% DW IV FOR... UD PRN IV 07/09/17 10:00 08/08/17 09:59 Glucagon (Glucagon Inj) 1 mg UD PRN SQ 07/09/17 10:00 08/08/17 09:59 Heparin Sodium (Porcine) (Heparin Sq 5000 Unit/0.5ml) 5,000 unit Q8 SQ 07/09/17 14:00 08/08/17 13:59 07/23/17 05:57 5,000 UNIT Acetaminophen (Tylenol Tab) 650 mg Q4H PRN PO 07/09/17 10:15 08/08/17 10:14 Future Hold 07/20/17 07:43 650 MG Al Hydrox/Mg Hydrox/Simethicone (Maalox Max Susp) 15 ml Q4H PRN PO 07/09/17 10:15 08/08/17 10:14 Future Hold 07/19/17 16:58 15 ML Magnesium Hydroxide (Milk Of Magnesia Susp) 30 ml Q12H PRN PO 07/09/17 10:15 08/08/17 10:14 Future Hold 07/16/17 21:20 30 ML Ondansetron HCl (Zofran Inj) 4 mg Q6H PRN IV 07/09/17 10:15 08/08/17 10:14 07/19/17 19:55 4 MG Miscellaneous Information (Consult Glycemic Management Pharmacy) 1 ea UD PRN N/A 07/09/17 11:10 08/08/17 11:09 Cetirizine HCl (zyrTEC TAB) 10 mg DAILY PO 07/10/17 09:00 08/09/17 08:59 Future Hold 07/20/17 07:44 10 MG Fenofibrate (Tricor Tab) 145 mg DAILY PO 07/10/17 09:00 08/09/17 08:59 Future Hold 07/20/17 07:43 145 MG Simvastatin (Zocor Tab) 40 mg QPM PO 07/09/17 21:00 08/08/17 20:59 Future Hold 07/19/17 21:11 40 MG Pantoprazole Sodium (Protonix Tab) 40 mg QAM PO 07/10/17 09:00 08/09/17 08:59 Future Hold 07/20/17 07:44 40 MG Lactobacillus Acidophilus (Floranex Tab) 4 tab TIDM PO 07/09/17 16:45 08/08/17 16:44 Future Hold 07/20/17 11:34 4 TAB Ceftriaxone Sodium 2000 mg/ Dextrose 70 ml @ 140 mls/hr DAILY@1800 IV 07/11/17 18:00 08/01/17 17:59 07/22/17 17:46 140 MLS/HR Loperamide HCl (Imodium Cap) 2 mg Q6 PRN PO 07/12/17 12:45 08/11/17 12:44 Future Hold 07/12/17 13:14 2 MG Furosemide (Lasix Tab) 40 mg DAILY PO 07/13/17 09:00 08/10/17 08:59 Future Hold 07/20/17 07:44 40 MG Albuterol/ Ipratropium (Combivent Respimat Inh) 1 puffs QID INH 07/12/17 21:00 08/11/17 20:59 07/23/17 08:32 1 PUFFS Clindamycin Phosphate 600 mg/ Dextrose 54 ml @ 100 mls/hr Q8H IV 07/14/17 12:00 07/28/17 11:59 07/23/17 03:59 100 MLS/HR Heparin Sodium (Porcine) (Heparin 10 Unit/ ml 5 ml Flush) 5 ml PRN PRN FLUSH 07/14/17 12:00 08/13/17 11:59 07/20/17 10:52 5 ML Methylnaltrexone [place] (Relistor Inj) 12 mg Q2D SQ 07/17/17 18:15 08/16/17 18:14 07/21/17 16:59 12 MG Insulin Glargine (Lantus Solostar Pen) SEE PROTOCOL TEXT HS SQ 07/18/17 22:00 08/17/17 21:59 07/22/17 20:55 20 UNITS Polyethylene (Miralax Powder Packet) 17 gm QID PO 07/18/17 12:00 08/08/17 10:14 Future Hold 07/19/17 17:38 17 GM Promethazine HCl 25 mg/Sodium Chloride 51 ml @ 204 mls/hr Q6H PRN IV 07/19/17 22:45 08/18/17 22:44 07/19/17 23:16 204 MLS/HR Metoclopramide HCl 20 mg/Sodium Chloride 54 ml @ 162 mls/hr Q6H PRN IV 07/20/17 03:30 08/19/17 03:29 07/20/17 10:07 162 MLS/HR Bisacodyl (Dulcolax Tab) 10 mg BID PO 07/20/17 12:00 08/19/17 11:59 07/21/17 20:11 10 MG Pantoprazole Sodium 40 mg/ Syringe 10 ml @ 5 mls/min DAILY@09,21 IV 07/20/17 21:00 08/19/17 20:59 07/23/17 08:33 5 MLS/MIN Sodium Chloride 1,000 ml @ 100 mls/hr Q10H IV 07/20/17 12:00 08/19/17 11:59 07/23/17 00:27 100 MLS/HR Insulin Aspart (novoLOG ASPART) SLIDING SCALE If CARB RA... ACHS SC 07/22/17 16:30 08/21/17 16:29 07/23/17 08:35 8 UNITS Ketorolac Tromethamine (Toradol Inj) 15 mg BID PRN IV. 07/22/17 20:45 07/27/17 20:44 07/23/17 00:28 15 MG Objective Vital Signs Date Time Temp Pulse Resp B/P (MAP) Pulse Ox O2 Delivery O2 Flow Rate FiO2 07/23/17 07:25 36.6 86 20 135/68 (90) 96 Room Air 07/23/17 01:22 Room Air 07/22/17 22:09 36.8 91 20 122/62 (82) 94 Room Air 07/22/17 19:41 36.8 93 18 132/75 (94) 94 Nasal Cannula 2.0 07/22/17 18:00 36.4 91 18 153/72 (99) 96 Nasal Cannula 2.0 07/22/17 17:00 36.5 92 18 146/79 (101) 98 Room Air 07/22/17 16:06 37.7 93 20 165/73 (103) 99 Nasal Cannula 2.0 07/22/17 16:00 Nasal Cannula 2.0 07/22/17 15:55 36.8 98 20 159/73 (101) 98 Nasal Cannula 2.0 07/22/17 15:33 36.8 98 20 159/73 (101) 93 Nasal Cannula 2.0 07/22/17 15:21 96 18 135/65 (88) 96 Nasal Cannula 2 07/22/17 15:07 95 18 145/74 (97) 96 Nasal Cannula 2 07/22/17 14:53 97 18 123/66 (85) 95 Nasal Cannula 2 07/22/17 13:14 83 15 97 Nasal Cannula 2.0 07/22/17 13:12 36.7 103 24 146/78 (100) 95 Nasal Cannula 2 Physical Exam General Appearance: WD/WN, no apparent distress Eyes: normal inspection, PERRL ENT: + pertinent finding (NG in place) Respiratory/Chest: chest non-tender, lungs clear, normal breath sounds Cardiovascular: regular rate, rhythm Abdomen: normal bowel sounds, non tender, soft Extremities: non-tender (improved bowel sounds) Neurologic/Psych: alert, oriented x 3 Skin: normal color Laboratory Results Last 24 Hours Test 07/22/17 11:35 07/22/17 16:37 07/22/17 19:40 07/23/17 05:55 Bedside Glucose 167 mg/dl 155 mg/dl 192 mg/dl White Blood Count 8.54 K/uL Red Blood Count 3.47 M/uL Hemoglobin 10.1 g/dL Hematocrit 31.8 % Mean Corpuscular Volume 91.6 fL Mean Corpuscular Hemoglobin 29.1 pg Mean Corpuscular Hemoglobin Concent 31.8 g/dl Platelet Count 223 K/uL Mean Platelet Volume 9.8 fL Neutrophils (%) (Auto) 81.6 % Lymphocytes (%) (Auto) 11.0 % Monocytes (%) (Auto) 5.9 % Eosinophils (%) (Auto) 0.8 % Basophils (%) (Auto) 0.2 % Neutrophils # (Auto) 6.97 K/uL Lymphocytes # (Auto) 0.94 K/uL Monocytes # (Auto) 0.50 K/uL Eosinophils # (Auto) 0.07 K/uL Basophils # (Auto) 0.02 K/uL RDW Standard Deviation 52.1 fL RDW Coefficient of Variation 15.7 % Immature Granulocyte % (Auto) 0.5 % Immature Granulocyte # (Auto) 0.04 K/uL Sodium Level 136 mmol/L Potassium Level 3.3 mmol/L Chloride Level 106 mmol/L Carbon Dioxide Level 25 mmol/L Anion Gap 5.0 mmol/L Blood Urea Nitrogen 17 mg/dl Creatinine 0.77 mg/dl Est Creatinine Clear Calc Drug Dose 106.5 ml/min Estimated GFR () 95.2 Estimated GFR (Non- 82.2 BUN/Creatinine Ratio 21.4 Random Glucose 150 mg/dl Calcium Level 7.9 mg/dl Magnesium Level 2.0 mg/dl Total Bilirubin 0.6 mg/dl Aspartate Amino Transf (AST/SGOT) 15 U/L Alanine Aminotransferase (ALT/SGPT) 12 U/L Alkaline Phosphatase 80 U/L Total Protein 5.6 gm/dl Albumin 1.7 gm/dl Globulin 3.9 gm/dl Albumin/Globulin Ratio 0.4 Test 07/23/17 07:46 Bedside Glucose 134 mg/dl Assessment and Plan Patient is a 62 yo female who underwent a colonoscopy on 07/22 for colonic decompression given CT findings of ileus vs pseudoobstruction. 1) Abdominal Xray series today. 2) Continue Relistor 12 mg every other day. 3) Avoid narcotic analgesics. 4) Supportive care per primary team. Thank you for allowing us to participate in the care of this patient. If you should have any further questions or concerns, do not hesitate to contact us. Agree with AMISHA Rolle as above Abd: Soft, NT, ND, +BS Recommend D/C NG tube Advance diet as tolerated Continue current therapy. Avoid Narcotic analagesics and Scopolamine patch as they can worsen GI motility
--- NOTE | 2017-07-23 11:55 | DIAGNOSTIC IMAGING REPORT ---
ABDOMEN 2VIEW W/PA CHEST RTN CLINICAL HISTORY: 62 years-old Female presenting with ileus. TECHNIQUE: PA view of the chest and supine and left lateral decubitus views of the abdomen were obtained. COMPARISON: 07/20/2017. FINDINGS: Nasogastric tube descends below the diaphragm and terminates in the gastric fundus, sidehole also contained within the gastric lumen. Right upper extremity PICC terminates in the lower SVC. Atherosclerosis of aortic arch. Cardiac silhouette moderately enlarged. No focal opacity. No large effusion or pneumothorax. Marked gaseous distention of small bowel with apparent diameter of nearly 6 cm though this is likely affected by magnification. The presence of large bowel gas is noted. No gross pneumoperitoneum. Osseous structures normal. IMPRESSION: 1. Cardiomegaly. No other convincing evidence of acute cardiopulmonary disease. 2. Nasogastric tube within the gastric lumen. 3. Persistent small bowel distention. The presence of colonic gas makes small bowel obstruction less likely. This may represent persistent ileus. Electronically signed by: Shai Rodas M.D. 07/23/2017 11:54 AM Dictated Date/Time: 07/23/2017 11:51 AM
--- NOTE | 2017-07-23 12:39 | Pharmacy Progress Note ---
Glycemic: Assessment & Plan Date of Service Jul 23, 2017. Assessment & Plan The patient is currently receiving ~23 units of insulin per day. This is mostly all basal insulin, since pt with limited PO intake. BSGs ranging 106 - 192 mg/dl over the past 24hrs. Diet advanced but carb coverage is ordered * Basal insulin: Lantus 20 units every 24 hours given at bedtime * Correctional Insulin: Novolog Correction per scale ACHS Goal Range: Low 120 mg/dL - High 160 mg/dL Correction Factor: 20 mg/dL/unit * Prandial insulin: Per carb ratio of 1 unit per 6 grams CHO consumed BSGs continue to improve, no changes needed to inpatient regimen at this time. Pharmacy will continue to monitor patient daily and write orders per [facility] inpatient glycemic control protocol. Thanks. * Please note that the plan above was derived based on current level of insulin resistance and hospital stress. These recommendations are appropriate for inpatient admission only. Plan of care upon discharge will need to be reassessed to avoid potential outpatient hypo/hyperglycemia.
[2017-07-23 15:22] VITALS: BP 124/65; PULSE 85; TEMP 36.6; O2SAT 94
[2017-07-23] MEDS: METHYLNALTREXONE BROMIDE INJ 12 MG/0.6 ML SYR SQ SCH (18:15)
--- NOTE | 2017-07-23 18:19 | Progress Note ---
Subjective Date of Service: Jul 23, 2017. Subjective Pt evaluation today including: conversation w/ patient, physical exam, chart review, lab review Pain: controlled PO Intake: adequate Voiding: no voiding problems Patient had 3 bowel movements today Abdominal pain and distended and improved Inquiring about removing the nasogastric tube Problem List Medical Problems: (1) Bilateral leg pain Status: Acute (2) DKA (diabetic ketoacidosis) Status: Acute (3) Left foot pain Status: Acute (4) Left hip pain Status: Acute (5) Left knee pain Status: Acute (6) Right shoulder pain Status: Acute (7) Sepsis Status: Acute Review of Systems Review of system Constitutional: No fever / no chills / no sweats / no weakness / no fatigue Eyes: no blurring of vision / no eye pain / no discharge / no redness ENT: no hearing loss / no epistaxis /no swallowing problems Respiratory: no cough / no wheezing / no SOB / no hemoptysis Cardiovascular: no Chest pain / no lower extremity edema / no palpitation Abdomen: no pain / no nausea / no vomiting / no constipation Musculoskeletal: no joint pain / no muscle pain / no joint swelling Genitourinary: no dysuria / no incontinence / no urinary retention Neurologic: no focal weakness / no numbness/tingling / no ataxia Psychiatric: no depression symptoms / no anxiety / no insomnia Endocrine: no excessive thirst / no excessive urination Hematologic: no abnormal bleeding / no bruising / no LN swelling Skin: No rash / no pallor Objective Vital Signs Date Time Temp Pulse Resp B/P (MAP) Pulse Ox O2 Delivery O2 Flow Rate FiO2 07/23/17 16:00 Room Air 07/23/17 15:22 36.6 85 20 124/65 (84) 94 Room Air 07/23/17 08:15 Room Air 07/23/17 07:25 36.6 86 20 135/68 (90) 96 Room Air 07/23/17 01:22 Room Air 07/22/17 22:09 36.8 91 20 122/62 (82) 94 Room Air 07/22/17 19:41 36.8 93 18 132/75 (94) 94 Nasal Cannula 2.0 Physical Exam Comments: Physical examination General patient appears to be comfortable, not in acute distress HEENT: Atraumatic , normocephalic /no jaundice /no pallor /anicteric /no dry mucous membrane /normal external ear inspection Neck: Supple /no swelling /central trach Heart: S1/S2 normal/regular rate and rhythm/no gallop /no rub /no murmur Lungs: Clear to auscultation bilaterally/normal chest with expansion/no rhonchi/ no rales/no wheezing/no use of accessory muscles of respiration Abdomen: Soft/nontender/no guarding/no rebound/no organomegaly/no pulsatile mass Musculoskeletal: No swelling/no edema/no tenderness/normal range of motion Neuro exam: Awake alert oriented 3/cranial nerves II through XII appear to be intact/sensation intact/moves all extremities/no abnormal movements Psychiatric evaluation: No depressed mood/normal affect Skin: No rash on exposed skin area/no erythema Extremity: Normal pulse/no pitting edema/no clubbing or cyanosis Endocrine/lymphatic: No obvious lymphadenopathy /no lymphedema Laboratory Results Last 24 Hours Test 07/22/17 19:40 07/23/17 05:55 07/23/17 07:46 07/23/17 11:52 Bedside Glucose 192 mg/dl 134 mg/dl 106 mg/dl White Blood Count 8.54 K/uL Red Blood Count 3.47 M/uL Hemoglobin 10.1 g/dL Hematocrit 31.8 % Mean Corpuscular Volume 91.6 fL Mean Corpuscular Hemoglobin 29.1 pg Mean Corpuscular Hemoglobin Concent 31.8 g/dl Platelet Count 223 K/uL Mean Platelet Volume 9.8 fL Neutrophils (%) (Auto) 81.6 % Lymphocytes (%) (Auto) 11.0 % Monocytes (%) (Auto) 5.9 % Eosinophils (%) (Auto) 0.8 % Basophils (%) (Auto) 0.2 % Neutrophils # (Auto) 6.97 K/uL Lymphocytes # (Auto) 0.94 K/uL Monocytes # (Auto) 0.50 K/uL Eosinophils # (Auto) 0.07 K/uL Basophils # (Auto) 0.02 K/uL RDW Standard Deviation 52.1 fL RDW Coefficient of Variation 15.7 % Immature Granulocyte % (Auto) 0.5 % Immature Granulocyte # (Auto) 0.04 K/uL Sodium Level 136 mmol/L Potassium Level 3.3 mmol/L Chloride Level 106 mmol/L Carbon Dioxide Level 25 mmol/L Anion Gap 5.0 mmol/L Blood Urea Nitrogen 17 mg/dl Creatinine 0.77 mg/dl Est Creatinine Clear Calc Drug Dose 106.5 ml/min Estimated GFR () 95.2 Estimated GFR (Non- 82.2 BUN/Creatinine Ratio 21.4 Random Glucose 150 mg/dl Calcium Level 7.9 mg/dl Magnesium Level 2.0 mg/dl Total Bilirubin 0.6 mg/dl Aspartate Amino Transf (AST/SGOT) 15 U/L Alanine Aminotransferase (ALT/SGPT) 12 U/L Alkaline Phosphatase 80 U/L Total Protein 5.6 gm/dl Albumin 1.7 gm/dl Globulin 3.9 gm/dl Albumin/Globulin Ratio 0.4 Test 07/23/17 16:33 Bedside Glucose 88 mg/dl Assessment and Plan She had 3 bowel movements today 62 years old female with morbid obesity, DMII, dyslipidemia, jeane liver/transaminitis, PCOS and GERD p/w DKA, severe sepsis and RLE cellulitis, she developed intestinal obstruction while in the hospital. Assessment: severe Sepsis POA Lower ext cellulitis with bacteremia DKA resolved Ileus / pseudoobstruction Acute Kidney Injury 2/2 Dehydration/DKA/Sepsis Diastolic CHF , acute on chronic Fatty liver/transaminitis dyslipidemia GERD Plan: She had 3 bowel movements a day, abdominal pain improved Sepsis improved, creatinine normalized, white blood cell count normalized, continue Abx as per ID, CTX/clinda advance to liquid Clamp NGT, continue oral intake, if abdominal pain is not worse can DC nasogastric tube. surgery consult appreciated, no surgical intervention at this point s/p colonoscopy, found Hemorrhoids, diverticulosis in sigmoid colon. DC dilaudid, start toradol for pain DC scopolamine patch pharmacy assistance with glycemic management - SSI Echo reviewed, revealed normal EF with grade I diastolic dysfunction continues with- Fenofibrate 145 mg daily and Simvastatin 40 mg daily continue Protonix 40 mg daily DVT Prophylaxis: Heparin Code Status: FULL RESUSCITATION Continued [facility] stay due to: ambulation difficulties, multiple IV medications needed Discharge planning: rehab hospital
[2017-07-23] MEDS: CEFTRIAXONE SOD INJ 2000 MG in DEXTROSE 5% 50ML IV SCH (18:38)
[2017-07-23] MEDS: INSULIN GLARGINE SOLOSTAR 100 UNITS/ML 3 ML PEN SQ SCH (20:41)
[2017-07-23] MEDS ORDERED: LORAZEPAM INJ 2 MG in SYRINGE 1 ML IV ONE (23:45)
[2017-07-23 23:47] VITALS: BP 124/66; PULSE 83; TEMP 36.8; O2SAT 93
[2017-07-24 05:45] LABS: BASO % 0.3 %; BASO ABS # 0.03 K/uL (0-0.2); EOS ABS # 0.09 K/uL (0-0.5); HEMATOCRIT 31.7 % (37-47); HEMOGLOBIN 10.1 g/dL (12.0-16.0); IG# 0.05 K/uL (0.00-0.02); LYMPH % 15.3 %; LYMPH ABS # 1.38 K/uL (1.2-3.4); MEAN CELL VOLUME 91.6 fL (80-100); MEAN CORPUSCULAR HEMOGLOBIN 29.2 pg (25-34); MEAN CORPUSCULAR HGB CONC 31.9 g/dl (32-36); MEAN PLATELET VOLUME 9.9 fL (7.4-10.4); MONO % 6.2 %; MONO ABS # 0.56 K/uL (0.11-0.59); NEUT % 76.6 %; NEUT ABS # 6.93 K/uL (1.4-6.5); PLATELET COUNT 238 K/uL (130-400); RED CELL DISTRIBUTION WIDTH CV 15.7 % (11.5-14.5); WHITE BLOOD COUNT 9.04 K/uL (4.8-10.8)
[2017-07-24] MEDS: HEPARIN SOD 5000 UNIT/0.5 ML CARP SQ SCH ×3 (06:20→21:26)
[2017-07-24] MEDS: SODIUM CHLORIDE 0.9% 1000ML 1,000 ML IV SCH ×2 (06:21→15:48)
[2017-07-24] MEDS: CLINDAMYCIN IV 600 MG in DEXTROSE 5% 50ML 50 ML IV SCH ×3 (06:21→21:18)
[2017-07-24 06:29] LABS: ALBUMIN 1.7 gm/dl (3.4-5.0); CALCIUM 7.9 mg/dl (8.5-10.1); CREATININE 0.75 mg/dl (0.60-1.20); POTASSIUM 2.8 mmol/L (3.5-5.1); TOTAL PROTEIN 5.4 gm/dl (6.4-8.2)
[2017-07-24 07:02] VITALS: BP 109/67; PULSE 81; TEMP 36.6; O2SAT 96
[2017-07-24] MEDS: BISACODYL 5 MG TABEC PO SCH ×2 (08:00→20:00)
--- NOTE | 2017-07-24 08:07 | SURGERY PROGRESS NOTE ---
DATE: 07/24/2017 Kiki is resting in bed. At this time, she has no complaints. Her NG tube had been removed yesterday. Her abdomen is softly distended. She has no localized tenderness. She tolerated clear liquids. She is moving her bowels. The last vitals showed a temperature of 36.8, pulse 83, respirations 18, blood pressure 124/66, O2 sats 93 on room air. I and O, she has had 6 bowel movements yesterday, 1 overnight. I was concerned that her NG output yesterday was 2650, but apparently the NG tube has been removed. She is not complaining of any nausea and her abdomen seems soft at this time. The x-rays yesterday were all similarly reviewed which showed still moderate amount of small bowel distention up to about 6 cm at times. This was done prior to NG tube was removed. At this point, watch the patient, but if she does have any evidence of any recurrent symptoms of nausea or vomiting, then she should be scheduked to get an upper GI with small bowel follow-through. I initially thought about ordering that today, but after seeing her clinically, I think we could wait at this time. BITA
[2017-07-24] MEDS: INSULIN ASPART 100 UNITS/ML 3 ML PEN SC SCH ×4 (08:31→21:25)
[2017-07-24] MEDS: PANTOprazole INJ 40 MG in SYRINGE 0 ML IV SCH ×2 (08:34→20:14)
[2017-07-24] MEDS: IPRATROPIUM BROMIDE/ALBUTEROL respimat INH INH SCH ×4 (08:35→20:12)
[2017-07-24] MEDS ORDERED: POTASSIUM CHLORIDE PWD 20 MEQ PACK PO STA (11:22)
[2017-07-24] MEDS ORDERED: BOOST GLUCOSE CONTROL PO SCH (12:00)
--- NOTE | 2017-07-24 12:12 | Progress Note ---
Subjective Date of Service: Jul 24, 2017. Subjective Pt evaluation today including: conversation w/ patient, conversation w/ family , physical exam, chart review, lab review, review of inpatient medication list Pain: controlled PO Intake: adequate Voiding: no voiding problems NGT was removed appears comfortable tolerating oral intake Problem List Medical Problems: (1) Bilateral leg pain Status: Acute (2) DKA (diabetic ketoacidosis) Status: Acute (3) Left foot pain Status: Acute (4) Left hip pain Status: Acute (5) Left knee pain Status: Acute (6) Right shoulder pain Status: Acute (7) Sepsis Status: Acute Review of Systems Review of system Constitutional: No fever / no chills / no sweats / no weakness / no fatigue Eyes: no blurring of vision / no eye pain / no discharge / no redness ENT: no hearing loss / no epistaxis /no swallowing problems Respiratory: no cough / no wheezing / no SOB / no hemoptysis Cardiovascular: no Chest pain / no lower extremity edema / no palpitation Abdomen: no pain / no nausea / no vomiting / no constipation, positive for diarrhea Musculoskeletal: no joint pain / no muscle pain / no joint swelling Genitourinary: no dysuria / no incontinence / no urinary retention Neurologic: no focal weakness / no numbness/tingling / no ataxia Psychiatric: no depression symptoms / no anxiety / no insomnia Endocrine: no excessive thirst / no excessive urination Hematologic: no abnormal bleeding / no bruising / no LN swelling Skin: No rash / no pallor Objective Vital Signs Date Time Temp Pulse Resp B/P (MAP) Pulse Ox O2 Delivery O2 Flow Rate FiO2 07/24/17 08:00 Room Air 07/24/17 07:02 36.6 81 20 109/67 (81) 96 Room Air 07/24/17 00:42 Room Air 07/23/17 23:47 36.8 83 18 124/66 (85) 93 Room Air 07/23/17 16:00 Room Air 07/23/17 15:22 36.6 85 20 124/65 (84) 94 Room Air Physical Exam Comments: Physical examination General patient appears to be comfortable, not in acute distress HEENT: Atraumatic , normocephalic /no jaundice /no pallor /anicteric /no dry mucous membrane /normal external ear inspection Neck: Supple /no swelling /central trach Heart: S1/S2 normal/regular rate and rhythm/no gallop /no rub /no murmur Lungs: Clear to auscultation bilaterally/normal chest with expansion/no rhonchi/ no rales/no wheezing/no use of accessory muscles of respiration Abdomen: Soft/nontender/no guarding/no rebound/no organomegaly/no pulsatile mass but slightly distended Musculoskeletal: No swelling/no edema/no tenderness/normal range of motion Neuro exam: Awake alert oriented 3/cranial nerves II through XII appear to be intact/sensation intact/moves all extremities/no abnormal movements Psychiatric evaluation: No depressed mood/normal affect Skin: No rash on exposed skin area/no erythema, B/L lower ext wrapped Extremity: Normal pulse/no pitting edema/no clubbing or cyanosis Endocrine/lymphatic: No obvious lymphadenopathy /no lymphedema Laboratory Results Last 24 Hours Test 07/23/17 16:33 07/23/17 20:21 07/24/17 05:18 07/24/17 07:59 Bedside Glucose 88 mg/dl 133 mg/dl 86 mg/dl White Blood Count 9.04 K/uL Red Blood Count 3.46 M/uL Hemoglobin 10.1 g/dL Hematocrit 31.7 % Mean Corpuscular Volume 91.6 fL Mean Corpuscular Hemoglobin 29.2 pg Mean Corpuscular Hemoglobin Concent 31.9 g/dl Platelet Count 238 K/uL Mean Platelet Volume 9.9 fL Neutrophils (%) (Auto) 76.6 % Lymphocytes (%) (Auto) 15.3 % Monocytes (%) (Auto) 6.2 % Eosinophils (%) (Auto) 1.0 % Basophils (%) (Auto) 0.3 % Neutrophils # (Auto) 6.93 K/uL Lymphocytes # (Auto) 1.38 K/uL Monocytes # (Auto) 0.56 K/uL Eosinophils # (Auto) 0.09 K/uL Basophils # (Auto) 0.03 K/uL RDW Standard Deviation 52.0 fL RDW Coefficient of Variation 15.7 % Immature Granulocyte % (Auto) 0.6 % Immature Granulocyte # (Auto) 0.05 K/uL Sodium Level 139 mmol/L Potassium Level 2.8 mmol/L Chloride Level 108 mmol/L Carbon Dioxide Level 24 mmol/L Anion Gap 7.0 mmol/L Blood Urea Nitrogen 11 mg/dl Creatinine 0.75 mg/dl Est Creatinine Clear Calc Drug Dose 109.3 ml/min Estimated GFR () 98.3 Estimated GFR (Non- 84.8 BUN/Creatinine Ratio 14.9 Random Glucose 81 mg/dl Calcium Level 7.9 mg/dl Phosphorus Level 3.0 mg/dl Magnesium Level 1.8 mg/dl Total Bilirubin 0.4 mg/dl Aspartate Amino Transf (AST/SGOT) 21 U/L Alanine Aminotransferase (ALT/SGPT) 11 U/L Alkaline Phosphatase 86 U/L Total Protein 5.4 gm/dl Albumin 1.7 gm/dl Globulin 3.7 gm/dl Albumin/Globulin Ratio 0.5 Assessment and Plan She had 3 bowel movements today 62 years old female with morbid obesity, DMII, dyslipidemia, jeane liver/transaminitis, PCOS and GERD p/w DKA, severe sepsis and RLE cellulitis, she developed intestinal obstruction while in the hospital. Assessment: severe Sepsis POA Lower ext cellulitis with bacteremia DKA resolved diarrhea with hypokalemia Ileus / pseudoobstruction Acute Kidney Injury 2/2 Dehydration/DKA/Sepsis, resolved Diastolic CHF , acute on chronic Fatty liver/transaminitis dyslipidemia GERD Plan: send C diff potassium replacement Sepsis improved, creatinine normalized, white blood cell count normalized, continue Abx as per ID, CTX/clinda advance to liquid NGT was removed surgery consult appreciated, no surgical intervention at this point s/p colonoscopy, found Hemorrhoids, diverticulosis in sigmoid colon. DC dilaudid, start toradol for pain DC scopolamine patch pharmacy assistance with glycemic management - SSI Echo reviewed, revealed normal EF with grade I diastolic dysfunction continues with- Fenofibrate 145 mg daily and Simvastatin 40 mg daily continue Protonix 40 mg daily DVT Prophylaxis: Heparin Code Status: FULL RESUSCITATION Continued [facility] stay due to: ambulation difficulties, multiple IV medications needed Discharge planning: rehab hospital
--- NOTE | 2017-07-24 13:16 | Pharmacy Progress Note ---
Pharmacy Glycemic Short Note 2 Date of Service Jul 24, 2017. OUTPATIENT ANTIDIABETIC REGIMEN: * Lantus 60-70 units at bedtime and Novolog with scale * Metformin Test 07/23/17 16:33 07/23/17 20:21 07/24/17 05:18 07/24/17 07:59 Bedside Glucose 88 mg/dl (70-90) 133 mg/dl (70-90) 86 mg/dl (70-90) Random Glucose 81 mg/dl (70-99) Test 07/24/17 12:10 Bedside Glucose 87 mg/dl (70-90) ASSESSMENT: 07/24/17 * Patient received 43 units of insulin yesterday, BSGs on the lower side as noted above * Diet and PO intake has advanced so I am surprised that her BSGs are lower * Current basal dose has worked well for awhile so I will plan to loosen CF/CR since they are fairly aggressive for the basal dose PLAN FOR INPATIENT GLYCEMIC CONTROL: * Continue to hold outpatient oral diabetes medications * Basal insulin - no change * Lantus 30 units SQ HS if blood sugar greater than 250 mg/dL; 20 units if blood sugar less than 250 * Bolus insulin - loosen parameters * NovoLog per scale ACHS or Q6hrs while NPO * Goal Range: Low 120 mg/dL - High 160 mg/dL * Correction Factor: 25 mg/dL/unit * Nutritional / Prandial insulin per carb ratio of 1 unit per 8 grams CHO consumed
[2017-07-24 15:49] VITALS: BP 125/70; PULSE 96; TEMP 36.8; O2SAT 93
[2017-07-24] MEDS: KETOROLAC TROMETHAMINE 15 MG/ML VIAL IV. PRN (16:21)
[2017-07-24] MEDS: BOOST GLUCOSE CONTROL PO SCH (17:26)
[2017-07-24] MEDS: CEFTRIAXONE SOD INJ 2000 MG in DEXTROSE 5% 50ML IV SCH (18:18)
[2017-07-24] MEDS: PROMETHAZINE HCL INJ 25 MG in SODIUM CHLORIDE 0.9% 50ML 50 ML IV PRN (19:44)
[2017-07-24] MEDS: ONDANSETRON INJ 2 MG/ML 2 ML VIAL IV PRN ×2 (20:11→20:12)
[2017-07-24] MEDS: KETOCONAZOLE 2% CR 15 GM TUBE EXT SCH (20:14)
[2017-07-24] MEDS: INSULIN GLARGINE SOLOSTAR 100 UNITS/ML 3 ML PEN SQ SCH (21:26)
[2017-07-24 23:20] VITALS: BP 169/69; PULSE 96; TEMP 36.8; O2SAT 91
[2017-07-24 23:40] VITALS: BP 126/73
[2017-07-25] MEDS: KETOROLAC TROMETHAMINE 15 MG/ML VIAL IV. PRN ×2 (02:30→22:24)
[2017-07-25] MEDS: SODIUM CHLORIDE 0.9% 1000ML 1,000 ML IV SCH ×3 (02:30→22:24)
[2017-07-25] MEDS: ONDANSETRON INJ 2 MG/ML 2 ML VIAL IV PRN (03:03)
[2017-07-25] MEDS: HEPARIN SOD 5000 UNIT/0.5 ML CARP SQ SCH ×3 (05:32→22:02)
[2017-07-25] MEDS: CLINDAMYCIN IV 600 MG in DEXTROSE 5% 50ML 50 ML IV SCH (05:32)
[2017-07-25 05:45] LABS: BASO % 0.4 %; BASO ABS # 0.04 K/uL (0-0.2); EOS % 1.1 %; EOS ABS # 0.11 K/uL (0-0.5); HEMATOCRIT 32.3 % (37-47); HEMOGLOBIN 10.3 g/dL (12.0-16.0); IG# 0.03 K/uL (0.00-0.02); LYMPH % 13.2 %; LYMPH ABS # 1.32 K/uL (1.2-3.4); MEAN CELL VOLUME 92.3 fL (80-100); MEAN CORPUSCULAR HEMOGLOBIN 29.4 pg (25-34); MEAN CORPUSCULAR HGB CONC 31.9 g/dl (32-36); NEUT ABS # 7.81 K/uL (1.4-6.5); PLATELET COUNT 247 K/uL (130-400); RED CELL DISTRIBUTION WIDTH CV 16.1 % (11.5-14.5); WHITE BLOOD COUNT 10.01 K/uL (4.8-10.8)
[2017-07-25 06:15] LABS: ALBUMIN 1.9 gm/dl (3.4-5.0); CALCIUM 7.9 mg/dl (8.5-10.1); CREATININE 0.91 mg/dl (0.60-1.20); POTASSIUM 3.2 mmol/L (3.5-5.1)
[2017-07-25 06:16] LABS: TOTAL PROTEIN 5.9 gm/dl (6.4-8.2)
[2017-07-25 07:05] VITALS: BP 110/59; PULSE 89; TEMP 36.7; O2SAT 92
[2017-07-25] MEDS: IPRATROPIUM BROMIDE/ALBUTEROL respimat INH INH SCH ×4 (07:29→21:40)
[2017-07-25] MEDS: BISACODYL 5 MG TABEC PO SCH ×2 (07:29→20:00)
[2017-07-25] MEDS: KETOCONAZOLE 2% CR 15 GM TUBE EXT SCH ×2 (07:30→21:40)
[2017-07-25] MEDS: BOOST GLUCOSE CONTROL PO SCH ×3 (08:00→17:00)
[2017-07-25] MEDS: PANTOprazole INJ 40 MG in SYRINGE 0 ML IV SCH ×2 (08:50→21:40)
[2017-07-25] MEDS: INSULIN ASPART 100 UNITS/ML 3 ML PEN SC SCH ×4 (08:52→21:41)
--- NOTE | 2017-07-25 10:57 | Pharmacy Progress Note ---
Pharmacy Glycemic Short Note 2 Date of Service Jul 25, 2017. OUTPATIENT ANTIDIABETIC REGIMEN: * Lantus 60-70 units at bedtime and Novolog with scale * Metformin Item Value Date Time Bedside Glucose 86 mg/dl 07/24/17 0759 Bedside Glucose 87 mg/dl 07/24/17 1210 Bedside Glucose 135 mg/dl H 07/24/17 1654 Bedside Glucose 126 mg/dl H 07/24/17 2105 Bedside Glucose 153 mg/dl H 07/25/17 0731 ASSESSMENT: * Pt has been receiving 43 units of insulin per day since diet advanced * 20 units of basal insulin with Lantus * 23 units of bolus insulin with NovoLog * BSGs are in range with current orders. * BSGs may start to trend upwards with increasing PO intake * Will adjust Lantus scale so that more insulin is given if hyperglycemia occurs * Current CF/CR are working well for current PO intake PLAN FOR INPATIENT GLYCEMIC CONTROL: * Continue to hold outpatient oral diabetes medications * Basal insulin - no change * Lantus 20 units if blood sugar less than 180 mg/dl * Lantus 25 units SQ HS if blood sugar 180 mg/dl or greater * Bolus insulin - loosen parameters * NovoLog per scale ACHS or Q6hrs while NPO * Goal Range: Low 120 mg/dL - High 160 mg/dL * Correction Factor: 25 mg/dL/unit * Nutritional / Prandial insulin per carb ratio of 1 unit per 8 grams CHO consumed
--- NOTE | 2017-07-25 11:09 | Progress Note ---
Subjective Date of Service: Jul 25, 2017. Subjective Pt evaluation today including: conversation w/ patient, physical exam, chart review, lab review Pt seen in followup, doing well but states indigestion this am. c diff done yesterday and is negative. still with abd distention, no n/v/d this am. would like to keep abx IV for now as she is not eating. denies f/c. no cp. no pain in leg. all remaining ros reviewed and are negative. Problem List Medical Problems: (1) Bilateral leg pain Status: Acute (2) DKA (diabetic ketoacidosis) Status: Acute (3) Left foot pain Status: Acute (4) Left hip pain Status: Acute (5) Left knee pain Status: Acute (6) Right shoulder pain Status: Acute (7) Sepsis Status: Acute Objective Vital Signs Date Time Temp Pulse Resp B/P (MAP) Pulse Ox O2 Delivery O2 Flow Rate FiO2 07/25/17 07:40 Room Air 07/25/17 07:05 36.7 89 20 110/59 (76) 92 Room Air 07/24/17 23:40 Room Air 07/24/17 23:40 126/73 (90) 07/24/17 23:20 36.8 96 20 169/69 (102) 91 Room Air 07/24/17 16:00 Room Air 07/24/17 15:49 36.8 96 20 125/70 (88) 93 Room Air Physical Exam General Appearance: WD/WN, no apparent distress Eyes: normal inspection, EOMI Neck: supple Respiratory/Chest: lungs clear, normal breath sounds, no respiratory distress Cardiovascular: regular rate, rhythm Abdomen: soft, + distended Extremities: non-tender, + pedal edema, + pertinent finding (erythema much improved) Neurologic/Psychiatric: alert, oriented x 3 Skin: normal color Laboratory Results Item Value Date Time Blood Culture - Final Complete 07/11/17 0737 Blood NO GROWTH Blood Culture - Final Complete 07/11/17 0736 Blood NO GROWTH Blood Culture - Final Complete 07/09/17 0957 Blood Group A Beta Strep Blood Culture - Final Complete 07/09/17 0835 Blood Group A Beta Strep C.difficile Toxin B Gene (PCR) - Final Complete 07/24/17 1540 Stool No C. difficile toxin B gene detected Last 24 Hours Test 07/24/17 12:10 07/24/17 16:54 4/12/18 21:05 07/25/17 05:12 Bedside Glucose 87 mg/dl 135 mg/dl 126 mg/dl White Blood Count 10.01 K/uL Red Blood Count 3.50 M/uL Hemoglobin 10.3 g/dL Hematocrit 32.3 % Mean Corpuscular Volume 92.3 fL Mean Corpuscular Hemoglobin 29.4 pg Mean Corpuscular Hemoglobin Concent 31.9 g/dl Platelet Count 247 K/uL Mean Platelet Volume 10.0 fL Neutrophils (%) (Auto) 78.0 % Lymphocytes (%) (Auto) 13.2 % Monocytes (%) (Auto) 7.0 % Eosinophils (%) (Auto) 1.1 % Basophils (%) (Auto) 0.4 % Neutrophils # (Auto) 7.81 K/uL Lymphocytes # (Auto) 1.32 K/uL Monocytes # (Auto) 0.70 K/uL Eosinophils # (Auto) 0.11 K/uL Basophils # (Auto) 0.04 K/uL RDW Standard Deviation 53.0 fL RDW Coefficient of Variation 16.1 % Immature Granulocyte % (Auto) 0.3 % Immature Granulocyte # (Auto) 0.03 K/uL Sodium Level 137 mmol/L Potassium Level 3.2 mmol/L Chloride Level 109 mmol/L Carbon Dioxide Level 22 mmol/L Anion Gap 6.0 mmol/L Blood Urea Nitrogen 9 mg/dl Creatinine 0.91 mg/dl Est Creatinine Clear Calc Drug Dose 90.1 ml/min Estimated GFR () 77.8 Estimated GFR (Non- 67.1 BUN/Creatinine Ratio 9.7 Random Glucose 178 mg/dl Calcium Level 7.9 mg/dl Magnesium Level 1.8 mg/dl Total Bilirubin 0.3 mg/dl Aspartate Amino Transf (AST/SGOT) 24 U/L Alanine Aminotransferase (ALT/SGPT) 14 U/L Alkaline Phosphatase 100 U/L Total Protein 5.9 gm/dl Albumin 1.9 gm/dl Globulin 4.0 gm/dl Albumin/Globulin Ratio 0.5 Test 07/25/17 07:31 Bedside Glucose 153 mg/dl Assessment and Plan (1) Beta-hemolytic group A streptococcal sepsis Assessment & Plan: continue rocephin.will need min 14 days IV abx from first negative blood culture. today will be day 14, but will extend ctx due to gi distress. then likely transition to po abx with augmentin when able to tolerate po. stop clinda will follow in wound center post d/c and duration will be determined as wound heals. (2) Cellulitis (3) Leukocytosis Continued [facility] stay due to: ambulation difficulties, multiple IV medications needed Discharge planning: rehab hospital
--- NOTE | 2017-07-25 11:15 | DIAGNOSTIC IMAGING REPORT ---
KUB CLINICAL HISTORY: Abdominal pain. COMPARISON STUDY: Abdominal series July 23, 2017. FINDINGS: There is marked gaseous distention of small and large bowel. Colonic loops measure up to 10.8 cm in caliber in small bowel loops measure up to 6.2 cm in caliber. Small bowel dilatation is similar to exam of July 23, 2017. Colonic dilatation has increased. IMPRESSION: Marked gaseous distention of small and large bowel. Colonic distention has increased since exam of July 23, 2017 while small bowel dilatation is similar. The findings favor an ileus or colonic pseudoobstruction however a distal colonic obstruction could appear similar. Electronically signed by: Robbie Box M.D. 07/25/2017 11:14 AM Dictated Date/Time: 07/25/2017 11:08 AM
[2017-07-25] MEDS: METOCLOPRAMIDE HCL INJ 20 MG in SODIUM CHLORIDE 0.9% 50ML 50 ML IV PRN (12:55)
--- NOTE | 2017-07-25 13:38 | Surgery Progress Note ---
Surgery Progress Note Date of Service Jul 25, 2017. Subjective + complaints (heartburn last night after having clears), + bowel movement ( multiple yesterday, 1 today), No nausea Objective Vital Signs: Date Time Temp Pulse Resp B/P (MAP) Pulse Ox O2 Delivery O2 Flow Rate FiO2 07/25/17 07:40 Room Air 07/25/17 07:05 36.7 89 20 110/59 (76) 92 Room Air 07/24/17 23:40 Room Air 07/24/17 23:40 126/73 (90) 07/24/17 23:20 36.8 96 20 169/69 (102) 91 Room Air 07/24/17 16:00 Room Air 07/24/17 15:49 36.8 96 20 125/70 (88) 93 Room Air Abdomen: non tender, soft, + distended Laboratory Results: Results Past 24 Hours Test 07/24/17 16:54 07/24/17 21:05 07/25/17 05:12 07/25/17 07:31 Range/Units Bedside Glucose 135 126 153 70-90 mg/dl White Blood Count 10.01 4.8-10.8 K/uL Red Blood Count 3.50 4.2-5.4 M/uL Hemoglobin 10.3 12.0-16.0 g/dL Hematocrit 32.3 37-47 % Mean Corpuscular Volume 92.3 80-100 fL Mean Corpuscular Hemoglobin 29.4 25-34 pg Mean Corpuscular Hemoglobin Concent 31.9 32-36 g/dl Platelet Count 247 130-400 K/uL Mean Platelet Volume 10.0 7.4-10.4 fL Neutrophils (%) (Auto) 78.0 % Lymphocytes (%) (Auto) 13.2 % Monocytes (%) (Auto) 7.0 % Eosinophils (%) (Auto) 1.1 % Basophils (%) (Auto) 0.4 % Neutrophils # (Auto) 7.81 1.4-6.5 K/uL Lymphocytes # (Auto) 1.32 1.2-3.4 K/uL Monocytes # (Auto) 0.70 0.11-0.59 K/uL Eosinophils # (Auto) 0.11 0-0.5 K/uL Basophils # (Auto) 0.04 0-0.2 K/uL RDW Standard Deviation 53.0 36.4-46.3 fL RDW Coefficient of Variation 16.1 11.5-14.5 % Immature Granulocyte % (Auto) 0.3 % Immature Granulocyte # (Auto) 0.03 0.00-0.02 K/uL Sodium Level 137 136-145 mmol/L Potassium Level 3.2 3.5-5.1 mmol/L Chloride Level 109 98-107 mmol/L Carbon Dioxide Level 22 21-32 mmol/L Anion Gap 6.0 3-11 mmol/L Blood Urea Nitrogen 9 7-18 mg/dl Creatinine 0.91 0.60-1.20 mg/dl Est Creatinine Clear Calc Drug Dose 90.1 ml/min Estimated GFR () 77.8 Estimated GFR (Non- 67.1 BUN/Creatinine Ratio 9.7 10-20 Random Glucose 178 70-99 mg/dl Calcium Level 7.9 8.5-10.1 mg/dl Magnesium Level 1.8 1.8-2.4 mg/dl Total Bilirubin 0.3 0.2-1 mg/dl Aspartate Amino Transf (AST/SGOT) 24 15-37 U/L Alanine Aminotransferase (ALT/SGPT) 14 12-78 U/L Alkaline Phosphatase 100 45-117 U/L Total Protein 5.9 6.4-8.2 gm/dl Albumin 1.9 3.4-5.0 gm/dl Globulin 4.0 2.5-4.0 gm/dl Albumin/Globulin Ratio 0.5 0.9-2 Test 07/25/17 12:06 Range/Units Bedside Glucose 192 70-90 mg/dl Microbiology Results 07/24/17 C.difficile Toxin B Gene (PCR) - Final, Complete No C. difficile toxin B gene detected Assessment & Plan Ileus not making progress radiology does not feel we will get good imaging from SB[facility] will replace NGT, recheck CT consider TPN/PPN
[2017-07-25] MEDS ORDERED: OPTIRAY 320 IV PRN (13:45)
--- NOTE | 2017-07-25 16:44 | DIAGNOSTIC IMAGING REPORT ---
ABD/PELVIS IV AND ORAL CONT CLINICAL HISTORY: 62 years-old Female presenting with partial small bowel obstruction vs ileus, history of cellulitis and diabetic ketoacidosis, abdominal pain. TECHNIQUE: Multidetector CT of the abdomen and pelvis was performed after the administration of oral and intravenous contrast. IV contrast: 94 mL of Optiray 320. A dose lowering technique was used consistent with the principles of ALARA (as low as reasonably achievable). COMPARISON: 07/14/2017. CT DOSE (mGy.cm): The estimated cumulative dose is 2245.22 mGy.cm. FINDINGS: Evaluation degraded by suboptimal contrast opacification. 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 Lung bases: Minimal basilar opacities, likely atelectasis. Mild multichamber enlargement of the heart. Coronary artery calcification. No pericardial or pleural effusion. Liver: Normal morphology. Partially exophytic 10 mm lesion arising from the lateral aspect of the right hepatic lobe (series 3 image 142), indeterminate an unchanged from prior. Patent hepatic vasculature. Biliary: No intrahepatic or extrahepatic biliary ductal dilatation. Normal gallbladder. Pancreas: Moderate parenchymal atrophy. Parenchymal calcifications. Spleen: Mildly enlarged measuring 14.7 cm in sagittal dimension. Adrenal glands: Normal. Kidneys and ureters: Normal. No hydronephrosis. Bladder: Normal. Pelvic organs: Uterus and ovaries normal. Bowel: Gaseous distention of colon. No colonic wall thickening. Fluid in the colon suggests a diarrheal state. Appendiceal stump noted. Small bowel also demonstrates gaseous distention without evidence of obstruction. No small bowel wall thickening. Peritoneal cavity: Small abdominal pelvic ascites. This is increased from prior. No free intraperitoneal gas. Lymph nodes: No enlarged lymph nodes in the abdomen or pelvis. Vasculature: Atherosclerosis of the normal caliber abdominal aorta. IVC patent. Abdominal wall: Extensive body wall edema. Multifocal areas of nodular infiltration in the ventral abdominal wall may represent injection of medications. Small foci of gas also likely related to this. Musculoskeletal: Degenerative changes of the spine. IMPRESSION: 1. Increase in small abdominopelvic ascites. Diffuse body wall edema. These findings suggest volume overload. 2. Diffuse gaseous distention of small and large bowel without evidence of obstruction, findings most compatible with ileus. 3. Fluid in the colon suggests a diarrheal state. 4. Mild splenomegaly. 5. 10 mm exophytic indeterminate lesion arising from the right lateral aspect of the liver. Electronically signed by: Shai Rodas M.D. 07/25/2017 4:42 PM Dictated Date/Time: 07/25/2017 4:34 PM
[2017-07-25] MEDS ORDERED: CONSULT PHARMACY STA (17:25)
--- NOTE | 2017-07-25 17:25 | Progress Note ---
Subjective Date of Service: Jul 25, 2017. Subjective Pt evaluation today including: conversation w/ patient, physical exam, chart review, lab review, review of studies, review of inpatient medication list Pain: slightly worsenning abd distension PO Intake: decreased Voiding: no voiding problems NGT was removed yesterday she is much worse today Problem List Medical Problems: (1) Bilateral leg pain Status: Acute (2) DKA (diabetic ketoacidosis) Status: Acute (3) Left foot pain Status: Acute (4) Left hip pain Status: Acute (5) Left knee pain Status: Acute (6) Right shoulder pain Status: Acute (7) Sepsis Status: Acute Review of Systems Constitutional: No see HPI, No fever, No chills, No sweats, No weight loss, No weakness, No fatigue, No problem reported Eyes: No see HPI, No worsening of vision, No eye pain, No redness, No discharge , No diplopia, No problem reported ENT: No see HPI, No hearing loss, No unusual epistaxis, No nasal symptoms, No sore throat, No tinnitus, No dental problems, No trouble swallowing, No problem reported Respiratory: No see HPI, No cough, No sputum, No wheezing, No shortness of breath, No dyspnea on exertion, No dyspnea at rest, No hemoptysis, No problem reported Cardiac: No see HPI, No chest pain, No orthopnea, No PND, No edema, No claudication, No palpitations, No problem reported Abdomen: + pain, + nausea, + problem reported, No see HPI, No vomiting, No diarrhea, No constipation, No GI bleeding Musculoskeletal: No see HPI, No joint pain, No muscle pain, No swelling, No calf pain, No problem reported Female : No see HPI, No dysuria, No urinary frequency, No hematuria, No incontinence, No abnormal vaginal bleeding, No vaginal discharge, No problem reported Neurologic: No see HPI, No memory loss, No paralysis, No weakness, No numbness/ tingling, No vertigo, No balance problems, No problem reported Psychiatric: No see HPI, No depression symptoms, No anhedonism, No anxiety, No insomnia, No substance abuse, No problem reported Heme: No see HPI, No abnormal bleeding/bruising, No clotting problems, No swollen lymph nodes, No night sweats, No problem reported Endo: No see HPI, No fatigue, No excessive thirst, No excessive urination, No problem reported Skin: No see HPI, No rash, No itch, No new/changing skin lesions, No color change, No bleeding, No problem reported Medications Current Inpatient Medications Medications (Trade) Dose Ordered Sig/Oxana Route Start Time Stop Time Status Last Admin Dose Admin Glucose (Glucose 40% Gel) 15-30 GRAMS 15 GRAMS... UD PRN PO 07/09/17 10:00 08/08/17 09:59 Glucose (Glucose Chew Tab) 4-8 Tablets 4 Tabl... UD PRN PO 07/09/17 10:00 08/08/17 09:59 Dextrose (Dextrose 50% 50ML Syringe) 25-50ML OF 50% DW IV FOR... UD PRN IV 07/09/17 10:00 08/08/17 09:59 Glucagon (Glucagon Inj) 1 mg UD PRN SQ 07/09/17 10:00 08/08/17 09:59 Heparin Sodium (Porcine) (Heparin Sq 5000 Unit/0.5ml) 5,000 unit Q8 SQ 07/09/17 14:00 08/08/17 13:59 07/25/17 13:17 5,000 UNIT Acetaminophen (Tylenol Tab) 650 mg Q4H PRN PO 07/09/17 10:15 08/08/17 10:14 Future Hold 07/20/17 07:43 650 MG Al Hydrox/Mg Hydrox/Simethicone (Maalox Max Susp) 15 ml Q4H PRN PO 07/09/17 10:15 08/08/17 10:14 Future Hold 07/19/17 16:58 15 ML Magnesium Hydroxide (Milk Of Magnesia Susp) 30 ml Q12H PRN PO 07/09/17 10:15 08/08/17 10:14 Future Hold 07/16/17 21:20 30 ML Ondansetron HCl (Zofran Inj) 4 mg Q6H PRN IV 07/09/17 10:15 08/08/17 10:14 07/25/17 03:03 4 MG Miscellaneous Information (Consult Glycemic Management Pharmacy) 1 ea UD PRN N/A 07/09/17 11:10 08/08/17 11:09 Cetirizine HCl (zyrTEC TAB) 10 mg DAILY PO 07/10/17 09:00 08/09/17 08:59 Future Hold 07/20/17 07:44 10 MG Fenofibrate (Tricor Tab) 145 mg DAILY PO 07/10/17 09:00 08/09/17 08:59 Future Hold 07/20/17 07:43 145 MG Simvastatin (Zocor Tab) 40 mg QPM PO 07/09/17 21:00 08/08/17 20:59 Future Hold 07/19/17 21:11 40 MG Pantoprazole Sodium (Protonix Tab) 40 mg QAM PO 07/10/17 09:00 08/09/17 08:59 Future Hold 07/20/17 07:44 40 MG Lactobacillus Acidophilus (Floranex Tab) 4 tab TIDM PO 07/09/17 16:45 08/08/17 16:44 Future Hold 07/20/17 11:34 4 TAB Ceftriaxone Sodium 2000 mg/ Dextrose 70 ml @ 140 mls/hr DAILY@1800 IV 07/11/17 18:00 08/01/17 17:59 07/24/17 18:18 140 MLS/HR Loperamide HCl (Imodium Cap) 2 mg Q6 PRN PO 07/12/17 12:45 08/11/17 12:44 Future Hold 07/12/17 13:14 2 MG Furosemide (Lasix Tab) 40 mg DAILY PO 07/13/17 09:00 08/10/17 08:59 Future Hold 07/20/17 07:44 40 MG Albuterol/ Ipratropium (Combivent Respimat Inh) 1 puffs QID INH 07/12/17 21:00 08/11/17 20:59 07/25/17 12:17 1 PUFFS Heparin Sodium (Porcine) (Heparin 10 Unit/ ml 5 ml Flush) 5 ml PRN PRN FLUSH 07/14/17 12:00 08/13/17 11:59 07/20/17 10:52 5 ML Methylnaltrexone Elmer (Relistor Inj) 12 mg Q2D SQ 07/17/17 18:15 08/16/17 18:14 07/21/17 16:59 12 MG Insulin Glargine (Lantus Solostar Pen) SEE PROTOCOL TEXT HS SQ 07/18/17 22:00 08/17/17 21:59 07/24/17 21:26 20 UNITS Polyethylene (Miralax Powder Packet) 17 gm QID PO 07/18/17 12:00 08/08/17 10:14 Future Hold 07/19/17 17:38 17 GM Promethazine HCl 25 mg/Sodium Chloride 51 ml @ 204 mls/hr Q6H PRN IV 07/19/17 22:45 08/18/17 22:44 07/24/17 19:44 204 MLS/HR Metoclopramide HCl 20 mg/Sodium Chloride 54 ml @ 162 mls/hr Q6H PRN IV 07/20/17 03:30 08/19/17 03:29 07/25/17 12:55 162 MLS/HR Bisacodyl (Dulcolax Tab) 10 mg BID PO 07/20/17 12:00 08/19/17 11:59 07/21/17 20:11 10 MG Pantoprazole Sodium 40 mg/ Syringe 10 ml @ 5 mls/min DAILY@09,21 IV 07/20/17 21:00 08/19/17 20:59 07/25/17 08:50 5 MLS/MIN Sodium Chloride 1,000 ml @ 100 mls/hr Q10H IV 07/20/17 12:00 08/19/17 11:59 07/25/17 12:20 100 MLS/HR Insulin Aspart (novoLOG ASPART) SLIDING SCALE If CARB RA... ACHS SC 07/22/17 16:30 08/21/17 16:29 07/25/17 13:17 4 UNITS Ketorolac Tromethamine (Toradol Inj) 15 mg BID PRN IV. 07/22/17 20:45 07/27/17 20:44 07/25/17 02:30 15 MG Ketoconazole (Nizoral 2% Crm) 1 appln BID EXT 07/24/17 20:00 08/03/17 19:59 07/25/17 07:30 1 APPLN Enteral Nutritional Formula (Boost Glucose Control) 1 can TIDM PO 07/24/17 17:00 08/23/17 16:59 07/24/17 17:26 1 CAN Zolpidem Tartrate (Ambien Tab) 10 mg HS PRN PO 07/25/17 10:15 08/24/17 10:14 Ioversol (Optiray 320) 100 ml UD PRN IV 07/25/17 13:45 07/29/17 13:44 Objective Vital Signs Date Time Temp Pulse Resp B/P (MAP) Pulse Ox O2 Delivery O2 Flow Rate FiO2 07/25/17 07:40 Room Air 07/25/17 07:05 36.7 89 20 110/59 (76) 92 Room Air 07/24/17 23:40 Room Air 07/24/17 23:40 126/73 (90) 07/24/17 23:20 36.8 96 20 169/69 (102) 91 Room Air Physical Exam General Appearance: + mild distress, + obese Eyes: normal inspection, EOMI ENT: normal ENT inspection, hearing grossly normal Neck: supple Respiratory/Chest: chest non-tender, lungs clear, normal breath sounds, no respiratory distress, no accessory muscle use Cardiovascular: regular rate, rhythm, no edema, no gallop, no JVD, no murmur Abdomen: + abnormal bowel sounds, + distended, + tenderness Extremities: normal range of motion, non-tender, normal inspection, no pedal edema, no calf tenderness 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, no motor/sensory deficits, alert, normal mood/affect, oriented x 3 Skin: normal color, warm/dry, no rash Laboratory Results Last 24 Hours Test 07/24/17 21:05 07/25/17 05:12 07/25/17 07:31 07/25/17 12:06 Bedside Glucose 126 mg/dl 153 mg/dl 192 mg/dl White Blood Count 10.01 K/uL Red Blood Count 3.50 M/uL Hemoglobin 10.3 g/dL Hematocrit 32.3 % Mean Corpuscular Volume 92.3 fL Mean Corpuscular Hemoglobin 29.4 pg Mean Corpuscular Hemoglobin Concent 31.9 g/dl Platelet Count 247 K/uL Mean Platelet Volume 10.0 fL Neutrophils (%) (Auto) 78.0 % Lymphocytes (%) (Auto) 13.2 % Monocytes (%) (Auto) 7.0 % Eosinophils (%) (Auto) 1.1 % Basophils (%) (Auto) 0.4 % Neutrophils # (Auto) 7.81 K/uL Lymphocytes # (Auto) 1.32 K/uL Monocytes # (Auto) 0.70 K/uL Eosinophils # (Auto) 0.11 K/uL Basophils # (Auto) 0.04 K/uL RDW Standard Deviation 53.0 fL RDW Coefficient of Variation 16.1 % Immature Granulocyte % (Auto) 0.3 % Immature Granulocyte # (Auto) 0.03 K/uL Sodium Level 137 mmol/L Potassium Level 3.2 mmol/L Chloride Level 109 mmol/L Carbon Dioxide Level 22 mmol/L Anion Gap 6.0 mmol/L Blood Urea Nitrogen 9 mg/dl Creatinine 0.91 mg/dl Est Creatinine Clear Calc Drug Dose 90.1 ml/min Estimated GFR () 77.8 Estimated GFR (Non- 67.1 BUN/Creatinine Ratio 9.7 Random Glucose 178 mg/dl Calcium Level 7.9 mg/dl Magnesium Level 1.8 mg/dl Total Bilirubin 0.3 mg/dl Aspartate Amino Transf (AST/SGOT) 24 U/L Alanine Aminotransferase (ALT/SGPT) 14 U/L Alkaline Phosphatase 100 U/L Total Protein 5.9 gm/dl Albumin 1.9 gm/dl Globulin 4.0 gm/dl Albumin/Globulin Ratio 0.5 Test 07/25/17 15:55 Bedside Glucose 152 mg/dl Assessment and Plan She had 3 bowel movements today 62 years old female with morbid obesity, DMII, dyslipidemia, jeane liver/transaminitis, PCOS and GERD p/w DKA, severe sepsis and RLE cellulitis, she developed intestinal obstruction while in the hospital. yesterday NGT was removed, today her abd distension is worse Assessment: severe Sepsis POA Lower ext cellulitis with bacteremia DKA resolved diarrhea with hypokalemia Ileus / pseudoobstruction Acute Kidney Injury 2/2 Dehydration/DKA/Sepsis, resolved Diastolic CHF , acute on chronic Fatty liver/transaminitis dyslipidemia GERD Plan: negative C diff potassium replacement as needed Sepsis improved, creatinine normalized, white blood cell count normalized, continue Abx as per ID, was on CTX/clinda, recommended stopping clinda and continue CTX for 14 days after the first negative culture. echo showed diastolic dysfunction with normal EF,showed no vegetation was difficult study her lower back pain has been always there as per patient no change in character , chesk SED rate and CRP NGT to re inserted start patient on TPN surgery consult appreciated, no surgical intervention at this point s/p colonoscopy, found Hemorrhoids, diverticulosis in sigmoid colon. DC dilaudid, start toradol for pain DC scopolamine patch pharmacy assistance with glycemic management - SSI Echo reviewed, revealed normal EF with grade I diastolic dysfunction continues with- Fenofibrate 145 mg daily and Simvastatin 40 mg daily continue Protonix 40 mg daily DVT Prophylaxis: Heparin Code Status: FULL RESUSCITATION Continued [facility] stay due to: ambulation difficulties, multiple IV medications needed Discharge planning: rehab hospital
[2017-07-25] MEDS ORDERED: TPN/PPN CONSULT PHARMACY PRN ×2 (17:30→18:00)
[2017-07-25] MEDS: CEFTRIAXONE SOD INJ 2000 MG in DEXTROSE 5% 50ML IV SCH (18:10)
[2017-07-25] MEDS: METHYLNALTREXONE BROMIDE INJ 12 MG/0.6 ML SYR SQ SCH (18:10)
[2017-07-25] MEDS ORDERED: NURSING VERBAL MED ORDER ONE (21:15)
[2017-07-25] MEDS ORDERED: LORAZEPAM INJ 0.5 MG in SYRINGE 0.75 ML IV STA (21:15)
[2017-07-25] MEDS: INSULIN GLARGINE SOLOSTAR 100 UNITS/ML 3 ML PEN SQ SCH (22:03)
[2017-07-26] VITALS (7 sets, daily range): BP systolic 115–130; BP diastolic 66–72; PULSE 86–90; TEMP 36.4–36.9; O2SAT 91–92
[2017-07-26] MEDS ORDERED: ALTEPLASE, RECOMBINANT 1 MG/ML 2 ML VIAL IV SCH (05:15)
[2017-07-26] MEDS: HEPARIN SOD 5000 UNIT/0.5 ML CARP SQ SCH ×3 (05:46→20:58)
[2017-07-26] MEDS: INSULIN ASPART 100 UNITS/ML 3 ML PEN SC SCH ×3 (06:30→16:16)
[2017-07-26 06:50] LABS: ALBUMIN 1.9 gm/dl (3.4-5.0); CALCIUM 8.1 mg/dl (8.5-10.1); CREATININE 0.89 mg/dl (0.60-1.20); POTASSIUM 3.3 mmol/L (3.5-5.1)
[2017-07-26 06:52] LABS: PHOSPHORUS 3.5 mg/dl (2.5-4.9)
[2017-07-26] MEDS: BOOST GLUCOSE CONTROL PO SCH ×3 (08:00→16:15)
[2017-07-26] MEDS: IPRATROPIUM BROMIDE/ALBUTEROL respimat INH INH SCH ×4 (08:00→21:00)
[2017-07-26] MEDS: BISACODYL 5 MG TABEC PO SCH ×2 (08:00→20:00)
--- NOTE | 2017-07-26 08:49 | Surgery Progress Note ---
Surgery Progress Note Date of Service Jul 26, 2017. Subjective + bowel movement, + nausea (improving ) Objective Vital Signs: Date Time Temp Pulse Resp B/P (MAP) Pulse Ox O2 Delivery O2 Flow Rate FiO2 07/26/17 07:10 36.6 89 20 123/72 (89) 91 07/26/17 00:40 Room Air 2.0 07/26/17 00:04 36.9 88 20 125/66 (85) 92 Room Air 07/25/17 16:00 Room Air Abdomen: + distended, + tenderness Laboratory Results: Results Past 24 Hours Test 07/25/17 12:06 07/25/17 15:55 07/25/17 20:39 07/26/17 06:00 Range/Units Bedside Glucose 192 152 139 70-90 mg/dl Sodium Level 137 136-145 mmol/L Potassium Level 3.3 3.5-5.1 mmol/L Chloride Level 111 98-107 mmol/L Carbon Dioxide Level 23 21-32 mmol/L Anion Gap 3.0 3-11 mmol/L Blood Urea Nitrogen 7 7-18 mg/dl Creatinine 0.89 0.60-1.20 mg/dl Est Creatinine Clear Calc Drug Dose 92.1 ml/min Estimated GFR () 79.9 Estimated GFR (Non- 69.0 BUN/Creatinine Ratio 7.5 10-20 Random Glucose 160 70-99 mg/dl Calcium Level 8.1 8.5-10.1 mg/dl Phosphorus Level 3.5 2.5-4.9 mg/dl Magnesium Level 1.9 1.8-2.4 mg/dl C-Reactive Protein 4.39 0-0.29 mg/dl Albumin 1.9 3.4-5.0 gm/dl Triglycerides Level 162 0-150 mg/dl Test 07/26/17 07:10 Range/Units Bedside Glucose 142 70-90 mg/dl CT Abdomen/Pelvis 07/25/2017 1. Increase in small abdominopelvic ascites. Diffuse body wall edema. These findings suggest volume overload. 2. Diffuse gaseous distention of small and large bowel without evidence of obstruction, findings most compatible with ileus. 3. Fluid in the colon suggests a diarrheal state. 4. Mild splenomegaly. 5. 10 mm exophytic indeterminate lesion arising from the right lateral aspect of the liver. Assessment & Plan 07/26/17 Ileus Patient seen and examined with Dr. Ortega. Reviewed recent imaging- Diffuse gaseous distention of small and large bowel without evidence of obstruction, findings most compatible with ileus. Reviewed nutrition note from 07/23/17 NG tube placed with little to no output. Multiple bowel movements yesterday. TPN assessment ordered yesterday by hospitalist service. Will continue to follow closely. 07/25/17 Ileus not making progress radiology does not feel we will get good imaging from [facility] will replace NGT, recheck CT consider TPN/PPN
[2017-07-26] MEDS: PANTOprazole INJ 40 MG in SYRINGE 0 ML IV SCH ×2 (09:00→21:00)
[2017-07-26] MEDS: NSS + 20MEQ KCL 1000ML 1,000 ML IV SCH ×2 (11:47→20:55)
--- NOTE | 2017-07-26 11:48 | Progress Note ---
Subjective Date of Service: Jul 26, 2017. Subjective Patient reports less nausea today. Patient unsure if belly is less firm today. Problem List Medical Problems: (1) Bilateral leg pain Status: Acute (2) DKA (diabetic ketoacidosis) Status: Acute (3) Left foot pain Status: Acute (4) Left hip pain Status: Acute (5) Left knee pain Status: Acute (6) Right shoulder pain Status: Acute (7) Sepsis Status: Acute Review of Systems Constitutional: No fever, No chills Eyes: No worsening of vision ENT: No hearing loss Respiratory: No cough Cardiac: No chest pain Abdomen: + nausea Musculoskeletal: No joint pain Neurologic: No memory loss Psychiatric: No depression symptoms Heme: No abnormal bleeding/bruising Endo: No fatigue Skin: No rash All Other Systems: Reviewed and Negative Objective Vital Signs Date Time Temp Pulse Resp B/P (MAP) Pulse Ox O2 Delivery O2 Flow Rate FiO2 07/26/17 07:10 36.6 89 20 123/72 (89) 91 07/26/17 00:40 Room Air 2.0 07/26/17 00:04 36.9 88 20 125/66 (85) 92 Room Air 07/25/17 16:00 Room Air Physical Exam Comments: General Appearance: + mild distress, + obese Eyes: normal inspection, EOMI ENT: normal ENT inspection, hearing grossly normal Neck: supple Respiratory/Chest: chest non-tender, lungs clear, normal breath sounds, no respiratory distress, no accessory muscle use Cardiovascular: regular rate, rhythm, no edema, no gallop, no JVD, no murmur Abdomen: + abnormal bowel sounds, + distended, + tenderness Extremities: normal range of motion, non-tender, normal inspection, no pedal edema, no calf tenderness 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, no motor/sensory deficits, alert, normal mood/affect, oriented x 3 Skin: normal color, warm/dry, no rash Laboratory Results Last 24 Hours Test 07/25/17 12:06 07/25/17 15:55 07/25/17 20:39 07/26/17 06:00 Bedside Glucose 192 mg/dl 152 mg/dl 139 mg/dl Sodium Level 137 mmol/L Potassium Level 3.3 mmol/L Chloride Level 111 mmol/L Carbon Dioxide Level 23 mmol/L Anion Gap 3.0 mmol/L Blood Urea Nitrogen 7 mg/dl Creatinine 0.89 mg/dl Est Creatinine Clear Calc Drug Dose 92.1 ml/min Estimated GFR () 79.9 Estimated GFR (Non- 69.0 BUN/Creatinine Ratio 7.5 Random Glucose 160 mg/dl Calcium Level 8.1 mg/dl Phosphorus Level 3.5 mg/dl Magnesium Level 1.9 mg/dl C-Reactive Protein 4.39 mg/dl Albumin 1.9 gm/dl Triglycerides Level 162 mg/dl Test 07/26/17 07:10 Bedside Glucose 142 mg/dl Assessment and Plan 62 years old female with morbid obesity, DMII, dyslipidemia, jeane liver/ transaminitis, PCOS and GERD p/w DKA, severe sepsis and RLE cellulitis, she developed intestinal obstruction while in the hospital. Assessment: severe Sepsis POA Lower ext cellulitis with bacteremia DKA resolved diarrhea with hypokalemia Ileus / pseudoobstruction Acute Kidney Injury 2/2 Dehydration/DKA/Sepsis, resolved Diastolic CHF , acute on chronic Fatty liver/transaminitis dyslipidemia GERD Plan: NGT reinserted will hold off TPN for now. negative C diff potassium replacement as needed Sepsis improved, creatinine normalized, white blood cell count normalized, continue Abx as per ID, was on CTX/clinda, recommended stopping clinda and continue CTX for 14 days after the first negative culture. echo showed diastolic dysfunction with normal EF,showed no vegetation was difficult study her lower back pain has been always there as per patient no change in character , chesk SED rate and CRP Patient has elevated BMI, do not want to decrease appetite with parenteral nutrition, hoping for patient to recover with conservative management. If patient does not recover in next 2-3 days, may consider starting TPN. Patient did have meal on 07/22/17. surgery consult appreciated, no surgical intervention at this point s/p colonoscopy, found Hemorrhoids, diverticulosis in sigmoid colon. DC dilaudid, start toradol for pain DC scopolamine patch pharmacy assistance with glycemic management - SSI Echo reviewed, revealed normal EF with grade I diastolic dysfunction continues with- Fenofibrate 145 mg daily and Simvastatin 40 mg daily continue Protonix 40 mg daily DVT Prophylaxis: Heparin Code Status: FULL RESUSCITATION Continued [facility] stay due to: ambulation difficulties, multiple IV medications needed Discharge planning: rehab hospital
[2017-07-26] MEDS: KETOCONAZOLE 2% CR 15 GM TUBE EXT SCH ×2 (11:51→21:01)
[2017-07-26] MEDS ORDERED: DEXTROSE 10% 1,000 ML IV PRN (16:00)
[2017-07-26] MEDS: CEFTRIAXONE SOD INJ 2000 MG in DEXTROSE 5% 50ML IV SCH (18:39)
[2017-07-26] MEDS ORDERED: NURSING VERBAL MED ORDER ONE (20:30)
[2017-07-26] MEDS: INSULIN GLARGINE SOLOSTAR 100 UNITS/ML 3 ML PEN SQ SCH (20:59)
[2017-07-26] MEDS: KETOROLAC TROMETHAMINE 15 MG/ML VIAL IV. PRN (21:01)
[2017-07-26] MEDS ORDERED: FUROSEMIDE INJ 20 MG in SYRINGE 0 ML IV ONE (22:30)
--- NOTE | 2017-07-26 22:38 | Progress Note ---
Progress Note Date of Service Jul 26, 2017. Progress Note Received a call from the nurse that the patient had 4+ pitting edema, has gained 25lbs since admission, has a hard body habitus and hasn't been able to ambulate to the bathroom on her own. Additionally, nurse informed me that the pt is on 40mg Lasix at home and hasn't had Lasix in 6 days and is NPO with IVF of 100mls/hr running. Earlier in the evening nurse let me know that per notes the patient was supposed to be NPO but the order wasn't in. I had changed the order after reviewing the notes myself. After reviewing the chart, I've made the following changes: - One time dose of 20mg IV Lasix. - Decreased the IVF to 75mls/hr with the addition of 20meq of potassium. - Reviewed vitals signed and clinical exam findings with the nurse (pt is stable , 4+ pitting edema bilaterally, pt has decreased breath sounds but no crackling) - Ordered daily weights. - After discussing the case with the nurse, pt would benefit from a brown cathetor due to her body habitus, I've ordered a brown cath to ground. - Asked the nurse to document her objective and subjective findings (at present they are not in the chart). I defer to the day team regarding close monitoring of daily weights, additional lasix as needed, and potassium levels. Resident Involvement: Lip Cutter Coverage Note Care Provided: Adult Hospital Medicine
[2017-07-27] VITALS (7 sets, daily range): BP systolic 117–143; BP diastolic 67–73; PULSE 77–90; TEMP 36.6–37.1; O2SAT 92–93
[2017-07-27] MEDS: INSULIN ASPART 100 UNITS/ML 3 ML PEN SC SCH ×4 (06:00→18:00)
[2017-07-27] MEDS: HEPARIN SOD 5000 UNIT/0.5 ML CARP SQ SCH ×3 (06:47→21:25)
[2017-07-27] MEDS: BOOST GLUCOSE CONTROL PO SCH ×3 (07:11→17:00)
[2017-07-27] MEDS: BISACODYL 5 MG TABEC PO SCH ×2 (07:11→19:52)
[2017-07-27] MEDS: IPRATROPIUM BROMIDE/ALBUTEROL respimat INH INH SCH ×4 (08:26→19:43)
[2017-07-27] MEDS: KETOCONAZOLE 2% CR 15 GM TUBE EXT SCH ×2 (08:27→19:43)
[2017-07-27] MEDS: PANTOprazole INJ 40 MG in SYRINGE 0 ML IV SCH ×2 (08:27→21:25)
--- NOTE | 2017-07-27 12:11 | Surgery Progress Note ---
Surgery Progress Note Date of Service Jul 27, 2017. Subjective + bowel movement, + flatus, No nausea, No vomiting Patient improved today- NG tube still in place. Objective Vital Signs: Date Time Temp Pulse Resp B/P (MAP) Pulse Ox O2 Delivery O2 Flow Rate FiO2 07/27/17 07:35 36.6 90 20 128/73 (91) 93 Room Air 07/27/17 00:00 Room Air 07/26/17 23:24 36.5 90 20 130/67 (88) 92 Room Air 07/26/17 20:00 91 Room Air 07/26/17 15:30 91 Room Air 07/26/17 14:57 36.4 86 18 115/66 (82) 91 Physical Exam: nasogastric drainage General Appearance: WD/WN, no apparent distress Respiratory/Chest: no respiratory distress Abdomen: + distended (improved. ), + tenderness Laboratory Results: Results Past 24 Hours Test 07/26/17 14:20 07/26/17 16:16 07/26/17 20:08 07/26/17 23:52 Range/Units Bedside Glucose 139 128 121 115 70-90 mg/dl Test 07/27/17 06:45 07/27/17 11:19 Range/Units Bedside Glucose 110 106 70-90 mg/dl Assessment & Plan 07/27/17 Ileus Patient seen and examined with Dr. Ortega. Patient improved today- +flatus, +multiple bowel movements, abdominal distention improved. KUB ordered for today to evaluate ileus. 07/26/17 Ileus Patient seen and examined with Dr. Ortega. Reviewed recent imaging- Diffuse gaseous distention of small and large bowel without evidence of obstruction, findings most compatible with ileus. Reviewed nutrition note from 07/23/17 NG tube placed with little to no output. Multiple bowel movements yesterday. TPN assessment ordered yesterday by hospitalist service. Will continue to follow closely. 07/25/17 Ileus not making progress radiology does not feel we will get good imaging from [facility] will replace NGT, recheck CT consider TPN/PPN
[2017-07-27] MEDS: NSS + 20MEQ KCL 1000ML 1,000 ML IV SCH (12:51)
--- NOTE | 2017-07-27 14:31 | Pharmacy Progress Note ---
Pharmacy Glycemic Short Note 2 Date of Service Jul 27, 2017. 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 Decrease Lantus to avoid hypoglycemia * Patient has not used any bolus insulin since 07/25. No change to CF/CR. PLAN FOR INPATIENT GLYCEMIC CONTROL: * Continue to hold outpatient oral diabetes medications * Basal insulin - decrease * Lantus 15-18 units SQ HS * 15 units if BSG < 140 mg/dl, 18 units if BSG is 180 mg/dl or greater * Bolus insulin * NovoLog per scale ACHS or Q6hrs while NPO * Goal Range: Low 120 mg/dL - High 160 mg/dL * Correction Factor: 25 mg/dL/unit * Nutritional / Prandial insulin per carb ratio of 1 unit per 7 grams CHO consumed
--- NOTE | 2017-07-27 14:52 | DIAGNOSTIC IMAGING REPORT ---
KUB CLINICAL HISTORY: 62 years-old Female presenting with follow up. TECHNIQUE: Single supine view of the abdomen was obtained. COMPARISON: CT from 07/25/2017 and plain radiograph performed on 07/25/2017. FINDINGS: Persistent diffuse gaseous distention of small and large bowel. A nasogastric tube is in place terminating in the gastric fundus, sidehole likely within the gastric lumen. No gross evidence of free air. Portable technique and patient body habitus limit evaluation. IMPRESSION: 1. Limited evaluation secondary to patient body habitus. Overall no significant change in diffuse gaseous distention of large and small bowel. Electronically signed by: Shai Rodas M.D. 07/27/2017 2:51 PM Dictated Date/Time: 07/27/2017 2:49 PM
[2017-07-27] MEDS ORDERED: FUROSEMIDE INJ 40 MG in SYRINGE 0 ML IV SCH (17:00)
[2017-07-27] MEDS ORDERED: TPN/PPN CONSULT PHARMACY PRN (17:00)
[2017-07-27] MEDS: CEFTRIAXONE SOD INJ 2000 MG in DEXTROSE 5% 50ML IV SCH (18:12)
[2017-07-27] MEDS: INSULIN GLARGINE SOLOSTAR 100 UNITS/ML 3 ML PEN SQ SCH (22:19)
[2017-07-27] MEDS: ZOLPIDEM TARTRATE 10 MG TAB PO PRN (22:20)
[2017-07-27] MEDS: KETOROLAC TROMETHAMINE 15 MG/ML VIAL IV. PRN (22:20)
--- NOTE | 2017-07-27 22:23 | Progress Note ---
Subjective Date of Service: Jul 27, 2017. Subjective Pt evaluation today including: conversation w/ patient, conversation w/ family , physical exam Patient reports feeling better, she had a BM yesterday a today. She also has been passing plenty of gas. She reports her abdomen is less firm Patient is also very hungry and would like to eat/ Problem List Medical Problems: (1) Bilateral leg pain Status: Acute (2) DKA (diabetic ketoacidosis) Status: Acute (3) Left foot pain Status: Acute (4) Left hip pain Status: Acute (5) Left knee pain Status: Acute (6) Right shoulder pain Status: Acute (7) Sepsis Status: Acute Review of Systems Constitutional: No fever, No chills Eyes: No worsening of vision ENT: No hearing loss Respiratory: No cough Cardiac: No chest pain Abdomen: + nausea Musculoskeletal: No joint pain Neurologic: No memory loss Psychiatric: No depression symptoms Heme: No abnormal bleeding/bruising Endo: No fatigue Skin: No rash All Other Systems: Reviewed and Negative All Other Systems: Reviewed and Negative Objective Vital Signs Date Time Temp Pulse Resp B/P (MAP) Pulse Ox O2 Delivery O2 Flow Rate FiO2 07/27/17 20:30 93 Room Air 07/27/17 18:40 143/73 (96) 07/27/17 16:00 93 Room Air 07/27/17 14:28 37.1 88 20 117/70 (86) 93 Room Air 07/27/17 08:00 93 Room Air 07/27/17 07:35 36.6 90 20 128/73 (91) 93 Room Air 07/27/17 00:00 Room Air 07/26/17 23:24 36.5 90 20 130/67 (88) 92 Room Air Physical Exam Comments: General Appearance: No distress+ obese Eyes: normal inspection, EOMI ENT: normal ENT inspection, hearing grossly normal Neck: supple Respiratory/Chest: chest non-tender, lungs clear, normal breath sounds, no respiratory distress, no accessory muscle use Cardiovascular: regular rate, rhythm, no edema, no gallop, no JVD, no murmur Abdomen: hyperactive bowel sounds, + less distended, no tenderness Extremities: normal range of motion, non-tender, normal inspection, no pedal edema, no calf tenderness 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 Assessment: severe Sepsis POA Lower ext cellulitis with bacteremia DKA resolved diarrhea with hypokalemia Ileus / pseudoobstruction Acute Kidney Injury 2/2 Dehydration/DKA/Sepsis, resolved Diastolic CHF , acute on chronic Fatty liver/transaminitis dyslipidemia GERD Plan: NGT reinserted KUB ordered, no sigifcant improvement on imaging, but clinically, she has shown improveent. D/W surgery who recommended to start TPN tomrrow and hold off removing NG tube for now. Had long discussion with patient and family on adverse effects from TPN. However, patient opted for this. Ordered placed. Please read update. negative C diff potassium replacement as needed Sepsis improved, creatinine normalized, white blood cell count normalized, continue Abx as per ID, was on CTX/clinda, recommended stopping clinda and continue CTX for 14 days after the first negative culture. echo showed diastolic dysfunction with normal EF,showed no vegetation was difficult study her lower back pain has been always there as per patient no change in character , chesk SED rate and CRP Patient has elevated BMI, do not want to decrease appetite with parenteral nutrition, hoping for patient to recover with conservative management. Patient did have meal on 07/22/17. surgery consult appreciated, no surgical intervention at this point s/p colonoscopy, found Hemorrhoids, diverticulosis in sigmoid colon. DC dilaudid, start toradol for pain DC scopolamine patch pharmacy assistance with glycemic management - SSI Echo reviewed, revealed normal EF with grade I diastolic dysfunction continues with- Fenofibrate 145 mg daily and Simvastatin 40 mg daily continue Protonix 40 mg daily DVT Prophylaxis: Heparin Code Status: FULL RESUSCITATION UPDATE 19:00 Surgery recommended to stop NG tube and start meals. TPN consult placed, however this may need to be dc'ed if patient tolerates meals. will defer to friday team. Continued [facility] stay due to: ambulation difficulties, multiple IV medications needed Discharge planning: rehab hospital
[2017-07-28 01:16] VITALS: O2SAT 93
[2017-07-28] MEDS: HEPARIN SOD 5000 UNIT/0.5 ML CARP SQ SCH ×3 (06:00→20:58)
[2017-07-28 06:05] LABS: CALCIUM 7.9 mg/dl (8.5-10.1); CREATININE 0.7 mg/dl (0.60-1.20); POTASSIUM 2.9 mmol/L (3.5-5.1)
[2017-07-28 06:12] LABS: PHOSPHORUS 2.8 mg/dl (2.5-4.9)
[2017-07-28 07:17] VITALS: BP 135/72; PULSE 83; TEMP 36.6; O2SAT 95
[2017-07-28 08:00] VITALS: O2SAT 95
[2017-07-28] MEDS: BOOST GLUCOSE CONTROL PO SCH ×3 (08:00→17:00)
[2017-07-28] MEDS: KETOCONAZOLE 2% CR 15 GM TUBE EXT SCH ×2 (08:13→20:56)
[2017-07-28] MEDS: PANTOprazole INJ 40 MG in SYRINGE 0 ML IV SCH ×2 (08:14→20:56)
[2017-07-28] MEDS: IPRATROPIUM BROMIDE/ALBUTEROL respimat INH INH SCH ×4 (08:14→20:56)
[2017-07-28] MEDS: BISACODYL 5 MG TABEC PO SCH ×2 (08:18→20:57)
[2017-07-28] MEDS ORDERED: POTASSIUM CHLORIDE 10 MEQ TABCR PO STA (08:57)
[2017-07-28] MEDS: INSULIN ASPART 100 UNITS/ML 3 ML PEN SC SCH ×4 (08:58→20:50)
--- NOTE | 2017-07-28 09:09 | Surgery Progress Note ---
Surgery Progress Note Date of Service Jul 28, 2017. Subjective + bowel movement, + flatus, + pain controlled, No nausea, No vomiting No new concerns or complaints overnight. She is happy NG tube is out. Objective Vital Signs: Date Time Temp Pulse Resp B/P (MAP) Pulse Ox O2 Delivery O2 Flow Rate FiO2 07/28/17 07:17 36.6 83 20 135/72 (93) 95 Room Air 07/28/17 01:16 93 Room Air 07/27/17 23:33 36.8 77 20 130/67 (88) 92 Room Air 07/27/17 20:30 93 Room Air 07/27/17 18:40 143/73 (96) 07/27/17 16:00 93 Room Air 07/27/17 14:28 37.1 88 20 117/70 (86) 93 Room Air General Appearance: WD/WN, no apparent distress Head: normocephalic Respiratory/Chest: no respiratory distress, no accessory muscle use Abdomen: + distended (less distended, belly is softer) Laboratory Results: Results Past 24 Hours Test 07/27/17 11:19 07/27/17 17:34 07/27/17 17:57 07/27/17 18:55 Range/Units Bedside Glucose 106 73 139 70-90 mg/dl Prealbumin 8.0 20-40 mg/dl Test 07/27/17 22:03 07/28/17 05:17 07/28/17 07:39 Range/Units Bedside Glucose 140 137 70-90 mg/dl Sodium Level 141 136-145 mmol/L Potassium Level 2.9 3.5-5.1 mmol/L Chloride Level 110 98-107 mmol/L Carbon Dioxide Level 26 21-32 mmol/L Anion Gap 5.0 3-11 mmol/L Blood Urea Nitrogen 6 7-18 mg/dl Creatinine 0.70 0.60-1.20 mg/dl Est Creatinine Clear Calc Drug Dose 120.6 ml/min Estimated GFR () 106.9 Estimated GFR (Non- 92.2 BUN/Creatinine Ratio 8.6 10-20 Random Glucose 137 70-99 mg/dl Calcium Level 7.9 8.5-10.1 mg/dl Phosphorus Level 2.8 2.5-4.9 mg/dl Magnesium Level 1.6 1.8-2.4 mg/dl Assessment & Plan 07/28/17 Ileus KUB (07/27/17) reviewed by Dr. Ortega. AM labs reviewed. NG tube removed yesterday and patient started on clear liquid diet. Tolerating well. Denies nausea or vomiting. Passing large amounts of flatus, multiple bowel movements. Will continue to follow. 07/27/17 Ileus Patient seen and examined with Dr. Ortega. Patient improved today- +flatus, +multiple bowel movements, abdominal distention improved. KUB ordered for today to evaluate ileus. 07/26/17 Ileus Patient seen and examined with Dr. Ortega. Reviewed recent imaging- Diffuse gaseous distention of small and large bowel without evidence of obstruction, findings most compatible with ileus. Reviewed nutrition note from 07/23/17 NG tube placed with little to no output. Multiple bowel movements yesterday. TPN assessment ordered yesterday by hospitalist service. Will continue to follow closely. 07/25/17 Ileus not making progress radiology does not feel we will get good imaging from [facility] will replace NGT, recheck CT consider TPN/PPN
[2017-07-28] MEDS ORDERED: MAGNESIUM SULFATE 1GM / D5W 1 GM in PREMIXED IN D5W 100 ML IV ONE (09:15)
[2017-07-28] MEDS ORDERED: FUROSEMIDE INJ 40 MG in SYRINGE 0 ML IV ONE (12:15)
--- NOTE | 2017-07-28 13:05 | Pharmacy Progress Note ---
Pharmacy Glycemic Short Note 2 Date of Service Jul 28, 2017. OUTPATIENT ANTIDIABETIC REGIMEN: * Lantus 60-70 units at bedtime and Novolog with scale 40-50 with meals * Metformin Test 07/27/17 17:34 07/27/17 18:55 07/27/17 22:03 07/28/17 05:17 Bedside Glucose 73 mg/dl (70-90) 139 mg/dl (70-90) 140 mg/dl (70-90) Random Glucose 137 mg/dl (70-99) Test 07/28/17 07:39 Bedside Glucose 137 mg/dl (70-90) ASSESSMENT: 07-28-17: * Patient is currently receiving an average of 18 units of insulin per day * 18 units of basal insulin * 0 units of prandial/correctional insulin * Minimal po intake * Risk factors for insulin resistance are increasing over the past 24hrs * po intake is advancing * Anticipating insulin regimen will need adjusted for the next 24hrs d/t : * current basal dose of 18 units is most likely appropriate for basal needs ( 20 units caused blood sugar of 73) * CF: 25 CR:7 - seem to be appropriate at this time 07-27-17: * Insulin needs have decreased significantly over the past 48 hours ( 43 units - > 29 units -> 20 units) * BSGs are trending downward * Current insulin usage is account retention representative of basal needs only (minimal PO intake or NPO over the past 48 hours) * Fasting BSG below goal, 110 mg/dl. Decrease Lantus to avoid hypoglycemia * Patient has not used any bolus insulin since 07/25. No change to CF/CR. PLAN FOR INPATIENT GLYCEMIC CONTROL: * Continue to hold outpatient oral diabetes medications * Basal insulin - adjusted scale * Lantus 15-18 units SQ HS * 15 units if BSG < 100 mg/dl, 18 units if BSG is 100 mg/dl or greater * Bolus insulin * NovoLog per scale ACHS or Q6hrs while NPO * Goal Range: Low 120 mg/dL - High 160 mg/dL * Correction Factor: 25 mg/dL/unit * Nutritional / Prandial insulin per carb ratio of 1 unit per 7 grams CHO consumed
[2017-07-28] MEDS: POTASSIUM CHLORIDE 20 MEQ TABCR PO SCH ×2 (13:39→20:57)
[2017-07-28 14:51] VITALS: BP 115/71; PULSE 90; TEMP 36.8; O2SAT 93
[2017-07-28] MEDS: FUROSEMIDE INJ 40 MG in SYRINGE 0 ML IV SCH (17:50)
[2017-07-28] MEDS: CEFTRIAXONE SOD INJ 2000 MG in DEXTROSE 5% 50ML IV SCH (17:51)
[2017-07-28] MEDS: KETOROLAC TROMETHAMINE 15 MG/ML VIAL IV. PRN (19:15)
[2017-07-28] MEDS: INSULIN GLARGINE SOLOSTAR 100 UNITS/ML 3 ML PEN SQ SCH (21:11)
[2017-07-28] MEDS: ZOLPIDEM TARTRATE 10 MG TAB PO PRN (21:14)
--- NOTE | 2017-07-28 22:20 | Progress Note ---
Subjective Date of Service: Jul 28, 2017. Subjective Pt evaluation today including: conversation w/ patient, physical exam, conversation w/ healthcare network pricing consultant, review of inpatient medication list Pain: no pain PO Intake: tolerating clears Voiding: brown catheter in place patient had several bowel movements, passing gas tolerating clears, no nausea or vomiting, able to avoid NGT and holding on TPN admits to edema in legs, more swollen than normal also, c/o swelling in right arm/hand, this is new she is encouraged by moving bowels, tolerating clears, feels like this is the best she has felt in weeks reviewed labs from several days ago, stable discussed with surgery, appreciate recommendations Problem List Medical Problems: (1) Bilateral leg pain Status: Acute (2) DKA (diabetic ketoacidosis) Status: Acute (3) Left foot pain Status: Acute (4) Left hip pain Status: Acute (5) Left knee pain Status: Acute (6) Right shoulder pain Status: Acute (7) Sepsis Status: Acute Review of Systems Constitutional: + weakness, + fatigue Cardiac: + edema (pitting edema in legs bilaterally, chronically swollen) Musculoskeletal: + joint pain (diffuse) Skin: + rash (right lower leg, dressed) All Other Systems: Reviewed and Negative Medications Current Inpatient Medications Medications (Trade) Dose Ordered Sig/Oxana Route Start Time Stop Time Status Last Admin Dose Admin Glucose (Glucose 40% Gel) 15-30 GRAMS 15 GRAMS... UD PRN PO 07/09/17 10:00 08/08/17 09:59 Glucose (Glucose Chew Tab) 4-8 Tablets 4 Tabl... UD PRN PO 07/09/17 10:00 08/08/17 09:59 Dextrose (Dextrose 50% 50ML Syringe) 25-50ML OF 50% DW IV FOR... UD PRN IV 07/09/17 10:00 08/08/17 09:59 Glucagon (Glucagon Inj) 1 mg UD PRN SQ 07/09/17 10:00 08/08/17 09:59 Heparin Sodium (Porcine) (Heparin Sq 5000 Unit/0.5ml) 5,000 unit Q8 SQ 07/09/17 14:00 08/08/17 13:59 07/28/17 20:58 5,000 UNIT Acetaminophen (Tylenol Tab) 650 mg Q4H PRN PO 07/09/17 10:15 08/08/17 10:14 Future Hold 07/20/17 07:43 650 MG Al Hydrox/Mg Hydrox/Simethicone (Maalox Max Susp) 15 ml Q4H PRN PO 07/09/17 10:15 08/08/17 10:14 Future Hold 07/19/17 16:58 15 ML Magnesium Hydroxide (Milk Of Magnesia Susp) 30 ml Q12H PRN PO 07/09/17 10:15 08/08/17 10:14 Future Hold 07/16/17 21:20 30 ML Ondansetron HCl (Zofran Inj) 4 mg Q6H PRN IV 07/09/17 10:15 08/08/17 10:14 07/25/17 03:03 4 MG Miscellaneous Information (Consult Glycemic Management Pharmacy) 1 ea UD PRN N/A 07/09/17 11:10 08/08/17 11:09 Cetirizine HCl (zyrTEC TAB) 10 mg DAILY PO 07/10/17 09:00 08/09/17 08:59 Future Hold 07/20/17 07:44 10 MG Fenofibrate (Tricor Tab) 145 mg DAILY PO 07/10/17 09:00 08/09/17 08:59 Future Hold 07/20/17 07:43 145 MG Simvastatin (Zocor Tab) 40 mg QPM PO 07/09/17 21:00 08/08/17 20:59 Future Hold 07/19/17 21:11 40 MG Pantoprazole Sodium (Protonix Tab) 40 mg QAM PO 07/10/17 09:00 08/09/17 08:59 Future Hold 07/20/17 07:44 40 MG Lactobacillus Acidophilus (Floranex Tab) 4 tab TIDM PO 07/09/17 16:45 08/08/17 16:44 Future Hold 07/20/17 11:34 4 TAB Ceftriaxone Sodium 2000 mg/ Dextrose 70 ml @ 140 mls/hr DAILY@1800 IV 07/11/17 18:00 08/01/17 17:59 07/28/17 17:51 140 MLS/HR Loperamide HCl (Imodium Cap) 2 mg Q6 PRN PO 07/12/17 12:45 08/11/17 12:44 Future Hold 07/12/17 13:14 2 MG Furosemide (Lasix Tab) 40 mg DAILY PO 07/13/17 09:00 08/10/17 08:59 Future Hold 07/20/17 07:44 40 MG Albuterol/ Ipratropium (Combivent Respimat Inh) 1 puffs QID INH 07/12/17 21:00 08/11/17 20:59 07/28/17 20:56 1 PUFFS Heparin Sodium (Porcine) (Heparin 10 Unit/ ml 5 ml Flush) 5 ml PRN PRN FLUSH 07/14/17 12:00 08/13/17 11:59 07/28/17 20:57 5 ML Insulin Glargine (Lantus Solostar Pen) SEE PROTOCOL TEXT HS SQ 07/18/17 22:00 08/17/17 21:59 07/28/17 21:11 18 UNITS Polyethylene (Miralax Powder Packet) 17 gm QID PO 07/18/17 12:00 08/08/17 10:14 Future Hold 07/19/17 17:38 17 GM Promethazine HCl 25 mg/Sodium Chloride 51 ml @ 204 mls/hr Q6H PRN IV 07/19/17 22:45 08/18/17 22:44 07/24/17 19:44 204 MLS/HR Metoclopramide HCl 20 mg/Sodium Chloride 54 ml @ 162 mls/hr Q6H PRN IV 07/20/17 03:30 08/19/17 03:29 07/25/17 12:55 162 MLS/HR Bisacodyl (Dulcolax Tab) 10 mg BID PO 07/20/17 12:00 08/19/17 11:59 07/28/17 08:18 10 MG Pantoprazole Sodium 40 mg/ Syringe 10 ml @ 5 mls/min DAILY@09,21 IV 07/20/17 21:00 08/19/17 20:59 07/28/17 20:56 5 MLS/MIN Ketorolac Tromethamine (Toradol Inj) 15 mg BID PRN IV. 07/22/17 20:45 08/01/17 20:43 07/28/17 19:15 15 MG Ketoconazole (Nizoral 2% Crm) 1 appln BID EXT 07/24/17 20:00 08/03/17 19:59 07/28/17 20:56 1 APPLN Enteral Nutritional Formula (Boost Glucose Control) 1 can TIDM PO 07/24/17 17:00 08/23/17 16:59 07/24/17 17:26 1 CAN Zolpidem Tartrate (Ambien Tab) 10 mg HS PRN PO 07/25/17 10:15 08/24/17 10:14 07/28/17 21:14 10 MG Ioversol (Optiray 320) 100 ml UD PRN IV 07/25/17 13:45 07/29/17 13:44 Insulin Aspart (novoLOG ASPART) SLIDING SCALE If CARB RA... ACHS SC 07/28/17 06:30 08/27/17 06:29 07/28/17 17:49 8 UNITS Potassium Chloride (Klor-Con Tab) 20 meq TID PO 07/28/17 14:00 08/27/17 13:59 07/28/17 20:57 20 MEQ Furosemide 40 mg/ Syringe 4 ml @ 4 mls/min BID17 IV 07/28/17 17:00 08/27/17 16:59 07/28/17 17:50 4 MLS/MIN Objective Vital Signs Date Time Temp Pulse Resp B/P (MAP) Pulse Ox O2 Delivery O2 Flow Rate FiO2 07/28/17 16:02 Room Air 07/28/17 14:51 36.8 90 18 115/71 (86) 93 Room Air 07/28/17 08:00 95 Room Air 07/28/17 07:17 36.6 83 20 135/72 (93) 95 Room Air 07/28/17 01:16 93 Room Air 07/27/17 23:33 36.8 77 20 130/67 (88) 92 Room Air Physical Exam General Appearance: no apparent distress, + obese Eyes: normal inspection, EOMI, sclerae normal ENT: normal ENT inspection, hearing grossly normal, pharynx normal Neck: supple, no adenopathy, no JVD, trachea midline Respiratory/Chest: chest non-tender, lungs clear, normal breath sounds, no respiratory distress, no accessory muscle use Cardiovascular: regular rate, rhythm, no edema, no gallop, no JVD, no murmur Abdomen: normal bowel sounds, non tender, soft, no organomegaly Extremities: normal range of motion, non-tender, no calf tenderness, normal capillary refill, pelvis stable, + pedal edema (pitting edema to the knees bilaterally) 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, alert, normal mood/affect, oriented x 3, + motor weakness Skin: + rash (right leg dressed, mild erythema, no pain) Laboratory Results Last 24 Hours Test 07/27/17 22:03 07/28/17 05:17 07/28/17 07:39 07/28/17 12:05 Bedside Glucose 140 mg/dl 137 mg/dl 168 mg/dl Sodium Level 141 mmol/L Potassium Level 2.9 mmol/L Chloride Level 110 mmol/L Carbon Dioxide Level 26 mmol/L Anion Gap 5.0 mmol/L Blood Urea Nitrogen 6 mg/dl Creatinine 0.70 mg/dl Est Creatinine Clear Calc Drug Dose 120.6 ml/min Estimated GFR () 106.9 Estimated GFR (Non- 92.2 BUN/Creatinine Ratio 8.6 Random Glucose 137 mg/dl Calcium Level 7.9 mg/dl Phosphorus Level 2.8 mg/dl Magnesium Level 1.6 mg/dl Test 07/28/17 17:44 07/28/17 20:44 Bedside Glucose 121 mg/dl 122 mg/dl Assessment and Plan 62 years old female with morbid obesity, DMII, dyslipidemia, jeane liver/ transaminitis, PCOS and GERD p/w DKA, severe sepsis and RLE cellulitis, she developed intestinal obstruction while in the hospital. - Severe sepsis POA, due to cellulitis sepsis resolved, afebrile, WBC normal on last check, vitals stable ID recommended Ceftriaxone 14 days after last negative culture which was 07/11 , treatment complete continue wound care to right leg - Ileus: resolving with conservative measures several BM today, passing flatus, tolerating clears continue to advance diet slowly, only clears today surgery following, will give diet recommendations hold on NGT and TPN for time being + bowels sounds today - DKA, POA: resolved - TERESA: resolved, was due to dehydration - Volume overload, acute on chronic diastolic HF due to excessive hydration will increase Lasix to 40mg IV BID, extra dose given this afternoon monitor I/O's and weight - Right arm swelling could be due to PICC line in right arm will see if swelling improves with Lasix if no improvement then will get ultrasound to r/o DVT associated with line DVT prophylaxis: Heparin Continued [facility] stay due to: ambulation difficulties, multiple IV medications needed Discharge planning: rehab hospital
[2017-07-29 00:05] VITALS: BP 144/72; PULSE 86; TEMP 36.6; O2SAT 94
[2017-07-29] MEDS: HEPARIN SOD 5000 UNIT/0.5 ML CARP SQ SCH ×3 (06:18→21:44)
[2017-07-29 07:13] VITALS: BP 143/71; PULSE 84; TEMP 36.5; O2SAT 92
[2017-07-29 08:00] VITALS: O2SAT 95
[2017-07-29] MEDS: BOOST GLUCOSE CONTROL PO SCH ×3 (08:00→17:48)
[2017-07-29] MEDS: KETOCONAZOLE 2% CR 15 GM TUBE EXT SCH ×2 (08:15→20:05)
[2017-07-29] MEDS: IPRATROPIUM BROMIDE/ALBUTEROL respimat INH INH SCH ×4 (08:17→20:08)
[2017-07-29] MEDS: BISACODYL 5 MG TABEC PO SCH ×2 (08:17→20:00)
[2017-07-29] MEDS: POTASSIUM CHLORIDE 20 MEQ TABCR PO SCH ×3 (08:17→20:09)
[2017-07-29] MEDS: FUROSEMIDE INJ 40 MG in SYRINGE 0 ML IV SCH ×2 (08:18→17:51)
[2017-07-29] MEDS: PANTOprazole INJ 40 MG in SYRINGE 0 ML IV SCH (08:18)
--- NOTE | 2017-07-29 08:55 | Surgery Progress Note ---
Surgery Progress Note Date of Service Jul 29, 2017. Subjective + feeling well, + bowel movement, + flatus, + pain controlled, No complaints, No nausea, No vomiting Tolerating clear liquid diet. Objective Vital Signs: Date Time Temp Pulse Resp B/P (MAP) Pulse Ox O2 Delivery O2 Flow Rate FiO2 07/29/17 07:13 36.5 84 16 143/71 (95) 92 07/29/17 00:05 36.6 86 20 144/72 (96) 94 Room Air 07/28/17 23:59 Room Air 07/28/17 16:02 Room Air 07/28/17 14:51 36.8 90 18 115/71 (86) 93 Room Air General Appearance: WD/WN, no apparent distress Abdomen: non tender, + distended (continues to improve. ) Laboratory Results: Results Past 24 Hours Test 07/28/17 12:05 07/28/17 17:44 07/28/17 20:44 07/29/17 07:26 Range/Units Bedside Glucose 168 121 122 131 70-90 mg/dl Assessment & Plan 07/29/17 Ileus Patient continues to improve. Denies nausea or vomiting. Abdominal distention improving. Tolerating clear liquid diet- recommend advancing to full liquid diet for lunch and see how she tolerates. 07/28/17 Ileus KUB (07/27/17) reviewed by Dr. Ortega. AM labs reviewed. NG tube removed yesterday and patient started on clear liquid diet. Tolerating well. Denies nausea or vomiting. Passing large amounts of flatus, multiple bowel movements. Will continue to follow. 07/27/17 Ileus Patient seen and examined with Dr. Ortega. Patient improved today- +flatus, +multiple bowel movements, abdominal distention improved. KUB ordered for today to evaluate ileus. 07/26/17 Ileus Patient seen and examined with Dr. Ortega. Reviewed recent imaging- Diffuse gaseous distention of small and large bowel without evidence of obstruction, findings most compatible with ileus. Reviewed nutrition note from 07/23/17 NG tube placed with little to no output. Multiple bowel movements yesterday. TPN assessment ordered yesterday by hospitalist service. Will continue to follow closely. 07/25/17 Ileus not making progress radiology does not feel we will get good imaging from [facility] will replace NGT, recheck CT consider TPN/PPN
[2017-07-29] MEDS: INSULIN ASPART 100 UNITS/ML 3 ML PEN SC SCH ×4 (09:07→21:44)
--- NOTE | 2017-07-29 13:22 | Progress Note ---
Subjective Date of Service: Jul 29, 2017. Subjective Pt evaluation today including: conversation w/ patient, conversation w/ family (daughter), physical exam, lab review, conversation w/ transportation sales consultant, review of inpatient medication list Pain: no pain PO Intake: tolerating clears Voiding: brown catheter in place patient doing well, tolerating clears, surgery advanced to full liquids less swelling today, responding quite well to Lasix IV patient moved bowels again today Problem List Medical Problems: (1) Bilateral leg pain Status: Acute (2) DKA (diabetic ketoacidosis) Status: Acute (3) Left foot pain Status: Acute (4) Left hip pain Status: Acute (5) Left knee pain Status: Acute (6) Right shoulder pain Status: Acute (7) Sepsis Status: Acute Review of Systems Constitutional: + weakness, + fatigue Cardiac: + edema All Other Systems: Reviewed and Negative Medications Current Inpatient Medications Medications (Trade) Dose Ordered Sig/Oxana Route Start Time Stop Time Status Last Admin Dose Admin Glucose (Glucose 40% Gel) 15-30 GRAMS 15 GRAMS... UD PRN PO 07/09/17 10:00 08/08/17 09:59 Glucose (Glucose Chew Tab) 4-8 Tablets 4 Tabl... UD PRN PO 07/09/17 10:00 08/08/17 09:59 Dextrose (Dextrose 50% 50ML Syringe) 25-50ML OF 50% DW IV FOR... UD PRN IV 07/09/17 10:00 08/08/17 09:59 Glucagon (Glucagon Inj) 1 mg UD PRN SQ 07/09/17 10:00 08/08/17 09:59 Heparin Sodium (Porcine) (Heparin Sq 5000 Unit/0.5ml) 5,000 unit Q8 SQ 07/09/17 14:00 08/08/17 13:59 07/29/17 06:18 5,000 UNIT Acetaminophen (Tylenol Tab) 650 mg Q4H PRN PO 07/09/17 10:15 08/08/17 10:14 Future Hold 07/20/17 07:43 650 MG Al Hydrox/Mg Hydrox/Simethicone (Maalox Max Susp) 15 ml Q4H PRN PO 07/09/17 10:15 08/08/17 10:14 Future Hold 07/19/17 16:58 15 ML Magnesium Hydroxide (Milk Of Magnesia Susp) 30 ml Q12H PRN PO 07/09/17 10:15 08/08/17 10:14 Future Hold 07/16/17 21:20 30 ML Ondansetron HCl (Zofran Inj) 4 mg Q6H PRN IV 07/09/17 10:15 08/08/17 10:14 07/25/17 03:03 4 MG Miscellaneous Information (Consult Glycemic Management Pharmacy) 1 ea UD PRN N/A 07/09/17 11:10 08/08/17 11:09 Cetirizine HCl (zyrTEC TAB) 10 mg DAILY PO 07/10/17 09:00 08/09/17 08:59 Future Hold 07/20/17 07:44 10 MG Fenofibrate (Tricor Tab) 145 mg DAILY PO 07/10/17 09:00 08/09/17 08:59 Future Hold 07/20/17 07:43 145 MG Simvastatin (Zocor Tab) 40 mg QPM PO 07/09/17 21:00 08/08/17 20:59 Future Hold 07/19/17 21:11 40 MG Pantoprazole Sodium (Protonix Tab) 40 mg QAM PO 07/10/17 09:00 08/09/17 08:59 Future Hold 07/20/17 07:44 40 MG Lactobacillus Acidophilus (Floranex Tab) 4 tab TIDM PO 07/09/17 16:45 08/08/17 16:44 Future Hold 07/20/17 11:34 4 TAB Ceftriaxone Sodium 2000 mg/ Dextrose 70 ml @ 140 mls/hr DAILY@1800 IV 07/11/17 18:00 08/01/17 17:59 07/28/17 17:51 140 MLS/HR Loperamide HCl (Imodium Cap) 2 mg Q6 PRN PO 07/12/17 12:45 08/11/17 12:44 Future Hold 07/12/17 13:14 2 MG Furosemide (Lasix Tab) 40 mg DAILY PO 07/13/17 09:00 08/10/17 08:59 Future Hold 07/20/17 07:44 40 MG Albuterol/ Ipratropium (Combivent Respimat Inh) 1 puffs QID INH 07/12/17 21:00 08/11/17 20:59 07/29/17 12:28 1 PUFFS Heparin Sodium (Porcine) (Heparin 10 Unit/ ml 5 ml Flush) 5 ml PRN PRN FLUSH 07/14/17 12:00 08/13/17 11:59 07/29/17 13:00 5 ML Insulin Glargine (Lantus Solostar Pen) SEE PROTOCOL TEXT HS SQ 07/18/17 22:00 08/17/17 21:59 07/28/17 21:11 18 UNITS Polyethylene (Miralax Powder Packet) 17 gm QID PO 07/18/17 12:00 08/08/17 10:14 Future Hold 07/19/17 17:38 17 GM Promethazine HCl 25 mg/Sodium Chloride 51 ml @ 204 mls/hr Q6H PRN IV 07/19/17 22:45 08/18/17 22:44 07/24/17 19:44 204 MLS/HR Metoclopramide HCl 20 mg/Sodium Chloride 54 ml @ 162 mls/hr Q6H PRN IV 07/20/17 03:30 08/19/17 03:29 07/25/17 12:55 162 MLS/HR Bisacodyl (Dulcolax Tab) 10 mg BID PO 07/20/17 12:00 08/19/17 11:59 07/29/17 08:17 10 MG Pantoprazole Sodium 40 mg/ Syringe 10 ml @ 5 mls/min DAILY@09,21 IV 07/20/17 21:00 08/19/17 20:59 07/29/17 08:18 5 MLS/MIN Ketorolac Tromethamine (Toradol Inj) 15 mg BID PRN IV. 07/22/17 20:45 08/01/17 20:43 07/28/17 19:15 15 MG Ketoconazole (Nizoral 2% Crm) 1 appln BID EXT 07/24/17 20:00 08/03/17 19:59 07/29/17 08:15 1 APPLN Enteral Nutritional Formula (Boost Glucose Control) 1 can TIDM PO 07/24/17 17:00 08/23/17 16:59 07/24/17 17:26 1 CAN Zolpidem Tartrate (Ambien Tab) 10 mg HS PRN PO 07/25/17 10:15 08/24/17 10:14 07/28/17 21:14 10 MG Ioversol (Optiray 320) 100 ml UD PRN IV 07/25/17 13:45 07/29/17 13:44 Insulin Aspart (novoLOG ASPART) SLIDING SCALE If CARB RA... ACHS SC 07/28/17 06:30 08/27/17 06:29 07/29/17 12:35 6 UNITS Potassium Chloride (Klor-Con Tab) 20 meq TID PO 07/28/17 14:00 08/27/17 13:59 07/29/17 08:17 20 MEQ Furosemide 40 mg/ Syringe 4 ml @ 4 mls/min BID17 IV 07/28/17 17:00 08/27/17 16:59 07/29/17 08:18 4 MLS/MIN Objective Vital Signs Date Time Temp Pulse Resp B/P (MAP) Pulse Ox O2 Delivery O2 Flow Rate FiO2 07/29/17 08:00 95 Room Air 07/29/17 07:13 36.5 84 16 143/71 (95) 92 07/29/17 00:05 36.6 86 20 144/72 (96) 94 Room Air 07/28/17 23:59 Room Air 07/28/17 16:02 Room Air 07/28/17 14:51 36.8 90 18 115/71 (86) 93 Room Air Physical Exam General Appearance: no apparent distress, + obese Eyes: normal inspection, EOMI, sclerae normal ENT: normal ENT inspection, hearing grossly normal, pharynx normal Neck: supple, no adenopathy, no JVD, trachea midline Respiratory/Chest: chest non-tender, lungs clear, normal breath sounds, no respiratory distress, no accessory muscle use Cardiovascular: regular rate, rhythm, no edema, no gallop, no JVD, no murmur Abdomen: normal bowel sounds, non tender, soft, no organomegaly Extremities: normal range of motion, non-tender, normal inspection, no calf tenderness, pelvis stable, + pedal edema (pitting edema, less today) Neurologic/Psychiatric: roller checker II-XII nml as tested, alert, normal mood/affect, oriented x 3, + motor weakness Skin: normal color, warm/dry, no rash Lymphatic: no adenopathy (a) Laboratory Results Last 24 Hours Test 07/28/17 17:44 07/28/17 20:44 07/29/17 07:26 Bedside Glucose 121 mg/dl 122 mg/dl 131 mg/dl Assessment and Plan 62 years old female with morbid obesity, DMII, dyslipidemia, jeane liver/ transaminitis, PCOS and GERD p/w DKA, severe sepsis and RLE cellulitis, she developed intestinal obstruction while in the hospital. - Severe sepsis POA, due to cellulitis -- resolved sepsis resolved, afebrile, WBC normal on last check, vitals stable ID recommended Ceftriaxone 14 days after last negative culture which was 07/11 , treatment complete continue wound care to right leg - Ileus: resolving slowly with conservative measures continues to have BM every day, advanced to full liquids today surgery following, will give diet recommendations + bowels sounds today - DKA, POA: resolved - TERESA: resolved, was due to dehydration - Volume overload, acute on chronic diastolic HF due to excessive hydration responding well to Lasix 40mg IV BID monitor I/O's and weight, - 2500cc yesterday - Right arm swelling could be due to PICC line in right arm improved with Lasix, hold on US for now DVT prophylaxis: Heparin Continued [facility] stay due to: ambulation difficulties, multiple IV medications needed Discharge planning: rehab hospital
[2017-07-29 15:14] VITALS: BP 130/72; PULSE 89; TEMP 36.7; O2SAT 94
[2017-07-29] MEDS: CEFTRIAXONE SOD INJ 2000 MG in DEXTROSE 5% 50ML IV SCH (17:56)
[2017-07-29] MEDS: PANTOprazole SOD 40 MG TAB PO SCH (20:10)
[2017-07-29] MEDS: INSULIN GLARGINE SOLOSTAR 100 UNITS/ML 3 ML PEN SQ SCH (21:44)
[2017-07-29] MEDS: ZOLPIDEM TARTRATE 10 MG TAB PO PRN (21:47)
[2017-07-29] MEDS: KETOROLAC TROMETHAMINE 15 MG/ML VIAL IV. PRN (21:48)
[2017-07-30 00:16] VITALS: BP 144/73; PULSE 92; TEMP 36.4; O2SAT 93
[2017-07-30] MEDS: HEPARIN SOD 5000 UNIT/0.5 ML CARP SQ SCH ×3 (06:13→21:18)
[2017-07-30 07:07] VITALS: BP 157/76; PULSE 87; TEMP 36.5; O2SAT 94
[2017-07-30] MEDS: KETOCONAZOLE 2% CR 15 GM TUBE EXT SCH ×2 (07:51→21:14)
[2017-07-30] MEDS: BOOST GLUCOSE CONTROL PO SCH ×3 (07:52→18:24)
[2017-07-30] MEDS: FUROSEMIDE INJ 40 MG in SYRINGE 0 ML IV SCH ×2 (07:52→17:11)
[2017-07-30] MEDS: IPRATROPIUM BROMIDE/ALBUTEROL respimat INH INH SCH ×4 (07:52→21:14)
[2017-07-30] MEDS: POTASSIUM CHLORIDE 20 MEQ TABCR PO SCH ×3 (07:53→21:14)
[2017-07-30] MEDS: PANTOprazole SOD 40 MG TAB PO SCH ×2 (07:54→21:15)
[2017-07-30] MEDS: BISACODYL 5 MG TABEC PO SCH ×2 (08:03→21:21)
--- NOTE | 2017-07-30 08:27 | Surgery Progress Note ---
Surgery Progress Note Date of Service Jul 30, 2017. Subjective + feeling well, + bowel movement, + flatus, + pain controlled, No nausea, No vomiting Objective Vital Signs: Date Time Temp Pulse Resp B/P (MAP) Pulse Ox O2 Delivery O2 Flow Rate FiO2 07/30/17 07:07 36.5 87 18 157/76 (103) 94 07/30/17 00:16 36.4 92 20 144/73 (96) 93 Room Air 07/30/17 00:00 Room Air 07/29/17 20:00 Room Air 07/29/17 16:00 Room Air 07/29/17 15:14 36.7 89 18 130/72 (91) 94 General Appearance: WD/WN, no apparent distress Abdomen: non tender, + distended Laboratory Results: Results Past 24 Hours Test 07/29/17 11:40 07/29/17 16:32 07/29/17 20:18 07/30/17 07:33 Range/Units Bedside Glucose 116 146 183 136 70-90 mg/dl Assessment & Plan 07/30/17 Ileus Patient seen and examined by Dr. Ortega. Patient moving bowels- multiple times yesterday. Tolerating full liquid diet. Can advance diet as tolerated. Abdomen still remains distended, but improving with conservative measures. General Surgery will sign off at this time. Please re-consult with any questions or concerns. 07/29/17 Ileus Patient continues to improve. Denies nausea or vomiting. Abdominal distention improving. Tolerating clear liquid diet- recommend advancing to full liquid diet for lunch and see how she tolerates. 07/28/17 Ileus KUB (07/27/17) reviewed by Dr. Ortega. AM labs reviewed. NG tube removed yesterday and patient started on clear liquid diet. Tolerating well. Denies nausea or vomiting. Passing large amounts of flatus, multiple bowel movements. Will continue to follow. 07/27/17 Ileus Patient seen and examined with Dr. Ortega. Patient improved today- +flatus, +multiple bowel movements, abdominal distention improved. KUB ordered for today to evaluate ileus. 07/26/17 Ileus Patient seen and examined with Dr. Ortega. Reviewed recent imaging- Diffuse gaseous distention of small and large bowel without evidence of obstruction, findings most compatible with ileus. Reviewed nutrition note from 07/23/17 NG tube placed with little to no output. Multiple bowel movements yesterday. TPN assessment ordered yesterday by hospitalist service. Will continue to follow closely. 07/25/17 Ileus not making progress radiology does not feel we will get good imaging from [facility] will replace NGT, recheck CT consider TPN/PPN
[2017-07-30] MEDS: INSULIN ASPART 100 UNITS/ML 3 ML PEN SC SCH ×4 (08:44→21:18)
[2017-07-30 14:09] VITALS: BP 151/77; PULSE 90; TEMP 37.8; O2SAT 93
[2017-07-30 14:39] VITALS: TEMP 37.2
[2017-07-30 14:42] LABS: BASO % 0.5 %; BASO ABS # 0.03 K/uL (0-0.2); EOS % 1.5 %; EOS ABS # 0.08 K/uL (0-0.5); HEMATOCRIT 31.2 % (37-47); HEMOGLOBIN 9.9 g/dL (12.0-16.0); IG# 0.02 K/uL (0.00-0.02); LYMPH % 18.3 %; MEAN CELL VOLUME 92.9 fL (80-100); MEAN CORPUSCULAR HEMOGLOBIN 29.5 pg (25-34); MEAN PLATELET VOLUME 9.4 fL (7.4-10.4); MONO % 7.3 %; NEUT ABS # 3.94 K/uL (1.4-6.5); PLATELET COUNT 220 K/uL (130-400); RED CELL DISTRIBUTION WIDTH CV 16.9 % (11.5-14.5); RED CELL DISTRIBUTION WIDTH SD 57.1 fL (36.4-46.3); WHITE BLOOD COUNT 5.47 K/uL (4.8-10.8)
[2017-07-30 14:52] LABS: MEAN CORPUSCULAR HGB CONC 31.7 g/dl (32-36)
[2017-07-30 15:08] LABS: ALBUMIN 1.9 gm/dl (3.4-5.0); ALKALINE PHOSPHATASE 92 U/L (45-117); ALT/SGPT 12 U/L (12-78); AST/SGOT 21 U/L (15-37); BLOOD UREA NITROGEN 5 mg/dl (7-18); CALCIUM 7.8 mg/dl (8.5-10.1); CARBON DIOXIDE 27 mmol/L (21-32); CREATININE 0.87 mg/dl (0.60-1.20); GLUCOSE 178 mg/dl (70-99); SODIUM 140 mmol/L (136-145); TOTAL PROTEIN 5.7 gm/dl (6.4-8.2)
[2017-07-30] MEDS ORDERED: MAGNESIUM SULFATE 1GM / D5W 2 GM in PREMIXED IN D5W 100 ML IV SCH (15:30)
[2017-07-30 16:00] VITALS: O2SAT 93
[2017-07-30] MEDS: MAGNESIUM SULFATE 1GM / D5W 100 ML IV SCH ×2 (16:18→17:11)
[2017-07-30] MEDS: CEFTRIAXONE SOD INJ 2000 MG in DEXTROSE 5% 50ML IV SCH (18:23)
[2017-07-30] MEDS: INSULIN GLARGINE SOLOSTAR 100 UNITS/ML 3 ML PEN SQ SCH (21:20)
[2017-07-30] MEDS: KETOROLAC TROMETHAMINE 15 MG/ML VIAL IV. PRN (21:36)
[2017-07-30] MEDS: ZOLPIDEM TARTRATE 10 MG TAB PO PRN (21:37)
[2017-07-30] MEDS ORDERED: PIPERACILL/TAZOBAC CONSULT ACTIVE PRN (21:45)
--- NOTE | 2017-07-30 21:53 | Progress Note ---
Subjective Date of Service: Jul 30, 2017. Subjective Pt evaluation today including: conversation w/ patient, conversation w/ family , physical exam, lab review, conversation w/ car sales consultant, review of inpatient medication list Pain: no pain PO Intake: adequate Voiding: brown catheter in place patient advanced to light diet today, tolerated well, surgery signed off patient was doing well in the morning after lunch she was c/o feeling weak, fatigued, dizzy and she had a low grade temperature checked CBC which was normal, BMP showed low K at 3.0, low mag at 1.4 troponin negative, ESR and CRP both slightly high right lower leg still red, slightly tender, but wound improving per patient and daughter UA showed > 30WBC suggesting a UTI associated with the catheter urine culture sent Problem List Medical Problems: (1) Bilateral leg pain Status: Acute (2) DKA (diabetic ketoacidosis) Status: Acute (3) Left foot pain Status: Acute (4) Left hip pain Status: Acute (5) Left knee pain Status: Acute (6) Right shoulder pain Status: Acute (7) Sepsis Status: Acute Review of Systems Constitutional: + fever, + chills, + sweats, + weakness, + fatigue Neurologic: + weakness All Other Systems: Reviewed and Negative Medications Current Inpatient Medications Medications (Trade) Dose Ordered Sig/Oxana Route Start Time Stop Time Status Last Admin Dose Admin Glucose (Glucose 40% Gel) 15-30 GRAMS 15 GRAMS... UD PRN PO 07/09/17 10:00 08/08/17 09:59 Glucose (Glucose Chew Tab) 4-8 Tablets 4 Tabl... UD PRN PO 07/09/17 10:00 08/08/17 09:59 Dextrose (Dextrose 50% 50ML Syringe) 25-50ML OF 50% DW IV FOR... UD PRN IV 07/09/17 10:00 08/08/17 09:59 Glucagon (Glucagon Inj) 1 mg UD PRN SQ 07/09/17 10:00 08/08/17 09:59 Heparin Sodium (Porcine) (Heparin Sq 5000 Unit/0.5ml) 5,000 unit Q8 SQ 07/09/17 14:00 08/08/17 13:59 07/30/17 21:18 5,000 UNIT Acetaminophen (Tylenol Tab) 650 mg Q4H PRN PO 07/09/17 10:15 08/08/17 10:14 Future hold 07/20/17 07:43 650 MG Al Hydrox/Mg Hydrox/Simethicone (Maalox Max Susp) 15 ml Q4H PRN PO 07/09/17 10:15 08/08/17 10:14 Future Hold 07/19/17 16:58 15 ML Magnesium Hydroxide (Milk Of Magnesia Susp) 30 ml Q12H PRN PO 07/09/17 10:15 08/08/17 10:14 Future Hold 07/16/17 21:20 30 ML Ondansetron HCl (Zofran Inj) 4 mg Q6H PRN IV 07/09/17 10:15 08/08/17 10:14 07/25/17 03:03 4 MG Miscellaneous Information (Consult Glycemic Management Pharmacy) 1 ea UD PRN N/A 07/09/17 11:10 08/08/17 11:09 Cetirizine HCl (zyrTEC TAB) 10 mg DAILY PO 07/10/17 09:00 08/09/17 08:59 Future Hold 07/20/17 07:44 10 MG Fenofibrate (Tricor Tab) 145 mg DAILY PO 07/10/17 09:00 08/09/17 08:59 Future Hold 07/20/17 07:43 145 MG Simvastatin (Zocor Tab) 40 mg QPM PO 07/09/17 21:00 08/08/17 20:59 Future Hold 07/19/17 21:11 40 MG Pantoprazole Sodium (Protonix Tab) 40 mg QAM PO 07/10/17 09:00 08/09/17 08:59 Future Hold 07/20/17 07:44 40 MG Lactobacillus Acidophilus (Floranex Tab) 4 tab TIDM PO 07/09/17 16:45 08/08/17 16:44 Future Hold 07/20/17 11:34 4 TAB Ceftriaxone Sodium 2000 mg/ Dextrose 70 ml @ 140 mls/hr DAILY@1800 IV 07/11/17 18:00 08/01/17 17:59 07/30/17 18:23 140 MLS/HR Loperamide HCl (Imodium Cap) 2 mg Q6 PRN PO 07/12/17 12:45 08/11/17 12:44 Future Hold 07/12/17 13:14 2 MG Furosemide (Lasix Tab) 40 mg DAILY PO 07/13/17 09:00 08/10/17 08:59 Future Hold 07/20/17 07:44 40 MG Albuterol/ Ipratropium (Combivent Respimat Inh) 1 puffs QID INH 07/12/17 21:00 08/11/17 20:59 07/30/17 21:14 1 PUFFS Heparin Sodium (Porcine) (Heparin 10 Unit/ ml 5 ml Flush) 5 ml PRN PRN FLUSH 07/14/17 12:00 08/13/17 11:59 07/30/17 14:27 5 ML Insulin Glargine (Lantus Solostar Pen) SEE PROTOCOL TEXT HS SQ 07/18/17 22:00 08/17/17 21:59 07/30/17 21:20 18 UNITS Polyethylene (Miralax Powder Packet) 17 gm QID PO 07/18/17 12:00 08/08/17 10:14 Future Hold 07/19/17 17:38 17 GM Promethazine HCl 25 mg/Sodium Chloride 51 ml @ 204 mls/hr Q6H PRN IV 07/19/17 22:45 08/18/17 22:44 07/24/17 19:44 204 MLS/HR Metoclopramide HCl 20 mg/Sodium Chloride 54 ml @ 162 mls/hr Q6H PRN IV 07/20/17 03:30 08/19/17 03:29 07/25/17 12:55 162 MLS/HR Bisacodyl (Dulcolax Tab) 10 mg BID PO 07/20/17 12:00 08/19/17 11:59 07/30/17 08:03 10 MG Ketoconazole (Nizoral 2% Crm) 1 appln BID EXT 07/24/17 20:00 08/03/17 19:59 07/30/17 21:14 1 APPLN Enteral Nutritional Formula (Boost Glucose Control) 1 can TIDM PO 07/24/17 17:00 08/23/17 16:59 07/24/17 17:26 1 CAN Zolpidem Tartrate (Ambien Tab) 10 mg HS PRN PO 07/25/17 10:15 08/24/17 10:14 07/29/17 21:47 10 MG Insulin Aspart (novoLOG ASPART) SLIDING SCALE If CARB RA... ACHS SC 07/28/17 06:30 08/27/17 06:29 07/30/17 21:18 1 UNITS Furosemide 40 mg/ Syringe 4 ml @ 4 mls/min BID17 IV 07/28/17 17:00 08/27/17 16:59 07/30/17 17:11 4 MLS/MIN Pantoprazole Sodium (Protonix Tab) 40 mg BID PO 07/29/17 20:00 08/28/17 19:59 07/30/17 21:15 40 MG Metolazone (Zaroxolyn Tab) 5 mg QAM PO 07/31/17 08:00 08/30/17 07:59 Ketorolac Tromethamine (Toradol Inj) 15 mg Q6H PRN IV. 07/30/17 13:00 08/01/17 20:43 Potassium Chloride (Klor-Con Tab) 40 meq TID PO 07/30/17 20:00 08/27/17 13:59 07/30/17 21:14 40 MEQ Objective Vital Signs Date Time Temp Pulse Resp B/P (MAP) Pulse Ox O2 Delivery O2 Flow Rate FiO2 07/30/17 16:00 93 Room Air 07/30/17 14:39 37.2 07/30/17 14:09 37.8 90 20 151/77 (101) 93 07/30/17 08:00 Room Air 07/30/17 07:07 36.5 87 18 157/76 (103) 94 07/30/17 00:16 36.4 92 20 144/73 (96) 93 Room Air 07/30/17 00:00 Room Air Physical Exam General Appearance: no apparent distress, + obese Eyes: normal inspection, EOMI, sclerae normal ENT: normal ENT inspection, hearing grossly normal, pharynx normal Neck: supple, no adenopathy, no JVD, trachea midline Respiratory/Chest: chest non-tender, lungs clear, normal breath sounds, no respiratory distress, no accessory muscle use Cardiovascular: regular rate, rhythm, no gallop, no JVD, no murmur Abdomen: normal bowel sounds, non tender, soft, no organomegaly Extremities: normal range of motion, non-tender, normal inspection, no calf tenderness, pelvis stable, + pedal edema (pitting, 2+ to below the knee) Neurologic/Psychiatric: assembler 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-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 as tested, alert, normal mood/affect, oriented x 3, + motor weakness Skin: + pertinent finding (right lower leg erythema, tender, hot to touch) Lymphatic: no adenopathy Laboratory Results Last 24 Hours Test 07/30/17 07:33 07/30/17 11:36 07/30/17 14:27 07/30/17 16:53 Bedside Glucose 136 mg/dl 126 mg/dl 179 mg/dl White Blood Count 5.47 K/uL Red Blood Count 3.36 M/uL Hemoglobin 9.9 g/dL Hematocrit 31.2 % Mean Corpuscular Volume 92.9 fL Mean Corpuscular Hemoglobin 29.5 pg Mean Corpuscular Hemoglobin Concent 31.7 g/dl Platelet Count 220 K/uL Mean Platelet Volume 9.4 fL Neutrophils (%) (Auto) 72.0 % Lymphocytes (%) (Auto) 18.3 % Monocytes (%) (Auto) 7.3 % Eosinophils (%) (Auto) 1.5 % Basophils (%) (Auto) 0.5 % Neutrophils # (Auto) 3.94 K/uL Lymphocytes # (Auto) 1.00 K/uL Monocytes # (Auto) 0.40 K/uL Eosinophils # (Auto) 0.08 K/uL Basophils # (Auto) 0.03 K/uL RDW Standard Deviation 57.1 fL RDW Coefficient of Variation 16.9 % Immature Granulocyte % (Auto) 0.4 % Immature Granulocyte # (Auto) 0.02 K/uL Erythrocyte Sedimentation Rate 37 mm/hr Sodium Level 140 mmol/L Potassium Level 3.0 mmol/L Chloride Level 109 mmol/L Carbon Dioxide Level 27 mmol/L Anion Gap 4.0 mmol/L Blood Urea Nitrogen 5 mg/dl Creatinine 0.87 mg/dl Est Creatinine Clear Calc Drug Dose 97.0 ml/min Estimated GFR () 82.2 Estimated GFR (Non- 70.9 BUN/Creatinine Ratio 6.0 Random Glucose 178 mg/dl Calcium Level 7.8 mg/dl Magnesium Level 1.4 mg/dl Total Bilirubin 0.3 mg/dl Direct Bilirubin 0.1 mg/dl Aspartate Amino Transf (AST/SGOT) 21 U/L Alanine Aminotransferase (ALT/SGPT) 12 U/L Alkaline Phosphatase 92 U/L Troponin I < 0.015 ng/ml C-Reactive Protein 2.22 mg/dl Total Protein 5.7 gm/dl Albumin 1.9 gm/dl Test 07/30/17 17:15 07/30/17 19:57 Urine Color DK YELLOW Urine Appearance CLEAR Urine pH 5.5 Urine Specific [place] 1.019 Urine Protein TRACE Urine Glucose (UA) NEG Urine Ketones NEG Urine Occult Blood TRACE Urine Nitrite NEG Urine Bilirubin NEG Urine Urobilinogen NEG Urine Leukocyte Esterase MODERATE Urine WBC (Auto) >30 /hpf Urine RBC (Auto) 5-10 /hpf Urine Hyaline Casts (Auto) 1-5 /lpf Urine Epithelial Cells (Auto) >30 /lpf Urine Bacteria (Auto) NEG Urine Pathogenic Casts /lpf Urine Yeast (Auto) PRESENT Bedside Glucose 167 mg/dl Assessment and Plan 62 years old female with morbid obesity, DMII, dyslipidemia, jeane liver/ transaminitis, PCOS and GERD p/w DKA, severe sepsis and RLE cellulitis, she developed intestinal obstruction while in the hospital. - Severe sepsis POA, due to cellulitis sepsis resolved, afebrile, WBC normal at 5k ID recommended Ceftriaxone 14 days after last negative culture which was 07/11 , treatment complete continue wound care to right leg still erythematous and warm - Ileus: resolved with conservative measures continues to have BM every day, advanced to light diet today advance diet further as tolerated - UTI due to indwelling brown urine culture sent, start on Zosyn on 07/30 fevers, but vitals stable and WBC normal - DKA, POA: resolved - TERESA: resolved, was due to dehydration - Volume overload, acute on chronic diastolic HF due to excessive hydration responding well to Lasix 40mg IV BID monitor I/O's and weight, - 7500cc past 4 days - Right arm swelling could be due to PICC line in right arm improved with Lasix, hold on US for now DVT prophylaxis: Heparin disposition: plan for rehab once medically stable Continued [facility] stay due to: ambulation difficulties, multiple IV medications needed Discharge planning: rehab hospital
[2017-07-30] MEDS ORDERED: PIPERACILL/TAZOBAC IV 4.5 GM in SODIUM CHLORIDE 0.9% 100ML 100 ML IV ONE (22:00)
[2017-07-30 23:51] VITALS: BP 156/73; PULSE 88; TEMP 36.5; O2SAT 94
[2017-07-31] MEDS: PIPERACILL/TAZOBAC IV 4.5 GM in SODIUM CHLORIDE 0.9% 100ML 100 ML IV SCH ×2 (01:47→09:55)
[2017-07-31] MEDS: HEPARIN SOD 5000 UNIT/0.5 ML CARP SQ SCH ×3 (05:29→21:53)
[2017-07-31 06:38] LABS: BASO % 0.8 %; BASO ABS # 0.04 K/uL (0-0.2); EOS % 2.5 %; EOS ABS # 0.13 K/uL (0-0.5); HEMOGLOBIN 9.9 g/dL (12.0-16.0); IG# 0.01 K/uL (0.00-0.02); LYMPH % 21.3 %; LYMPH ABS # 1.11 K/uL (1.2-3.4); MEAN CELL VOLUME 93.8 fL (80-100); MEAN CORPUSCULAR HGB CONC 30.9 g/dl (32-36); MEAN PLATELET VOLUME 9.6 fL (7.4-10.4); MONO % 7.5 %; MONO ABS # 0.39 K/uL (0.11-0.59); NEUT % 67.7 %; NEUT ABS # 3.53 K/uL (1.4-6.5); PLATELET COUNT 227 K/uL (130-400); RED CELL DISTRIBUTION WIDTH CV 16.9 % (11.5-14.5); RED CELL DISTRIBUTION WIDTH SD 57.6 fL (36.4-46.3); WHITE BLOOD COUNT 5.21 K/uL (4.8-10.8)
[2017-07-31 07:04] LABS: CALCIUM 7.8 mg/dl (8.5-10.1); CREATININE 0.81 mg/dl (0.60-1.20)
[2017-07-31 07:22] VITALS: BP 135/65; PULSE 82; TEMP 36.6; O2SAT 94
[2017-07-31] MEDS: BOOST GLUCOSE CONTROL PO SCH ×2 (08:00→12:00)
[2017-07-31] MEDS: POTASSIUM CHLORIDE 20 MEQ TABCR PO SCH ×3 (08:07→21:47)
[2017-07-31] MEDS: IPRATROPIUM BROMIDE/ALBUTEROL respimat INH INH SCH ×4 (08:08→21:42)
[2017-07-31] MEDS: KETOCONAZOLE 2% CR 15 GM TUBE EXT SCH ×2 (08:08→21:44)
[2017-07-31] MEDS: PANTOprazole SOD 40 MG TAB PO SCH ×2 (08:09→21:48)
[2017-07-31] MEDS: METOLAZONE 5 MG TAB PO SCH (08:09)
[2017-07-31 08:28] VITALS: O2SAT 94
[2017-07-31] MEDS: INSULIN ASPART 100 UNITS/ML 3 ML PEN SC SCH ×4 (08:53→21:51)
[2017-07-31] MEDS: FUROSEMIDE INJ 40 MG in SYRINGE 0 ML IV SCH ×2 (09:45→18:00)
[2017-07-31] MEDS ORDERED: BOOST GLUCOSE CONTROL PO SCH (12:00)
--- NOTE | 2017-07-31 14:18 | Progress Note ---
Subjective Date of Service: Jul 31, 2017. Subjective Pt evaluation today including: conversation w/ patient, conversation w/ family , physical exam, lab review, review of inpatient medication list Pain: no pain PO Intake: adequate Voiding: brown catheter in place patient continues to have bowel movements everyday, eating well feels better overall compared to yesterday, less weak, head is clearer, no low grade temperatures discussed that UA showed signs of infection, changed antibiotics to Zosyn on culture, urine growing Terri, will give Diflucan reviewed labs, K still low at 3.0, Cr is stable, mag normal at 1.8 sugars stable WBC normal Problem List Medical Problems: (1) Bilateral leg pain Status: Acute (2) DKA (diabetic ketoacidosis) Status: Acute (3) Left foot pain Status: Acute (4) Left hip pain Status: Acute (5) Left knee pain Status: Acute (6) Right shoulder pain Status: Acute (7) Sepsis Status: Acute Review of Systems Constitutional: + weakness, + fatigue Cardiac: + edema Neurologic: + weakness Skin: + rash (right lower leg) All Other Systems: Reviewed and Negative Medications Current Inpatient Medications Medications (Trade) Dose Ordered Sig/Oxana Route Start Time Stop Time Status Last Admin Dose Admin Glucose (Glucose 40% Gel) 15-30 GRAMS 15 GRAMS... UD PRN PO 07/09/17 10:00 08/08/17 09:59 Glucose (Glucose Chew Tab) 4-8 Tablets 4 Tabl... UD PRN PO 07/09/17 10:00 08/08/17 09:59 Dextrose (Dextrose 50% 50ML Syringe) 25-50ML OF 50% DW IV FOR... UD PRN IV 07/09/17 10:00 08/08/17 09:59 Glucagon (Glucagon Inj) 1 mg UD PRN SQ 07/09/17 10:00 08/08/17 09:59 Heparin Sodium (Porcine) (Heparin Sq 5000 Unit/0.5ml) 5,000 unit Q8 SQ 07/09/17 14:00 08/08/17 13:59 07/31/17 05:29 5,000 UNIT Acetaminophen (Tylenol Tab) 650 mg Q4H PRN PO 07/09/17 10:15 08/08/17 10:14 Future hold 07/20/17 07:43 650 MG Al Hydrox/Mg Hydrox/Simethicone (Maalox Max Susp) 15 ml Q4H PRN PO 07/09/17 10:15 08/08/17 10:14 Future Hold 07/19/17 16:58 15 ML Magnesium Hydroxide (Milk Of Magnesia Susp) 30 ml Q12H PRN PO 07/09/17 10:15 08/08/17 10:14 Future Hold 07/16/17 21:20 30 ML Ondansetron HCl (Zofran Inj) 4 mg Q6H PRN IV 07/09/17 10:15 08/08/17 10:14 07/25/17 03:03 4 MG Miscellaneous Information (Consult Glycemic Management Pharmacy) 1 ea UD PRN N/A 07/09/17 11:10 08/08/17 11:09 Cetirizine HCl (zyrTEC TAB) 10 mg DAILY PO 07/10/17 09:00 08/09/17 08:59 Future Hold 07/20/17 07:44 10 MG Fenofibrate (Tricor Tab) 145 mg DAILY PO 07/10/17 09:00 08/09/17 08:59 Future Hold 07/20/17 07:43 145 MG Simvastatin (Zocor Tab) 40 mg QPM PO 07/09/17 21:00 08/08/17 20:59 Future Hold 07/19/17 21:11 40 MG Pantoprazole Sodium (Protonix Tab) 40 mg QAM PO 07/10/17 09:00 08/09/17 08:59 Future Hold 07/20/17 07:44 40 MG Lactobacillus Acidophilus (Floranex Tab) 4 tab TIDM PO 07/09/17 16:45 08/08/17 16:44 Future Hold 07/20/17 11:34 4 TAB Loperamide HCl (Imodium Cap) 2 mg Q6 PRN PO 07/12/17 12:45 08/11/17 12:44 Future Hold 07/12/17 13:14 2 MG Furosemide (Lasix Tab) 40 mg DAILY PO 07/13/17 09:00 08/10/17 08:59 Future Hold 07/20/17 07:44 40 MG Albuterol/ Ipratropium (Combivent Respimat Inh) 1 puffs QID INH 07/12/17 21:00 08/11/17 20:59 07/31/17 12:58 1 PUFFS Heparin Sodium (Porcine) (Heparin 10 Unit/ ml 5 ml Flush) 5 ml PRN PRN FLUSH 07/14/17 12:00 08/13/17 11:59 07/31/17 06:03 5 ML Insulin Glargine (Lantus Solostar Pen) SEE PROTOCOL TEXT HS SQ 07/18/17 22:00 08/17/17 21:59 07/30/17 21:20 18 UNITS Polyethylene (Miralax Powder Packet) 17 gm QID PO 07/18/17 12:00 08/08/17 10:14 Future Hold 07/19/17 17:38 17 GM Promethazine HCl 25 mg/Sodium Chloride 51 ml @ 204 mls/hr Q6H PRN IV 07/19/17 22:45 08/18/17 22:44 07/24/17 19:44 204 MLS/HR Metoclopramide HCl 20 mg/Sodium Chloride 54 ml @ 162 mls/hr Q6H PRN IV 07/20/17 03:30 08/19/17 03:29 07/25/17 12:55 162 MLS/HR Bisacodyl (Dulcolax Tab) 10 mg BID PO 07/20/17 12:00 08/19/17 11:59 07/30/17 08:03 10 MG Ketoconazole (Nizoral 2% Crm) 1 appln BID EXT 07/24/17 20:00 08/03/17 19:59 07/31/17 08:08 1 APPLN Zolpidem Tartrate (Ambien Tab) 10 mg HS PRN PO 07/25/17 10:15 08/24/17 10:14 07/30/17 21:37 10 MG Insulin Aspart (novoLOG ASPART) SLIDING SCALE If CARB RA... ACHS SC 07/28/17 06:30 08/27/17 06:29 07/31/17 13:17 12 UNITS Furosemide 40 mg/ Syringe 4 ml @ 4 mls/min BID17 IV 07/28/17 17:00 08/27/17 16:59 07/31/17 09:45 4 MLS/MIN Pantoprazole Sodium (Protonix Tab) 40 mg BID PO 07/29/17 20:00 08/28/17 19:59 07/31/17 08:09 40 MG Metolazone (Zaroxolyn Tab) 5 mg QAM PO 07/31/17 08:00 08/30/17 07:59 07/31/17 08:09 5 MG Ketorolac Tromethamine (Toradol Inj) 15 mg Q6H PRN IV. 07/30/17 13:00 08/01/17 20:43 07/30/17 21:36 15 MG Potassium Chloride (Klor-Con Tab) 40 meq TID PO 07/30/17 20:00 08/27/17 13:59 07/31/17 08:07 40 MEQ Miscellaneous Information (Consult) 1 ea UD PRN N/A 07/30/17 21:45 08/29/17 21:44 Piperacillin Sod/ Tazobactam Sod 4.5 gm/Sodium Chloride 120 ml @ 30 mls/hr Q8H IV 07/31/17 02:00 08/10/17 01:59 07/31/17 09:55 30 MLS/HR Objective Vital Signs Date Time Temp Pulse Resp B/P (MAP) Pulse Ox O2 Delivery O2 Flow Rate FiO2 07/31/17 08:28 94 Room Air 07/31/17 07:22 36.6 82 22 135/65 (88) 94 Room Air 07/31/17 00:00 Room Air 07/30/17 23:51 36.5 88 22 156/73 (100) 94 Room Air 07/30/17 16:00 93 Room Air 07/30/17 14:39 37.2 Physical Exam General Appearance: no apparent distress, + obese Eyes: normal inspection, EOMI, sclerae normal ENT: normal ENT inspection, hearing grossly normal, pharynx normal Neck: supple, no adenopathy, no JVD, trachea midline Respiratory/Chest: chest non-tender, lungs clear, normal breath sounds, no respiratory distress, no accessory muscle use Cardiovascular: regular rate, rhythm, no gallop, no JVD, no murmur Abdomen: normal bowel sounds, non tender, soft, no organomegaly Extremities: normal range of motion, non-tender, normal inspection, no calf tenderness, normal capillary refill, pelvis stable, + pedal edema (pitting to mid collins, improving slowly) Neurologic/Psychiatric: swage tender II-XII nml as tested, alert, normal mood/affect, oriented x 3, + motor weakness Skin: + rash (right lower leg erythema) Laboratory Results Last 24 Hours Test 07/30/17 14:27 07/30/17 16:53 07/30/17 17:15 07/30/17 19:57 White Blood Count 5.47 K/uL Red Blood Count 3.36 M/uL Hemoglobin 9.9 g/dL Hematocrit 31.2 % Mean Corpuscular Volume 92.9 fL Mean Corpuscular Hemoglobin 29.5 pg Mean Corpuscular Hemoglobin Concent 31.7 g/dl Platelet Count 220 K/uL Mean Platelet Volume 9.4 fL Neutrophils (%) (Auto) 72.0 % Lymphocytes (%) (Auto) 18.3 % Monocytes (%) (Auto) 7.3 % Eosinophils (%) (Auto) 1.5 % Basophils (%) (Auto) 0.5 % Neutrophils # (Auto) 3.94 K/uL Lymphocytes # (Auto) 1.00 K/uL Monocytes # (Auto) 0.40 K/uL Eosinophils # (Auto) 0.08 K/uL Basophils # (Auto) 0.03 K/uL RDW Standard Deviation 57.1 fL RDW Coefficient of Variation 16.9 % Immature Granulocyte % (Auto) 0.4 % Immature Granulocyte # (Auto) 0.02 K/uL Erythrocyte Sedimentation Rate 37 mm/hr Sodium Level 140 mmol/L Potassium Level 3.0 mmol/L Chloride Level 109 mmol/L Carbon Dioxide Level 27 mmol/L Anion Gap 4.0 mmol/L Blood Urea Nitrogen 5 mg/dl Creatinine 0.87 mg/dl Est Creatinine Clear Calc Drug Dose 97.0 ml/min Estimated GFR () 82.2 Estimated GFR (Non- 70.9 BUN/Creatinine Ratio 6.0 Random Glucose 178 mg/dl Calcium Level 7.8 mg/dl Magnesium Level 1.4 mg/dl Total Bilirubin 0.3 mg/dl Direct Bilirubin 0.1 mg/dl Aspartate Amino Transf (AST/SGOT) 21 U/L Alanine Aminotransferase (ALT/SGPT) 12 U/L Alkaline Phosphatase 92 U/L Troponin I < 0.015 ng/ml C-Reactive Protein 2.22 mg/dl Total Protein 5.7 gm/dl Albumin 1.9 gm/dl Bedside Glucose 179 mg/dl 167 mg/dl Urine Color DK YELLOW Urine Appearance CLEAR Urine pH 5.5 Urine Specific Taylor 1.019 Urine Protein TRACE Urine Glucose (UA) NEG Urine Ketones NEG Urine Occult Blood TRACE Urine Nitrite NEG Urine Bilirubin NEG Urine Urobilinogen NEG Urine Leukocyte Esterase MODERATE Urine WBC (Auto) >30 /hpf Urine RBC (Auto) 5-10 /hpf Urine Hyaline Casts (Auto) 1-5 /lpf Urine Epithelial Cells (Auto) >30 /lpf Urine Bacteria (Auto) NEG Urine Pathogenic Casts /lpf Urine Yeast (Auto) PRESENT Test 07/31/17 05:24 07/31/17 07:51 White Blood Count 5.21 K/uL Red Blood Count 3.41 M/uL Hemoglobin 9.9 g/dL Hematocrit 32.0 % Mean Corpuscular Volume 93.8 fL Mean Corpuscular Hemoglobin 29.0 pg Mean Corpuscular Hemoglobin Concent 30.9 g/dl Platelet Count 227 K/uL Mean Platelet Volume 9.6 fL Neutrophils (%) (Auto) 67.7 % Lymphocytes (%) (Auto) 21.3 % Monocytes (%) (Auto) 7.5 % Eosinophils (%) (Auto) 2.5 % Basophils (%) (Auto) 0.8 % Neutrophils # (Auto) 3.53 K/uL Lymphocytes # (Auto) 1.11 K/uL Monocytes # (Auto) 0.39 K/uL Eosinophils # (Auto) 0.13 K/uL Basophils # (Auto) 0.04 K/uL RDW Standard Deviation 57.6 fL RDW Coefficient of Variation 16.9 % Immature Granulocyte % (Auto) 0.2 % Immature Granulocyte # (Auto) 0.01 K/uL Sodium Level 142 mmol/L Potassium Level 3.0 mmol/L Chloride Level 109 mmol/L Carbon Dioxide Level 28 mmol/L Anion Gap 5.0 mmol/L Blood Urea Nitrogen 7 mg/dl Creatinine 0.81 mg/dl Est Creatinine Clear Calc Drug Dose 104.2 ml/min Estimated GFR () 89.6 Estimated GFR (Non- 77.3 BUN/Creatinine Ratio 8.8 Random Glucose 143 mg/dl Calcium Level 7.8 mg/dl Magnesium Level 1.8 mg/dl Bedside Glucose 159 mg/dl Assessment and Plan 62 years old female with morbid obesity, DMII, dyslipidemia, jeane liver/ transaminitis, PCOS and GERD p/w DKA, severe sepsis and RLE cellulitis, she developed intestinal obstruction while in the hospital. - Severe sepsis POA, due to cellulitis sepsis resolved, afebrile, WBC normal for several days ID recommended Ceftriaxone 14 days after last negative culture which was 07/11 , treatment complete continue wound care to right leg still erythematous and warm, may need to resume PO antibiotics, will observe another 24 hours - Ileus: resolved with conservative measures continues to have BM every day, advanced to light diet yesterday, tolerating well advance diet further as tolerated - UTI due to indwelling brown urine culture growing Terri albicans will give Diflucan 200mg IV now start 100mg daily tomorrow AM stop Zosyn - Hypokalemia: continue 40mEq PO TID, monitor K levels - DKA, POA: resolved - TEERSA: resolved, was due to dehydration - Volume overload, acute on chronic diastolic HF due to excessive hydration responding well to Lasix 40mg IV BID but still with edema Zaroxolyn added prior to AM dose this morning, responding well, will continue every day monitor I/O's and weight, - [id number] past 5 days - Right arm swelling could be due to PICC line in right arm improved with Lasix, hold on US for now DVT prophylaxis: Heparin disposition: plan for rehab once medically stable, unsure of when that will be Continued [facility] stay due to: ambulation difficulties, multiple IV medications needed Discharge planning: rehab hospital
[2017-07-31] MEDS: BISACODYL 5 MG TABEC PO SCH ×2 (14:55→20:00)
--- NOTE | 2017-07-31 15:07 | Pharmacy Progress Note ---
Glycemic: Assessment & Plan Date of Service Jul 31, 2017. Assessment & Plan The patient is currently receiving 42 units of insulin per day. BSGs ranging 120 - 160 mg/dl over the past 24hrs. It is noted that lunch BSg was elevated, but as patient has been fairly stable on current regimen for the past few days, will not react unless a trend is established. * Basal insulin: Lantus scale as per BSG every evening * Correctional Insulin: Novolog Correction per scale ACHS Goal Range: Low 120 mg/dL - High 160 mg/dL Correction Factor: 25 mg/dL/unit * Prandial insulin: Per carb ratio of 1 unit per 7 grams CHO consumed BSGs continue to improve, no changes needed to inpatient regimen at this time. Pharmacy will continue to monitor patient daily and write orders per [facility] inpatient glycemic control protocol. Thanks. * Please note that the plan above was derived based on current level of insulin resistance and hospital stress. These recommendations are appropriate for inpatient admission only. Plan of care upon discharge will need to be reassessed to avoid potential outpatient hypo/hyperglycemia.
[2017-07-31 15:19] VITALS: BP 120/68; PULSE 85; TEMP 36.8; O2SAT 96
[2017-07-31] MEDS ORDERED: FLUCONAZOLE / NSS 200 MG in PREMIXED NSS 100 ML IV SCH (15:30)
[2017-07-31 16:28] VITALS: O2SAT 98
[2017-07-31] MEDS: INSULIN GLARGINE SOLOSTAR 100 UNITS/ML 3 ML PEN SQ SCH (21:52)
[2017-07-31] MEDS: ZOLPIDEM TARTRATE 10 MG TAB PO PRN (22:16)
[2017-07-31] MEDS: KETOROLAC TROMETHAMINE 15 MG/ML VIAL IV. PRN (22:17)
[2017-07-31 23:30] VITALS: BP 157/73; PULSE 91; TEMP 36.7; O2SAT 93
[2017-08-01 00:05] VITALS: O2SAT 98
[2017-08-01] MEDS: HEPARIN SOD 5000 UNIT/0.5 ML CARP SQ SCH ×3 (06:28→21:30)
[2017-08-01 07:30] VITALS: BP 142/73; PULSE 82; TEMP 36.5; O2SAT 95
[2017-08-01] MEDS: BISACODYL 5 MG TABEC PO SCH ×2 (08:00→20:00)
[2017-08-01] MEDS: POTASSIUM CHLORIDE 20 MEQ TABCR PO SCH ×3 (08:08→20:32)
[2017-08-01] MEDS: IPRATROPIUM BROMIDE/ALBUTEROL respimat INH INH SCH ×4 (08:08→20:31)
[2017-08-01] MEDS: PANTOprazole SOD 40 MG TAB PO SCH ×2 (08:08→20:31)
[2017-08-01] MEDS: METOLAZONE 5 MG TAB PO SCH (08:08)
[2017-08-01] MEDS: FUROSEMIDE INJ 40 MG in SYRINGE 0 ML IV SCH ×2 (08:09→16:33)
[2017-08-01] MEDS: KETOCONAZOLE 2% CR 15 GM TUBE EXT SCH ×2 (08:09→20:31)
[2017-08-01] MEDS: INSULIN ASPART 100 UNITS/ML 3 ML PEN SC SCH ×4 (08:13→21:29)
[2017-08-01] MEDS ORDERED: INSULIN GLARGINE SOLOSTAR 100 UNITS/ML 3 ML PEN SQ SCH (09:00)
[2017-08-01] MEDS: ACETAMINOPHEN 325 MG TAB PO PRN ×3 (11:59→21:28)
[2017-08-01] MEDS: KETOROLAC TROMETHAMINE 15 MG/ML VIAL IV. PRN (11:59)
--- NOTE | 2017-08-01 12:36 | Pharmacy Progress Note ---
Pharmacy Glycemic Short Note 2 Date of Service Aug 01, 2017. OUTPATIENT ANTIDIABETIC REGIMEN: * Lantus 60-70 units at bedtime and Novolog with scale 40-50 with meals * Metformin Item Value Date Time Bedside Glucose 159 mg/dl H 07/31/17 0751 Bedside Glucose 242 mg/dl H 07/31/17 1110 Bedside Glucose 158 mg/dl H 07/31/17 1734 Bedside Glucose 191 mg/dl H 07/31/17 2116 Bedside Glucose 207 mg/dl H 08/01/17 0806 Bedside Glucose 182 mg/dl H 08/01/17 1158 ASSESSMENT: * BSGs became elevated over the past 24 hours (two BSGs > 200 mg/dL) * Patient is currently receiving an average of 50 units of insulin per day * 18 units of basal insulin * 32 units of prandial/correctional insulin * oral intake improving * Anticipating insulin regimen will need adjusted for the next 24hrs d/t : * Fasting BSG of 207 mg/dl is above goal. Additional dose of basal given this am. Consider increasing HS dose on 08/02. * Post prandial BSG elevated with lunch and at bedtime. Patient's oral intake has improved over the past 3 days. Will lower goal range and tighten carb ratio. PLAN FOR INPATIENT GLYCEMIC CONTROL: * Continue to hold outpatient oral diabetes medications * Basal insulin * Lantus 4 units SQ this am x 1 (for fasting > 200 mg/dL) * Continue Lantus 15-18 units SQ HS * 15 units if BSG < 100 mg/dl, 18 units if BSG is 100 mg/dl or greater * Bolus insulin * NovoLog per scale ACHS or Q6hrs while NPO * Tighten Goal Range: Low 110 mg/dL - High 140 mg/dL * Correction Factor: 25 mg/dL/unit * Nutritional / Prandial insulin per carb ratio of 1 unit per 6 grams CHO consumed DISCHARGE RECOMMENDATIONS: 08/01/17: * Recommend continuation of metformin on discharge * Based on current insulin usage, reduce Lantus to 20 units SQ HS and Novolog to 10 units SQ TID with meals. Titrate doses as needed per patient provider. Insulin needs will likely increase as patients oral intake and GI health continue to improve.
--- NOTE | 2017-08-01 15:03 | Progress Note ---
Subjective Date of Service: Aug 01, 2017. Subjective Pt evaluation today including: conversation w/ patient, physical exam, lab review, review of inpatient medication list Pain: mild pain in legs PO Intake: adequate Voiding: brown catheter in place continues to diurese large amounts each day breathing well, eating well, moving bowels -17 liters this week, weight down significantly less redness in legs Problem List Medical Problems: (1) Bilateral leg pain Status: Acute (2) DKA (diabetic ketoacidosis) Status: Acute (3) Left foot pain Status: Acute (4) Left hip pain Status: Acute (5) Left knee pain Status: Acute (6) Right shoulder pain Status: Acute (7) Sepsis Status: Acute Review of Systems Constitutional: + weakness, + fatigue Cardiac: + edema Neurologic: + weakness All Other Systems: Reviewed and Negative Medications Current Inpatient Medications Medications (Trade) Dose Ordered Sig/Oxana Route Start Time Stop Time Status Last Admin Dose Admin Glucose (Glucose 40% Gel) 15-30 GRAMS 15 GRAMS... UD PRN PO 07/09/17 10:00 08/08/17 09:59 Glucose (Glucose Chew Tab) 4-8 Tablets 4 Tabl... UD PRN PO 07/09/17 10:00 08/08/17 09:59 Dextrose (Dextrose 50% 50ML Syringe) 25-50ML OF 50% DW IV FOR... UD PRN IV 07/09/17 10:00 08/08/17 09:59 Glucagon (Glucagon Inj) 1 mg UD PRN SQ 07/09/17 10:00 08/08/17 09:59 Heparin Sodium (Porcine) (Heparin Sq 5000 Unit/0.5ml) 5,000 unit Q8 SQ 07/09/17 14:00 08/08/17 13:59 08/01/17 14:10 5,000 UNIT Acetaminophen (Tylenol Tab) 650 mg Q4H PRN PO 07/09/17 10:15 08/08/17 10:14 Future hold 08/01/17 11:59 650 MG Al Hydrox/Mg Hydrox/Simethicone (Maalox Max Susp) 15 ml Q4H PRN PO 07/09/17 10:15 08/08/17 10:14 Future Hold 07/19/17 16:58 15 ML Magnesium Hydroxide (Milk Of Magnesia Susp) 30 ml Q12H PRN PO 07/09/17 10:15 08/08/17 10:14 Future Hold 07/16/17 21:20 30 ML Ondansetron HCl (Zofran Inj) 4 mg Q6H PRN IV 07/09/17 10:15 08/08/17 10:14 07/25/17 03:03 4 MG Miscellaneous Information (Consult Glycemic Management Pharmacy) 1 ea UD PRN N/A 07/09/17 11:10 08/08/17 11:09 Cetirizine HCl (zyrTEC TAB) 10 mg DAILY PO 07/10/17 09:00 08/09/17 08:59 Future Hold 07/20/17 07:44 10 MG Fenofibrate (Tricor Tab) 145 mg DAILY PO 07/10/17 09:00 08/09/17 08:59 Future Hold 07/20/17 07:43 145 MG Simvastatin (Zocor Tab) 40 mg QPM PO 07/09/17 21:00 08/08/17 20:59 Future Hold 07/19/17 21:11 40 MG Pantoprazole Sodium (Protonix Tab) 40 mg QAM PO 07/10/17 09:00 08/09/17 08:59 Future Hold 07/20/17 07:44 40 MG Lactobacillus Acidophilus (Floranex Tab) 4 tab TIDM PO 07/09/17 16:45 08/08/17 16:44 Future Hold 07/20/17 11:34 4 TAB Loperamide HCl (Imodium Cap) 2 mg Q6 PRN PO 07/12/17 12:45 08/11/17 12:44 Future Hold 07/12/17 13:14 2 MG Furosemide (Lasix Tab) 40 mg DAILY PO 07/13/17 09:00 08/10/17 08:59 Future Hold 07/20/17 07:44 40 MG Albuterol/ Ipratropium (Combivent Respimat Inh) 1 puffs QID INH 07/12/17 21:00 08/11/17 20:59 08/01/17 12:00 1 PUFFS Heparin Sodium (Porcine) (Heparin 10 Unit/ ml 5 ml Flush) 5 ml PRN PRN FLUSH 07/14/17 12:00 08/13/17 11:59 08/01/17 11:59 5 ML Insulin Glargine (Lantus Solostar Pen) SEE PROTOCOL TEXT HS SQ 07/18/17 22:00 08/17/17 21:59 07/31/17 21:52 18 UNITS Polyethylene (Miralax Powder Packet) 17 gm QID PO 07/18/17 12:00 08/08/17 10:14 Future Hold 07/19/17 17:38 17 GM Promethazine HCl 25 mg/Sodium Chloride 51 ml @ 204 mls/hr Q6H PRN IV 07/19/17 22:45 08/18/17 22:44 07/24/17 19:44 204 MLS/HR Metoclopramide HCl 20 mg/Sodium Chloride 54 ml @ 162 mls/hr Q6H PRN IV 07/20/17 03:30 08/19/17 03:29 07/25/17 12:55 162 MLS/HR Bisacodyl (Dulcolax Tab) 10 mg BID PO 07/20/17 12:00 08/19/17 11:59 07/30/17 08:03 10 MG Ketoconazole (Nizoral 2% Crm) 1 appln BID EXT 07/24/17 20:00 08/03/17 19:59 08/01/17 08:09 1 APPLN Zolpidem Tartrate (Ambien Tab) 10 mg HS PRN PO 07/25/17 10:15 08/24/17 10:14 07/31/17 22:16 10 MG Insulin Aspart (novoLOG ASPART) SLIDING SCALE If CARB RA... ACHS SC 07/28/17 06:30 08/27/17 06:29 08/01/17 12:28 13 UNITS Furosemide 40 mg/ Syringe 4 ml @ 4 mls/min BID17 IV 07/28/17 17:00 08/27/17 16:59 08/01/17 08:09 4 MLS/MIN Pantoprazole Sodium (Protonix Tab) 40 mg BID PO 07/29/17 20:00 08/28/17 19:59 08/01/17 08:08 40 MG Metolazone (Zaroxolyn Tab) 5 mg QAM PO 07/31/17 08:00 08/30/17 07:59 08/01/17 08:08 5 MG Ketorolac Tromethamine (Toradol Inj) 15 mg Q6H PRN IV. 07/30/17 13:00 08/01/17 20:43 08/01/17 11:59 15 MG Potassium Chloride (Klor-Con Tab) 40 meq TID PO 07/30/17 20:00 08/27/17 13:59 08/01/17 12:28 40 MEQ Fluconazole/ Sodium Chloride 100 mg/Prmx 50 ml @ 100 mls/hr DAILY@1600 IV 08/01/17 16:00 08/10/17 15:59 Objective Vital Signs Date Time Temp Pulse Resp B/P (MAP) Pulse Ox O2 Delivery O2 Flow Rate FiO2 08/01/17 08:10 Room Air 08/01/17 07:30 36.5 82 20 142/73 (96) 95 08/01/17 00:05 98 Room Air 07/31/17 23:30 36.7 91 20 157/73 (101) 93 Room Air 07/31/17 16:28 98 Room Air 07/31/17 15:19 36.8 85 20 120/68 (85) 96 Room Air Physical Exam General Appearance: no apparent distress, + obese Eyes: normal inspection, EOMI, sclerae normal ENT: normal ENT inspection, hearing grossly normal, pharynx normal Neck: supple, no adenopathy, no JVD, trachea midline Respiratory/Chest: chest non-tender, lungs clear, normal breath sounds, no respiratory distress, no accessory muscle use Cardiovascular: regular rate, rhythm, no gallop, no JVD, no murmur Abdomen: normal bowel sounds, non tender, soft, no organomegaly Extremities: normal range of motion, normal inspection, no calf tenderness, + pedal edema (pitting to shins, improving) 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 - Severe sepsis POA, due to cellulitis sepsis resolved for two weeks, afebrile, WBC normal for several days ID recommended Ceftriaxone 14 days after last negative culture which was 07/11 , treatment complete continue wound care to right leg less erythema today, not hot, wounds healing - Ileus: resolved with conservative measures continues to have BM every day, advanced to light diet tolerating well advance diet further as tolerated - UTI due to indwelling brown urine culture growing Terri albicans treat with Diflucan for 7-10 days - Hypokalemia: continue 40mEq PO TID, monitor K levels - DKA, POA: resolved - TERESA: resolved, was due to dehydration - Volume overload, acute on chronic diastolic HF due to excessive hydration responding well to Lasix 40mg IV BID Zaroxolyn added prior to AM dose responding well, will continue every day until Cr rises or output decreases monitor I/O's and weight, - [id number] past 6 days DVT prophylaxis: Heparin disposition: plan for rehab once medically stable, unsure of when that will be, most likely next week Continued [facility] stay due to: ambulation difficulties, multiple IV medications needed Discharge planning: rehab hospital
[2017-08-01 15:23] VITALS: BP 120/75; PULSE 89; TEMP 36.8; O2SAT 94
[2017-08-01] MEDS: FLUCONAZOLE / NSS 100 MG in PREMIXED NSS 50 ML IV SCH (16:33)
[2017-08-01] MEDS: ZOLPIDEM TARTRATE 10 MG TAB PO PRN (21:28)
[2017-08-01] MEDS: INSULIN GLARGINE SOLOSTAR 100 UNITS/ML 3 ML PEN SQ SCH (21:30)
[2017-08-02 00:02] VITALS: BP 134/69; PULSE 87; TEMP 36.5; O2SAT 91
[2017-08-02] MEDS: HEPARIN SOD 5000 UNIT/0.5 ML CARP SQ SCH ×3 (06:43→21:23)
[2017-08-02 06:59] LABS: CALCIUM 8.4 mg/dl (8.5-10.1); CREATININE 0.81 mg/dl (0.60-1.20); POTASSIUM 3.3 mmol/L (3.5-5.1)
[2017-08-02 07:21] VITALS: BP 118/62; PULSE 84; TEMP 36.8; O2SAT 92
[2017-08-02] MEDS: BISACODYL 5 MG TABEC PO SCH (08:00)
[2017-08-02] MEDS: METOLAZONE 5 MG TAB PO SCH (08:20)
[2017-08-02] MEDS: PANTOprazole SOD 40 MG TAB PO SCH ×2 (08:20→20:46)
[2017-08-02] MEDS: POTASSIUM CHLORIDE 20 MEQ TABCR PO SCH ×3 (08:21→20:46)
[2017-08-02] MEDS: KETOCONAZOLE 2% CR 15 GM TUBE EXT SCH ×2 (08:21→20:45)
[2017-08-02] MEDS: IPRATROPIUM BROMIDE/ALBUTEROL respimat INH INH SCH ×4 (08:21→20:46)
[2017-08-02] MEDS: INSULIN ASPART 100 UNITS/ML 3 ML PEN SC SCH ×4 (08:34→20:49)
[2017-08-02] MEDS: ACETAMINOPHEN 325 MG TAB PO PRN (08:34)
[2017-08-02] MEDS: FUROSEMIDE INJ 40 MG in SYRINGE 0 ML IV SCH ×2 (09:06→17:40)
--- NOTE | 2017-08-02 11:25 | Pharmacy Progress Note ---
Pharmacy Glycemic Short Note 2 Date of Service Aug 02, 2017. OUTPATIENT ANTIDIABETIC REGIMEN: * Lantus 60-70 units at bedtime and Novolog with scale 40-50 with meals * Metformin Item Value Date Time Bedside Glucose 207 mg/dl H 08/01/17 0806 Bedside Glucose 182 mg/dl H 08/01/17 1158 Bedside Glucose 174 mg/dl H 08/01/17 1646 Bedside Glucose 185 mg/dl H 08/01/17 202 Bedside Glucose 178 mg/dl H 08/02/17 0747 ASSESSMENT: * BSGs all above goal for unknown reason. PO intake remains constant per CHO counts. Infection is being adequately treated. * Current dosing is much lower than outpatient dosing so it is possible that we need to start titrating upwards to outpatient dosing * Patient is currently receiving an average of 63 units of insulin per day with suboptimal control. Goal BSGs 110-140 mg/dl to facilitate wound/infection healing. * 22 units of basal insulin * 41 units of prandial/correctional insulin * Anticipating insulin regimen will need adjusted for the next 24hrs d/t : * Fasting BSG of 178 mg/dl is above goal. Pt received 22 units of basal insulin yesterday. Will increase to 25 units this evening. * Post prandial BSG elevated with lunch and at bedtime. Will tighten carb ratio. PLAN FOR INPATIENT GLYCEMIC CONTROL: * Continue to hold outpatient oral diabetes medications * Basal insulin: increase dosing * Lantus 25 units SQ HS - give first dose early today (with dinner) and then resume HS tomorrow * Bolus insulin: tighten CR * NovoLog per scale ACHS or Q6hrs while NPO * Tighten Goal Range: Low 110 mg/dL - High 140 mg/dL * Correction Factor: 25 mg/dL/unit * Nutritional / Prandial insulin per carb ratio of 1 unit per 5 grams CHO consumed DISCHARGE RECOMMENDATIONS * Recommend continuation of metformin on discharge * Based on current insulin usage, reduce outpatient Lantus to 25 units SQ HS and Novolog to 13 units SQ TID with meals. Titrate doses as needed per patient provider. Insulin needs will likely increase as patients oral intake and GI health continue to improve.
[2017-08-02 12:00] VITALS: BP 137/75; PULSE 90; TEMP 36.8; O2SAT 91
--- NOTE | 2017-08-02 14:02 | Progress Note ---
Subjective Date of Service: Aug 02, 2017. Subjective Pt evaluation today including: conversation w/ patient, physical exam, lab review, review of inpatient medication list Pain: legs and back PO Intake: adequate Voiding: brown catheter in place doing well, slightly better than yesterday eating well, moving bowels a lot, three times already today, loose reviewed labs, Cr stable at 0.8, K is 3.3 and Mg low at 1.4 continues to diurese, responding well to Lasix Problem List Medical Problems: (1) Bilateral leg pain Status: Acute (2) DKA (diabetic ketoacidosis) Status: Acute (3) Left foot pain Status: Acute (4) Left hip pain Status: Acute (5) Left knee pain Status: Acute (6) Right shoulder pain Status: Acute (7) Sepsis Status: Acute Review of Systems Constitutional: + weakness, + fatigue Cardiac: + edema Neurologic: + weakness Skin: + rash (right leg erythema) All Other Systems: Reviewed and Negative Medications Current Inpatient Medications Medications (Trade) Dose Ordered Sig/Oxana Route Start Time Stop Time Status Last Admin Dose Admin Glucose (Glucose 40% Gel) 15-30 GRAMS 15 GRAMS... UD PRN PO 07/09/17 10:00 08/08/17 09:59 Glucose (Glucose Chew Tab) 4-8 Tablets 4 Tabl... UD PRN PO 07/09/17 10:00 08/08/17 09:59 Dextrose (Dextrose 50% 50ML Syringe) 25-50ML OF 50% DW IV FOR... UD PRN IV 07/09/17 10:00 08/08/17 09:59 Glucagon (Glucagon Inj) 1 mg UD PRN SQ 07/09/17 10:00 08/08/17 09:59 Heparin Sodium (Porcine) (Heparin Sq 5000 Unit/0.5ml) 5,000 unit Q8 SQ 07/09/17 14:00 08/08/17 13:59 08/02/17 12:52 5,000 UNIT Acetaminophen (Tylenol Tab) 650 mg Q4H PRN PO 07/09/17 10:15 08/08/17 10:14 Future hold 08/02/17 08:34 650 MG Al Hydrox/Mg Hydrox/Simethicone (Maalox Max Susp) 15 ml Q4H PRN PO 07/09/17 10:15 08/08/17 10:14 Future Hold 07/19/17 16:58 15 ML Magnesium Hydroxide (Milk Of Magnesia Susp) 30 ml Q12H PRN PO 07/09/17 10:15 08/08/17 10:14 Future Hold 07/16/17 21:20 30 ML Ondansetron HCl (Zofran Inj) 4 mg Q6H PRN IV 07/09/17 10:15 08/08/17 10:14 07/25/17 03:03 4 MG Miscellaneous Information (Consult Glycemic Management Pharmacy) 1 ea UD PRN N/A 07/09/17 11:10 08/08/17 11:09 Cetirizine HCl (zyrTEC TAB) 10 mg DAILY PO 07/10/17 09:00 08/09/17 08:59 Future Hold 07/20/17 07:44 10 MG Fenofibrate (Tricor Tab) 145 mg DAILY PO 07/10/17 09:00 08/09/17 08:59 Future Hold 07/20/17 07:43 145 MG Simvastatin (Zocor Tab) 40 mg QPM PO 07/09/17 21:00 08/08/17 20:59 Future hold 07/19/17 21:11 40 MG Pantoprazole Sodium (Protonix Tab) 40 mg QAM PO 07/10/17 09:00 08/09/17 08:59 Future hold 07/20/17 07:44 40 MG Lactobacillus Acidophilus (Floranex Tab) 4 tab TIDM PO 07/09/17 16:45 08/08/17 16:44 Future hold 07/20/17 11:34 4 TAB Loperamide HCl (Imodium Cap) 2 mg Q6 PRN PO 07/12/17 12:45 08/11/17 12:44 Future hold 07/12/17 13:14 2 MG Furosemide (Lasix Tab) 40 mg DAILY PO 07/13/17 09:00 08/10/17 08:59 Future Hold 07/20/17 07:44 40 MG Albuterol/ Ipratropium (Combivent Respimat Inh) 1 puffs QID INH 07/12/17 21:00 08/11/17 20:59 08/02/17 12:44 1 PUFFS Heparin Sodium (Porcine) (Heparin 10 Unit/ ml 5 ml Flush) 5 ml PRN PRN FLUSH 07/14/17 12:00 08/13/17 11:59 08/02/17 09:06 5 ML Promethazine HCl 25 mg/Sodium Chloride 51 ml @ 204 mls/hr Q6H PRN IV 07/19/17 22:45 08/18/17 22:44 07/24/17 19:44 204 MLS/HR Metoclopramide HCl 20 mg/Sodium Chloride 54 ml @ 162 mls/hr Q6H PRN IV 07/20/17 03:30 08/19/17 03:29 07/25/17 12:55 162 MLS/HR Ketoconazole (Nizoral 2% Crm) 1 appln BID EXT 07/24/17 20:00 08/03/17 19:59 08/02/17 08:21 1 APPLN Zolpidem Tartrate (Ambien Tab) 10 mg HS PRN PO 07/25/17 10:15 08/24/17 10:14 08/01/17 21:28 10 MG Insulin Aspart (novoLOG ASPART) SLIDING SCALE If CARB RA... ACHS SC 07/28/17 06:30 08/27/17 06:29 08/02/17 12:51 14 UNITS Furosemide 40 mg/ Syringe 4 ml @ 4 mls/min BID17 IV 07/28/17 17:00 08/27/17 16:59 08/02/17 09:06 4 MLS/MIN Pantoprazole Sodium (Protonix Tab) 40 mg BID PO 07/29/17 20:00 08/28/17 19:59 08/02/17 08:20 40 MG Metolazone (Zaroxolyn Tab) 5 mg QAM PO 07/31/17 08:00 08/30/17 07:59 08/02/17 08:20 5 MG Potassium Chloride (Klor-Con Tab) 40 meq TID PO 07/30/17 20:00 08/27/17 13:59 08/02/17 12:43 40 MEQ Fluconazole/ Sodium Chloride 100 mg/Prmx 50 ml @ 100 mls/hr DAILY@1600 IV 08/01/17 16:00 08/10/17 15:59 08/01/17 16:33 100 MLS/HR Insulin Glargine (Lantus Solostar Pen) 25 units HS SQ 08/02/17 16:45 09/01/17 16:44 Magnesium Oxide (Mag-Ox Tab) 400 mg QAM PO 08/03/17 08:00 09/02/17 07:59 Objective Vital Signs Date Time Temp Pulse Resp B/P (MAP) Pulse Ox O2 Delivery O2 Flow Rate FiO2 08/02/17 12:00 36.8 90 20 137/75 (95) 91 08/02/17 08:30 Room Air 08/02/17 07:21 36.8 84 18 118/62 (80) 92 08/02/17 00:05 Room Air 08/02/17 00:02 36.5 87 20 134/69 (90) 91 Room Air 08/01/17 16:00 Room Air 08/01/17 15:23 36.8 89 18 120/75 (90) 94 Physical Exam General Appearance: no apparent distress, + obese Eyes: normal inspection, EOMI, sclerae normal ENT: normal ENT inspection, hearing grossly normal, pharynx normal Neck: supple, no adenopathy, no JVD, trachea midline Respiratory/Chest: chest non-tender, lungs clear, normal breath sounds, no respiratory distress, no accessory muscle use Cardiovascular: regular rate, rhythm, no edema, no gallop, no JVD, no murmur Abdomen: normal bowel sounds, non tender, soft, no organomegaly Extremities: normal range of motion, non-tender, normal inspection, no calf tenderness, pelvis stable, + pedal edema (pitting, to mid [place] bilaterally, less than yesterday) 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, no motor/sensory deficits, alert, normal mood/affect, oriented x 3 Skin: normal color, warm/dry, + rash (right lower leg) Laboratory Results Last 24 Hours Test 08/01/17 16:46 08/01/17 20:22 08/02/17 06:00 08/02/17 07:47 Bedside Glucose 174 mg/dl 185 mg/dl 178 mg/dl Sodium Level 139 mmol/L Potassium Level 3.3 mmol/L Chloride Level 103 mmol/L Carbon Dioxide Level 30 mmol/L Anion Gap 6.0 mmol/L Blood Urea Nitrogen 10 mg/dl Creatinine 0.81 mg/dl Est Creatinine Clear Calc Drug Dose 96.8 ml/min Estimated GFR () 89.6 Estimated GFR (Non- 77.3 BUN/Creatinine Ratio 11.8 Random Glucose 180 mg/dl Calcium Level 8.4 mg/dl Magnesium Level 1.5 mg/dl Test 08/02/17 11:52 Bedside Glucose 179 mg/dl Assessment and Plan 62 years old female with morbid obesity, DMII, dyslipidemia, jeane liver/ transaminitis, PCOS and GERD p/w DKA, severe sepsis and RLE cellulitis, she developed intestinal obstruction while in the hospital. - Severe sepsis POA, due to cellulitis sepsis resolved for two weeks, afebrile, WBC normal for several days ID recommended Ceftriaxone 14 days after last negative culture which was 07/11 , treatment complete continue wound care to right leg right leg healing well, mild erythema but skin not hot - Ileus: resolved with conservative measures stools now loose, will add back Imodium PRN - Volume overload, acute on chronic diastolic HF due to excessive hydration responding well to Lasix 40mg IV BID Zaroxolyn added prior to AM dose responding well, will continue every day until Cr rises or output decreases monitor I/O's and weight, - [id number] past 6 days, weight going down Cr stable at 0.8 - UTI due to indwelling brown urine culture growing Terri albicans treat with Diflucan for 7-10 days, started on 07/31, today is day 3 - Hypokalemia: continue 40mEq PO TID, K is 3.3 today - DKA, POA: resolved - TERESA: resolved, was due to dehydration, Cr is 0.8 DVT prophylaxis: Heparin disposition: plan for rehab once medically stable, unsure of when that will be, most likely next week on Friday or Friday Continued [facility] stay due to: ambulation difficulties, multiple IV medications needed Discharge planning: rehab hospital
[2017-08-02] MEDS: KETOROLAC TROMETHAMINE 15 MG/ML VIAL IV PRN ×2 (15:22→21:16)
[2017-08-02] MEDS: LACTOBACILLUS ACIDOPHILUS (FLORANEX) TAB PO SCH ×2 (15:24→17:39)
[2017-08-02 15:38] VITALS: BP 128/77; PULSE 93; TEMP 36.9; O2SAT 95
[2017-08-02] MEDS: FLUCONAZOLE / NSS 100 MG in PREMIXED NSS 50 ML IV SCH (16:08)
[2017-08-02] MEDS ORDERED: INSULIN GLARGINE SOLOSTAR 100 UNITS/ML 3 ML PEN SQ SCH (16:45)
[2017-08-02] MEDS: SIMVASTATIN 40 MG TAB PO SCH (20:47)
[2017-08-02] MEDS: ZOLPIDEM TARTRATE 10 MG TAB PO PRN (21:15)
[2017-08-02 22:49] VITALS: BP 135/67; PULSE 90; TEMP 36.9; O2SAT 92
[2017-08-03] MEDS: HEPARIN SOD 5000 UNIT/0.5 ML CARP SQ SCH ×3 (05:59→21:16)
[2017-08-03 06:50] LABS: CALCIUM 8.6 mg/dl (8.5-10.1); CREATININE 0.8 mg/dl (0.60-1.20); POTASSIUM 3.4 mmol/L (3.5-5.1)
[2017-08-03 08:04] VITALS: BP 131/73; PULSE 81; TEMP 36.6; O2SAT 93
[2017-08-03] MEDS: FUROSEMIDE INJ 40 MG in SYRINGE 0 ML IV SCH ×2 (08:23→17:18)
[2017-08-03] MEDS: IPRATROPIUM BROMIDE/ALBUTEROL respimat INH INH SCH ×4 (08:23→19:38)
[2017-08-03] MEDS: LACTOBACILLUS ACIDOPHILUS (FLORANEX) TAB PO SCH ×3 (08:24→17:18)
[2017-08-03] MEDS: POTASSIUM CHLORIDE 20 MEQ TABCR PO SCH ×3 (08:25→19:40)
[2017-08-03] MEDS: METOLAZONE 5 MG TAB PO SCH (08:26)
[2017-08-03] MEDS: MAGNESIUM OXIDE 400 MG TAB PO SCH (08:26)
[2017-08-03] MEDS: KETOCONAZOLE 2% CR 15 GM TUBE EXT SCH (08:27)
[2017-08-03] MEDS: PANTOprazole SOD 40 MG TAB PO SCH ×2 (08:30→19:41)
[2017-08-03] MEDS: INSULIN ASPART 100 UNITS/ML 3 ML PEN SC SCH ×4 (08:39→21:16)
--- NOTE | 2017-08-03 12:16 | Pharmacy Progress Note ---
Pharmacy Glycemic Short Note 2 Date of Service Aug 03, 2017. OUTPATIENT ANTIDIABETIC REGIMEN: * Lantus 60-70 units at bedtime and Novolog with scale 40-50 with meals * Metformin Item Value Date Time Bedside Glucose 207 mg/dl H 08/01/17 0806 Bedside Glucose 182 mg/dl H 08/01/17 1158 Bedside Glucose 174 mg/dl H 08/01/17 1646 Bedside Glucose 185 mg/dl H 08/01/17 2022 Bedside Glucose 178 mg/dl H 08/02/17 0747 Bedside Glucose 179 mg/dl H 08/02/17 1152 Bedside Glucose 196 mg/dl H 08/02/17 1637 Bedside Glucose 181 mg/dl H 08/02/172004 Bedside Glucose 197 mg/dl H 08/03/17 0753 ASSESSMENT: * BSGs all above goal for unknown reason. PO intake remains constant per CHO counts. Infection is being adequately treated. * Current dosing is much lower than outpatient dosing so it is possible that we need to start titrating upwards to outpatient dosing * Total daily insulin dose continues to increase daily. Patient is currently receiving an average of 63-73 units of insulin per day with suboptimal control. Goal BSGs 110-140 mg/dl to facilitate wound/infection healing. * 25 units of basal insulin * 48 units of prandial/correctional insulin * Anticipating insulin regimen will need adjusted for the next 24hrs d/t : * Fasting BSG of 197 mg/dl is above goal. Pt received 25 units of basal insulin yesterday. Current regimen is heavily weighted towards prandial/ correctional. Will change to 50%:50% distribution of basal: prandial and increase to 40 units this evening. * Post prandial BSG elevated with lunch and at bedtime. Will tighten carb ratio. PLAN FOR INPATIENT GLYCEMIC CONTROL: * Continue to hold outpatient oral diabetes medications * Basal insulin: increase dosing * Lantus 40 units SQ HS - give first dose early today (with dinner) and then resume HS tomorrow * Bolus insulin: tighten CR * NovoLog per scale ACHS or Q6hrs while NPO * Tighten Goal Range: Low 110 mg/dL - High 140 mg/dL * Correction Factor: 20 mg/dL/unit * Nutritional / Prandial insulin per carb ratio of 1 unit per 5 grams CHO consumed DISCHARGE RECOMMENDATIONS * Recommend continuation of metformin on discharge * Based on current insulin usage, reduce outpatient Lantus to 40 units SQ HS and Novolog to 15 units SQ TID with meals. Titrate doses as needed per patient provider. Insulin needs will likely increase as patients oral intake and GI health continue to improve.
--- NOTE | 2017-08-03 14:17 | Progress Note ---
Subjective Date of Service: Aug 03, 2017. Subjective Pt evaluation today including: conversation w/ patient, physical exam, lab review, review of inpatient medication list Pain: mild pain in legs PO Intake: adequate Voiding: brown catheter in place still eating well, moving bowels, 3 times today, loose but not as bad as yesterday she does not want Imodium as she feels this lead to her ileus last time some increased redness in left leg, medial and posterior, skin indurated slightly, this is new still with redness in right lower leg reviewed labs, Cr holding, K is 3.4, Mg low at 1.4 I/O still negative 21 liters past week Problem List Medical Problems: (1) Bilateral leg pain Status: Acute (2) DKA (diabetic ketoacidosis) Status: Acute (3) Left foot pain Status: Acute (4) Left hip pain Status: Acute (5) Left knee pain Status: Acute (6) Right shoulder pain Status: Acute (7) Sepsis Status: Acute Review of Systems Constitutional: + weakness, + fatigue Cardiac: + edema Abdomen: + diarrhea Skin: + rash (left lower leg medially and right lower leg circumferentially) All Other Systems: Reviewed and Negative Medications Current Inpatient Medications Medications (Trade) Dose Ordered Sig/Oxana Route Start Time Stop Time Status Last Admin Dose Admin Glucose (Glucose 40% Gel) 15-30 GRAMS 15 GRAMS... UD PRN PO 07/09/17 10:00 08/08/17 09:59 Glucose (Glucose Chew Tab) 4-8 Tablets 4 Tabl... UD PRN PO 07/09/17 10:00 08/08/17 09:59 Dextrose (Dextrose 50% 50ML Syringe) 25-50ML OF 50% DW IV FOR... UD PRN IV 07/09/17 10:00 08/08/17 09:59 Glucagon (Glucagon Inj) 1 mg UD PRN SQ 07/09/17 10:00 08/08/17 09:59 Heparin Sodium (Porcine) (Heparin Sq 5000 Unit/0.5ml) 5,000 unit Q8 SQ 07/09/17 14:00 08/08/17 13:59 08/03/17 13:38 5,000 UNIT Acetaminophen (Tylenol Tab) 650 mg Q4H PRN PO 07/09/17 10:15 08/08/17 10:14 Future hold 08/02/17 08:34 650 MG Al Hydrox/Mg Hydrox/Simethicone (Maalox Max Susp) 15 ml Q4H PRN PO 07/09/17 10:15 08/08/17 10:14 Future Hold 07/19/17 16:58 15 ML Magnesium Hydroxide (Milk Of Magnesia Susp) 30 ml Q12H PRN PO 07/09/17 10:15 08/08/17 10:14 Future Hold 07/16/17 21:20 30 ML Ondansetron HCl (Zofran Inj) 4 mg Q6H PRN IV 07/09/17 10:15 08/08/17 10:14 07/25/17 03:03 4 MG Miscellaneous Information (Consult Glycemic Management Pharmacy) 1 ea UD PRN N/A 07/09/17 11:10 08/08/17 11:09 Cetirizine HCl (zyrTEC TAB) 10 mg DAILY PO 07/10/17 09:00 08/09/17 08:59 Future Hold 07/20/17 07:44 10 MG Fenofibrate (Tricor Tab) 145 mg DAILY PO 07/10/17 09:00 08/09/17 08:59 Future Hold 07/20/17 07:43 145 MG Simvastatin (Zocor Tab) 40 mg QPM PO 07/09/17 21:00 08/08/17 20:59 Future hold 08/02/17 20:47 40 MG Lactobacillus Acidophilus (Floranex Tab) 4 tab TIDM PO 07/09/17 16:45 08/08/17 16:44 Future hold 08/03/17 13:33 4 TAB Loperamide HCl (Imodium Cap) 2 mg Q6 PRN PO 07/12/17 12:45 08/11/17 12:44 Future hold 07/12/17 13:14 2 MG Furosemide (Lasix Tab) 40 mg DAILY PO 07/13/17 09:00 08/10/17 08:59 Future Hold 07/20/17 07:44 40 MG Albuterol/ Ipratropium (Combivent Respimat Inh) 1 puffs QID INH 07/12/17 21:00 08/11/17 20:59 08/03/17 12:29 1 PUFFS Heparin Sodium (Porcine) (Heparin 10 Unit/ ml 5 ml Flush) 5 ml PRN PRN FLUSH 07/14/17 12:00 08/13/17 11:59 08/03/17 08:35 5 ML Promethazine HCl 25 mg/Sodium Chloride 51 ml @ 204 mls/hr Q6H PRN IV 07/19/17 22:45 08/18/17 22:44 07/24/17 19:44 204 MLS/HR Metoclopramide HCl 20 mg/Sodium Chloride 54 ml @ 162 mls/hr Q6H PRN IV 07/20/17 03:30 08/19/17 03:29 07/25/17 12:55 162 MLS/HR Ketoconazole (Nizoral 2% Crm) 1 appln BID EXT 07/24/17 20:00 08/03/17 19:59 08/03/17 08:27 1 APPLN Zolpidem Tartrate (Ambien Tab) 10 mg HS PRN PO 07/25/17 10:15 08/24/17 10:14 08/02/17 21:15 10 MG Insulin Aspart (novoLOG ASPART) SLIDING SCALE If CARB RA... ACHS SC 07/28/17 06:30 08/27/17 06:29 08/03/17 12:35 18 UNITS Furosemide 40 mg/ Syringe 4 ml @ 4 mls/min BID17 IV 07/28/17 17:00 08/27/17 16:59 08/03/17 08:23 4 MLS/MIN Pantoprazole Sodium (Protonix Tab) 40 mg BID PO 07/29/17 20:00 08/28/17 19:59 08/03/17 08:30 40 MG Metolazone (Zaroxolyn Tab) 5 mg QAM PO 07/31/17 08:00 08/30/17 07:59 08/03/17 08:26 5 MG Potassium Chloride (Klor-Con Tab) 40 meq TID PO 07/30/17 20:00 08/27/17 13:59 08/03/17 13:34 40 MEQ Fluconazole/ Sodium Chloride 100 mg/Prmx 50 ml @ 100 mls/hr DAILY@1600 IV 08/01/17 16:00 08/10/17 15:59 08/02/17 16:08 100 MLS/HR Magnesium Oxide (Mag-Ox Tab) 400 mg QAM PO 08/03/17 08:00 09/02/17 07:59 08/03/17 08:26 400 MG Ketorolac Tromethamine (Toradol Inj) 15 mg Q6H PRN IV 08/02/17 14:00 08/07/17 13:59 08/02/17 21:16 15 MG Insulin Glargine (Lantus Solostar Pen) 40 units HS SQ 08/03/17 16:45 09/02/17 16:44 Objective Vital Signs Date Time Temp Pulse Resp B/P (MAP) Pulse Ox O2 Delivery O2 Flow Rate FiO2 08/03/17 08:04 36.6 81 19 131/73 (92) 93 08/03/17 08:00 Room Air 08/03/17 00:15 Room Air 08/02/17 22:49 36.9 90 18 135/67 (89) 92 Room Air 08/02/17 20:05 Room Air 08/02/17 16:10 Room Air 08/02/17 15:38 36.9 93 19 128/77 (94) 95 Physical Exam General Appearance: no apparent distress, + obese Eyes: normal inspection, EOMI, sclerae normal ENT: normal ENT inspection, hearing grossly normal, pharynx normal Neck: supple, no adenopathy, no JVD, trachea midline Respiratory/Chest: chest non-tender, lungs clear, normal breath sounds, no respiratory distress, no accessory muscle use Cardiovascular: regular rate, rhythm, no gallop, no JVD, no murmur Abdomen: normal bowel sounds, non tender, soft, no organomegaly Extremities: normal inspection, no calf tenderness, normal capillary refill, pelvis stable, + pedal edema (pitting in lower legs bilaterally, not as bad as yesterday) 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, alert, normal mood/affect, oriented x 3, + motor weakness Skin: + rash (left lower leg, medial and posterior, indurated, non-tender, right lower leg circumferential redness, warm) Laboratory Results Last 24 Hours Test 08/02/17 16:37 08/02/17 20:05 08/03/17 05:58 08/03/17 07:53 Bedside Glucose 196 mg/dl 181 mg/dl 197 mg/dl Sodium Level 141 mmol/L Potassium Level 3.4 mmol/L Chloride Level 103 mmol/L Carbon Dioxide Level 32 mmol/L Anion Gap 7.0 mmol/L Blood Urea Nitrogen 10 mg/dl Creatinine 0.80 mg/dl Est Creatinine Clear Calc Drug Dose 98.0 ml/min Estimated GFR () 90.9 Estimated GFR (Non- 78.5 BUN/Creatinine Ratio 12.3 Random Glucose 191 mg/dl Calcium Level 8.6 mg/dl Magnesium Level 1.5 mg/dl Test 08/03/17 12:09 Bedside Glucose 273 mg/dl Assessment and Plan 62 years old female with morbid obesity, DMII, dyslipidemia, jeane liver/ transaminitis, PCOS and GERD p/w DKA, severe sepsis and RLE cellulitis, she developed intestinal obstruction while in the hospital. 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 - Volume overload, acute on chronic diastolic HF due to excessive hydration responding very well to Lasix 40mg IV BID and Zaroxolyn every morning monitor I/O's and weight, negative over 21 liters past 7 days, weight going down dramatically Cr stable at 0.8 again, will continue to check daily continue diuresis until output decreases or Cr starts to rise - UTI due to indwelling brown urine culture growing Terri albicans treat with Diflucan for 7-10 days, started on 07/31, today is day 4 afebrile since starting Diflucan - Hypokalemia: continue 40mEq PO TID, K is 3.4 today - Hypomagnesemia: 1.4 today, continue Mag Oxide daily DVT prophylaxis: Heparin disposition: plan for rehab once medically stable, unsure of when that will be, most likely this week once diuresis complete continue therapy while hospitalized Continued [facility] stay due to: ambulation difficulties, multiple IV medications needed Discharge planning: rehab hospital
[2017-08-03 15:39] VITALS: BP 131/70; PULSE 92; TEMP 36.9; O2SAT 94
[2017-08-03] MEDS: FLUCONAZOLE / NSS 100 MG in PREMIXED NSS 50 ML IV SCH (16:06)
[2017-08-03] MEDS: KETOROLAC TROMETHAMINE 15 MG/ML VIAL IV PRN ×2 (16:08→22:25)
[2017-08-03] MEDS: INSULIN GLARGINE SOLOSTAR 100 UNITS/ML 3 ML PEN SQ SCH (18:04)
[2017-08-03] MEDS: SIMVASTATIN 40 MG TAB PO SCH (19:42)
[2017-08-03] MEDS: ZOLPIDEM TARTRATE 10 MG TAB PO PRN (22:25)
[2017-08-03 22:42] VITALS: BP 129/70; PULSE 85; TEMP 36.8; O2SAT 93
[2017-08-04] MEDS: HEPARIN SOD 5000 UNIT/0.5 ML CARP SQ SCH ×3 (05:48→20:46)
[2017-08-04 06:20] LABS: BASO ABS # 0.06 K/uL (0-0.2); EOS % 4.5 %; EOS ABS # 0.27 K/uL (0-0.5); HEMATOCRIT 31.2 % (37-47); IG# 0.01 K/uL (0.00-0.02); LYMPH % 27.5 %; LYMPH ABS # 1.65 K/uL (1.2-3.4); MEAN CELL VOLUME 93.1 fL (80-100); MEAN CORPUSCULAR HEMOGLOBIN 29.9 pg (25-34); MEAN CORPUSCULAR HGB CONC 32.1 g/dl (32-36); MEAN PLATELET VOLUME 10.2 fL (7.4-10.4); MONO % 6.5 %; MONO ABS # 0.39 K/uL (0.11-0.59); NEUT % 60.3 %; NEUT ABS # 3.62 K/uL (1.4-6.5); PLATELET COUNT 224 K/uL (130-400); RED CELL DISTRIBUTION WIDTH CV 15.8 % (11.5-14.5); RED CELL DISTRIBUTION WIDTH SD 53.2 fL (36.4-46.3)
[2017-08-04 06:55] LABS: CALCIUM 8.6 mg/dl (8.5-10.1); CREATININE 0.9 mg/dl (0.60-1.20); POTASSIUM 3.7 mmol/L (3.5-5.1)
[2017-08-04 07:19] VITALS: BP 150/73; PULSE 85; TEMP 36.6; O2SAT 96
[2017-08-04] MEDS: MAGNESIUM OXIDE 400 MG TAB PO SCH (08:32)
[2017-08-04] MEDS: LACTOBACILLUS ACIDOPHILUS (FLORANEX) TAB PO SCH ×3 (08:32→17:35)
[2017-08-04] MEDS: POTASSIUM CHLORIDE 20 MEQ TABCR PO SCH ×3 (08:32→20:38)
[2017-08-04] MEDS: IPRATROPIUM BROMIDE/ALBUTEROL respimat INH INH SCH ×4 (08:33→20:38)
[2017-08-04] MEDS: METOLAZONE 5 MG TAB PO SCH (08:33)
[2017-08-04] MEDS: PANTOprazole SOD 40 MG TAB PO SCH ×2 (08:33→20:39)
[2017-08-04] MEDS: INSULIN ASPART 100 UNITS/ML 3 ML PEN SC SCH ×4 (08:35→20:45)
[2017-08-04] MEDS: FUROSEMIDE INJ 40 MG in SYRINGE 0 ML IV SCH ×2 (09:11→17:34)
--- NOTE | 2017-08-04 10:19 | Pharmacy Progress Note ---
Glycemic: Assessment & Plan Date of Service Aug 04, 2017. Assessment & Plan The patient is currently receiving 101 units of insulin per day. BSGs ranging 166 - 274 mg/dl over the past 24hrs. * Basal insulin: Lantus 40 units every 24 hours * Correctional Insulin: Novolog Correction per scale ACHS Goal Range: Low 110 mg/dL - High 140 mg/dL Correction Factor: 20 mg/dL/unit * Prandial insulin: Per carb ratio of 1 unit per 5 grams CHO consumed PLAN FOR INPATIENT GLYCEMIC CONTROL: * Continue to hold outpatient oral diabetes medications * Basal insulin: increase dosing * Lantus 40 units SQ HS * Bolus insulin: tighten CF/CR * NovoLog per scale ACHS or Q6hrs while NPO * Goal Range: Low 110 mg/dL - High 140 mg/dL * Correction Factor: 18 mg/dL/unit * Nutritional / Prandial insulin per carb ratio of 1 unit per 4 grams CHO consumed DISCHARGE RECOMMENDATIONS * Please see recs from 08/03/17 * Please note that the plan above was derived based on current level of insulin resistance and hospital stress. These recommendations are appropriate for inpatient admission only. Plan of care upon discharge will need to be reassessed to avoid potential outpatient hypo/hyperglycemia.
[2017-08-04] MEDS: KETOROLAC TROMETHAMINE 15 MG/ML VIAL IV PRN ×2 (12:27→22:04)
[2017-08-04 15:10] VITALS: BP 122/75; PULSE 89; TEMP 36.6; O2SAT 93
[2017-08-04 15:26] VITALS: BP 122/73
[2017-08-04] MEDS: FLUCONAZOLE 100 MG TAB PO SCH (17:35)
[2017-08-04] MEDS: ACETAMINOPHEN 325 MG TAB PO PRN (17:47)
[2017-08-04] MEDS: SIMVASTATIN 40 MG TAB PO SCH (20:39)
[2017-08-04] MEDS: INSULIN GLARGINE SOLOSTAR 100 UNITS/ML 3 ML PEN SQ SCH (20:46)
[2017-08-04] MEDS: ZOLPIDEM TARTRATE 10 MG TAB PO PRN (22:03)
[2017-08-05] VITALS: BP 126/74; PULSE 85; TEMP 36.4; O2SAT 93
[2017-08-05] MEDS: HEPARIN SOD 5000 UNIT/0.5 ML CARP SQ SCH ×3 (05:42→21:17)
[2017-08-05 07:24] VITALS: BP 144/74; PULSE 85; TEMP 36.8; O2SAT 91
--- NOTE | 2017-08-05 07:28 | Progress Note ---
Subjective Date of Service: Aug 04, 2017. Subjective Pt evaluation today including: conversation w/ patient, physical exam, chart review, lab review, review of studies, review of inpatient medication list Voiding: brown catheter in place doing ok, much thinner than last time I saw her, has good UOP, brown in place, has been OOB and doing physical therap tolerated diet, no spiking fever..some in left leg medial and posterior redness, also ahs redness in right lower leg Problem List Medical Problems: (1) Bilateral leg pain Status: Acute (2) DKA (diabetic ketoacidosis) Status: Acute (3) Left foot pain Status: Acute (4) Left hip pain Status: Acute (5) Left knee pain Status: Acute (6) Right shoulder pain Status: Acute (7) Sepsis Status: Acute Review of Systems Constitutional: + weakness, + fatigue, No fever, No chills, No sweats, No weight loss, No problem reported Eyes: No worsening of vision, No eye pain, No redness, No discharge, No diplopia ENT: No hearing loss, No unusual epistaxis, No nasal symptoms, No sore throat, No tinnitus, No dental problems, No trouble swallowing Respiratory: No cough, No sputum, No wheezing, No shortness of breath, No dyspnea on exertion, No dyspnea at rest, No hemoptysis Cardiac: + edema, No chest pain, No orthopnea, No PND, No claudication, No palpitations Abdomen: No pain, No nausea, No vomiting, No diarrhea, No constipation Musculoskeletal: No joint pain, No muscle pain, No swelling, No calf pain Female : No dysuria, No urinary frequency, No hematuria, No incontinence, No abnormal vaginal bleeding, No vaginal discharge Neurologic: No memory loss, No paralysis, No weakness, No numbness/tingling, No vertigo, No balance problems Psychiatric: No depression symptoms, No anhedonism, No anxiety, No insomnia, No substance abuse Heme: No abnormal bleeding/bruising, No clotting problems, No swollen lymph nodes, No night sweats Endo: No fatigue, No excessive thirst, No excessive urination Skin: + see HPI, No rash, No itch, No new/changing skin lesions, No color change, No bleeding Objective Vital Signs Date Time Temp Pulse Resp B/P (MAP) Pulse Ox O2 Delivery O2 Flow Rate FiO2 08/05/17 00:00 36.4 85 18 126/74 (91) 93 Room Air 08/05/17 00:00 Room Air 08/04/17 20:00 Room Air 08/04/17 16:26 Room Air 08/04/17 15:10 36.6 89 18 122/75 (91) 93 Room Air 08/04/17 08:30 Room Air Physical Exam General Appearance: WD/WN, no apparent distress, + obese Eyes: normal inspection, PERRL, EOMI, sclerae normal ENT: normal ENT inspection, hearing grossly normal, pharynx normal Neck: supple, no adenopathy, thyroid normal, no JVD, no carotid bruits, trachea midline Respiratory/Chest: chest non-tender, normal breath sounds, no respiratory distress, no accessory muscle use, + decreased breath sounds Cardiovascular: regular rate, rhythm, no gallop, no JVD, no murmur Abdomen: normal bowel sounds, non tender, soft, no organomegaly, no pulsatile mass Extremities: normal range of motion, non-tender, normal inspection, no pedal edema, no calf tenderness, normal capillary refill, pelvis stable, + swelling 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, no motor/sensory deficits, alert, normal mood/affect, oriented x 3 Skin: warm/dry, no rash, + pertinent finding (nelly lower ext redness, new redness 5x6 cm in left lwoer medial ext) Lymphatic: no adenopathy Laboratory Results Last 24 Hours Test 08/04/17 07:37 08/04/17 11:54 08/04/17 16:52 08/04/17 20:01 Bedside Glucose 166 mg/dl 187 mg/dl 152 mg/dl 205 mg/dl Assessment and Plan 62 y/o female admitted on July 09, 2017 because of sepsis, bacteremia, secondary to right lower extremity cellulitis, associated with RLE erythema/ pain upon admission Sepsis 2/2 RLE Cellulitis RLE Cellulitis superimposed on Chronic Lower Extremity Edema: Group B strep bacteremia likely from cellulitis, Infectious disease on the case, started Rocephin 2 g IV daily, for totally 21 days from the time of negative repeat blood culture, completed continue wound care to right leg, new area of erythema and induration left medial/posterior leg, about 5cm diameter and right leg warm, red may plan Keflex 500mg if getting worse, want to avoid giving IV antibiotics Possible mild CHF exacerbation with diastolic dysfunction grade 1, with mild elevated BNP, lower extremity swelling, Is on 40 mg Lasix p.o. daily at home, has tolerated 20 mg p.o. nightly daily on Lasix, has increased to 40 mg ib bid tolerated well, continue good negative out put ecgo on july 12 2017 per report: * Technically limited study, contrast enhanced. * Left ventricular systolic function is normal. * No regional wall motion abnormalities noted. * Ejection Fraction = 65-70%. * There is borderline concentric left ventricular hypertrophy. * Grade I diastolic dysfunction, (abnormal relaxation pattern). Ileus: resolved with conservative measures, loose stool, bowel regimen stopped UTI due to indwelling brown, urine culture growing Terri albicans, treat with Diflucan for 7-10 days, started on 07/31, today is day 5 Hypokalemia and Hypomagnesemia: replaced DVT prophylaxis: Heparin disposition: plan for rehab once medically stable, PMHx of T2DM, HLD, Fatty Liver/Chronic Transaminitis, GERD, and PCOS DVT Prophylaxis: Heparin Code Status: FULL RESUSCITATION, increase activity, PT OT, discussed with patient and family about patient conditions this note is for 08/04/2017 Continued [facility] stay due to: ambulation difficulties, multiple IV medications needed Discharge planning: rehab hospital
[2017-08-05] MEDS: KETOROLAC TROMETHAMINE 15 MG/ML VIAL IV PRN ×3 (07:42→21:21)
[2017-08-05] MEDS: IPRATROPIUM BROMIDE/ALBUTEROL respimat INH INH SCH ×4 (07:42→21:18)
[2017-08-05] MEDS: FUROSEMIDE INJ 40 MG in SYRINGE 0 ML IV SCH ×2 (07:43→17:47)
[2017-08-05] MEDS: MAGNESIUM OXIDE 400 MG TAB PO SCH ×2 (07:43→21:24)
[2017-08-05] MEDS: PANTOprazole SOD 40 MG TAB PO SCH ×2 (07:43→21:24)
[2017-08-05] MEDS: POTASSIUM CHLORIDE 20 MEQ TABCR PO SCH ×3 (07:43→21:25)
[2017-08-05] MEDS: LACTOBACILLUS ACIDOPHILUS (FLORANEX) TAB PO SCH ×3 (07:44→17:48)
[2017-08-05] MEDS: METOLAZONE 5 MG TAB PO SCH (07:44)
[2017-08-05] MEDS ORDERED: MAGNESIUM SULFATE 1GM / D5W 100 ML IV ONE (07:45)
[2017-08-05] MEDS: INSULIN ASPART 100 UNITS/ML 3 ML PEN SC SCH ×5 (08:18→23:56)
[2017-08-05 08:25] LABS: CALCIUM 8.5 mg/dl (8.5-10.1); PHOSPHORUS 4.1 mg/dl (2.5-4.9)
[2017-08-05] MEDS ORDERED: NURSING VERBAL MED ORDER ONE (10:30)
--- NOTE | 2017-08-05 10:32 | Pharmacy Progress Note ---
Pharmacy Glycemic Short Note 2 Date of Service Aug 05, 2017. ASSESSMENT: * Ms. Jordan's AM fasting BSG elevated. Will add lantus scale for HS. For the past two days daily insulin requirement has been ~100units/Day. Will adjust basal/bolus to more closely mirror this requirement. * PO intake has remained consistent. PLAN FOR INPATIENT GLYCEMIC CONTROL: * Continue to hold outpatient oral diabetes medications * Basal insulin: * Lantus 40 units SQ HS if BSGs below 200, give 50 units if BSGs above 200 * Bolus insulin: * NovoLog per scale ACHS or Q6hrs while NPO * Goal Range: Low 110 mg/dL - High 140 mg/dL * Correction Factor: 15 mg/dL/unit * Nutritional / Prandial insulin per carb ratio of 1 unit per 5 grams CHO consumed * Will add 04 checks
[2017-08-05] MEDS: CEPHALEXIN MONOHYDRATE 500 MG CAP PO SCH ×3 (12:01→21:23)
[2017-08-05] MEDS: ACETAMINOPHEN 325 MG TAB PO PRN (12:04)
[2017-08-05 15:24] VITALS: BP 129/73; PULSE 87; TEMP 36.4; O2SAT 93
[2017-08-05] MEDS: FLUCONAZOLE 100 MG TAB PO SCH (15:43)
--- NOTE | 2017-08-05 16:28 | Progress Note ---
Subjective Date of Service: Aug 05, 2017. Subjective Pt evaluation today including: conversation w/ patient, physical exam, chart review, lab review, review of studies, conversation w/ aerodynamic consultant, review of inpatient medication list Continue doing okay, however left lower extremity medial and posterior part still has red with no obvious tender, no open wound, no obvious hot in palpation Problem List Medical Problems: (1) Bilateral leg pain Status: Acute (2) DKA (diabetic ketoacidosis) Status: Acute (3) Left foot pain Status: Acute (4) Left hip pain Status: Acute (5) Left knee pain Status: Acute (6) Right shoulder pain Status: Acute (7) Sepsis Status: Acute Review of Systems Constitutional: + weakness, + fatigue, No fever, No chills, No sweats, No weight loss, No problem reported Eyes: No worsening of vision, No eye pain, No redness, No discharge, No diplopia ENT: No hearing loss, No unusual epistaxis, No nasal symptoms, No sore throat, No tinnitus, No dental problems, No trouble swallowing Respiratory: No cough, No sputum, No wheezing, No shortness of breath, No dyspnea on exertion, No dyspnea at rest, No hemoptysis Cardiac: No chest pain, No orthopnea, No PND, No edema, No claudication, No palpitations Abdomen: No pain, No nausea, No vomiting, No diarrhea, No constipation Musculoskeletal: No joint pain, No muscle pain, No swelling, No calf pain Female : No dysuria, No urinary frequency, No hematuria, No incontinence, No abnormal vaginal bleeding, No vaginal discharge Neurologic: No memory loss, No paralysis, No weakness, No numbness/tingling, No vertigo, No balance problems Psychiatric: No depression symptoms, No anhedonism, No anxiety, No insomnia, No substance abuse Heme: No abnormal bleeding/bruising, No clotting problems, No swollen lymph nodes, No night sweats Endo: No fatigue, No excessive thirst, No excessive urination Skin: + see HPI, + rash, No itch, No new/changing skin lesions, No color change , No bleeding Objective Vital Signs Date Time Temp Pulse Resp B/P (MAP) Pulse Ox O2 Delivery O2 Flow Rate FiO2 08/05/17 15:24 36.4 87 18 129/73 (91) 93 Room Air 08/05/17 08:00 Room Air 08/05/17 07:24 36.8 85 20 144/74 (97) 91 Room Air 08/05/17 00:00 36.4 85 18 126/74 (91) 93 Room Air 08/05/17 00:00 Room Air 08/04/17 20:00 Room Air 08/04/17 16:26 Room Air Physical Exam General Appearance: WD/WN, no apparent distress, + obese Eyes: normal inspection, PERRL, EOMI, sclerae normal ENT: normal ENT inspection, hearing grossly normal, pharynx normal Neck: supple, no adenopathy, thyroid normal, no JVD, no carotid bruits, trachea midline Respiratory/Chest: chest non-tender, lungs clear, normal breath sounds, no respiratory distress, no accessory muscle use Cardiovascular: regular rate, rhythm, no edema, no gallop, no JVD, no murmur Abdomen: normal bowel sounds, non tender, soft, no organomegaly, no pulsatile mass Extremities: normal range of motion, non-tender, normal inspection, no pedal edema, no calf tenderness, normal capillary refill, pelvis stable 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, no motor/sensory deficits, alert, normal mood/affect, oriented x 3 Skin: normal color, warm/dry, no rash, + pertinent finding (left lower extremity medial and posterior part still has red with no obvious tender, no open wound, no obvious hot in palpation) Lymphatic: no adenopathy Laboratory Results Last 24 Hours Test 08/04/17 16:52 08/04/17 20:01 08/05/17 07:26 08/05/17 07:39 Bedside Glucose 152 mg/dl 205 mg/dl 179 mg/dl Sodium Level 136 mmol/L Potassium Level 4.0 mmol/L Chloride Level 100 mmol/L Carbon Dioxide Level 30 mmol/L Anion Gap 6.0 mmol/L Blood Urea Nitrogen 14 mg/dl Creatinine 1.00 mg/dl Est Creatinine Clear Calc Drug Dose 78.1 ml/min Estimated GFR () 69.4 Estimated GFR (Non- 59.9 BUN/Creatinine Ratio 14.2 Random Glucose 203 mg/dl Calcium Level 8.5 mg/dl Phosphorus Level 4.1 mg/dl Magnesium Level 1.4 mg/dl Test 08/05/17 11:46 Bedside Glucose 192 mg/dl Assessment and Plan 62 y/o female admitted on July 09, 2017 because of sepsis, bacteremia, secondary to right lower extremity cellulitis, associated with RLE erythema/ pain upon admission Sepsis 2/2 RLE Cellulitis RLE Cellulitis superimposed on Chronic Lower Extremity Edema: Group B strep bacteremia likely from cellulitis, Infectious disease on the case, started Rocephin 2 g IV daily, for totally 21 days from the time of negative repeat blood culture, completed continue wound care to right leg, new cellulitis in left medial/posterior leg, about 5cm diameter and right leg warm Started keflex 500mg if getting worse, for total 7 days Possible mild CHF exacerbation with diastolic dysfunction grade 1, with mild elevated BNP, lower extremity swelling, Has been on 40 mg ib bid, tolerated well, continue good negative out put, will continue current dose of Lasix ecgo on july 12 2017 per report: * Technically limited study, contrast enhanced. * Left ventricular systolic function is normal. * No regional wall motion abnormalities noted. * Ejection Fraction = 65-70%. * There is borderline concentric left ventricular hypertrophy. * Grade I diastolic dysfunction, (abnormal relaxation pattern). Ileus: resolved with conservative measures, loose stool, bowel regimen stopped UTI due to indwelling brown, urine culture growing Terri albicans, treat with Diflucan for 7-10 days, started on 07/31, today is day 6 Hypokalemia and Hypomagnesemia: replaced DVT prophylaxis: Heparin disposition: plan for rehab once medically stable, PMHx of T2DM, HLD, Fatty Liver/Chronic Transaminitis, GERD, and PCOS DVT Prophylaxis: Heparin Code Status: FULL RESUSCITATION, increase activity, PT OT, discussed with patient and family about patient conditions Continued [facility] stay due to: ambulation difficulties, multiple IV medications needed Discharge planning: rehab hospital
[2017-08-05] MEDS: INSULIN GLARGINE SOLOSTAR 100 UNITS/ML 3 ML PEN SQ SCH (21:16)
[2017-08-05] MEDS: ZOLPIDEM TARTRATE 10 MG TAB PO PRN (21:22)
[2017-08-05] MEDS: SIMVASTATIN 40 MG TAB PO SCH (21:25)
[2017-08-05 23:51] VITALS: BP 154/71; PULSE 91; TEMP 36.5; O2SAT 93
[2017-08-06] MEDS: INSULIN ASPART 100 UNITS/ML 3 ML PEN SC SCH ×5 (04:07→21:29)
[2017-08-06] MEDS: HEPARIN SOD 5000 UNIT/0.5 ML CARP SQ SCH ×3 (05:40→21:30)
[2017-08-06 06:52] LABS: CALCIUM 8.5 mg/dl (8.5-10.1); CREATININE 1.07 mg/dl (0.60-1.20); PHOSPHORUS 4.1 mg/dl (2.5-4.9)
[2017-08-06 07:14] VITALS: BP 149/78; PULSE 88; TEMP 36.7; O2SAT 93
[2017-08-06] MEDS: CEPHALEXIN MONOHYDRATE 500 MG CAP PO SCH ×4 (07:36→21:32)
[2017-08-06] MEDS: PANTOprazole SOD 40 MG TAB PO SCH ×2 (07:37→21:32)
[2017-08-06] MEDS: MAGNESIUM OXIDE 400 MG TAB PO SCH ×2 (07:37→21:32)
[2017-08-06] MEDS: LACTOBACILLUS ACIDOPHILUS (FLORANEX) TAB PO SCH ×3 (07:37→17:37)
[2017-08-06] MEDS: IPRATROPIUM BROMIDE/ALBUTEROL respimat INH INH SCH ×4 (07:37→21:27)
[2017-08-06] MEDS: FUROSEMIDE INJ 40 MG in SYRINGE 0 ML IV SCH (07:38)
[2017-08-06] MEDS: POTASSIUM CHLORIDE 20 MEQ TABCR PO SCH ×3 (07:38→21:31)
[2017-08-06] MEDS: METOLAZONE 5 MG TAB PO SCH (08:03)
[2017-08-06] MEDS ORDERED: MAGNESIUM SULFATE 1GM / D5W 100 ML IV ONE (09:00)
[2017-08-06] MEDS: KETOROLAC TROMETHAMINE 15 MG/ML VIAL IV PRN ×3 (09:34→22:03)
[2017-08-06] MEDS: ACETAMINOPHEN 325 MG TAB PO PRN (11:56)
--- NOTE | 2017-08-06 12:28 | Pharmacy Progress Note ---
Pharmacy Glycemic Short Note 2 Date of Service Aug 06, 2017. Outpatient diabetes regimen: * Lantus 60-70 units qHS * Novolog 40-50 units with meals Test 08/05/17 16:38 08/05/17 20:26 08/05/17 23:46 08/06/17 04:04 Bedside Glucose 199 mg/dl (70-90) 205 mg/dl (70-90) 198 mg/dl (70-90) 178 mg/dl (70-90) Test 08/06/17 05:49 08/06/17 07:20 08/06/17 11:45 Random Glucose 167 mg/dl (70-99) Bedside Glucose 167 mg/dl (70-90) 242 mg/dl (70-90) ASSESSMENT: 08/06/17 * Patient received 115 units of insulin yesterday, BSGs noted above * She received 50 units of Lantus last evening, with fasting BSG slightly improved this AM. She may require a little more than this so will provide a higher dose w/ scale again tonight. * CR was loosened slightly yesterday to account for increased basal, however, postprandial BSGs are still elevated. Will tighten back to previous CR. 08/05/17 * Ms. Jordan's AM fasting BSG elevated. Will add lantus scale for HS. For the past two days daily insulin requirement has been ~100units/Day. Will adjust basal/bolus to more closely mirror this requirement. * PO intake has remained consistent. PLAN FOR INPATIENT GLYCEMIC CONTROL: * Continue to hold outpatient oral diabetes medications * Basal insulin: increase dosing per scale * Lantus 50 units SQ HS if BSGs below 200, give 55 units if BSGs above 200 * Bolus insulin: * NovoLog per scale ACHS or Q6hrs while NPO * Goal Range: Low 110 mg/dL - High 140 mg/dL * Correction Factor: 15 mg/dL/unit * TIGHTEN Nutritional / Prandial insulin per carb ratio of 1 unit per 4 grams CHO consumed
[2017-08-06] MEDS: FLUCONAZOLE 100 MG TAB PO SCH (15:34)
--- NOTE | 2017-08-06 16:11 | Progress Note ---
Subjective Date of Service: Aug 06, 2017. Subjective Pt evaluation today including: conversation w/ patient, conversation w/ family , physical exam, chart review, lab review, review of inpatient medication list Voiding: brown catheter in place Continue improving, good urine output, bilateral lower extremity swelling continue improving, left posterior lower leg skin rash is improving, no fever and chill Problem List Medical Problems: (1) Bilateral leg pain Status: Acute (2) DKA (diabetic ketoacidosis) Status: Acute (3) Left foot pain Status: Acute (4) Left hip pain Status: Acute (5) Left knee pain Status: Acute (6) Right shoulder pain Status: Acute (7) Sepsis Status: Acute Review of Systems Constitutional: + weakness, + fatigue, No fever, No chills, No sweats, No weight loss, No problem reported Eyes: No worsening of vision, No eye pain, No redness, No discharge, No diplopia ENT: No hearing loss, No unusual epistaxis, No nasal symptoms, No sore throat, No tinnitus, No dental problems, No trouble swallowing Respiratory: No cough, No sputum, No wheezing, No shortness of breath, No dyspnea on exertion, No dyspnea at rest, No hemoptysis Cardiac: No chest pain, No orthopnea, No PND, No edema, No claudication, No palpitations Abdomen: No pain, No nausea, No vomiting, No diarrhea, No constipation Musculoskeletal: No joint pain, No muscle pain, No swelling, No calf pain Female : No dysuria, No urinary frequency, No hematuria, No incontinence, No abnormal vaginal bleeding, No vaginal discharge Neurologic: No memory loss, No paralysis, No weakness, No numbness/tingling, No vertigo, No balance problems Psychiatric: No depression symptoms, No anhedonism, No anxiety, No insomnia, No substance abuse Heme: No abnormal bleeding/bruising, No clotting problems, No swollen lymph nodes, No night sweats Endo: No fatigue, No excessive thirst, No excessive urination Skin: + rash, No itch, No new/changing skin lesions, No color change, No bleeding Objective Vital Signs Date Time Temp Pulse Resp B/P (MAP) Pulse Ox O2 Delivery O2 Flow Rate FiO2 08/06/17 08:00 Room Air 08/06/17 07:14 36.7 88 20 149/78 (101) 93 Room Air 08/05/17 23:51 36.5 91 20 154/71 (98) 93 Room Air 08/05/17 23:45 Room Air 2.0 Physical Exam General Appearance: WD/WN, no apparent distress, + obese (Looks much better in body weight compared to 3 weeks ago, she easily sitting up by herself with minimal help) Eyes: normal inspection, PERRL, EOMI, sclerae normal ENT: normal ENT inspection, hearing grossly normal, pharynx normal Neck: supple, no adenopathy, thyroid normal, no JVD, no carotid bruits, trachea midline Respiratory/Chest: chest non-tender, normal breath sounds, no respiratory distress, no accessory muscle use, + decreased breath sounds Cardiovascular: regular rate, rhythm, no edema, no gallop, no JVD, no murmur Abdomen: normal bowel sounds, non tender, soft, no organomegaly, no pulsatile mass Extremities: normal range of motion, non-tender, normal inspection, no pedal edema, no calf tenderness, normal capillary refill, pelvis stable, + swelling ( Right more than left, bilateral lower extremities some pitting edema) 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, no motor/sensory deficits, alert, normal mood/affect, oriented x 3 Skin: normal color, warm/dry, + pertinent finding (Left posterior lower extremity erythema and rashes is a little bit better than yesterday in redness and hot) Lymphatic: no adenopathy Laboratory Results Last 24 Hours Test 08/05/17 16:38 08/05/17 20:26 08/05/17 23:46 08/06/17 04:04 Bedside Glucose 199 mg/dl 205 mg/dl 198 mg/dl 178 mg/dl Test 08/06/17 05:49 08/06/17 07:20 08/06/17 11:45 Sodium Level 137 mmol/L Potassium Level 4.0 mmol/L Chloride Level 101 mmol/L Carbon Dioxide Level 28 mmol/L Anion Gap 8.0 mmol/L Blood Urea Nitrogen 18 mg/dl Creatinine 1.07 mg/dl Est Creatinine Clear Calc Drug Dose 74.0 ml/min Estimated GFR () 64.0 Estimated GFR (Non- 55.2 BUN/Creatinine Ratio 16.8 Random Glucose 167 mg/dl Calcium Level 8.5 mg/dl Phosphorus Level 4.1 mg/dl Magnesium Level 1.6 mg/dl Bedside Glucose 167 mg/dl 242 mg/dl Assessment and Plan 62 y/o female admitted on July 09, 2017 because of sepsis, bacteremia, secondary to right lower extremity cellulitis, associated with RLE erythema/ pain upon admission Sepsis 2/2 RLE Cellulitis totally resolved RLE Cellulitis superimposed on Chronic Lower Extremity Edema: Stable improved Group B strep bacteremia likely from cellulitis, Infectious disease on the case, started Rocephin 2 g IV daily, for totally 21 days from the time of negative repeat blood culture, completed continue wound care to right leg, new cellulitis in left medial/posterior leg, about 5cm diamete, right leg warm Started keflex 500, today's f 2 days or total 7 days Possible mild CHF exacerbation with diastolic dysfunction grade 1, with mild elevated BNP, lower extremity swelling, Has been on 40 mg iv bid, tolerated well, continue good negative out put, will continue current dose of Lasix, will change to p.o. echo on july 12 2017 per report: * Technically limited study, contrast enhanced. * Left ventricular systolic function is normal. * No regional wall motion abnormalities noted. * Ejection Fraction = 65-70%. * There is borderline concentric left ventricular hypertrophy. * Grade I diastolic dysfunction, (abnormal relaxation pattern). Ileus: resolved with conservative measures, loose stool, bowel regimen stopped UTI due to indwelling brown, urine culture growing Terri albicans, treat with Diflucan for 7-10 days, started on 07/31, today is day 7, possible will discontinue when discharging her tomorrow Hypokalemia and Hypomagnesemia: replaced DVT prophylaxis: Heparin PMHx of T2DM, HLD, Fatty Liver/Chronic Transaminitis, GERD, and PCOS DVT Prophylaxis: Heparin Code Status: FULL RESUSCITATION, increase activity, probably rehab tomorrow Continued [facility] stay due to: home environment unsafe for pt Discharge planning: rehab hospital
[2017-08-06 16:27] VITALS: BP 124/67; PULSE 86; TEMP 36.7; O2SAT 94
[2017-08-06] MEDS: FUROSEMIDE 40 MG TAB PO SCH (17:38)
[2017-08-06] MEDS: SIMVASTATIN 40 MG TAB PO SCH (21:31)
[2017-08-06] MEDS: INSULIN GLARGINE SOLOSTAR 100 UNITS/ML 3 ML PEN SQ SCH (22:04)
[2017-08-06] MEDS: ZOLPIDEM TARTRATE 10 MG TAB PO PRN (22:05)
[2017-08-06 23:12] VITALS: BP 122/62; PULSE 90; TEMP 36.7; O2SAT 93
[2017-08-07] MEDS: HEPARIN SOD 5000 UNIT/0.5 ML CARP SQ SCH ×3 (06:01→21:00)
[2017-08-07 07:11] VITALS: BP 128/71; PULSE 85; TEMP 36.9; O2SAT 92
[2017-08-07] MEDS: IPRATROPIUM BROMIDE/ALBUTEROL respimat INH INH SCH ×4 (07:54→20:50)
[2017-08-07] MEDS: POTASSIUM CHLORIDE 20 MEQ TABCR PO SCH ×3 (07:55→20:51)
[2017-08-07] MEDS: METOLAZONE 5 MG TAB PO SCH (07:56)
[2017-08-07] MEDS: MAGNESIUM OXIDE 400 MG TAB PO SCH ×2 (07:56→20:51)
[2017-08-07] MEDS: CEPHALEXIN MONOHYDRATE 500 MG CAP PO SCH ×4 (07:56→20:50)
[2017-08-07] MEDS: FUROSEMIDE 40 MG TAB PO SCH ×2 (07:57→17:25)
[2017-08-07] MEDS: LACTOBACILLUS ACIDOPHILUS (FLORANEX) TAB PO SCH ×3 (07:58→17:22)
[2017-08-07] MEDS: PANTOprazole SOD 40 MG TAB PO SCH ×2 (07:58→20:51)
[2017-08-07] MEDS: KETOROLAC TROMETHAMINE 15 MG/ML VIAL IV PRN (08:05)
--- NOTE | 2017-08-07 08:29 | Pharmacy Progress Note ---
Pharmacy Glycemic Short Note 2 Date of Service Aug 07, 2017. Outpatient diabetes regimen: * Lantus 60-70 units qHS * Novolog 40-50 units with meals Test 08/06/17 11:45 08/06/17 16:51 08/06/17 20:37 08/07/17 07:41 Bedside Glucose 242 mg/dl (70-90) 161 mg/dl (70-90) 205 mg/dl (70-90) 196 mg/dl (70-90) ASSESSMENT: 08/07/17 * Ms. Jordan received 121 units of insulin yesterday * No changes to causes of insulin resistance * Diet still adequate * All BSGs are above goal, therefore, will increase basal dose and tighten both CF/CR to provide est TDD ~150 units 08/06/17 * Patient received 115 units of insulin yesterday, BSGs noted above * She received 50 units of Lantus last evening, with fasting BSG slightly improved this AM. She may require a little more than this so will provide a higher dose w/ scale again tonight. * CR was loosened slightly yesterday to account for increased basal, however, postprandial BSGs are still elevated. Will tighten back to previous CR. 08/05/17 * Ms. Jordan's AM fasting BSG elevated. Will add lantus scale for HS. For the past two days daily insulin requirement has been ~100units/Day. Will adjust basal/bolus to more closely mirror this requirement. * PO intake has remained consistent. PLAN FOR INPATIENT GLYCEMIC CONTROL: * Basal insulin: increase dosing per scale * Lantus 55 units SQ HS if BSGs below 180, give 65 units if BSGs 180 or above * Bolus insulin: * NovoLog per scale ACHS or Q6hrs while NPO * Goal Range: Low 110 mg/dL - High 140 mg/dL * TIGHTEN Correction Factor: 10 mg/dL/unit * TIGHTEN Nutritional / Prandial insulin per carb ratio of 1 unit per 3 grams CHO consumed
[2017-08-07] MEDS: INSULIN ASPART 100 UNITS/ML 3 ML PEN SC SCH ×4 (08:52→20:57)
[2017-08-07] MEDS ORDERED: INSDGIPEN SQ (10:51)
[2017-08-07] MEDS ORDERED: MCRK20 PO ×2 (10:51→11:30)
[2017-08-07] MEDS ORDERED: DFL100 PO (10:51)
[2017-08-07] MEDS ORDERED: MGNO400 PO (10:51)
[2017-08-07] MEDS ORDERED: IPRA1AER2 INH (10:51)
[2017-08-07] MEDS ORDERED: LSX40 PO (10:51)
[2017-08-07] MEDS ORDERED: LCTX PO (10:51)
[2017-08-07] MEDS ORDERED: KFL500 PO (10:51)
[2017-08-07] MEDS ORDERED: ZRX5 PO (10:51)
--- NOTE | 2017-08-07 10:55 | Discharge Instructions ---
Discharge Instructions Date of Service Aug 07, 2017. Admission Reason for Admission: Cellulitis, Diabetic Ketoacidosis Discharge Discharge Diagnosis / Problem: Sepsis 2/2 RLE Cellulitis Discharge Goals Goal(s): Decrease discomfort, Improve function, Increase independence, Improve disease control, Improve nutritional status, Learn about illness, Diagnostic testing, Therapeutic intervention, Prevent Disease Progression, Specific goals Activity Recommendations Activity Level: Up [place] . Additional Information Patient informed of condition: Yes Advance Directives: Yes DNR: No Level of Care: Acute Rehab Communicable Disease: No Prognosis: Improving Oxygen at (LPM): no Brock Catheter: No Instructions / Follow-Up Instructions / Follow-Up you have Sepsis 2/2 RLE Cellulitis totally resolved RLE Cellulitis superimposed on Chronic Lower Extremity Edema: Stable improved, continue ABX for 5 days more you possible mild CHF exacerbation with diastolic dysfunction grade 1, continue Lasix 40 mg po bid, need to check BMP, mag in 3 days to follow up renal function and electrolytes - you need to follow up with your primary care physician in 1 week, - take medication as instructed, never overdose or any misuse, or take with alcohol, because misuse of medicine may cause organ damage or , call your primary care physician if have questions of medicaitons. - call your primary care physician OR go to local emergency room if has any fever/chill, chest pain, shortness of breathing, nausea/vomiting/abdominal pain , facial droop/slurry speech/local weakness, or if has any questions. - fall precaution - diet as instructed - you need to follow up with your subspecialist - you should understand that it is important to follow up the above instruction , and "not following the above instruction" may cause delayed or missed care of your medical conditions which may cause permanent organ damage and even . Current Hospital Diet Patient's current hospital diet: Diabetes Type 2 Diet, Low Fiber Diet Discharge Diet Recommended Diet: Diabetes Type 2 Diet Procedures Procedures Performed: COLONOSCOPY Pending Studies Studies pending at discharge: no Physician Orders On Transfer POLST Discussion: Not Applicable Laboratory Results Hemoglobin A1c Test 07/09/17 08:35 Range/Units Estimated Average Glucose 200 mg/dl Hemoglobin A1c 8.6 H 4.5-5.6 % Lipid Panel Test 07/26/17 06:00 Range/Units Triglycerides Level 162 H 0-150 mg/dl Medical Emergencies . Who to Call and When: Medical Emergencies: If at any time you feel your situation is an emergency, please call 911 immediately. . Non-Emergent Contact Non-Emergency issues call your: Primary Care Provider, Employee Welfare Manager . . "Provider Documentation" section prepared by Kyree Obrien. . Core Measure Problem Core Measures: None
[2017-08-07] MEDS: ACETAMINOPHEN 325 MG TAB PO PRN (12:40)
[2017-08-07] MEDS ORDERED: NURSING VERBAL MED ORDER ONE (14:30)
[2017-08-07] MEDS ORDERED: NAPROXEN 250 MG TAB PO ONE (14:30)
[2017-08-07] MEDS ORDERED: NAPROXEN 250 MG TAB PO PRN (14:30)
[2017-08-07 15:01] VITALS: BP 105/64; PULSE 90; TEMP 36.8; O2SAT 95
--- NOTE | 2017-08-07 16:57 | Progress Note ---
Subjective Date of Service: Aug 07, 2017. Subjective Pt evaluation today including: conversation w/ patient, conversation w/ family , physical exam, chart review, lab review, review of studies Continue doing good, sitting up, out of bed to the chair, has fair urine output , lower extremity swelling is better, spiking fever Problem List Medical Problems: (1) Bilateral leg pain Status: Acute (2) DKA (diabetic ketoacidosis) Status: Acute (3) Left foot pain Status: Acute (4) Left hip pain Status: Acute (5) Left knee pain Status: Acute (6) Right shoulder pain Status: Acute (7) Sepsis Status: Acute Review of Systems Constitutional: + weakness, + fatigue, No fever, No chills, No sweats, No weight loss, No problem reported Eyes: No worsening of vision, No eye pain, No redness, No discharge, No diplopia ENT: No hearing loss, No unusual epistaxis, No nasal symptoms, No sore throat, No tinnitus, No dental problems, No trouble swallowing Respiratory: No cough, No sputum, No wheezing, No shortness of breath, No dyspnea on exertion, No dyspnea at rest, No hemoptysis Cardiac: No chest pain, No orthopnea, No PND, No edema, No claudication, No palpitations Abdomen: No pain, No nausea, No vomiting, No diarrhea, No constipation Musculoskeletal: No joint pain, No muscle pain, No swelling, No calf pain Female : No dysuria, No urinary frequency, No hematuria, No incontinence, No abnormal vaginal bleeding, No vaginal discharge Neurologic: No memory loss, No paralysis, No weakness, No numbness/tingling, No vertigo, No balance problems Psychiatric: No depression symptoms, No anhedonism, No anxiety, No insomnia, No substance abuse Heme: No abnormal bleeding/bruising, No clotting problems, No swollen lymph nodes, No night sweats Endo: No fatigue, No excessive thirst, No excessive urination Skin: + rash (In left lower extremity which is getting better), No itch, No new /changing skin lesions, No color change, No bleeding Objective Vital Signs Date Time Temp Pulse Resp B/P (MAP) Pulse Ox O2 Delivery O2 Flow Rate FiO2 08/07/17 15:01 36.8 90 20 105/64 (78) 95 Room Air 08/07/17 09:38 Room Air 08/07/17 07:11 36.9 85 17 128/71 (90) 92 Room Air 08/07/17 00:02 Room Air 08/06/17 23:12 36.7 90 16 122/62 (82) 93 Room Air Physical Exam General Appearance: WD/WN, no apparent distress, + obese, + pertinent finding ( Looks good) Eyes: normal inspection, PERRL, EOMI, sclerae normal ENT: normal ENT inspection, hearing grossly normal, pharynx normal Neck: supple, no adenopathy, thyroid normal, no JVD, no carotid bruits, trachea midline Respiratory/Chest: chest non-tender, normal breath sounds, no respiratory distress, no accessory muscle use, + decreased breath sounds Cardiovascular: regular rate, rhythm, no edema, no gallop, no JVD, no murmur Abdomen: normal bowel sounds, non tender, soft, no organomegaly, no pulsatile mass Extremities: normal range of motion, non-tender, normal inspection, no pedal edema, no calf tenderness, normal capillary refill, pelvis stable, + swelling (1 + edema) 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, no motor/sensory deficits, alert, normal mood/affect, oriented x 3 Skin: normal color, warm/dry, no rash, + pertinent finding (Right lower extremity wounds is in dressing, per report is getting better) Lymphatic: no adenopathy Laboratory Results Last 24 Hours Test 08/06/17 20:37 08/07/17 07:41 08/07/17 11:29 Bedside Glucose 205 mg/dl 196 mg/dl 239 mg/dl Assessment and Plan 62 y/o female admitted on July 09, 2017 because of sepsis, bacteremia, secondary to right lower extremity cellulitis, associated with RLE erythema/ pain upon admission Sepsis 2/2 RLE Cellulitis; resolved RLE Cellulitis superimposed on Chronic Lower Extremity Edema: Group B strep bacteremia likely from cellulitis, Infectious disease on the case, started Rocephin 2 g IV daily, for totally 21 days from the time of negative repeat blood culture, completed continue wound care to right leg, new cellulitis in left medial/posterior leg, about 5cm diameter, stable and improving and resolved Started keflex 500, today's 3rd days for total 7 days Possible mild CHF exacerbation with diastolic dysfunction grade 1, with mild elevated BNP, lower extremity swelling, Has been on 40 mg iv bid, tolerated well, continue good negative out put, switch IV Lasix to oral yesterday, will continue oral Lasix echo on july 12 2017 per report: * Technically limited study, contrast enhanced. * Left ventricular systolic function is normal. * No regional wall motion abnormalities noted. * Ejection Fraction = 65-70%. * There is borderline concentric left ventricular hypertrophy. * Grade I diastolic dysfunction, (abnormal relaxation pattern). Ileus: resolved with conservative measures, loose stool, bowel regimen stopped UTI due to indwelling brown, urine culture growing Terri albicans, treat with Diflucan for 7-10 days, started on 07/31, today is day 8, possible will discontinue when discharging her tomorrow Hypokalemia and Hypomagnesemia: replaced DVT prophylaxis: Heparin PMHx of T2DM, HLD, Fatty Liver/Chronic Transaminitis, GERD, and PCOS DVT Prophylaxis: Heparin Code Status: FULL RESUSCITATION, increase activity, pending insurance company authorization, probably rehab tomorrow Continued [facility] stay due to: home environment unsafe for pt Discharge planning: rehab hospital
[2017-08-07] MEDS: FLUCONAZOLE 100 MG TAB PO SCH (17:23)
[2017-08-07] MEDS: SIMVASTATIN 40 MG TAB PO SCH (20:51)
[2017-08-07] MEDS: INSULIN GLARGINE SOLOSTAR 100 UNITS/ML 3 ML PEN SQ SCH (20:59)
[2017-08-07] MEDS: ZOLPIDEM TARTRATE 10 MG TAB PO PRN (21:00)
[2017-08-07 22:52] VITALS: BP 135/78; PULSE 94; TEMP 36.7; O2SAT 91
[2017-08-08] MEDS: HEPARIN SOD 5000 UNIT/0.5 ML CARP SQ SCH (05:37)
[2017-08-08 06:57] LABS: CALCIUM 10.2 mg/dl (8.5-10.1); CREATININE 1.26 mg/dl (0.60-1.20); POTASSIUM 4.9 mmol/L (3.5-5.1)
[2017-08-08 07:11] VITALS: BP 137/77; PULSE 88; TEMP 36.8; O2SAT 94
[2017-08-08] MEDS: INSULIN ASPART 100 UNITS/ML 3 ML PEN SC SCH ×4 (08:18→21:47)
[2017-08-08] MEDS: IPRATROPIUM BROMIDE/ALBUTEROL respimat INH INH SCH ×4 (08:18→21:39)
[2017-08-08] MEDS: LACTOBACILLUS ACIDOPHILUS (FLORANEX) TAB PO SCH ×2 (08:19→12:30)
[2017-08-08] MEDS: PANTOprazole SOD 40 MG TAB PO SCH ×2 (08:20→21:39)
[2017-08-08] MEDS: CEPHALEXIN MONOHYDRATE 500 MG CAP PO SCH ×4 (08:20→21:39)
[2017-08-08] MEDS: POTASSIUM CHLORIDE 20 MEQ TABCR PO SCH ×3 (08:21→21:39)
[2017-08-08] MEDS: MAGNESIUM OXIDE 400 MG TAB PO SCH ×2 (08:21→21:39)
[2017-08-08] MEDS: METOLAZONE 5 MG TAB PO SCH (08:21)
[2017-08-08] MEDS: FUROSEMIDE 40 MG TAB PO SCH (08:22)
[2017-08-08] MEDS ORDERED: INSULIN GLARGINE SOLOSTAR 100 UNITS/ML 3 ML PEN SQ ONE (09:00)
[2017-08-08] MEDS ORDERED: NURSING VERBAL MED ORDER ONE (09:30)
[2017-08-08] MEDS: TRAMADOL HCL 50 MG TAB PO PRN ×2 (10:37→21:43)
--- NOTE | 2017-08-08 11:18 | Pharmacy Progress Note ---
Pharmacy Glycemic Short Note 2 Date of Service Aug 08, 2017. Outpatient diabetes regimen: * Lantus 60-70 units qHS * Novolog 40-50 units with meals Item Value Date Time Bedside Glucose 178 mg/dl H 08/06/17 0404 Bedside Glucose 167 mg/dl H 08/06/17 0720 Bedside Glucose 242 mg/dl H 08/06/17 1145 Bedside Glucose 161 mg/dl H 08/06/17 1651 Bedside Glucose 205 mg/dl H 08/06/17 2037 Bedside Glucose 196 mg/dl H 08/07/17 0741 Bedside Glucose 239 mg/dl H 08/07/17 1129 Bedside Glucose 151 mg/dl H 08/07/17 1624 Bedside Glucose 199 mg/dl H 08/07/17 2033 Bedside Glucose 243 mg/dl H 08/08/17 0745 ASSESSMENT: * Pt total daily insulin dose continues to increase back towards outpatient dosing. * 08/05: pt received 115 units of insulin , BSGs ranging 192-205 mg/dl * 08/06: pt received 121 units of insulin, BSGs raging 161-205 mg/dl * 08/07: pt received 149 units of insulin, BSGs raging 151-239 mg/dl * 4:27: AM fasting BSG still elevated, will increase basal insulin dosing again and give additional one time dose this morning to prevent BSG from continuing to rise until next basal insulin dose due at bedtime * Post-prandial BSGs elevated but consistent with current coverage. CR is likely adequate dosing and therefore increasing basal insulin should yield improvement PLAN FOR INPATIENT GLYCEMIC CONTROL: * Basal insulin: increase dosing per scale * Lantus 65 units SQ HS if BSGs below 180, give 75 units if BSGs 180 or above * One time dose of Lantus 10 units SQ this AM * Bolus insulin: no change * NovoLog per scale ACHS or Q6hrs while NPO * Goal Range: Low 110 mg/dL - High 140 mg/dL * Correction Factor: 10 mg/dL/unit * Nutritional / Prandial insulin per carb ratio of 1 unit per 3 grams CHO consumed
--- NOTE | 2017-08-08 15:00 | Progress Note ---
Subjective Date of Service: Aug 08, 2017. Subjective Pt evaluation today including: conversation w/ patient, conversation w/ family , physical exam, chart review, lab review, review of studies, review of inpatient medication list Mild lower back pain, which is not new, was trying naproxen, has continued to have good urine output Problem List Medical Problems: (1) Bilateral leg pain Status: Acute (2) DKA (diabetic ketoacidosis) Status: Acute (3) Left foot pain Status: Acute (4) Left hip pain Status: Acute (5) Left knee pain Status: Acute (6) Right shoulder pain Status: Acute (7) Sepsis Status: Acute Review of Systems Constitutional: + weakness, + fatigue, No fever, No chills, No sweats, No weight loss, No problem reported Eyes: No worsening of vision, No eye pain, No redness, No discharge, No diplopia ENT: No hearing loss, No unusual epistaxis, No nasal symptoms, No sore throat, No tinnitus, No dental problems, No trouble swallowing Respiratory: No cough, No sputum, No wheezing, No shortness of breath, No dyspnea on exertion, No dyspnea at rest, No hemoptysis Cardiac: + edema (Trace edema), No chest pain, No orthopnea, No PND, No claudication, No palpitations Abdomen: No pain, No nausea, No vomiting, No diarrhea, No constipation Musculoskeletal: + joint pain (And lower back pain), No muscle pain, No swelling, No calf pain Female : No dysuria, No urinary frequency, No hematuria, No incontinence, No abnormal vaginal bleeding, No vaginal discharge Neurologic: No memory loss, No paralysis, No weakness, No numbness/tingling, No vertigo, No balance problems Psychiatric: No depression symptoms, No anhedonism, No anxiety, No insomnia, No substance abuse Heme: No abnormal bleeding/bruising, No clotting problems, No swollen lymph nodes, No night sweats Endo: No fatigue, No excessive thirst, No excessive urination Skin: No rash, No itch, No new/changing skin lesions, No color change, No bleeding Objective Vital Signs Date Time Temp Pulse Resp B/P (MAP) Pulse Ox O2 Delivery O2 Flow Rate FiO2 08/08/17 08:00 Room Air 08/08/17 07:11 36.8 88 18 137/77 (97) 94 Room Air 08/08/17 00:15 Room Air 08/07/17 22:52 36.7 94 18 135/78 (97) 91 Room Air 08/07/17 16:00 Room Air 08/07/17 15:01 36.8 90 20 105/64 (78) 95 Room Air Physical Exam General Appearance: WD/WN, no apparent distress, + obese Eyes: normal inspection, PERRL, EOMI, sclerae normal ENT: normal ENT inspection, hearing grossly normal, pharynx normal Neck: supple, no adenopathy, thyroid normal, no JVD, no carotid bruits, trachea midline Respiratory/Chest: chest non-tender, normal breath sounds, no respiratory distress, no accessory muscle use, + decreased breath sounds Cardiovascular: regular rate, rhythm, no edema, no gallop, no JVD, no murmur Abdomen: normal bowel sounds, non tender, soft, no organomegaly, no pulsatile mass Extremities: normal range of motion, non-tender, normal inspection, no pedal edema, no calf tenderness, normal capillary refill, pelvis stable, + swelling ( Trace), + pertinent finding (Left lower extremity posterior area erythema is continue getting better) 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, no motor/sensory deficits, alert, normal mood/affect, oriented x 3 Skin: normal color, warm/dry, no rash, + pertinent finding (Right lower extremity cellulitis is resolved,) Lymphatic: no adenopathy Laboratory Results Last 24 Hours Test 08/07/17 16:24 08/07/17 20:33 08/08/17 05:56 08/08/17 07:45 Bedside Glucose 151 mg/dl 199 mg/dl 243 mg/dl Sodium Level 136 mmol/L Potassium Level 4.9 mmol/L Chloride Level 102 mmol/L Carbon Dioxide Level 25 mmol/L Anion Gap 9.0 mmol/L Blood Urea Nitrogen 21 mg/dl Creatinine 1.26 mg/dl Est Creatinine Clear Calc Drug Dose 62.6 ml/min Estimated GFR () 52.5 Estimated GFR (Non- 45.3 BUN/Creatinine Ratio 16.3 Random Glucose 226 mg/dl Calcium Level 10.2 mg/dl Phosphorus Level 5.0 mg/dl Magnesium Level 2.0 mg/dl Test 08/08/17 11:22 Bedside Glucose 207 mg/dl Assessment and Plan 62 y/o female admitted on July 09, 2017 because of sepsis, bacteremia, secondary to right lower extremity cellulitis, associated with RLE erythema/ pain upon admission Sepsis 2/2 RLE Cellulitis; resolved RLE Cellulitis superimposed on Chronic Lower Extremity Edema: Improved and resolved Group B strep bacteremia likely from cellulitis, has been treated Infectious disease on the case, started Rocephin 2 g IV daily, for totally 21 days from the time of negative repeat blood culture, completed continue wound care to right leg, new cellulitis in left medial/posterior leg, about 5cm diameter, stable and improving and resolving Started keflex 500, 4th days for total 7 days Possible mild CHF exacerbation with diastolic dysfunction grade 1, with mild elevated BNP, lower extremity swelling, Has been on 40 mg iv bid, tolerated well, continue good negative out put, switch IV Lasix to oral 2 days ago, decreased to 40 mg p.o. daily in today because of mild elevated creatinine compared to yesterday Patient has significant weight loss, possible approaching to her dry way echo on july 12 2017 per report: * Technically limited study, contrast enhanced. * Left ventricular systolic function is normal. * No regional wall motion abnormalities noted. * Ejection Fraction = 65-70%. * There is borderline concentric left ventricular hypertrophy. * Grade I diastolic dysfunction, (abnormal relaxation pattern). Ileus: resolved with conservative measures, loose stool, bowel regimen stopped UTI due to indwelling brown, urine culture growing Terri albicans, treat with Diflucan for 7-10 days, started on 07/31, today is day 8, possible will discontinue when discharging her tomorrow Hypokalemia and Hypomagnesemia: replaced, patient was on 20 Meq potassium 3 time a day, has decreased to daily potassium supplementation because of decreased Lasix dose DVT prophylaxis: Heparin PMHx of T2DM, HLD, Fatty Liver/Chronic Transaminitis, GERD, and PCOS DVT Prophylaxis: Heparin Code Status: FULL RESUSCITATION, increase activity, pending insurance company authorization, probably rehab tomorrow Continued [facility] stay due to: home environment unsafe for pt Discharge planning: [facility]
[2017-08-08] MEDS: FLUCONAZOLE 100 MG TAB PO SCH (15:41)
[2017-08-08 15:47] VITALS: BP 125/70; PULSE 95; TEMP 36.7; O2SAT 93
[2017-08-08] MEDS: ZOLPIDEM TARTRATE 10 MG TAB PO PRN (21:43)
[2017-08-08] MEDS: INSULIN GLARGINE SOLOSTAR 100 UNITS/ML 3 ML PEN SQ SCH (21:48)
[2017-08-08 23:40] VITALS: BP 153/72; PULSE 95; TEMP 36.9; O2SAT 94
[2017-08-09 07:40] VITALS: BP 165/77; PULSE 85; TEMP 36.6; O2SAT 93
[2017-08-09 07:57] LABS: CALCIUM 9.1 mg/dl (8.5-10.1); CREATININE 1.06 mg/dl (0.60-1.20); POTASSIUM 4.6 mmol/L (3.5-5.1)
[2017-08-09 07:58] LABS: PHOSPHORUS 4.5 mg/dl (2.5-4.9)
[2017-08-09 08:00] VITALS: O2SAT 93
[2017-08-09] MEDS: IPRATROPIUM BROMIDE/ALBUTEROL respimat INH INH SCH ×4 (08:21→20:57)
[2017-08-09] MEDS: FUROSEMIDE 40 MG TAB PO SCH (08:21)
[2017-08-09] MEDS: CEPHALEXIN MONOHYDRATE 500 MG CAP PO SCH ×4 (08:21→20:57)
[2017-08-09] MEDS: MAGNESIUM OXIDE 400 MG TAB PO SCH ×2 (08:22→20:57)
[2017-08-09] MEDS: POTASSIUM CHLORIDE 20 MEQ TABCR PO SCH ×3 (08:22→20:58)
[2017-08-09] MEDS: PANTOprazole SOD 40 MG TAB PO SCH ×2 (08:22→20:57)
[2017-08-09] MEDS: METOLAZONE 5 MG TAB PO SCH (08:23)
[2017-08-09] MEDS: INSULIN ASPART 100 UNITS/ML 3 ML PEN SC SCH ×4 (08:28→20:59)
[2017-08-09] MEDS: TRAMADOL HCL 50 MG TAB PO PRN ×2 (08:32→21:03)
[2017-08-09] MEDS ORDERED: INSULIN GLARGINE SOLOSTAR 100 UNITS/ML 3 ML PEN SQ ONE (09:00)
--- NOTE | 2017-08-09 12:05 | Pharmacy Progress Note ---
Glycemic: Assessment & Plan Date of Service Aug 09, 2017. Assessment & Plan Outpatient diabetes regimen: * Lantus 60-70 units qHS * Novolog 40-50 units with meals ASSESSMENT: * Pt total daily insulin dose continues to increase back towards outpatient dosing. * 08/05: pt received 115 units of insulin, BSGs ranging 192-205 mg/dl * 08/06: pt received 121 units of insulin, BSGs ranging 161-205 mg/dl * 08/07: pt received 149 units of insulin, BSGs ranging 151-239 mg/dl * 08/08: pt received 170 units of insulin, BSGs ranging 179-243 mg/dL * 4:28: AM fasting BSG still elevated, will increase basal insulin dosing again and give additional one time dose this morning to prevent BSG from continuing to rise until next basal insulin dose due at bedtime * Post-prandial BSGs elevated but consistent with current coverage. CR is likely adequate dosing, but will tighten correction factor for persistent BSG's >180 mg/dL PLAN FOR INPATIENT GLYCEMIC CONTROL: * Increase Basal insulin * Lantus 65 units SQ HS if BSGs below 180, give 75 units if BSGs 180 or above * One time dose of Lantus 15 units SQ this AM * Bolus insulin: * NovoLog per scale ACHS or Q6hrs while NPO * Goal Range: Low 110 mg/dL - High 140 mg/dL * Tighten Correction Factor: 8 mg/dL/unit * Nutritional / Prandial insulin per carb ratio of 1 unit per 3 grams CHO consumed Pharmacy will continue to monitor patient daily and write orders per [facility] inpatient glycemic control protocol. Thanks. * Please note that the plan above was derived based on current level of insulin resistance and hospital stress. These recommendations are appropriate for inpatient admission only. Plan of care upon discharge will need to be reassessed to avoid potential outpatient hypo/hyperglycemia.
[2017-08-09 15:25] VITALS: BP 124/71; PULSE 94; TEMP 36.7; O2SAT 93
[2017-08-09 16:00] VITALS: O2SAT 93
--- NOTE | 2017-08-09 16:07 | Progress Note ---
Subjective Date of Service: Aug 09, 2017. Subjective Pt evaluation today including: conversation w/ patient, conversation w/ family , physical exam Voiding: no voiding problems, no incontinence Doing fair, sitting up to the chair, eating voiding good, no complaint, still reports generalized weakness Problem List Medical Problems: (1) Bilateral leg pain Status: Acute (2) DKA (diabetic ketoacidosis) Status: Acute (3) Left foot pain Status: Acute (4) Left hip pain Status: Acute (5) Left knee pain Status: Acute (6) Right shoulder pain Status: Acute (7) Sepsis Status: Acute Review of Systems Constitutional: + weakness, + fatigue, No fever, No chills, No sweats, No weight loss Eyes: No worsening of vision, No eye pain, No redness, No discharge, No diplopia ENT: No hearing loss, No unusual epistaxis, No nasal symptoms, No sore throat, No tinnitus, No dental problems, No trouble swallowing Respiratory: No cough, No sputum, No wheezing, No shortness of breath, No dyspnea on exertion, No dyspnea at rest, No hemoptysis Cardiac: + edema, No chest pain, No orthopnea, No PND, No claudication, No palpitations Abdomen: No pain, No nausea, No vomiting, No diarrhea, No constipation Musculoskeletal: No joint pain, No muscle pain, No swelling, No calf pain Female : No dysuria, No urinary frequency, No hematuria, No incontinence, No abnormal vaginal bleeding, No vaginal discharge Neurologic: No memory loss, No paralysis, No weakness, No numbness/tingling, No vertigo, No balance problems Psychiatric: No depression symptoms, No anhedonism, No anxiety, No insomnia, No substance abuse Heme: No abnormal bleeding/bruising, No clotting problems, No swollen lymph nodes, No night sweats Endo: No fatigue, No excessive thirst, No excessive urination Skin: No rash, No itch, No new/changing skin lesions, No color change, No bleeding Objective Vital Signs Date Time Temp Pulse Resp B/P (MAP) Pulse Ox O2 Delivery O2 Flow Rate FiO2 08/09/17 15:25 36.7 94 20 124/71 (88) 93 Room Air 08/09/17 08:00 93 Room Air 08/09/17 07:40 36.6 85 20 165/77 (106) 93 Room Air 08/09/17 00:03 Room Air 08/08/17 23:40 36.9 95 20 153/72 (99) 94 Room Air 08/08/17 20:05 Room Air Physical Exam General Appearance: WD/WN, no apparent distress Eyes: normal inspection, PERRL, EOMI, sclerae normal ENT: normal ENT inspection, hearing grossly normal, pharynx normal Neck: supple, no adenopathy, thyroid normal, no JVD, no carotid bruits, trachea midline Respiratory/Chest: chest non-tender, lungs clear, normal breath sounds, no respiratory distress, no accessory muscle use Cardiovascular: regular rate, rhythm, no edema, no gallop, no JVD, no murmur Abdomen: normal bowel sounds, non tender, soft, no organomegaly, no pulsatile mass Extremities: normal range of motion, non-tender, normal inspection, no pedal edema, no calf tenderness, normal capillary refill, pelvis stable, + pertinent finding (Left lower extremities trace edema, right foot 2+ edema) 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, no motor/sensory deficits, alert, normal mood/affect, oriented x 3 Skin: normal color, warm/dry, no rash, + pertinent finding (Left posterior leg erythema and rash is 50% better) Lymphatic: no adenopathy Laboratory Results Last 24 Hours Test 08/08/17 20:15 08/09/17 07:01 08/09/17 07:44 08/09/17 11:38 Bedside Glucose 179 mg/dl 188 mg/dl 222 mg/dl Sodium Level 137 mmol/L Potassium Level 4.6 mmol/L Chloride Level 104 mmol/L Carbon Dioxide Level 26 mmol/L Anion Gap 7.0 mmol/L Blood Urea Nitrogen 21 mg/dl Creatinine 1.06 mg/dl Est Creatinine Clear Calc Drug Dose 70.7 ml/min Estimated GFR () 64.7 Estimated GFR (Non- 55.8 BUN/Creatinine Ratio 19.6 Random Glucose 188 mg/dl Calcium Level 9.1 mg/dl Phosphorus Level 4.5 mg/dl Magnesium Level 1.9 mg/dl Assessment and Plan 62 y/o female admitted on July 09, 2017 because of sepsis, bacteremia, secondary to right lower extremity cellulitis, associated with RLE erythema/ pain upon admission Sepsis 2/2 RLE Cellulitis; resolved RLE Cellulitis superimposed on Chronic Lower Extremity Edema: resolved Group B strep bacteremia likely from cellulitis, has been treated Infectious disease on the case, started Rocephin 2 g IV daily, for totally 21 days from the time of negative repeat blood culture, completed continue wound care to right leg, new cellulitis in left medial/posterior leg, about 5cm diameter, continue stable and improving and resolving Started keflex 500, 5th days for total 7 days, which is effective Possible mild CHF exacerbation with diastolic dysfunction grade 1, with mild elevated BNP, lower extremity swelling, Has been on 40 mg iv bid, tolerated well, continue good negative out put, switch IV Lasix to oral 2 days ago, decreased to 40 mg p.o. daily we will continue the same dose Patient has significant weight loss, possible approaching to her dry body weight echo on july 12 2017 per report: * Technically limited study, contrast enhanced. * Left ventricular systolic function is normal. * No regional wall motion abnormalities noted. * Ejection Fraction = 65-70%. * There is borderline concentric left ventricular hypertrophy. * Grade I diastolic dysfunction, (abnormal relaxation pattern). Ileus: resolved with conservative measures, loose stool, bowel regimen stopped UTI due to indwelling brown, urine culture growing Terri albicans, treat with Diflucan for 7-10 days, started on 07/31, today is day 8, possible will discontinue when discharging her tomorrow Hypokalemia and Hypomagnesemia: replaced, patient was on 20 Meq potassium 3 time a day, has decreased to daily potassium supplementation because of decreased Lasix dose DVT prophylaxis: Heparin PMHx of T2DM, HLD, Fatty Liver/Chronic Transaminitis, GERD, and PCOS DVT Prophylaxis: Heparin Code Status: FULL RESUSCITATION, increase activity, denied to rehab by insurance company, family is doing appeal Continued [facility] stay due to: home environment unsafe for pt Discharge planning: assisted facility
[2017-08-09] MEDS: INSULIN GLARGINE SOLOSTAR 100 UNITS/ML 3 ML PEN SQ SCH (21:00)
[2017-08-09] MEDS: ZOLPIDEM TARTRATE 10 MG TAB PO PRN (21:03)
[2017-08-09 23:38] VITALS: BP 145/72; PULSE 94; TEMP 36.8; O2SAT 93
[2017-08-10 07:31] VITALS: BP 162/81; PULSE 94; TEMP 36.6; O2SAT 94
[2017-08-10] MEDS: POTASSIUM CHLORIDE 20 MEQ TABCR PO SCH ×3 (08:45→20:08)
[2017-08-10] MEDS: MAGNESIUM OXIDE 400 MG TAB PO SCH ×2 (08:45→20:09)
[2017-08-10] MEDS: PANTOprazole SOD 40 MG TAB PO SCH ×2 (08:46→20:08)
[2017-08-10] MEDS: FUROSEMIDE 40 MG TAB PO SCH (08:47)
[2017-08-10] MEDS: METOLAZONE 5 MG TAB PO SCH (08:48)
[2017-08-10] MEDS: IPRATROPIUM BROMIDE/ALBUTEROL respimat INH INH SCH ×4 (08:48→20:08)
[2017-08-10] MEDS: CEPHALEXIN MONOHYDRATE 500 MG CAP PO SCH ×4 (08:48→20:09)
[2017-08-10] MEDS: INSULIN ASPART 100 UNITS/ML 3 ML PEN SC SCH ×4 (09:07→21:37)
[2017-08-10] MEDS: TRAMADOL HCL 50 MG TAB PO PRN ×2 (11:19→21:34)
--- NOTE | 2017-08-10 14:51 | Pharmacy Progress Note ---
Glycemic: Assessment & Plan Date of Service Aug 10, 2017. Assessment & Plan Outpatient diabetes regimen: * Lantus 60-70 units qHS * Novolog 40-50 units with meals ASSESSMENT: * Pt total daily insulin dose continues to increase back towards outpatient dosing. * 08/05: pt received 115 units of insulin, BSGs ranging 192-205 mg/dl * 08/06: pt received 121 units of insulin, BSGs ranging 161-205 mg/dl * 08/07: pt received 149 units of insulin, BSGs ranging 151-239 mg/dl * 08/08: pt received 170 units of insulin, BSGs ranging 179-243 mg/dL * 08/09: pt received 190 units of insulin, BSGs ranging 135-267 mg/dL * AM fasting BSG improved - will continue Lantus 75 units qHS (increase for BSG >180 mg/dL) * Post-prandial BSGs elevated - BSG increased from 135 to 267 mg/dL from dinner to HS yesterday after patient received only CHO coverage Novolog (no correction) . Therefore CHO ratio likely insufficient and will tighten today * Will increase goal range slightly to prevent hypoglycemia with aggressive CHO ratio PLAN FOR INPATIENT GLYCEMIC CONTROL: * Basal insulin * Lantus 75 units SQ HS if BSGs below 180, give 85 units if BSGs 180 or above * Bolus insulin: * NovoLog per scale ACHS or Q6hrs while NPO * Increase Goal Range: Low 120 mg/dL - High 150 mg/dL * Correction Factor: 8 mg/dL/unit * Tighten Nutritional / Prandial insulin per carb ratio of 1 unit per 2.5 grams CHO consumed Pharmacy will continue to monitor patient daily and write orders per [facility] inpatient glycemic control protocol. Thanks. * Please note that the plan above was derived based on current level of insulin resistance and hospital stress. These recommendations are appropriate for inpatient admission only. Plan of care upon discharge will need to be reassessed to avoid potential outpatient hypo/hyperglycemia.
--- NOTE | 2017-08-10 14:56 | Progress Note ---
Subjective Date of Service: Aug 10, 2017. Subjective Pt evaluation today including: conversation w/ patient, conversation w/ family , physical exam, chart review, lab review, review of studies, conversation w/ customer sales consultant, review of inpatient medication list Sitting up in a chair, eating breakfast, has been doing physical therapy, no complaint Problem List Medical Problems: (1) Bilateral leg pain Status: Acute (2) DKA (diabetic ketoacidosis) Status: Acute (3) Left foot pain Status: Acute (4) Left hip pain Status: Acute (5) Left knee pain Status: Acute (6) Right shoulder pain Status: Acute (7) Sepsis Status: Acute Review of Systems Constitutional: + weakness, + fatigue, No fever, No chills, No sweats, No weight loss, No problem reported Eyes: No worsening of vision, No eye pain, No redness, No discharge, No diplopia ENT: No hearing loss, No unusual epistaxis, No nasal symptoms, No sore throat, No tinnitus, No dental problems, No trouble swallowing Respiratory: No cough, No sputum, No wheezing, No shortness of breath, No dyspnea on exertion, No dyspnea at rest, No hemoptysis Cardiac: + edema (Right lower extremity edema), No chest pain, No orthopnea, No PND, No claudication, No palpitations Abdomen: No pain, No nausea, No vomiting, No diarrhea, No constipation Musculoskeletal: No joint pain, No muscle pain, No swelling, No calf pain Female : No dysuria, No urinary frequency, No hematuria, No incontinence, No abnormal vaginal bleeding, No vaginal discharge Neurologic: No memory loss, No paralysis, No weakness, No numbness/tingling, No vertigo, No balance problems Psychiatric: No depression symptoms, No anhedonism, No anxiety, No insomnia, No substance abuse Heme: No abnormal bleeding/bruising, No clotting problems, No swollen lymph nodes, No night sweats Endo: No fatigue, No excessive thirst, No excessive urination Skin: No rash, No itch, No new/changing skin lesions, No color change, No bleeding Objective Vital Signs Date Time Temp Pulse Resp B/P (MAP) Pulse Ox O2 Delivery O2 Flow Rate FiO2 08/10/17 08:00 Room Air 08/10/17 07:31 36.6 94 18 162/81 (108) 94 Room Air 4/28/18 23:59 Room Air 08/09/17 23:38 36.8 94 20 145/72 (96) 93 Room Air 08/09/17 19:40 Room Air 08/09/17 16:00 93 Room Air 08/09/17 15:25 36.7 94 20 124/71 (88) 93 Room Air Physical Exam General Appearance: WD/WN, no apparent distress, + obese Eyes: normal inspection, PERRL, EOMI, sclerae normal ENT: normal ENT inspection, hearing grossly normal, pharynx normal Neck: supple, no adenopathy, thyroid normal, no JVD, no carotid bruits, trachea midline Respiratory/Chest: chest non-tender, lungs clear, normal breath sounds, no respiratory distress, no accessory muscle use Cardiovascular: regular rate, rhythm, no edema, no gallop, no JVD, no murmur Abdomen: normal bowel sounds, non tender, soft, no organomegaly, no pulsatile mass Extremities: normal range of motion, non-tender, normal inspection, no pedal edema, no calf tenderness, normal capillary refill, pelvis stable, + swelling ( Right lower extremity chronic swelling, left lower extremity no swelling) 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, no motor/sensory deficits, alert, normal mood/affect, oriented x 3 Skin: normal color, warm/dry, no rash Lymphatic: no adenopathy Laboratory Results Last 24 Hours Test 08/09/17 16:58 08/09/17 20:10 08/10/17 08:07 08/10/17 11:30 Bedside Glucose 135 mg/dl 267 mg/dl 292 mg/dl Assessment and Plan 62 y/o female admitted on July 09, 2017 because of sepsis, bacteremia, secondary to right lower extremity cellulitis, associated with RLE erythema/ pain upon admission Sepsis 2/2 RLE Cellulitis; resolved RLE Cellulitis superimposed on Chronic Lower Extremity Edema: resolved Group B strep bacteremia likely from cellulitis, has been treated Infectious disease on the case, started Rocephin 2 g IV daily, for totally 21 days from the time of negative repeat blood culture, completed new cellulitis in left medial/posterior leg, about 5cm diameter, continue stable and improving and resolving, today's almost resolved Started keflex 500, 6th days for total 7 days, which is effective UTI due to indwelling brown, urine culture growing Terri albicans, treat with Diflucan has completed treatment Possible mild CHF exacerbation with diastolic dysfunction grade 1, with mild elevated BNP, lower extremity swelling, Has been on 40 mg iv bid, tolerated well, continue good negative out put, switch IV Lasix to oral 2 days ago, decreased to 40 mg p.o. daily we will continue the same dose Patient has significant weight loss, possible approaching to her dry body weight echo on july 12 2017 per report: * Technically limited study, contrast enhanced. * Left ventricular systolic function is normal. * No regional wall motion abnormalities noted. * Ejection Fraction = 65-70%. * There is borderline concentric left ventricular hypertrophy. * Grade I diastolic dysfunction, (abnormal relaxation pattern). Ileus: resolved with conservative measures, loose stool, bowel regimen stopped Hypokalemia and Hypomagnesemia: replaced, patient was on 20 Meq potassium 3 time a day, has decreased to daily potassium supplementation because of decreased Lasix dose DVT prophylaxis: Heparin PMHx of T2DM, HLD, Fatty Liver/Chronic Transaminitis, GERD, and PCOS DVT Prophylaxis: Heparin Code Status: FULL RESUSCITATION, increase activity, denied to rehab by insurance company, family is doing appeal Discussed with patient and Continued [facility] stay due to: home environment unsafe for pt Discharge planning: residential facility
[2017-08-10 15:36] VITALS: BP 125/73; PULSE 95; TEMP 36.7; O2SAT 94
[2017-08-10] MEDS ORDERED: INSULIN ASPART 100 UNITS/ML 3 ML PEN SC SCH (19:30)
[2017-08-10] MEDS: ZOLPIDEM TARTRATE 10 MG TAB PO PRN (21:34)
[2017-08-10] MEDS: INSULIN GLARGINE SOLOSTAR 100 UNITS/ML 3 ML PEN SQ SCH (21:37)
[2017-08-10 23:35] VITALS: BP 151/74; PULSE 95; TEMP 36.5; O2SAT 94
[2017-08-11 07:32] VITALS: BP 171/78; PULSE 90; TEMP 36.6; O2SAT 93
[2017-08-11 08:05] VITALS: BP 145/75; PULSE 89
[2017-08-11] MEDS: IPRATROPIUM BROMIDE/ALBUTEROL respimat INH INH SCH ×4 (08:05→20:43)
[2017-08-11] MEDS: METOLAZONE 5 MG TAB PO SCH (08:06)
[2017-08-11] MEDS: MAGNESIUM OXIDE 400 MG TAB PO SCH ×2 (08:06→20:43)
[2017-08-11] MEDS: PANTOprazole SOD 40 MG TAB PO SCH ×2 (08:06→20:43)
[2017-08-11] MEDS: CEPHALEXIN MONOHYDRATE 500 MG CAP PO SCH ×4 (08:06→20:44)
[2017-08-11] MEDS: POTASSIUM CHLORIDE 20 MEQ TABCR PO SCH ×3 (08:07→20:43)
[2017-08-11] MEDS: FUROSEMIDE 40 MG TAB PO SCH (08:51)
[2017-08-11] MEDS: INSULIN ASPART 100 UNITS/ML 3 ML PEN SC SCH ×4 (08:54→20:59)
--- NOTE | 2017-08-11 09:43 | Pharmacy Progress Note ---
Pharmacy Glycemic Short Note 2 Date of Service Aug 11, 2017. Outpatient diabetes regimen: * Lantus 60-70 units qHS * Novolog 40-50 units with meals Item Value Date Time Bedside Glucose 292 mg/dl H 08/10/17 1130 Bedside Glucose 341 mg/dl H 08/10/17 1634 Bedside Glucose 175 mg/dl H 08/10/171999 Bedside Glucose 165 mg/dl H 08/11/17 0742 ASSESSMENT: * Pt total daily insulin dose continues to increase back towards outpatient dosing. * 08/05: pt received 115 units of insulin , BSGs ranging 192-205 mg/dl * 08/06: pt received 121 units of insulin, BSGs raging 161-205 mg/dl * 08/07: pt received 149 units of insulin, BSGs raging 151-239 mg/dl * 08/08: pt received 170 units of insulin, BSGs ranging 179-243 mg/dL * 08/09: pt received 190 units of insulin, BSGs ranging 135-267 mg/dL * 08/10: pt received 192 units of insulin, BSGs ranging 136-341 mg/dL * 08/11: AM fasting BSG in goal range with Lantus 75-90 units/day given at HS. * Post-prandial BSGs elevated - more CHO coverage needed. PLAN FOR INPATIENT GLYCEMIC CONTROL: * Basal insulin: increase dosing per scale for a daily dose of 75-85 units based on BSG * Lantus 75 units SQ HS if BSGs below 180, give 85 units if BSGs 180 or above * Bolus insulin: tighten CR * NovoLog per scale ACHS or Q6hrs while NPO * Goal Range: Low 110 mg/dL - High 140 mg/dL * Correction Factor: 8 mg/dL/unit * Nutritional / Prandial insulin per carb ratio of 1 unit per 2 grams CHO consumed
[2017-08-11] MEDS: TRAMADOL HCL 50 MG TAB PO PRN ×2 (10:48→22:01)
--- NOTE | 2017-08-11 14:27 | Hospitalist Progress Note ---
Hospitalist Progress Note Date of Service Aug 11, 2017. Subjective Pt evaluation today including: conversation w/ patient, conversation w/ family , physical exam, chart review, lab review, review of studies, review of inpatient medication list Patient seen and evaluated. No acute events overnight. Denied [facility] and currently in family appeal. Will need updated PT/OT evaluations for submission. Medically stable for D/C when safe disposition established. Unfortunately suspect a large level of deconditioning given a one month stay in a hospital. Is motivated to get more ambulatory but very nervous about falls. Verbalized no issues as the present time. Erythema of legs significantly improved from admission. Diuresing well and appearing euvolemic. Constitutional: No fever, No chills Respiratory: No cough, No shortness of breath Cardiovascular: No chest pain Abdomen: No pain, No nausea, No vomiting, No diarrhea, No constipation Musculoskeletal: + swelling (largely improved to lower extremities), No calf pain Female : No dysuria Heme: No abnormal bleeding/bruising Medications Current Inpatient Medications Medications (Trade) Dose Ordered Sig/Oxana Route Start Time Stop Time Status Last Admin Dose Admin Miscellaneous Information (Consult Glycemic Management Pharmacy) 1 ea UD PRN N/A 07/09/17 11:10 09/07/17 11:09 Albuterol/ Ipratropium (Combivent Respimat Inh) 1 puffs QID INH 07/12/17 21:00 08/11/17 20:59 08/11/17 12:05 1 PUFFS Heparin Sodium (Porcine) (Heparin 10 Unit/ ml 5 ml Flush) 5 ml PRN PRN FLUSH 07/14/17 12:00 08/13/17 11:59 08/07/17 08:05 5 ML Promethazine HCl 25 mg/Sodium Chloride 51 ml @ 204 mls/hr Q6H PRN IV 07/19/17 22:45 08/18/17 22:44 07/24/17 19:44 204 MLS/HR Metoclopramide HCl 20 mg/Sodium Chloride 54 ml @ 162 mls/hr Q6H PRN IV 07/20/17 03:30 08/19/17 03:29 07/25/17 12:55 162 MLS/HR Zolpidem Tartrate (Ambien Tab) 10 mg HS PRN PO 07/25/17 10:15 08/24/17 10:14 08/10/17 21:34 10 MG Insulin Aspart (novoLOG ASPART) SLIDING SCALE If CARB RA... ACHS SC 07/28/17 06:30 08/27/17 06:29 08/11/17 13:33 44 UNITS Pantoprazole Sodium (Protonix Tab) 40 mg BID PO 07/29/17 20:00 08/28/17 19:59 08/11/17 08:06 40 MG Metolazone (Zaroxolyn Tab) 5 mg QAM PO 07/31/17 08:00 08/30/17 07:59 08/11/17 08:06 5 MG Potassium Chloride (Klor-Con Tab) 40 meq TID PO 07/30/17 20:00 08/27/17 13:59 08/11/17 13:34 40 MEQ Magnesium Oxide (Mag-Ox Tab) 400 mg BID PO 08/05/17 08:00 09/04/17 07:59 08/11/17 08:06 400 MG Insulin Glargine (Lantus Solostar Pen) PLEASE SEE PROTOCOL TE... HS SQ 08/05/17 22:00 09/02/17 16:44 08/10/17 21:37 75 UNITS Cephalexin Monohydrate (Keflex Cap) 500 mg QID PO 08/05/17 12:00 08/12/17 08:01 08/11/17 12:05 500 MG Furosemide (Lasix Tab) 40 mg DAILY PO 08/09/17 08:00 09/05/17 16:59 08/11/17 08:51 40 MG Tramadol HCl (Ultram Tab) 50 mg BID PRN PO 08/08/17 09:45 09/07/17 09:44 08/11/17 10:48 50 MG Objective Vital Signs Date Time Temp Pulse Resp B/P (MAP) Pulse Ox O2 Delivery O2 Flow Rate FiO2 08/11/17 08:05 89 145/75 (98) 08/11/17 08:00 Room Air 08/11/17 07:32 36.6 90 18 171/78 (109) 93 Room Air 08/10/17 23:59 Room Air 08/10/17 23:35 36.5 95 20 151/74 (99) 94 Room Air 08/10/17 16:00 Room Air 08/10/17 15:36 36.7 95 18 125/73 (90) 94 Room Air Physical Exam General Appearance: WD/WN, no apparent distress Eyes: sclerae normal ENT: hearing grossly normal Neck: supple, no JVD, trachea midline Respiratory/Chest: lungs clear, normal breath sounds, no respiratory distress, no accessory muscle use Cardiovascular: regular rate, rhythm, no gallop, no murmur Abdomen: normal bowel sounds, non tender, soft Extremities: + pertinent finding (RLE with dressing applied c/d/i; immediate cap refill; mild edema; LLE with minimal edema and dry scaling areas to posterior calve) Neurologic/Psychiatric: alert, oriented x 3 Skin: warm/dry Laboratory Results Last 24 Hours Test 08/10/17 16:34 08/10/17 20:00 08/11/17 07:42 08/11/17 11:50 Bedside Glucose 341 mg/dl 175 mg/dl 165 mg/dl 235 mg/dl Assessment and Plan Mr. Jordan is a 62 y/o female with PMHx of T2DM, HLD, Fatty Liver/Chronic Transaminitis, GERD, and PCOS who presents to the ED c/o RLE erythema/pain starting this AM. Sepsis 2/2 RLE Cellulitis and Group B Strep Bacteremia: IMPROVING - Sepsis/Bacteremia resolved - RLE improved erythema with eventual development of LLE cellulitis that is improving - Was initially treated with Rocephin 2 g IV daily and Clinda to complete 21 days from sterile BCx (completed) and currently on Keflex 500 mg QID for newly developed cellulitis which is resolving - finishes course of 5/ - Wound care following - appreciate dressings and assistance with management Acute Diastolic CHF: Appears Euvolemic - Has successfully diuresed with improvement in respiratory status and extremities - Lasix 40 mg daily and Metolazone 5 mg daily T2DM: - Pharmacy continues to manage - appreciate assistance UTI 2/2 Indwelling Brock: Terri - RESOLVED - Treated with Diflucan Ileus: RESOLVED TERESA 2/2 Dehydration/DKA/Sepsis: RESOLVED Diabetic Ketoacidosis/Metabolic Acidosis (RESOLVED) DVT Prophylaxis: Heparin Code Status: FULL RESUSCITATION Disposition: - Need updated PT/OT evaluations - Family appeal for [facility] - regardless will need updates to explore SNF options if necessary - Medically stable for D/C with safe disposition with first choice of [facility] Continued [facility] stay due to: ambulation difficulties Discharge planning: rehab hospital
[2017-08-11 15:11] VITALS: BP 143/76; PULSE 77; TEMP 36.7; O2SAT 94
[2017-08-11] MEDS: INSULIN GLARGINE SOLOSTAR 100 UNITS/ML 3 ML PEN SQ SCH (20:59)
[2017-08-11] MEDS: ZOLPIDEM TARTRATE 10 MG TAB PO PRN (22:01)
[2017-08-11 23:16] VITALS: BP 154/80; PULSE 92; TEMP 36.9; O2SAT 93
[2017-08-12 07:05] VITALS: BP 155/82; PULSE 89; TEMP 36.7; O2SAT 93
[2017-08-12 08:05] VITALS: BP 148/84; PULSE 92
[2017-08-12] MEDS: PANTOprazole SOD 40 MG TAB PO SCH ×2 (08:06→20:52)
[2017-08-12] MEDS: POTASSIUM CHLORIDE 20 MEQ TABCR PO SCH ×3 (08:06→20:52)
[2017-08-12] MEDS: CEPHALEXIN MONOHYDRATE 500 MG CAP PO SCH (08:07)
[2017-08-12] MEDS: MAGNESIUM OXIDE 400 MG TAB PO SCH ×2 (08:07→20:53)
[2017-08-12] MEDS: METOLAZONE 5 MG TAB PO SCH (08:07)
[2017-08-12] MEDS: TRAMADOL HCL 50 MG TAB PO PRN ×2 (08:13→20:59)
[2017-08-12] MEDS ORDERED: INSULIN GLARGINE SOLOSTAR 100 UNITS/ML 3 ML PEN SQ ONE (08:30)
[2017-08-12] MEDS: FUROSEMIDE 40 MG TAB PO SCH (08:50)
[2017-08-12] MEDS: INSULIN ASPART 100 UNITS/ML 3 ML PEN SC SCH ×4 (08:55→21:33)
[2017-08-12 15:17] VITALS: BP 124/71; PULSE 92; TEMP 37.3; O2SAT 93
--- NOTE | 2017-08-12 15:18 | Hospitalist Progress Note ---
Hospitalist Progress Note Date of Service August 12, 2017. Subjective Pt evaluation today including: conversation w/ patient, conversation w/ family , physical exam, review of inpatient medication list Patient seen and evaluated. No acute events overnight. Family appeal denied and pursuing [facility]. Medically stable for D/C pending safe disposition Keflex completed. Additional Comments: ROS Constitutional: No fever, No chills Respiratory: No cough, No shortness of breath Cardiovascular: No chest pain Abdomen: No pain, No nausea, No vomiting, No diarrhea, No constipation Musculoskeletal: + swelling (largely improved to lower extremities), No calf pain Female : No dysuria Heme: No abnormal bleeding/bruising Medications Current Inpatient Medications Medications (Trade) Dose Ordered Sig/Oxana Route Start Time Stop Time Status Last Admin Dose Admin Miscellaneous Information (Consult Glycemic Management Pharmacy) 1 ea UD PRN N/A 07/09/17 11:10 09/07/17 11:09 Heparin Sodium (Porcine) (Heparin 10 Unit/ ml 5 ml Flush) 5 ml PRN PRN FLUSH 07/14/17 12:00 08/13/17 11:59 08/07/17 08:05 5 ML Promethazine HCl 25 mg/Sodium Chloride 51 ml @ 204 mls/hr Q6H PRN IV 07/19/17 22:45 08/18/17 22:44 07/24/17 19:44 204 MLS/HR Metoclopramide HCl 20 mg/Sodium Chloride 54 ml @ 162 mls/hr Q6H PRN IV 07/20/17 03:30 08/19/17 03:29 07/25/17 12:55 162 MLS/HR Zolpidem Tartrate (Ambien Tab) 10 mg HS PRN PO 07/25/17 10:15 08/24/17 10:14 08/11/17 22:01 10 MG Insulin Aspart (novoLOG ASPART) SLIDING SCALE If CARB RA... ACHS SC 07/28/17 06:30 08/27/17 06:29 08/12/17 12:38 31 UNITS Pantoprazole Sodium (Protonix Tab) 40 mg BID PO 07/29/17 20:00 08/28/17 19:59 08/12/17 08:06 40 MG Metolazone (Zaroxolyn Tab) 5 mg QAM PO 07/31/17 08:00 08/30/17 07:59 08/12/17 08:07 5 MG Potassium Chloride (Klor-Con Tab) 40 meq TID PO 07/30/17 20:00 08/27/17 13:59 08/12/17 12:37 40 MEQ Magnesium Oxide (Mag-Ox Tab) 400 mg BID PO 08/05/17 08:00 09/04/17 07:59 08/12/17 08:07 400 MG Insulin Glargine (Lantus Solostar Pen) PLEASE SEE PROTOCOL TE... HS SQ 08/05/17 22:00 09/02/17 16:44 08/11/17 20:59 75 UNITS Furosemide (Lasix Tab) 40 mg DAILY PO 08/09/17 08:00 09/05/17 16:59 08/12/17 08:50 40 MG Tramadol HCl (Ultram Tab) 50 mg BID PRN PO 08/08/17 09:45 09/07/17 09:44 08/12/17 08:13 50 MG Objective Vital Signs Date Time Temp Pulse Resp B/P (MAP) Pulse Ox O2 Delivery O2 Flow Rate FiO2 08/12/17 08:05 92 148/84 (105) 08/12/17 08:00 Room Air 08/12/17 07:05 36.7 89 18 155/82 (106) 93 Room Air 08/11/17 23:29 Room Air 08/11/17 23:16 36.9 92 19 154/80 (104) 93 Room Air 08/11/17 16:00 Room Air Physical Exam Notes: General Appearance: WD/WN, no apparent distress Eyes: sclerae normal ENT: hearing grossly normal Neck: supple, no JVD, trachea midline Respiratory/Chest: lungs clear, normal breath sounds, no respiratory distress, no accessory muscle use Cardiovascular: regular rate, rhythm, no gallop, no murmur Abdomen: normal bowel sounds, non tender, soft Extremities: + pertinent finding (RLE with dressing applied c/d/i; immediate cap refill; mild edema; LLE with minimal edema and dry scaling areas to posterior calve; more ecchymosis/petechial findings) Neurologic/Psychiatric: alert, oriented x 3 Skin: warm/dry Laboratory Results Last 24 Hours Test 08/11/17 16:30 08/11/17 20:24 08/12/17 07:47 08/12/17 11:36 Bedside Glucose 126 mg/dl 117 mg/dl 195 mg/dl 219 mg/dl Assessment and Plan Mr. Jordan is a 62 y/o female with PMHx of T2DM, HLD, Fatty Liver/Chronic Transaminitis, GERD, and PCOS who presents to the ED c/o RLE erythema/pain starting this AM. Sepsis 2/2 RLE Cellulitis and Group B Strep Bacteremia: RESOLVED - Sepsis/Bacteremia resolved - RLE improved erythema with eventual development of LLE cellulitis that is improving - Was initially treated with Rocephin 2 g IV daily and Clinda to complete 21 days from sterile BCx (completed) and just finished Keflex 500 mg QID for cellulitis of LLE - Wound care following - appreciate dressings and assistance with management Acute Diastolic CHF: Appears Euvolemic - Has successfully diuresed with improvement in respiratory status and extremities - Lasix 40 mg daily and Metolazone 5 mg daily T2DM: - Pharmacy continues to manage - appreciate assistance UTI 2/2 Indwelling Brock: Terri - RESOLVED - Treated with Diflucan Ileus: RESOLVED TERESA 2/2 Dehydration/DKA/Sepsis: RESOLVED Diabetic Ketoacidosis/Metabolic Acidosis (RESOLVED) DVT Prophylaxis: Heparin Code Status: FULL RESUSCITATION Disposition: - Family appeal denied to [facility]; Request for [facility] pending - will be medically suitable for D/C pending safe disposition Continued [facility] stay due to: ambulation difficulties Discharge planning: nursing home facility
[2017-08-12] MEDS: ZOLPIDEM TARTRATE 10 MG TAB PO PRN (21:34)
[2017-08-12] MEDS ORDERED: INSULIN GLARGINE SQ SCH (22:00)
[2017-08-13 00:14] VITALS: BP 155/74; PULSE 95; TEMP 36.6; O2SAT 93
[2017-08-13 07:16] VITALS: BP 138/79; PULSE 90; TEMP 36.5; O2SAT 93
[2017-08-13 07:37] LABS: CALCIUM 9.2 mg/dl (8.5-10.1); CREATININE 0.98 mg/dl (0.60-1.20)
[2017-08-13 07:50] VITALS: BP 133/82; PULSE 91
[2017-08-13] MEDS: METOLAZONE 5 MG TAB PO SCH (07:51)
[2017-08-13] MEDS: MAGNESIUM OXIDE 400 MG TAB PO SCH (07:51)
[2017-08-13] MEDS: PANTOprazole SOD 40 MG TAB PO SCH (07:51)
[2017-08-13] MEDS: POTASSIUM CHLORIDE 20 MEQ TABCR PO SCH ×2 (07:51→14:12)
[2017-08-13] MEDS ORDERED: INSULIN GLARGINE SQ ONE (08:30)
[2017-08-13] MEDS: FUROSEMIDE 40 MG TAB PO SCH (08:59)
[2017-08-13] MEDS: INSULIN ASPART 100 UNITS/ML 3 ML PEN SC SCH ×2 (09:02→12:40)
[2017-08-13] MEDS: TRAMADOL HCL 50 MG TAB PO PRN (11:24)
[2017-08-13] MEDS ORDERED: INSDGIPEN SQ (12:08)
[2017-08-13] MEDS ORDERED: MCRK20 PO (12:08)
[2017-08-13] MEDS ORDERED: ULT50X PO (12:09)
--- NOTE | 2017-08-13 12:16 | Discharge Instructions ---
Discharge Instructions Date of Service August 13, 2017. Admission Reason for Admission: Cellulitis, Diabetic Ketoacidosis Discharge Discharge Diagnosis / Problem: RLE Cellulitis with DKA Discharge Goals Goal(s): Decrease discomfort, Improve function, Increase independence Activity Recommendations Activity Level: Assistance Required Therapies: Physical Therapy, Occupational Therapy . Additional Information Patient informed of condition: Yes Advance Directives: Yes DNR: No Level of Care: Skilled Communicable Disease: No Prognosis: Stable Brock Catheter: No Instructions / Follow-Up Instructions / Follow-Up Sepsis 2/2 RLE Cellulitis and Group B Strep Bacteremia: RESOLVED - Sepsis/Bacteremia resolved - RLE improved erythema with eventual development of LLE cellulitis that is resolved - Was initially treated with Rocephin 2 g IV daily and Clinda to complete 21 days from sterile BCx (completed) and just finished Keflex 500 mg QID for cellulitis of LLE - no further antibiotics warranted - Wound care followed - recommend to have follow-up appointment in next week if possible -- Currently plan from wound care nurse - LEG CAN BE WASHED WITH MILD SOAP AND WATER AND MOISTURIZED WITH LOTION. AQUACEL AG APPLIED TO OPEN AREAS ON RIGHT POSTERIOR LOWER LEG WITH ABD PAD AND SECURED WITH KERLIX. TO RIGHT HEEL AREA CAN BE CLEAN WITH SALINE, AQUACEL AG APPLIED AND SECURE WITH OPTIFOAM. Acute Diastolic CHF: Appears Euvolemic - Has successfully diuresed with improvement in respiratory status and extremities - Lasix 40 mg daily and continue to monitor T2DM: - Lantus 80 units daily and continue sliding scale - this can be further adjusted as necessary - home Metformin was discontinued in favor of Insulin therapy to improve A1c - last Alc was 8+ - Continue to monitor BSGs at meals and bedtime UTI 2/2 Indwelling Brock: Terri - RESOLVED - Treated with Diflucan - treatment completed Ileus: RESOLVED - Tolerating diet without issue and moving bowels TERESA 2/2 Dehydration/DKA/Sepsis: RESOLVED Diabetic Ketoacidosis/Metabolic Acidosis (RESOLVED) Code Status: FULL RESUSCITATION Disposition: - F/U with wound clinic in next 7-10 days - F/U with family doctor in 7-10 days - May benefit from home services after rehab to help with dressings/meds or other possible needs Current Hospital Diet Patient's current hospital diet: Diabetes Type 2 Diet, Low Fiber Diet Discharge Diet Recommended Diet: Diabetes Type 2 Diet Procedures Procedures Performed: COLONOSCOPY Pending Studies Studies pending at discharge: no Physician Orders On Transfer POL Discussion: Not Applicable Laboratory Results Hemoglobin A1c Test 07/09/17 08:35 Range/Units Estimated Average Glucose 200 mg/dl Hemoglobin A1c 8.6 H 4.5-5.6 % Lipid Panel Test 07/26/17 06:00 Range/Units Triglycerides Level 162 H 0-150 mg/dl Medical Emergencies . Who to Call and When: Medical Emergencies: If at any time you feel your situation is an emergency, please call 911 immediately. . Non-Emergent Contact Non-Emergency issues call your: Primary Care Provider Call Non-Emergent contact if: you have a fever, your pain is concerning you, you have any medication questions . . "Provider Documentation" section prepared by Lizzie Myers. . Core Measure Problem Core Measures: None
[2017-08-13 14:49] VITALS: BP 133/82; PULSE 91; TEMP 36.5; O2SAT 93
--- NOTE | 2017-08-13 14:53 | Discharge Summary ---
Discharge Summary Date of Service August 13, 2017. Discharge Summary Admission Date: Jul 09, 2017 at 10:40 Discharge Date: Jul 14, 2018 Discharge Disposition: retirement facility Principal Diagnosis: Sepsis 2/2 RLE Cellulitis and Septicemia Problems/Secondary Diagnoses: 1. H/O B/L Lower Extremity Cellulitis 2. T2DM 3. HLD 4. Fatty Liver/Chronic Transaminitis 5. GERD 6. PCOS 7. Ileus 8. Diastolic CHF 9. Terri UTI Procedures: CT SCAN OF THE RIGHT LOWER EXTREMITY WITHOUT IV CONTRAST FINDINGS: The skeletal structures are osteopenic. There is no evidence of right tibial or fibular fracture. No bony erosion or periostitis is identified. The knee and ankle joints are grossly maintained noting arthritic change. There is fatty atrophy of the regional musculature. There is diffuse edema and fluid seen throughout the superficial and deep soft tissues of the right lower extremity. Associated dermal thickening is noted. No organized fluid collection is identified on this unenhanced examination to suggest abscess. No subcutaneous gas is identified. No fluid is seen tracking along the myofascial bundles. IMPRESSION: 1. Osteopenia and degenerative change as above. No acute bony abnormality is seen in the right tibia or fibula. 2. Diffuse soft tissue edema and dermal thickening is noted and consistent with the reported history of cellulitis. 3. No organized fluid collection is seen to suggest abscess. ABD/PELVIS ORAL CONT ONLY FINDINGS: No pneumatosis, free air or portal venous gas is present. There is probable fatty infiltration of the liver. Moderate splenomegaly has increased since exam of November 20, 2010. Unenhanced images of the spleen and kidneys are unremarkable. There is no hydronephrosis. Pancreatic glandular atrophy is noted. Equivocal peripancreatic infiltration is noted. There are pancreatic parenchymal calcifications. Oral contrast reaches the cecum. There is mild small bowel dilatation and moderate colonic dilatation without transition point. Ascending colon measures 9.7 cm in transverse dimension. There is no evidence for a bowel obstruction. There is mild left groin edema. There is no fluid collection to suggest an abscess. No lymphadenopathy. No hydronephrosis is present. There is mild anasarca. Colonic diverticulosis without evidence for acute diverticulitis. IMPRESSION: 1. No evidence for a bowel obstruction. 2. Moderate colonic dilatation and mild small bowel dilatation. Oral contrast reaches the cecum. No transition point. The findings favor an ileus or pseudoobstruction. 3. Equivocal peripancreatic infiltration. Acute pancreatitis is considered unlikely however the findings could be correlated with biochemical assays. 4. Moderate nonspecific splenomegaly. 5. Mild anasarca and trace ascites. COLONOSCOPY - Hemorrhoids found on perianal exam. - Stool in the entire examined colon. - Diverticulosis in the sigmoid colon. - Non-bleeding external internal hemorrhoids. - No specimens collected. Consultations: 1. Infectious Disease 2. Wound Care 3. Gastroenterology 4. Orthopedics 5. General Surgery 6. PT/OT 7. Pharmacy Medication Reconciliation New Medications: Insulin Glargine (Lantus Solostar) 100 Unit/Ml Inj 80 UNITS SQ HS for 30 Days Magnesium Oxide (Magnesium-Oxide) 400 Mg Tab 400 MG PO BID for 30 Days, TAB Potassium Chloride (Klor-Con M20) 20 Meq Tabcr 40 MEQ PO DAILY for 30 Days Tramadol HCl (Tramadol HCl) 50 Mg Tab 50 MG PO BID PRN for Pain for 3 Days, #6 TAB Continued Medications: B-Complex Vitamins (Vitamin B Complex) 1 Tab Tab 1 TAB PO DAILY Cetirizine (Zyrtec) 10 Mg Tab 10 MG PO DAILY, TAB Fenofibrate (Tricor ) 145 Mg Tab 145 MG PO DAILY, TAB Fish Oil (Mio-3) 1 Ea Cap 2 CAP PO DAILY, CAP Furosemide (Lasix) 40 Mg Tab 40 MG PO DAILY, TAB Insulin Aspart (Novolog Flexpen) 100 Units/Ml Inj 1 DOSE SC UD DIRECTED PER SLIDING SCALE Losartan Potassium (Cozaar) 100 Mg Tab 100 MG PO DAILY, TAB Multivitamins/Minerals (Mvi With Minerals) Tab 1 TAB PO DAILY, TAB Omeprazole (Prilosec) 20 Mg Capcr 20 MG PO BID, CAP Simvastatin (Zocor) 40 Mg Tab 40 MG PO QPM, TAB Discontinued Medications: Insulin Glargine (Lantus Solostar) 100 Unit/Ml Inj 60-70 SC HS Metformin Hcl (Glucophage Ext Rel) 1,000 Mg Tab 1000 MG PO BID, TAB Metformin Hcl (Glucophage) 500 Mg Tab 500 MG PO @ 1200, TAB Discharge Exam ROS Constitutional: No fever, No chills Respiratory: No cough, No shortness of breath Cardiovascular: No chest pain Abdomen: No pain, No nausea, No vomiting, No diarrhea, No constipation Musculoskeletal: + swelling (largely improved to lower extremities R > L), No calf pain Female : No dysuria Heme: No abnormal bleeding/bruising General Appearance: WD/WN, no apparent distress Eyes: sclerae normal ENT: hearing grossly normal Neck: supple, no JVD, trachea midline Respiratory/Chest: lungs clear, normal breath sounds, no respiratory distress, no accessory muscle use Cardiovascular: regular rate, rhythm, no gallop, no murmur Abdomen: normal bowel sounds, non tender, soft Extremities: + pertinent finding (RLE with dressing applied c/d/i; immediate cap refill; mild edema; LLE with minimal edema and dry scaling areas to posterior calf; more ecchymosis/petechial findings) Neurologic/Psychiatric: alert, oriented x 3 Skin: warm/dry Hospital Course ADMISSION: Mr. Jordan is a 62 y/o female with PMHx of T2DM, HLD, Fatty Liver/ Chronic Transaminitis, GERD, and PCOS who presents to the ED c/o RLE erythema/ pain starting this AM. Patient states acutely she developed generalized fatigue and felt fevered with chills yesterday. She also has a cough, rhinorrhea, and nausea. She also had only pain in the RLE yesterday. She decided to go to bed at approx. 1800 yesterday due to not feeling well. She states she didn't eat much and only took her morning dose of Metformin. She does not remember if she took any Novolog but knows she did not take her Lantus. She had poor sleep overnight due to pain in the leg. When she awoke this morning her leg was significantly erythematous and more edematous then baseline. She states she felt lightheaded and dizzy this morning and felt very thirsty. She is having difficulty ambulating her her RLE. She reports H/O cellulitis in both legs many years ago. Has a skin crack in the plantar aspect of her foot. States this was strictly a crack in the skin and denies puncture wound. No drainage noted from skin crack. In the ED, patient with WBC of 20. BSG 299. Anion gap 17. Cr at 2.44. Vitals stable. Patient was aggressively hydrated and IV Abx initiated. Patient will be admitted for diabetic ketoacidosis, TERESA, and cellulitis of RLE. HOSPITAL COURSE: She initially presented with significant RLE cellulitis and DKA. DKA quickly resolved but RLE cellulitis was initially rather resistant. Ultimately progressing in size even with IV Abx which prolonged hospitalization. Length os stay was further complicated but significant volume overload in setting of need for fluids upon admission with DKA. She has aggressively diuresed over the course of hospitalization. Length of stay was also complicated by multiple episodes of ileus that ultimately resolved. Sepsis 2/2 RLE Cellulitis and Group B Strep Bacteremia: RESOLVED - Sepsis/Bacteremia resolved - RLE improved erythema with eventual development of LLE cellulitis that is resolved at this time - Was initially treated with Rocephin 2 g IV daily and Clinda to complete 21 days from sterile BCx (completed) and just finished Keflex 500 mg QID for cellulitis of LLE - Wound care followed - recommend F/U as outpatient, does have some wounds still present however no further cellulitis Acute Diastolic CHF: Appears Euvolemic - Has successfully diuresed with improvement in respiratory status and extremities - At a negative balance of - 28 L with loss of approx. 76 lbs - Lasix 40 mg daily and will need monitored for further diuretics - did use Metolazone in hospital but did not send on D/C to avoid ultimately depleting her T2DM: - A1c in 8+ range. Made some adjustments with medications but will ultimately need re-evaluated - Stopped Metformin due to diuretics and risk for TERESA and focused on optimizing insulin therapy - Generally has been running 200+ in-hospital - Lantus 80 units SC daily with sliding scale but could ultimately do fixed dosing at meals to optimize compliance; if Cr remains stable could ultimately add Metformin back UTI 2/2 Indwelling Brock: Terri - RESOLVED - Treated with Diflucan in-hospital Ileus: RESOLVED TERESA 2/2 Dehydration/DKA/Sepsis: RESOLVED Diabetic Ketoacidosis/Metabolic Acidosis (RESOLVED) Disposition: - Rehab at [facility] to optimize function prior to returning home - some level of deconditioning given 35 day hospital stay Total Time Spent: Greater than 30 minutes This includes examination of the patient, discharge planning, medication reconciliation, and communication with other providers. Discharge Instructions Please refer to the electronic Patient Visit Report (Discharge Instructions) for additional information. Additional Copies To Salvador Penaloza M.D.
== END 2017-08-13 17:54 | DRG 871 ==
LOC: EDBD 08:31 → C.EDB 08:32 → C.2E 10:40 → ENRESERV 11:31 → CANRESERV 07-15 13:46 → ENRESERV 07-15 13:46 → C.MS4W 07-15 14:48
PROVIDERS: ADMIT Hospitalist; ATTEND Internal Medicine
PROC: 0DJD8ZZ Inspection of Lower Intestinal Tract, Via Natural or Artificial Opening Endoscopic (ICD-10-PCS; principal; 2017-07-22 12:56)
DX: A40.1 Sepsis due to streptococcus, group B (principal); E11.11 Type 2 diabetes mellitus with ketoacidosis with coma; I50.33 Acute on chronic diastolic (congestive) heart failure; E87.2 Acidosis; L03.115 Cellulitis of right lower limb; K56.7 Ileus, unspecified; N17.9 Acute kidney failure, unspecified; K52.1 Toxic gastroenteritis and colitis; N39.0 Urinary tract infection, site not specified; T83.511A Infection and inflammatory reaction due to indwelling urethral catheter, initial encounter; E78.5 Hyperlipidemia, unspecified; K76.0 Fatty (change of) liver, not elsewhere classified; K21.9 Gastro-esophageal reflux disease without esophagitis; E28.2 Polycystic ovarian syndrome; Z88.3 Allergy status to other anti-infective agents; Z82.49 Family history of ischemic heart disease and other diseases of the circulatory system; Z80.0 Family history of malignant neoplasm of digestive organs; E66.01 Morbid (severe) obesity due to excess calories; Z79.4 Long term (current) use of insulin; R65.20 Severe sepsis without septic shock; Y84.6 Urinary catheterization as the cause of abnormal reaction of the patient, or of later complication, without mention of misadventure at the time of the procedure; R60.9 Edema, unspecified; E86.0 Dehydration; D72.829 Elevated white blood cell count, unspecified; E87.70 Fluid overload, unspecified; T36.95XA Adverse effect of unspecified systemic antibiotic, initial encounter; B37.9 Candidiasis, unspecified

== ENCOUNTER 2024-02-20 13:01 | Inpatient (IN) ==
[2024-02-20 13:56] LABS: Hematocrit (blood only) 44.9 % (37.0-47.0); Hemoglobin 14.3 g/dl (12.0-16.0); Mean Corpuscular Hemoglobin 28.8 pg (25.0-34.0); Mean Corpuscular Hgb Conc 31.8 g/dL (32.0-36.0); Mean Corpuscular Volume 90.3 fL (80.0-100.0); Mean Platelet Volume 11.4 fL (9.4-12.4); Platelet Count 217 K/uL (130-400); RDW Coefficient of Variation 14.8 % (11.5-14.5); RDW Standard Deviation 49.1 fL (36.4-46.3); Red Blood Count 4.97 M/uL (4.20-5.40); White Blood Count 10.91 K/ul (4.8-10.8)
--- NOTE | 2024-02-20 14:09 | XRay Report ---
XR chest 1V portable HISTORY: 69 years-old Female stroke alert acute stroke like symptoms COMPARISON: Chest CT 06/03/2023 TECHNIQUE: AP view of the chest FINDINGS: Cardiac silhouette is enlarged. Electronic device projects over the left heart border. No pneumothora x. Pulmonary vascular congestion with interstitial coarsening. Small pleural effusions with mild biba silar opacities. Bones appear grossly intact. IMPRESSION: 1. Cardiomegaly with mild pulmonary edema. 2. Small pleural effusions with mild bibasilar opacities, likely atelectatic. ACT 112: Negative or not required by law. The above report was generated using voice recognition software. It may contain grammatical, syntax o r spelling errors. Electronically signed by: Eusebio Cueto M.D. 02/20/2024 2:08 PM
[2024-02-20 14:14] LABS: Albumin Globulin Ratio 1.2 (0.9-2); Albumin Level 3.7 gm/dl (3.4-5.0); BUN Creatinine Ratio 14.7 (10-20); Bilirubin,Total 0.6 mg/dl (0.2-1.0); Calcium 9.8 mg/dl (8.6-10.3); Creatinine Clr Calc Pharmacy 70.7 ml/min; Magnesium 1.8 mg/dl (1.7-2.4); Potassium 4.1 mmol/L (3.5-5.1); Total Protein 6.7 gm/dl (6.0-8.3)
[2024-02-20 14:18] LABS: Appearance Urine Clear (Clear); Bacteria Urine Automated None Seen (None Seen); Bilirubin Urine Negative (Negative); Blood Urine Trace (Negative); Cast Urine Automated 0-2 /lpf (0-2); Color Urine Dark Yellow; Glucose Urine UA Negative (Negative); Ketones Urine Negative (Negative); Leukocyte Esterase Urine Trace (Negative); Nitrite Urine Negative (Negative); Protein Urine Negative (Negative); Specific Gravity Urine 1.019 (1.000-1.030); Urobilinogen Urine Negative (Negative); WBC Urine Automated 0-5 /hpf (0-5); pH Urine 7.5 (4.5-7.5)
[2024-02-20 14:25] LABS: Partial Thromboplastin Time 27 Seconds (21-31)
--- NOTE | 2024-02-20 15:15 | Emergency Department Note ---
Impression & Plan Confusion, History of CVA with residual deficit, Dysarthria ED Provider Note NAME: TEAGAN PERRY AGE: 69 SEX: F : 1955 ARRIVES VIA: Ambulance INFORMANT: Patient, ED PROVIDER(S): Kvng Jean MD CHIEF COMPLAINT: Confusion HPI: This a 69-year-old female with history of previous CVA presenting for confusion. Patient is with family who provides most of the history. They state that this morning patient was confused. Sometimes she gets confused if he does not sleep well however today there was a confusion was waxing and waning and progressing over multiple hours. She appears similar to previous UTI. They note that she has been essentially bedbound and does not walk due to previous hip fracture. She otherwise has not remembered names of her son and as well as where she was intermittently this morning. ROS: See above HPI for pertinent positives & negatives. A total of 10 systems reviewed and were otherwise negative. PAST MEDICAL HISTORY: See Below PAST SURGICAL HISTORY: See Below FAMILY HISTORY: See Below SOCIAL HISTORY: See Below HOME MEDICATIONS: See Below ALLERGIES: See Below VITALS: See Below PHYSICAL EXAMINATION: General: resting comfortably in no acute distress Head: Normocephalic and atraumatic Eyes: Normal inspection, extraocular muscles intact Ear, nose, throat: Normal external exam Neck: Normal range of motion Respiratory: speaking in full sentences, symmetric chest rise, no respiratory distress Cardiovascular: Regular rate/rhythm Extremities: moves all extremities Neuro: The patient awake and alert, oriented x 3, symmetric faces, bilateral lower extremity weakness, MEDICAL DECISION MAKING: This is a 69-year-old female presenting for confusion. Patient is oriented on my exam but does have some increased slurred speech. This is transient and self resolves but then worsens again. She is also somewhat confused while discussing care with me. Will do screening workup to include CT head basic blood work and urinalysis -Urinalysis currently negative. -Bloodwork is reviewed showing no significant leukocytosis, anemia, electrolyte or creatinine abnormality -Patient has bilateral extremity weakness, consistent with her usual condition. Otherwise she has no upper extremity weakness. -She has continued waxing and waning symptoms at this time occasionally oriented sometimes confused. Sometimes clear voice sometimes with dysarthria. -Will admit patient for further altered mental status workup at this time concern for metabolic encephalopathy, care discussed Dr. Srinivasan Differential diagnosis: Intracranial hemorrhage, stroke, UTI, deconditioning ER treatment provided: See below Independent History obtained from: , daughter Diagnostics interpreted by me: ECG: ECG independently interpreted by me with normal sinus rhythm, rate of 97, low back deviation, first-degree AV block normal QRS, normal QTc, no ST segment elevations consistent with STEMI criteria Cardiac Monitoring: An order was placed for continuous cardiac monitoring. The monitor shows a rate of 92 with sinus rhythm. Laboratory studies: As stated above and show below. Imaging studies: See below. Past Med/Surg History Problem List (Updated 02/20/24 @ 17:55 by Kvng Jean MD) Dysarthria (Acute) Confusion (Acute) Thickened endometrium 0.6mm 10/2023 Vitamin D insufficiency Adnexal mass RIGHT per CT 05/2023 Ataxia due to acute cerebrovascular disease Hemiplegia of left dominant side as late effect of cerebral infarction History of CVA with residual deficit (Acute) Constipation Esophageal dysmotility Dysphagia Obesity, morbid, BMI 50 or higher Restrictive lung disease secondary to obesity Chronic heart failure with preserved ejection fraction (HFpEF) LOZANO (dyspnea on exertion) Bleeding hemorrhoids Rectal bleeding Family history of colon cancer Synovial cyst of popliteal space (Acute) Sensorineural hearing loss (SNHL) of both ears (Acute) Left knee DJD (Acute) Insomnia (Acute) Hypercholesterolemia (Acute) Hernia (Acute) Chronic reflux esophagitis (Acute) Vitamin D deficiency Loss of protective sensation of skin of foot Severe obstructive sleep apnea Metabolic syndrome Mixed hyperlipidemia Dietary counseling and surveillance Post-nasal drainage Chronic rhinitis Chronic cough Encounter for pre-operative examination GERD (gastroesophageal reflux disease) (Chronic) Hypothyroidism (Acute) Fatty liver (Acute) Chronic diastolic (congestive) heart failure (Acute) follows with HF clinic Chronic venous insufficiency Chronic kidney disease, stage III (moderate) (Acute) monitoring Diabetic peripheral neuropathy associated with type 2 diabetes mellitus Type II diabetes mellitus IDDM Hypertension (Acute) Medical History Chronic sinusitis follows with Dr Zabala H/O needle biopsy L breast due to enlarged lymph nodes History of colon polyps Pancreatitis Sleep apnea cpap (non-compliant) Surgical History Status post open reduction and internal fixation (ORIF) of fracture right femur with medullary nail 05/2023 at [facility] [place] History of cataract surgery RT 06/2021 LT 07/2021 History of ERCP Hx of removal of cyst left hand History of removal of cyst off left foot History of left knee surgery ligaments and tendon repair History of colonoscopy History of tooth extraction all upper teeth, some lower teeth Family History Mother Family history of diabetes mellitus Pancreatitis Hypertension Diabetes Father Family hx of colon cancer Hypertension Colorectal cancer Colonic polyp Deep vein thrombosis Brother Heart disease Myocardial infarction Sudden Grandmother (Maternal) Alzheimer disease Osteoarthritis Ovarian cancer Grandfather Heart disease Other No family history of adverse response to anesthesia No family history of bleeding disorder Rheumatoid arthritis Denies family history of SIDS (sudden syndrome) Prostate cancer Osteoporosis Coronary heart disease Dyslipidemia Cerebral aneurysm Bipolar disorder Clotting disorder Crohn's disease Dementia Depression Kidney disease Breast cancer Schizophrenia Congenital kidney disease Gestational diabetes Lung cancer COPD (chronic obstructive pulmonary disease) Pulmonary embolism Lung disease Ulcerative colitis Stroke Asthma Cystic kidney disease Social History Smoking Status: Unknown if ever smoked Second Hand Exposure: Yes (parents smoked); Do You Dip or Chew Tobacco: No; Hx Alcohol Use: Yes (rarely ) Alcohol type: beer, wine and hard liquor Hx Substance Use: No Preferred Language: Nepali Communication Ability: Effective Visual Impairment: No Limitations Hearing Ability: Hard of Hearing Billing Spec Required: No Beliefs That Will Affect Care: Hinduism marital status: Current Living Situation: Spouse Current Living Situation Comment: Lives with and daughter current occupational status: retired 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 Feels Safe at Home: Yes Childhood Exposure to Second-Hand Smoke: Yes Diet: regular caffeine: Yes during the past year weight has: increased > 10 lbs Dental Care, Regularly: No Physical Activity Frequency: Does not Exercise Seatbelt Use: always Sunscreen Use: Yes Assistive Devices: Cane Allergies Allergies Allergy/AdvReac Type Severity Reaction Status Date / Time No Known Drug Allergies Allergy Verified 12/25/23 13:38 Home Meds Home Medications Medication Instructions Recorded Confirmed multivitamin 1 tab PO QAM 07/24/18 02/20/24 omega-3 360 eg-tge-aph-fish oil 1 cap PO QAM 07/24/18 02/20/24 1,200 mg capsule,delayed release (Fish Oil) vitamin B complex 1 tab PO QAM 10/15/19 02/20/24 sodium chloride, sodium See Rx Instructions .Route 06/03/23 02/20/24 bicarb-nasal rinse squeeze bottle .COMPLEX PRN nasal decongestant with packet (Neilmed Sinus Rinse Complete with packet) torsemide 20 mg tablet 40 mg PO DAILY water rentention 06/03/23 02/20/24 aspirin 81 mg tablet,delayed 81 mg PO DAILY 08/05/23 02/20/24 release docusate sodium 100 mg capsule 100 mg PO DAILY PRN Constipation 08/05/23 02/20/24 (Dulcolax Stool Softener (docusate)) cyclobenzaprine 5 mg tablet 5 mg PO BID 02/20/24 02/20/24 Previous Rx's Medication Instructions Recorded blood sugar diagnostic (OneTouch #100 ea 04/19/19 Ultra Blue Test Strip) blood-glucose meter (OneTouch #1 ea 04/19/19 Ultra2 Meter) lancets 30 gauge (OneTouch Delica #200 ea 04/19/19 Lancets) diclofenac sodium 1 % topical gel 2 g topical QID PRN knee pain #700 07/10/20 (Voltaren) grams insulin syringe-needle U-100 1 mL #500 ea 04/01/22 31 gauge x 5/16" (BD Insulin Syringe Ultra-Fine) insulin aspart U-100 100 unit/mL 1 unit (0.01 mL) subcut .COMPLEX 06/12/22 subcutaneous solution (Novolog #270 mL U-100 Insulin aspart) albuterol sulfate 90 mcg/actuation 2 puff inhalation QID PRN 06/24/22 aerosol inhaler (Proventil HFA) Shortness Of Breath #3 Inhalers chlorpheniramine maleate 4 mg 4 mg PO Q12H 30 days #60 tabs 07/23/22 tablet (Allergy Relief (chlorpheniramine)) ipratropium bromide 21 mcg (0.03 2 spray intranasal TID PRN nasal 08/12/22 %) nasal spray drainage #90 mL Monoject Insulin Syringe 1 mL 25 #500 ea 02/11/23 gauge x 5/8" (insulin syringe-needle U-100) cholecalciferol (vitamin D3) 125 125 mcg PO DAILY #90 caps 08/18/23 mcg (5,000 unit) capsule levothyroxine 50 mcg tablet 50 mcg PO QAM #90 tabs 09/09/23 modafinil 100 mg tablet (Provigil) 100 mg PO QAM #90 tabs 09/09/23 potassium chloride 20 mEq 40 meq (2 x 20 mEq) PO DAILY #180 09/09/23 tablet,extended release tabs rosuvastatin 20 mg tablet 20 mg PO HS #90 tabs 09/09/23 diaper,brief,adult,disposable #3 Bags 09/23/23 (Disposable Brief) ondansetron HCl 4 mg tablet 4 mg PO Q8H PRN nausea and 10/14/23 vomiting #60 tabs pseudoephedrine HCl 120 mg 120 mg PO BID #180 tabs 10/14/23 tablet,extended release (Sudafed 12 Hour) tramadol 50 mg tablet 50 mg PO TID PRN pain #90 tabs 10/14/23 insulin detemir U-100 100 unit/mL 80 unit (0.8 mL) subcut BID #15 10/20/23 subcutaneous solution (Levemir vials U-100 Insulin) cimetidine 400 mg tablet 400 mg PO BID #180 tabs 12/29/23 losartan 25 mg tablet 25 mg PO HS #90 tabs 12/29/23 meclizine 12.5 mg tablet 12.5 mg PO TID PRN dizziness #30 12/29/23 tabs omeprazole 20 mg capsule,delayed 20 mg PO QAM #90 caps 12/29/23 release semaglutide 1 mg/dose (4 mg/3 mL) 1 mg (0.75 mL) subcut .COMPLEX #9 01/06/24 subcutaneous pen injector mL Results & Data (ED) Vital Signs Vital Signs - 24 hr 02/20/24 12:50 02/20/24 13:14 02/20/24 13:14 Temperature 36.7 C Temperature Source Oral Pulse Rate 101 H 100 H Pulse Rate from SpO2 Sensor Respiratory Rate 18 Respiratory Effort / Characteristics Non-Labored Spontaneous Respiratory Depth Normal Respiratory Pattern Regular Blood Pressure 140/100 Blood Pressure Mean 113 Pulse Oximetry 96 96 Oxygen Delivery Method Room Air Room Air Oxygen Flow Rate 0 Sepsis Recent Fever Within 48 Hours No Sepsis New/Unexplained Change in Mental Status N/A Sepsis Action Taken by Nursing No Action Required 02/20/24 13:24 02/20/24 13:30 02/20/24 13:39 Temperature Temperature Source Pulse Rate 97 H 96 H Pulse Rate from SpO2 Sensor 98 H 96 H Respiratory Rate 13 22 Respiratory Effort / Characteristics Respiratory Depth Respiratory Pattern Blood Pressure 140/100 Blood Pressure Mean 113 Pulse Oximetry 94 96 96 Oxygen Delivery Method Room Air Oxygen Flow Rate 0 Sepsis Recent Fever Within 48 Hours Sepsis New/Unexplained Change in Mental Status Sepsis Action Taken by Nursing 02/20/24 13:39 02/20/24 14:00 02/20/24 14:12 Temperature Temperature Source Pulse Rate 94 H 93 H Pulse Rate from SpO2 Sensor 94 H 93 H Respiratory Rate 18 12 Respiratory Effort / Characteristics Respiratory Depth Respiratory Pattern Blood Pressure 137/91 Blood Pressure Mean 106 Pulse Oximetry 96 94 94 Oxygen Delivery Method Room Air Oxygen Flow Rate Sepsis Recent Fever Within 48 Hours Sepsis New/Unexplained Change in Mental Status Sepsis Action Taken by Nursing 02/20/24 14:27 02/20/24 14:30 02/20/24 15:03 Temperature Temperature Source Pulse Rate 94 H 93 H 95 H Pulse Rate from SpO2 Sensor 93 H 93 H 95 H Respiratory Rate 19 16 19 Respiratory Effort / Characteristics Respiratory Depth Respiratory Pattern Blood Pressure 164/83 H 159/83 H Blood Pressure Mean 110 108 Pulse Oximetry 93 94 94 Oxygen Delivery Method Room Air Room Air Oxygen Flow Rate Sepsis Recent Fever Within 48 Hours Sepsis New/Unexplained Change in Mental Status Sepsis Action Taken by Nursing 02/20/24 15:30 02/20/24 16:30 02/20/24 17:06 Temperature Temperature Source Pulse Rate 94 H 94 H 96 H Pulse Rate from SpO2 Sensor 94 H 94 H 95 H Respiratory Rate 14 17 19 Respiratory Effort / Characteristics Respiratory Depth Respiratory Pattern Blood Pressure 150/76 H 157/97 H 143/83 H Blood Pressure Mean 100 117 103 Pulse Oximetry 94 99 95 Oxygen Delivery Method Oxygen Flow Rate Sepsis Recent Fever Within 48 Hours Sepsis New/Unexplained Change in Mental Status Sepsis Action Taken by Nursing 02/20/24 17:33 Temperature Temperature Source Pulse Rate 92 H Pulse Rate from SpO2 Sensor Respiratory Rate Respiratory Effort / Characteristics Respiratory Depth Respiratory Pattern Blood Pressure Blood Pressure Mean Pulse Oximetry Oxygen Delivery Method Oxygen Flow Rate Sepsis Recent Fever Within 48 Hours Sepsis New/Unexplained Change in Mental Status Sepsis Action Taken by Nursing Laboratory Data 02/20/24 13:23 02/20/24 13:23 Lab Results 02/20/24 02/20/24 Range/Units 13:12 13:23 WBC 10.91 H (4.8-10.8) K/ul RBC 4.97 (4.20-5.40) M/uL Hgb 14.3 (12.0-16.0) g/dl Hct 44.9 (37.0-47.0) % MCV 90.3 (80.0-100.0) fL MCH 28.8 (25.0-34.0) pg MCHC 31.8 L (32.0-36.0) g/dL RDW Std Deviation 49.1 H (36.4-46.3) fL RDW Coeff of Juan C 14.8 H (11.5-14.5) % Plt Count 217 (130-400) K/uL MPV 11.4 (9.4-12.4) fL PT 11.0 (9.0-12.0) Seconds INR 1.0 (0.9-1.1) APTT 27 (21-31) Seconds PTT Ratio 1.0 Sodium 139 (136-145) mmol/L Potassium 4.1 (3.5-5.1) mmol/L Chloride 100 (98-107) mmol/L Carbon Dioxide 30 (21-32) mmol/L Anion Gap 9 (3-11) BUN 14 (6-23) mg/dl Creatinine 0.95 (0.6-1.2) mg/dl Est Cr Clr Drug Dosing 70.7 ml/min eGFR 64.45 BUN/Creatinine Ratio 14.7 (10-20) Glucose 199 H (70-99(Fasting)) mg/dl POC Glucose 113 H (70-99) mg/dl Calcium 9.8 (8.6-10.3) mg/dl Magnesium 1.8 (1.7-2.4) mg/dl Total Bilirubin 0.6 (0.2-1.0) mg/dl AST 20 (13-39) U/L ALT 15 (7-52) U/L Alkaline Phosphatase 116 H (34-104) U/L Total Protein 6.7 (6.0-8.3) gm/dl Albumin 3.7 (3.4-5.0) gm/dl Globulin 3.0 (2.5-4.0) gm/dl Albumin/Globulin Ratio 1.2 (0.9-2) Vitamin B12 1139 H (180-914) pg/ml Folate > 22.30 (>5.38) ng/ml TSH 2.627 (0.300-4.500) uIu/ml Urine Color Dark Yellow Urine Appearance Clear (Clear) Urine pH 7.5 (4.5-7.5) Ur Specific [place] 1.019 (1.000-1.030) Urine Protein Negative (Negative) Urine Glucose (UA) Negative (Negative) Urine Ketones Negative (Negative) Urine Blood Trace H (Negative) Urine Nitrite Negative (Negative) Urine Bilirubin Negative (Negative) Urine Urobilinogen Negative (Negative) Ur Leukocyte Esterase Trace H (Negative) Urine WBC (Auto) 0-5 (0-5) /hpf Urine RBC (Auto) 6-10 H (0-2) /hpf U Hyaline Cast (Auto) 0-2 (0-2) /lpf U Epithel Cells (Auto) 6-10 H (0-2) /hpf Urine Bacteria (Auto) None Seen (None Seen) Imaging Data Radiologist's Impression: Chest X-Ray 02/20/24 13:39 XR chest 1V portable HISTORY: 69 years-old Female stroke alert acute stroke like symptoms COMPARISON: Chest CT 06/03/2023 TECHNIQUE: AP view of the chest FINDINGS: Cardiac silhouette is enlarged. Electronic device projects over the left heart border. No pneumothorax. Pulmonary vascular congestion with interstitial coarsening. Small pleural effusions with mild bibasilar opacities. Bones appear grossly intact. IMPRESSION: 1. Cardiomegaly with mild pulmonary edema. 2. Small pleural effusions with mild bibasilar opacities, likely atelectatic. ACT 112: Negative or not required by law. The above report was generated using voice recognition software. It may contain grammatical, syntax or spelling errors. Electronically signed by: Eusebio Cueto M.D. 02/20/2024 2:[address] 02/20/24 14:23 CT OF THE HEAD WITHOUT CONTRAST CLINICAL HISTORY: Altered mental status. COMPARISON STUDY: Head CT June 03, 2023. CT DOSE: 547.75 mGy.cm TECHNIQUE: Helical axial images of the head were obtained without IV contrast. Automated exposure control was utilized for the study. A dose lowering technique was utilized adhering to the principles of ALARA. FINDINGS: No acute intracranial hemorrhage, midline shift or mass effect is present. The ventricular system is unremarkable. The basal cisterns are patent. No extra-axial collections are present. There are no findings to suggest acute dural sinus thrombosis or acute territorial infarct. No calvarial fractures are present. A 1.7 cm focus of encephalomalacia within the left middle cerebellar peduncle suggests an old infarct. IMPRESSION: No acute intracranial findings. ACT 112: Negative or not required by law. Electronically signed by: Robbie Box M.D. 02/20/2024 3:21 PM Discharge Plan Visit Data Chief Complaint: Altered Mental Status Stated Complaint: [facility] ED Provider: Kvng Jean Discharge Problem: Confusion, History of CVA with residual deficit, Dysarthria Forms Stand Alone Forms: [facility] [employer] Prescriptions Prescriptions: No Action vitamin B complex Tablet 1 tab PO QAM (DME) OneTouch Ultra Blue Test Strip strip See Rx Instructions .ROUTE .MEDSUPPLY Qty: 100 3RF Rx Instructions: As directed (DME) blood-glucose meter [OneTouch Ultra2 Meter] misc See Rx Instructions .ROUTE .MEDSUPPLY Qty: 1 0RF Rx Instructions: As directed (DME) lancets [OneTouch Delica Lancets] 30 gauge misc See Rx Instructions .ROUTE .MEDSUPPLY Qty: 200 3RF Rx Instructions: As directed diclofenac sodium [Voltaren] 1 % gel 2 g TOP QID PRN (Reason: knee pain) Qty: 700 1RF (DME) insulin syringe-needle U-100 [BD Insulin Syringe Ultra-Fine] 1 mL 31 gauge x 5/16 syringe See Rx Instructions .Route Qty: 500 3RF Rx Instructions: As directed inject 5 times daily dx E11.9 insulin aspart U-100 [Novolog U-100 Insulin aspart] 100 unit/mL solution 1 unit SQ .COMPLEX Qty: 270 3RF Rx Instructions: 1 unit SQ inject 1 unit for every 2 grams of carbohydrate. ipratropium bromide 21 mcg (0.03 %) spray,non-aerosol 2 spray intranasal TID PRN (Reason: nasal drainage) Qty: 90 3RF Rx Instructions: administer into each nostril (DME) Monoject Insulin Syringe 1 mL 25 gauge x 5/8" syringe See Dose Instructions .ROUTE .MEDSUPPLY Qty: 500 3RF Rx Instructions: USE TO INJECT INSULIN 5 TIMES DAILY aspirin 81 mg tablet,delayed release (DR/EC) 81 mg PO DAILY docusate sodium [Dulcolax Stool Softener (dss)] 100 mg capsule 100 mg PO DAILY PRN (Reason: Constipation) cholecalciferol (vitamin D3) 125 mcg (5,000 unit) capsule 125 mcg PO DAILY Qty: 90 1RF levothyroxine 50 mcg tablet 50 mcg PO QAM Qty: 90 3RF potassium chloride 20 mEq tablet extended release 40 meq PO DAILY Qty: 180 3RF rosuvastatin 20 mg tablet 20 mg PO HS Qty: 90 3RF modafinil [Provigil] 100 mg tablet 100 mg PO QAM Qty: 90 1RF pseudoephedrine HCl [Sudafed 12 Hour] 120 mg tablet extended release 120 mg PO BID Qty: 180 1RF ondansetron HCl 4 mg tablet 4 mg PO Q8H PRN (Reason: nausea and vomiting) Qty: 60 5RF Rx Instructions: family isnt sure of this medication tramadol 50 mg tablet 50 mg PO TID PRN (Reason: pain) Qty: 90 2RF Levemir U-100 Insulin 100 unit/mL solution 80 unit SUBCUT BID Qty: 15 3RF meclizine 12.5 mg tablet 12.5 mg PO TID PRN (Reason: dizziness) Qty: 30 3RF semaglutide 1 mg/dose (4 mg/3 mL) pen injector 1 mg subcut .COMPLEX Qty: 9 3RF Rx Instructions: on saturdays, 1 mg subcutaneously once weekly; albuterol sulfate [Proventil HFA] 90 mcg/actuation HFA aerosol inhaler 2 puff INHALATION QID PRN (Reason: Shortness Of Breath) Qty: 3 1RF chlorpheniramine maleate [Allergy Relief(chlorpheniramn)] 4 mg tablet 4 mg PO Q12H 30 Days Qty: 60 3RF cimetidine 400 mg tablet 400 mg PO BID Qty: 180 3RF Rx Instructions: administer with meals omeprazole 20 mg capsule,delayed release(DR/EC) 20 mg PO QAM Qty: 90 3RF losartan 25 mg tablet 25 mg PO HS Qty: 90 3RF (DME) Disposable Brief Misc See Rx Instructions .Route Qty: 3 5RF Rx Instructions: SIZE 3XL Fit Right Briefs multivitamin Tablet 1 tab PO QAM omega 8-wei-mpj-fish oil [Fish Oil] 360-1,200 mg Capsule,Delayed Release(Dr/Ec) 1 cap PO QAM cyclobenzaprine 5 mg tablet 5 mg PO BID torsemide 20 mg tablet 40 mg PO DAILY Rx Instructions: May increase to 60 mg daily PRN for weight gain, edema, shortness of breath Neilmed Sinus Rinse Complete Packet With Rinse Device See Rx Instructions .Route .COMPLEX PRN (Reason: nasal decongestant) Rx Instructions: use daily; Referrals Referrals: Smita Ortiz CRNP [Primary Care Provider] -
--- NOTE | 2024-02-20 15:22 | CT Scan Report ---
CT OF THE HEAD WITHOUT CONTRAST CLINICAL HISTORY: Altered mental status. COMPARISON STUDY: Head CT June 03, 2023. CT DOSE: 547.75 mGy.cm TECHNIQUE: Helical axial images of the head were obtained without IV contrast. Automated exposure con trol was utilized for the study. A dose lowering technique was utilized adhering to the principles o f ALARA. FINDINGS: No acute intracranial hemorrhage, midline shift or mass effect is present. The ventricular system is unremarkable. The basal cisterns are patent. No extra-axial collections are present. There are no findings to suggest acute dural sinus thrombosis or acute territorial infarct. No calvarial fr actures are present. A 1.7 cm focus of encephalomalacia within the left middle cerebellar peduncle calderon ggests an old infarct. IMPRESSION: No acute intracranial findings. ACT 112: Negative or not required by law. Electronically signed by: Robbie Box M.D. 02/20/2024 3:21 PM
--- NOTE | 2024-02-20 16:06 | History & Physical Report ---
Date of Service February 20, 2024 Assessment & Plan (1) Confusion: Plan: New onset confusion and slurred speech this a.m.; slurred speech resolved confusion waxing and waning CVA vs metabolic encephalopathy (UTI) - CT head negative on admission - UA suspicious for UTI although contaminated; will repeat with straight cath and send for culture - mild leukocytosis, tachycardic - B12, TSH, folate pending - will complete stroke workup as patient had slurred speech, risk factors, previous CVA - MRI brain, MRA brain, carotid Doppler ordered - A1c and lipid panel with AM labs - Will cover for UTI with Rocephin although UA questionable at this time, culture pending - monitor on tele (2) History of CVA with residual deficit: Plan: CVA 05/2023 of left cerebellar and valeria, hemiplegia of left side - Patient currently has loop recorder to monitor for events since May - continue baby aspirin and rosuvastatin 20 (3) Severe obstructive sleep apnea: Plan: patient reports she has not worn her CPAP in months; ordered as needed (4) Chronic kidney disease, stage III (moderate): Plan: Renal impairment is due to diabetic nephropathy, hypertensive nephrosclerosis and diastolic heart failure - baseline creatinine 1-1.7 - Currently stable - Avoid nephrotoxic agents - Promote oral hydration (5) Chronic diastolic (congestive) heart failure: Plan: History of HFpEF; follows with heart failure clinic - Dry weight ~ 280 - Last echocardiogram 06/07 Show normal LV function, EF 55 to 60%, mild LVH - Heart healthy, low-sodium diet - Strict I&O monitoring - Daily weights - continue home medications - torsemide and potassium chloride (6) Type II diabetes mellitus: Plan: Controlled on insulin and semaglutide at home - Most recent A1C 7.7 - SSI with target BSG range 110-140mg/dL, CF 5, carb ratio 2 - Home long-acting insulin decreased from 80 units BID to 60 BID during hospital stay and diet control - Pharmacy glycemic consult - T2DM diet Plan Chronic stable diagnoses: Hypothyroidism continue levothyroxine GERD - continue PPI and cimetidine HTN - continue losartan VTE ppx: Heparin Q12 Diet: T2DM, Heart healthy, low sodium diet Code status: full Dispo: med surg/ tele Admission and Anticipated Discharge Date Admission Date: 02/20/24 History of Present Illness Chief Complaint: AMS Primary Care Provider: LUCIO Perea Patient is a 69-year-old female with past medical history of CVA 05/2023, type II DM, CKD, CARMEN[place]A, HFpEF, hypothyroidism, GERD. She presents today due to altered mental status. patient's daughter and at bedside updated, provide additional history. He stated that she woke up around 3 AM to go to the bathroom and had normal cognition. When she woke up at 730 this morning she had confusion and slurred speech. They stated all day the confusion has waxed and waned. She has no new neurologic deficits, although has left-sided weakness from her previous stroke in May. Her slurred speech has since resolved. At baseline she is normally alert and oriented x 4; on exam today she was disoriented to self and time. The family stated that she has had a loop recorder in since May due to her previous stroke, no events have been recorded to their knowledge. She has not worn her CPAP in several months. As per the patient's family, she is confused every morning but only last about 10 to 15 minutes. Patient endorses dizziness since this morning.She also has a chronic cough with sputum production. Patient denies lightheadedness, vision changes, rhinorrhea, sore throat, dyspnea, dyspnea on exertion, chest pain, abdominal pain, nausea, vomiting, diarrhea, constipation, dysuria, hematuria, edema, numbness, tingling. She denies past history of cancer. She does not use oxygen at baseline. She did not take her home medications this morning. She wishes to be full code at this time. The patient was discussed with Dr. Srinivasan at the time of the admission/consult. Allergies Allergy/AdvReac Type Severity Reaction Status Date / Time No Known Drug Allergies Allergy Verified 12/25/23 13:38 Home Medications Medication Instructions Recorded Confirmed Type multivitamin 1 tab PO QAM 07/24/18 02/20/24 History omega-3 360 cm-qej-fsb-fish oil 1 cap PO QAM 07/24/18 02/20/24 History 1,200 mg capsule,delayed release (Fish Oil) blood sugar diagnostic (TownWizardTouch #100 ea 04/19/19 12/25/23 Rx Ultra Blue Test Strip) blood-glucose meter (OneTouch #1 ea 04/19/19 12/25/23 Rx Ultra2 Meter) lancets 30 gauge (OneTouch Delica #200 ea 04/19/19 12/25/23 Rx Lancets) vitamin B complex 1 tab PO QAM 10/15/19 02/20/24 History diclofenac sodium 1 % topical gel 2 g topical QID PRN knee pain #700 07/10/20 02/20/24 Rx (Voltaren) grams insulin syringe-needle U-100 1 mL #500 ea 04/01/22 12/25/23 Rx 31 gauge x 5/16" (BD Insulin Syringe Ultra-Fine) insulin aspart U-100 100 unit/mL 1 unit (0.01 mL) subcut .COMPLEX 06/12/22 02/20/24 Rx subcutaneous solution (Novolog #270 mL U-100 Insulin aspart) albuterol sulfate 90 mcg/actuation 2 puff inhalation QID PRN 06/24/22 02/20/24 R x aerosol inhaler (Proventil HFA) Shortness Of Breath #3 Inhalers chlorpheniramine maleate 4 mg 4 mg PO Q12H 30 days #60 tabs 07/23/22 02/20/24 Rx tablet (Allergy Relief (chlorpheniramine)) ipratropium bromide 21 mcg (0.03 2 spray intranasal TID PRN nasal 08/12/22 02/20/24 Rx %) nasal spray drainage #90 mL Monoject Insulin Syringe 1 mL 25 #500 ea 02/11/23 12/25/23 Rx gauge x 5/8" (insulin syringe-needle U-100) sodium chloride, sodium See Rx Instructions .Route 06/03/23 02/20/24 History bicarb-nasal rinse squeeze bottle .COMPLEX PRN nasal decongestant with packet (Neilmed Sinus Rinse Complete with packet) torsemide 20 mg tablet 40 mg PO DAILY water rentention 06/03/23 02/20/24 History aspirin 81 mg tablet,delayed 81 mg PO DAILY 08/05/23 02/20/24 History release docusate sodium 100 mg capsule 100 mg PO DAILY PRN Constipation 08/05/23 02/20/24 History (Dulcolax Stool Softener (docusate)) cholecalciferol (vitamin D3) 125 125 mcg PO DAILY #90 caps 08/18/23 02/20/24 Rx mcg (5,000 unit) capsule levothyroxine 50 mcg tablet 50 mcg PO QAM #90 tabs 09/09/23 02/20/24 Rx modafinil 100 mg tablet (Provigil) 100 mg PO QAM #90 tabs 09/09/23 02/20/24 Rx potassium chloride 20 mEq 40 meq (2 x 20 mEq) PO DAILY #180 09/09/23 02/20/24 Rx tablet,extended release tabs rosuvastatin 20 mg tablet 20 mg PO HS #90 tabs 09/09/23 02/20/24 Rx diaper,brief,adult,disposable #3 Bags 09/23/23 12/25/23 Rx (Disposable Brief) ondansetron HCl 4 mg tablet 4 mg PO Q8H PRN nausea and 10/14/23 02/20/24 Rx vomiting #60 tabs pseudoephedrine HCl 120 mg 120 mg PO BID #180 tabs 10/14/23 02/20/24 Rx tablet,extended release (Sudafed 12 Hour) tramadol 50 mg tablet 50 mg PO TID PRN pain #90 tabs 10/14/23 02/20/24 Rx insulin detemir U-100 100 unit/mL 80 unit (0.8 mL) subcut BID #15 10/20/23 02/20/24 Rx subcutaneous solution (Levemir vials U-100 Insulin) cimetidine 400 mg tablet 400 mg PO BID #180 tabs 12/29/23 02/20/24 Rx losartan 25 mg tablet 25 mg PO HS #90 tabs 12/29/23 02/20/24 Rx meclizine 12.5 mg tablet 12.5 mg PO TID PRN dizziness #30 12/29/23 02/20/24 Rx tabs omeprazole 20 mg capsule,delayed 20 mg PO QAM #90 caps 12/29/23 02/20/24 Rx release semaglutide 1 mg/dose (4 mg/3 mL) 1 mg (0.75 mL) subcut .COMPLEX #9 01/06/24 02/20/24 Rx subcutaneous pen injector mL cyclobenzaprine 5 mg tablet 5 mg PO BID 02/20/24 02/20/24 History Past Med/Surg History Problem List Confusion Thickened endometrium 0.6mm 10/2023 Vitamin D insufficiency Adnexal mass RIGHT per CT 05/2023 Ataxia due to acute cerebrovascular disease Hemiplegia of left dominant side as late effect of cerebral infarction History of CVA with residual deficit Constipation Esophageal dysmotility Dysphagia Obesity, morbid, BMI 50 or higher Restrictive lung disease secondary to obesity Chronic heart failure with preserved ejection fraction (HFpEF) LOZANO (dyspnea on exertion) Bleeding hemorrhoids Rectal bleeding Family history of colon cancer Synovial cyst of popliteal space (Acute) Sensorineural hearing loss (SNHL) of both ears (Acute) Left knee DJD (Acute) Insomnia (Acute) Hypercholesterolemia (Acute) Hernia (Acute) Chronic reflux esophagitis (Acute) Vitamin D deficiency Loss of protective sensation of skin of foot Severe obstructive sleep apnea Metabolic syndrome Mixed hyperlipidemia Dietary counseling and surveillance Post-nasal drainage Chronic rhinitis Chronic cough Encounter for pre-operative examination GERD (gastroesophageal reflux disease) (Chronic) Hypothyroidism (Acute) Fatty liver (Acute) Chronic diastolic (congestive) heart failure (Acute) follows with HF clinic Chronic venous insufficiency Chronic kidney disease, stage III (moderate) (Acute) monitoring Diabetic peripheral neuropathy associated with type 2 diabetes mellitus Type II diabetes mellitus IDDM Hypertension (Acute) Medical History Chronic sinusitis follows with Dr Zabala H/O needle biopsy L breast due to enlarged lymph nodes History of colon polyps Pancreatitis Sleep apnea cpap (non-compliant) Surgical History Status post open reduction and internal fixation (ORIF) of fracture right femur with medullary nail 05/2023 at [facility] [place] History of cataract surgery RT 06/2021 LT 07/2021 History of ERCP Hx of removal of cyst left hand History of removal of cyst off left foot History of left knee surgery ligaments and tendon repair History of colonoscopy History of tooth extraction all upper teeth, some lower teeth Family History Mother Family history of diabetes mellitus Pancreatitis Hypertension Diabetes Father Family hx of colon cancer Hypertension Colorectal cancer Colonic polyp Deep vein thrombosis Brother Heart disease Myocardial infarction Sudden Grandmother (Maternal) Alzheimer disease Osteoarthritis Ovarian cancer Grandfather Heart disease Other No family history of adverse response to anesthesia No family history of bleeding disorder Rheumatoid arthritis Denies family history of SIDS (sudden infant syndrome) Prostate cancer Osteoporosis Coronary heart disease Dyslipidemia Cerebral aneurysm Bipolar disorder Clotting disorder Crohn's disease Dementia Depression Kidney disease Breast cancer Schizophrenia Congenital kidney disease Gestational diabetes Lung cancer COPD (chronic obstructive pulmonary disease) Pulmonary embolism Lung disease Ulcerative colitis Stroke Asthma Cystic kidney disease Social History Smoking Status: Unknown if ever smoked Second Hand Exposure: Yes (parents smoked); Do You Dip or Chew Tobacco: No; Hx Alcohol Use: Yes (rarely ) Alcohol type: beer, wine and hard liquor Hx Substance Use: No Preferred Language: Icelandic Communication Ability: Effective Visual Impairment: No Limitations Hearing Ability: Hard of Hearing Phosphoric Acid Supervisor Required: No Beliefs That Will Affect Care: Confucianism marital status: Current Living Situation: Spouse Current Living Situation Comment: Lives with and daughter current occupational status: retired 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 Non-toxic appearing. HEENT- mucous membranes moist. Hearing grossly intact. Lateral nastagmus noted. Heart-normal S1 and S2. No murmurs, rubs or gallops. Lungs-clear bilaterally, no respiratory distress, no accessory muscle use. Abdomen-normal bowel sounds and soft. No ascites noted. Non-tender. MSK - decreased strength on left sided chronically, 2/5. 5/5 strength right side. Extremities- no clubbing, cyanosis, or edema. Psychiatric-normal affect. Neurologic: Speech / Cognition: normal speech Cranial Nerves: PERRL Coordination: + abnormal [id number] test (Chronic left sided weakness) Results & Data Results & Data Vital Signs (Past 12 Hours) Vital Signs Temp Pulse Resp BP Pulse Ox O2 Del Method O2 Flow Rate 02/20/24 15:03 95 H 19 159/83 H 94 Room Air 02/20/24 14:30 93 H 16 164/83 H 94 Room Air 02/20/24 14:27 94 H 19 93 02/20/24 14:12 93 H 12 94 02/20/24 14:00 94 H 18 137/91 94 02/20/24 13:39 96 Room Air 02/20/24 13:39 96 Room Air 0 02/20/24 13:30 96 H 22 140/100 96 02/20/24 13:24 97 H 13 94 02/20/24 13:14 96 Room Air 0 02/20/24 13:14 36.7 C 100 H 18 140/100 96 Room Air 02/20/24 12:50 101 H Code Status & VTE Plan Code Status full VTE Prophylaxis Plan VTE Prophylaxis will be ordered: Yes Supervising Physician Co-Signing Physician Notes Patient seen and examined, chart reviewed, case discussed with Cristiane Restrepo PA-C and I agree with the assessment and plan as above except as otherwise noted Labs and images reviewed 69yo F with residual LEFT weakness due to prior CVA this past year. Woke up with slurred speech, disorderiented except to name which is not her baseline. CT-H normal. Suspected to have metabolic encephalopathy due to waxing and waning confusion, angios were deferred. UA subsequently with LE but no bacteria or nitrites, +epithelial cells suggestive of contamination. SHe is not hypoxic. Due to awakening with slurred speech, continued altered mental status, and increased risk with history of prior stroke stroke workup will complete completed with MRI, MRA brain, carotid Dopplers. Differential does include metabolic encephalopathy. She is not significantly hypercapnic, does not have an increased anion gap. UA is contaminated appearing. Cath specimen is pending, he has been empirically covered with Rocephin x 1. Agree with assessment and management above. PG Care Time/CCT Total # of Minutes Spent Total Time Spent with Patient: Total time spent is greater than 50% in coordination of care (as documented) at patient's floor/unit and/or counseling patient: Coding Level of Care Code 31356 INT INP/OBS CARE 3/75MIN Diagnoses Confusion R41.0 History of CVA with residual deficit I69.30 Severe obstructive sleep apnea G47.33 Stage 3b chronic kidney disease N18.32 Chronic kidney disease stage 3 subtype: stage 3b (GFR 30-44) Chronic diastolic (congestive) heart failure I50.32 Type II diabetes mellitus E11.9 (4) Chronic kidney disease, stage III (moderate) Chronic kidney disease stage 3 subtype: stage 3b (GFR 30-44) Qualified Cod e(s): N18.32 - Chronic kidney disease, stage 3b
[2024-02-20 16:57] LABS: Thyroid Stimulating Hormone 2.627 uIu/ml (0.300-4.500)
[2024-02-20 17:48] LABS: Folate (Folic Acid),Ser orPlas > 22.30 ng/ml (>5.38)
[2024-02-20 17:49] LABS: Vitamin B12 1139 pg/ml (180-914)
[2024-02-20] MEDS: ACETAMINOPHEN 325 MG TAB PO STA (18:06)
[2024-02-20] MEDS: LORazepam 2 MG/1 ML VIAL IV ONE (18:06)
[2024-02-20] MEDS ORDERED: GLUCAGON FOR INJ 1 MG VIAL SQ PRN (19:17)
[2024-02-20] MEDS ORDERED: DOCUSATE SODIUM 100 MG CAP PO PRN (19:17)
[2024-02-20] MEDS ORDERED: DEXTROSE 50% 50 ML SYRINGE IV PRN (19:17)
[2024-02-20] MEDS ORDERED: CARBOHYDRATES FOR HYPOGLYCEMIA PO PRN (19:17)
[2024-02-20] MEDS ORDERED: GLUCOSE 40% GEL 15 GM TUBE PO PRN (19:17)
[2024-02-20] MEDS ORDERED: GLUCOSE 10 TAB/TUBE PO PRN (19:17)
[2024-02-20] MEDS ORDERED: ALBUTEROL HFA 8 GM INHALER INH PRN (19:17)
[2024-02-20] MEDS ORDERED: PHARMACY GLYCEMIC MGMT CONSULT PRN (19:17)
--- NOTE | 2024-02-20 19:42 | Magnetic Resonance Report ---
EXAM: MR brain wo con CLINICAL HISTORY: AMS this morning, overall weakness. period of confusion and slurred speech, headache. hx of stroke in May. best scans possible, pt claustrophobic, sedated. INPATIENT TECHNIQUE: Different pulse sequences were performed in different planes for the brain without GD-DTPA injection. Images were sent through PACs for interpretation. COMPARISON: Prior CT dated 06/03/2023 FINDINGS: Subacute infarction is seen at the left insula of Reil and the left temporal lobe, exhibiting bright signals on DWI, low signals on the ADC map, and bright signals on T2 and FLAIR WI. Old lacunar infarction with microcystic gliosis is seen at the right periventricular region. It follows CSF signals on different pulse sequences. Altered deep white matter signals are seen at the forceps minor, forceps major, periventricular, and centrum semiovale regions. These exhibit bright signals on T2 and FLAIR WI and intermediate signals on T1 WI. Findings suggest consequences of small vessel disease, e.g., hypertensive and/or diabetic vasculopathy. Mild widening of the frontoparietal sulci and sylvian fissures, and basal cisterns. Findings Are consistent with a normal aging brain. Normal MRI appearance of the cerebellar parenchymal signals. Normal MRI appearance of the central miller matter aggregates. Normal size and configuration of the cerebral ventricles. Normal MRI appearance of different anatomical parts of the brain stem, namely the midbrain, valeria, and medulla oblongata. Normal MRI appearance of the petrous temporal bones, brainstem, vestibule cochlear nerves, and cerebellopontine angles with no definite masses. No shift of midline structures. No intracerebral or extra-axial hematomas or masses. Normal MRI appearance of orbital structures, both globes, optic nerves, optic chiasm, optic tracts, and optic radiations. The scanned paranasal sinuses are unremarkable. IMPRESSION: 1. Subacute infarction is seen at the left insula of Reil and the left temporal lobe exhibiting bright signals on DWI, low signals on ADCmap, and bright signals on T2 and FLAIR WI. 2. Old lacunar infarction with microcystic gliosis is seen at the right periventricular region. 3. Altered deep white matter signals with anatomical distribution and imaging features consistent with the consequences of small vessel disease, e.g., hypertensive and/or diabetic vasculopathy. ([place]as grade 1). 4. Normal aging brain. 5. The comparison is consistent with a progressive course. [facility]'s ER was called at at 6:32 PM FRANCHISE SALES DIRECTOR, 02/20/[address] Jean was informed about the presence of critical medical findings. Electronically signed by Pat Sanchez 02-20-2024 7:41 PM
--- NOTE | 2024-02-20 19:53 | Magnetic Resonance Report ---
EXAM: MR angio head wo con CLINICAL HISTORY: AMS this morning, overall weakness. period of confusion and slurred speech, headache. hx of stroke in May. best scans possible, pt claustrophobic, sedated. INPATIENT TECHNIQUE: MR angiography of the head ([place]) was performed by the 3D TOF technique without Intravenous contrast. MPR images were obtained. Images were sent through PACs for diagnostic interpretation. COMPARISON: MRI study for the brain, dated the same day. FINDINGS: The internal carotid arteries (ICAs), anterior cerebral arteries (ACAs) (A1 to A4), anterior communicating artery (A COM A), and middle cerebral arteries (MCAs) (M1 to M4). These show normal flow signals and form the anterior circulation. The V4 segments of the vertebral arteries form the basilar and posterior cerebral arteries. Each ASSISTANT PROFESSOR OF SPANISH from P1 to P4, as well as the posterior communicating arteries, forms the posterior circulation and shares in the formation of the [place]. 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 The anterior and posterior circulations show atherosclerotic changes with Intimal vascular irregularities. Segmental stenosis is seen at the M2 segment of the left middle cerebral artery. Peripheral attenuation of the left M3 and M4 (Sylvian branches), which could be incriminated, reported recent infarction. No major vascular occlusion aneurysms or AVM. IMPRESSION: 1. 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 2. The anterior and posterior circulations show atherosclerotic changes with Intimal vascular irregularities. Segmental stenosis is seen at the M2 segment of the left middle cerebral artery. Peripheral attenuation of the left M3 and M4 (Sylvian branches), which could be incriminated, reported recent infarction. No major vascular occlusion aneurysms or AVM. 3. The comparison matches the MRI findings. [facility]'s ER was called at at 6:32 PM DIRECTOR ORACLE, 02/20/[address] Jean was informed about the presence of critical medical findings. Electronically signed by Pat Sanchez 02-20-2024 7:51 PM
[2024-02-20] MEDS: ASPIRIN 81 MG ECTAB PO SCH (20:31)
[2024-02-20] MEDS: TORSEMIDE 20 MG TAB PO SCH (20:32)
[2024-02-20] MEDS: LOSARTAN POTASSIUM 25 MG TAB PO SCH (20:34)
[2024-02-20] MEDS: ROSUVASTATIN CALCIUM 20 MG TAB PO SCH (20:34)
[2024-02-20] MEDS: POTASSIUM CHLORIDE CRTAB 20 MEQ TABCR PO SCH (20:54)
[2024-02-20] MEDS: CYCLOBENZAPRINE HCL 5 MG TAB PO SCH (20:55)
[2024-02-20 21:10] LABS: Appearance Urine Clear (Clear); Bacteria Urine Automated None Seen (None Seen); Bilirubin Urine Negative (Negative); Blood Urine Negative (Negative); Cast Urine Automated 0-2 /lpf (0-2); Color Urine Dark Yellow; Glucose Urine UA Negative (Negative); Ketones Urine 1+ (Negative); Leukocyte Esterase Urine Trace (Negative); Nitrite Urine Negative (Negative); Protein Urine Trace (Negative); RBC Urine Automated 0-2 /hpf (0-2); Urobilinogen Urine Negative (Negative); WBC Urine Automated 0-5 /hpf (0-5)
[2024-02-20] MEDS ORDERED: LANTUS PER UNIT CHARGE SQ SCH (21:30)
[2024-02-20] MEDS: cefTRIAXone SODIUM 2,000 MG/50 ML BAG IV ONE (21:33)
--- OUTSIDE RECORDS SUMMARY | 2024-02-20 22:01 | External Medical Summary | Continuity of Care Document ---
Author Name Unknown Organization [facility] [address] [place] [address] RAGHAVENDRA PETERSON [phone] Care Team Providers Care Car Rider Name Role Phone Smita Ortiz Primary Care Physician [phone] Encounter [facility] [id number] Date(s): 02/13/24 - 02/13/24 [facility] [address] [facility] [address], [address] RAGHAVENDRA Perez [id number] [phone] Discharge Disposition: Home or Self Care Attending Physician: MD Arzate Sarah Referring Physician: MD Arzate Sarah Allergies, Adverse Reactions, Alerts No Known Allergies Immunizations Given and Recorded Vaccine Date Status Refusal Reason tetanus/diphtheria/pertuss, acel (Tdap) 12/07/12 G iven pneumococcal 23-valent vaccine 04/14/06 Recorded Medications aspirin 81 mg oral tablet, chewable Start: 06/13/23 11:59:00 AM EST, 1 tab, PO, Daily Start Date: 06/13/23 Status: Ordered B-Complex 50 oral tablet Start: 06/04/23 2:06:00 AM EST, 1 tab, PO, Daily Start Date: 06/04/23 Status: Ordered cholecalciferol Start: 06/13/23 12:02:00 PM EST, 125 mcg =, PO, Daily Start Date: 06/13/23 Status: Ordered cimetidine 400 mg oral tablet Start: 06/04/23 2:07:00 AM EST, 1 tab, PO, bid Start Date: 06/04/23 Status: Ordered docusate sodium 50 mg oral capsule Start: 06/04/23 2:06:00 AM EST, 2 cap, PO, As indicated Start Date: 06/04/23 Status: Ordered ergocalciferol 1.25 mg (50,000 intl units) oral capsule Start: 09/24/21 1:39:00 PM EDT, 1 cap, PO, qSunday Start Date: 09/24/21 Stop Date: 08/12/23 Status: Ordered fenofibrate 145 mg oral tablet Start: 09/24/21 1:39:00 PM EDT, 1 tab, PO, Daily Start Date: 09/24/21 Status: Ordered Fish Oil 1000 mg oral capsule Start: 10/12/11 11:18:00 AM EDT, 1 cap, PO, Daily Start Date: 10/12/11 Status: Ordered Flonase 50 mcg/inh nasal spray Start: 06/04/23 2:07:00 AM EST, 2 spray, each nostril, As indicated Start Date: 06/04/23 Status: Ordered ipratropium 21 mcg/inh (0.03%) nasal spray Start: 06/04/23 2:08:00 AM EST, 2 spray, each nostril, Daily Start Date: 06/04/23 Status: Ordered Klor-Con M20 oral tablet, extended release Start: 03/27/18 9:28:00 AM EST, 2 tab, PO, Daily Start Date: 03/27/18 Status: Ordered Levemir 100 units/mL subcutaneous solution Start: 03/27/18 9:28:00 AM EST, 80 unit =, subQ, bid Start Date: 03/27/18 Status: Ordered levothyroxine 50 mcg (0.05 mg) oral tablet Start: 06/04/23 2:05:00 AM EST, 1 tab, PO, Daily Start Date: 06/04/23 Status: Ordered losartan 25 mg oral tablet Start: 10/20/20 12:33:00 PM EDT, 1 tab, PO, qhs Start Date: 10/20/20 Status: Ordered multivitamin Start: 09/03/16 7:55:00 PM EDT, 1 tab, PO, Daily Start Date: 09/03/16 Status: Ordered Nasonex 50 mcg/inh nasal spray Start: 09/27/10 6:45:00 PM EDT, 2 spray, intranasal, As indicated Start Date: 09/27/10 Status: Ordered NovoLOG 100 units/mL injectable solution Start: 03/27/18 9:28:00 AM EST, 30 unit =, subQ, qAM, takes with breakfast, +SSI Start Date: 03/27/18 Status: Ordered Ozempic (2 mg dose) 8 mg/3 mL subQ pen Start: 06/04/23 2:07:00 AM EST, 2 mg =, subQ, qSunday Start Date: 06/04/23 Status: Ordered PriLOSEC 20 mg oral delayed release capsule Start: 09/27/10 6:46:00 PM EDT, 1 cap, PO, Daily Start Date: 09/27/10 Status: Ordered rosuvastatin 10 mg oral tablet Start: 02/05/24 1:56:00 PM EDT, 1 tab, PO, qhs, Disp# 90 tab, Refills: 1, Pharmacy: [facility] Start Date: 02/05/24 Stop Date: 08/03/24 Status: Ordered torsemide 20 mg oral tablet Start: 06/04/23 2:03:00 AM EST, 2 tab, PO, Daily, may take an additional tablet if 5 lb weight gain Start Date: 06/04/23 Status: Ordered traMADol 50 mg oral tablet Start: 07/08/23 11:17:00 AM EDT, 1 tab, PO, q4h, PRN: as needed for pain Start Date: 07/08/23 Status: Ordered Vitamin B-12 1000 mcg oral tablet Start: 10/12/11 11:18:00 AM EDT, 1 tab, PO, Daily Start Date: 10/12/11 Status: Ordered ZyrTEC 10 mg oral tablet Start: 09/27/10 6:45:00 PM EDT, 1 tab, PO, Daily, tab Start Date: 09/27/10 Status: Ordered Problem List Condition Confirmation Course Effective Dates Status H ealth Status Informant Arthritis of right ankle Confirmed Active Asthma Confirmed Active Cellulitis Confirmed Active Diabetes mellitus type 2 in obese Confirmed Active Encephalopathy Confirmed Active Right carpal tunnel syndrome Confirmed Active Dyslipidemia Confirmed Active Bilateral foot pain Confirmed Active GERD Confirmed Active Acute headache Confirmed Active Status post placement of implantable loop recorder Confirmed Active Elevated cholesterol Confirmed Active Acute ischemic stroke (L cerebellar) Confirmed Active Right knee pain Confirmed Active Left knee pain Confirmed Active Obesity Confirmed Active CARMENCITA (obstructive sleep apnea) Confirmed Active Plantar fasciitis, right Confirmed Active Bilateral primary osteoarthritis of knee Confirmed Active Weight monitoring Confirmed Active Procedures Procedure Date Related Diagnosis Body Site Status AXR - Abdominal X-ray 1 07/20/17 C ompleted Doppler ultrasonography of a rterial inflow and venous outflow of abdominal, pelvic and retroperitoneal organs 2 09/12/14 Completed Procedure 3 1973 Completed Cataract 4 Completed Injection of cortisone Co mpleted Surgery 5 Completed 1persistent large and small bowel dilation with multiple air-fluid levels 2No evidenc of deep venous thrombus within the left lower extremity 3left knee 4Bilateral cataract 5knee finger Social History Social History Type Response Smoking Status Never smoked cigaret luz maria Sex Female Sex Representation Female (finding) Implantable Device List Procedure Provider Procedure Date Device Type Site Unknown Unknown 06/04/23 Unknown Unknown Device Identifier Serial Number Lot or Batch Number Manufacturing Date Expiration Date Distinct Identification Code MRI Safety Implantable Status Assigning Authority Unknown Unknown [id number] Unknown 10/28/26 Unknown Unknown Active Unknown Unknown Unknown [id number] Unknown 07/08/32 Unknown Unknown Active Unknown Unknown Unknown [id number] Unknown 12/19/29 Unknown Unknown Active Unknown Unknown Unknown [id number] Unknown 11/16/32 Unknown Unknown Active Unknown Patient Care team information Care Team Personnel Name: MD Adam, Sully Sanchez Position: Physician - Orthopaedic Surg Member Role: Lifetime Relationship Address: [address] [place] [id number] [place] Name: LUCIO Ortiz Rebecca Linn Position: Referring Member Role: Primary Care Provider Address: [address] [address] [place] Care Team Related Persons Name: TARAN PERRY Name: TARAN PERRY
[2024-02-20] MEDS: HEPARIN SOD 5,000 UNIT/0.5 ML VIAL SQ SCH (23:11)
[2024-02-20] MEDS: LANTUS PER UNIT CHARGE SQ ONE (23:11)
[2024-02-20] MEDS: INSULIN ASPART PER UNIT CHARGE SC SCH (23:11)
[2024-02-20] MEDS: ACETAMINOPHEN 325 MG TAB PO PRN (23:21)
--- NOTE | 2024-02-20 23:32 | Ultrasound Report ---
Exam(s): US CAROTID EXAM: US Duplex Bilateral Extracranial Arteries CLINICAL HISTORY: Reason for exam: cva eval, slurred speech. TECHNIQUE: Real-time duplex ultrasound scan of the extracranial arteries integrating B-mode two-dimensional vascular structure, Doppler spectral analysis and color flow Doppler imaging. COMPARISON: No relevant prior studies available. FINDINGS: Right common carotid artery: Right common carotid artery 85 cm/s. No occlusion or significant stenosis on color flow and spectral Doppler imaging. Right internal carotid artery: Right internal carotid artery 60 cm/s. Mild atherosclerotic plaque in the right carotid bulb. No occlusion or significant stenosis on color flow and spectral Doppler imaging. Right external carotid artery: Right external carotid artery 108 cm/s. No occlusion or significant stenosis on color flow and spectral Doppler imaging. Right vertebral artery: Right vertebral artery 56 cm/s, antegrade. Right ICA/CCA ratio: Right ICA/CCA ratio 0.71. Left common carotid artery: Left common carotid artery 93 cm/s. No occlusion or significant stenosis on color flow and spectral Doppler imaging. Left internal carotid artery: Left internal carotid artery 65 cm/s. Mild atherosclerotic plaque in the left carotid bulb. No occlusion or significant stenosis on color flow and spectral Doppler imaging. Left external carotid artery: Left external carotid artery, 110 cm/s. No occlusion or significant stenosis on color flow and spectral Doppler imaging. Left vertebral artery: Left vertebral artery 68 cm/s, antegrade. Left ICA/CCA ratio: Left ICA/CCA ratio 0.7. Lymph nodes: Unremarkable. No lymphadenopathy. CAROTID STENOSIS REFERENCE USING SRU CRITERIA: Mild - <50% stenosis. ICA PSV is less than 125 cm/second and plaque or intimal thickening is visible. Moderate - 50-69% stenosis. ICA PSV is 125 to 230 cm/second and plaque is visible. Severe - 70-94% stenosis. ICA PSV is more than 230 cm/second and visible plaque with lumen narrowing is seen. Near occlusion - 95-99% stenosis. ICA PSV is variable and significant plaque with luminal narrowing is seen. Occluded - 100% stenosis. No flow identified. IMPRESSION: Small amount of atherosclerotic plaque is visible in both carotid bulbs. The velocity measurements and velocity ratios are consistent with less than 50% stenosis bilaterally. Electronically signed by: Dimitris Cortes MD 02/20/24 23:31 PM
[2024-02-21] MEDS: INSULIN ASPART PER UNIT CHARGE SC SCH (01:37)
[2024-02-21] MEDS: MICONAZOLE NITRATE POWDER 85 GM EXT PRN (02:21)
[2024-02-21] MEDS: LEVOTHYROXINE SODIUM 50 MCG TABLET PO SCH (05:45)
[2024-02-21 07:26] LABS: Basophils # (auto) 0.05 K/uL (0.00-0.20); Basophils % (auto) 0.4 %; Eosinophils # (auto) 0.07 K/uL (0.00-0.50); Eosinophils % (auto) 0.6 %; Hematocrit (blood only) 43.4 % (37.0-47.0); Hemoglobin 14.4 g/dl (12.0-16.0); Immature Granulocytes # (auto) 0.03 K/uL (0.01-0.20); Immature Granulocytes % (auto) 0.3 %; Lymphocytes % (auto) 19.2 %; Mean Corpuscular Hgb Conc 33.2 g/dL (32.0-36.0); Mean Corpuscular Volume 87.3 fL (80.0-100.0); Monocytes # (auto) 0.63 K/uL (0.11-0.59); Monocytes % (auto) 5.5 %; Neutrophils # (auto) 8.48 K/uL (1.40-6.50); Platelet Count 231 K/uL (130-400); RDW Coefficient of Variation 14.6 % (11.5-14.5); RDW Standard Deviation 47.1 fL (36.4-46.3); Red Blood Count 4.97 M/uL (4.20-5.40); White Blood Count 11.46 K/ul (4.8-10.8)
[2024-02-21 07:32] LABS: Estimated Average Glucose 180 mg/dl; Hemoglobin A1C 7.9 % (4.5-5.6)
[2024-02-21] MEDS: INFLUENZA VACC TS2024-25(65y+)/PF (IIV3) 0.5mL Syr IM ONE (07:41)
[2024-02-21 07:42] LABS: BUN Creatinine Ratio 21.5 (10-20); Calcium 9.4 mg/dl (8.6-10.3); Chol HDL Ratio 5.2 (0-5); Creatinine Clr Calc Pharmacy 85.4 ml/min; Magnesium 1.8 mg/dl (1.7-2.4)
[2024-02-21] MEDS: CHOLECALCIFEROL 125 MCG (5,000 UNITS) TAB PO SCH (07:47)
[2024-02-21] MEDS: PANTOprazole 40 MG TAB PO SCH (07:47)
[2024-02-21] MEDS: FAMOTIDINE 20 MG TAB PO SCH (07:48)
[2024-02-21] MEDS: LANTUS PER UNIT CHARGE SQ SCH ×2 (09:46→21:17)
[2024-02-21] MEDS: CLOPIDOGREL BISULFATE 75 MG TAB PO SCH (09:47)
[2024-02-21] MEDS: traMADol HCL 50 MG TABLET PO PRN (12:46)
--- NOTE | 2024-02-21 13:20 | Hospitalist Progress Note ---
Date of Service February 21, 2024 Assessment & Plan (1) Confusion: Plan: New onset confusion and slurred speech Admitted as CVA vs metabolic encephalopathy (UTI) This is most likely due to CVA. UTI has been ruled out with negative urinalysis and culture MRI brain showed a subacute infarct in the left temporal lobe. Will complete a stroke workup Echocardiogram in progress. Will follow-up Carotid duplex negative Patient has been on aspirin Plavix added to regimen Continue high-dose statin Crestor 20 mg A1c 7.9 LDL 54 Discontinue IV ceftriaxone as this is not a UTI PT/OT consulted Speech therapy consulted (2) History of CVA with residual deficit: Plan: CVA 05/2023 of left cerebellar and valeria, hemiplegia of left side - Patient currently has loop recorder to monitor for events since May - continue baby aspirin and rosuvastatin 20 Plavix added due to new stroke (3) Severe obstructive sleep apnea: Plan: patient reports she has not worn her CPAP in months; ordered as needed (4) Chronic kidney disease, stage III (moderate): Plan: Renal impairment is due to diabetic nephropathy, hypertensive nephrosclerosis and diastolic heart failure - baseline creatinine 1-1.7 - Currently stable - Avoid nephrotoxic agents - Promote oral hydration (5) Chronic diastolic (congestive) heart failure: Plan: History of HFpEF; follows with heart failure clinic - Dry weight ~ 280 - Last echocardiogram 06/07 Show normal LV function, EF 55 to 60%, mild LVH - Heart healthy, low-sodium diet - Strict I&O monitoring - Daily weights - continue home medications - torsemide and potassium chloride (6) Type II diabetes mellitus: Plan: Controlled on insulin and semaglutide at home -A1c 7.9 - SSI with target BSG range 110-140mg/dL, CF 5, carb ratio 2 - Home long-acting insulin decreased from 80 units BID to 60 BID during hospital stay and diet control - Pharmacy glycemic consult - T2DM diet Plan Chronic stable diagnoses: Hypothyroidism continue levothyroxine GERD - continue PPI and cimetidine HTN - continue losartan VTE ppx: Heparin Q12 Diet: T2DM, Heart healthy, low sodium diet Code status: full Dispo: med surg/ tele Admission and Anticipated Discharge Date Admission Date: February 20, 2024 Subjective Patient was seen at 11:50 AM. She was accompanied by her family. She was having an echocardiogram done. The patient and the family were informed that the MRI showed a stroke. Review of Systems Review of Systems: All systems reviewed & are unremarkable except as noted in Subjective Physical Exam Physical Exam: General: Awake. Has a slurred speech. Morbidly obese Heart: S1, S2/regular rate and rhythm, no murmur rubs or gallops Lungs: Clear to auscultation bilaterally. Normal effort Abdomen: Soft/nontender/nondistended. No hepatosplenomegaly Extremities: No clubbing/cyanosis. No edema Behavior: Appropriate, cooperative Results & Data Results & Data Vital Signs (Past 12 Hours) Vital Signs Temp Pulse Pulse Resp BP Pulse Ox Pulse Ox 02/21/24 12:17 36.9 C 92 H 16 129/79 93 02/21/24 08:06 02/21/24 08:02 36.9 C 89 16 127/65 92 02/21/24 07:23 100 H 02/21/24 04:35 94 02/21/24 03:37 94 02/21/24 03:36 36.3 C L 83 18 135/65 89 L O2 Del Method O2 Del Method O2 Flow Rate O2 Flow Rate 02/21/24 12:17 Nasal Cannula 3 02/21/24 08:06 Nasal Cannula 2 02/21/24 08:02 Nasal Cannula 3 02/21/24 07:23 02/21/24 04:35 Nasal Cannula 2 02/21/24 03:37 Nasal Cannula 2 02/21/24 03:36 Room Air Laboratory Results Abnormal lab results 02/20/24 02/20/24 02/20/24 Range/Units 13:12 13:23 20:15 WBC 10.91 H (4.8-10.8) K/ul MCHC 31.8 L (32.0-36.0) g/dL RDW Std Deviation 49.1 H (36.4-46.3) fL RDW Coeff of Juan C 14.8 H (11.5-14.5) % Neut # (Auto) (1.40-6.50) K/uL Stanley # (Auto) (0.11-0.59) K/uL BUN/Creatinine Ratio (10-20) Glucose 199 H (70-99(Fasting)) mg/dl POC Glucose 113 H (70-99) mg/dl Hemoglobin A1c (4.5-5.6) % Alkaline Phosphatase 116 H (34-104) U/L Triglycerides (0-150) mg/dl VLDL Cholesterol, Calc (0-30) mg/dl Cholesterol/HDL Ratio (0-5) Vitamin B12 1139 H (180-914) pg/ml Urine Protein Trace H (Negative) Urine Ketones 1+ H (Negative) Urine Blood Trace H (Negative) Ur Leukocyte Esterase Trace H Trace H (Negative) Urine RBC (Auto) 6-10 H (0-2) /hpf U Epithel Cells (Auto) 6-10 H 3-5 H (0-2) /hpf 02/20/24 02/20/24 02/21/24 Range/Units 21:05 21:59 00:57 WBC (4.8-10.8) K/ul MCHC (32.0-36.0) g/dL RDW Std Deviation (36.4-46.3) fL RDW Coeff of Juan C (11.5-14.5) % Neut # (Auto) (1.40-6.50) K/uL Stanley # (Auto) (0.11-0.59) K/uL BUN/Creatinine Ratio (10-20) Glucose (70-99(Fasting)) mg/dl POC Glucose 210 H 213 H 188 H (70-99) mg/dl Hemoglobin A1c (4.5-5.6) % Alkaline Phosphatase (34-104) U/L Triglycerides (0-150) mg/dl VLDL Cholesterol, Calc (0-30) mg/dl Cholesterol/HDL Ratio (0-5) Vitamin B12 (180-914) pg/ml Urine Protein (Negative) Urine Ketones (Negative) Urine Blood (Negative) Ur Leukocyte Esterase (Negative) Urine RBC (Auto) (0-2) /hpf U Epithel Cells (Auto) (0-2) /hpf 02/21/24 02/21/24 02/21/24 Range/Units 03:43 05:32 08:22 WBC 11.46 H (4.8-10.8) K/ul MCHC (32.0-36.0) g/dL RDW Std Deviation 47.1 H (36.4-46.3) fL RDW Coeff of Juan C 14.6 H (11.5-14.5) % Neut # (Auto) 8.48 H (1.40-6.50) K/uL Stanley # (Auto) 0.63 H (0.11-0.59) K/uL BUN/Creatinine Ratio 21.5 H (10-20) Glucose 203 H (70-99(Fasting)) mg/dl POC Glucose 101 H 202 H (70-99) mg/dl Hemoglobin A1c 7.9 H (4.5-5.6) % Alkaline Phosphatase (34-104) U/L Triglycerides 295 H (0-150) mg/dl VLDL Cholesterol, Calc 59 H (0-30) mg/dl Cholesterol/HDL Ratio 5.2 H (0-5) Vitamin B12 (180-914) pg/ml Urine Protein (Negative) Urine Ketones (Negative) Urine Blood (Negative) Ur Leukocyte Esterase (Negative) Urine RBC (Auto) (0-2) /hpf U Epithel Cells (Auto) (0-2) /hpf 02/21/24 Range/Units 12:03 WBC (4.8-10.8) K/ul MCHC (32.0-36.0) g/dL RDW Std Deviation (36.4-46.3) fL RDW Coeff of Juan C (11.5-14.5) % Neut # (Auto) (1.40-6.50) K/uL Stanley # (Auto) (0.11-0.59) K/uL BUN/Creatinine Ratio (10-20) Glucose (70-99(Fasting)) mg/dl POC Glucose 227 H (70-99) mg/dl Hemoglobin A1c (4.5-5.6) % Alkaline Phosphatase (34-104) U/L Triglycerides (0-150) mg/dl VLDL Cholesterol, Calc (0-30) mg/dl Cholesterol/HDL Ratio (0-5) Vitamin B12 (180-914) pg/ml Urine Protein (Negative) Urine Ketones (Negative) Urine Blood (Negative) Ur Leukocyte Esterase (Negative) Urine RBC (Auto) (0-2) /hpf U Epithel Cells (Auto) (0-2) /hpf Diagnostic Findings Chest X-Ray 02/20/24 13:39 XR chest 1V portable HISTORY: 69 years-old Female stroke alert acute stroke like symptoms COMPARISON: Chest CT 06/03/2023 TECHNIQUE: AP view of the chest FINDINGS: Cardiac silhouette is enlarged. Electronic device projects over the left heart border. No pneumothorax. Pulmonary vascular congestion with interstitial coarsening. Small pleural effusions with mild bibasilar opacities. Bones appear grossly intact. IMPRESSION: 1. Cardiomegaly with mild pulmonary edema. 2. Small pleural effusions with mild bibasilar opacities, likely atelectatic. ACT 112: Negative or not required by law. The above report was generated using voice recognition software. It may contain grammatical, syntax or spelling errors. Electronically signed by: Eusebio Cueto M.D. 02/20/2024 2:[address] 02/20/24 14:23 CT OF THE HEAD WITHOUT CONTRAST CLINICAL HISTORY: Altered mental status. COMPARISON STUDY: Head CT June 03, 2023. CT DOSE: 547.75 mGy.cm TECHNIQUE: Helical axial images of the head were obtained without IV contrast. Automated exposure control was utilized for the study. A dose lowering technique was utilized adhering to the principles of ALARA. FINDINGS: No acute intracranial hemorrhage, midline shift or mass effect is present. The ventricular system is unremarkable. The basal cisterns are patent. No extra-axial collections are present. There are no findings to suggest acute dural sinus thrombosis or acute territorial infarct. No calvarial fractures are present. A 1.7 cm focus of encephalomalacia within the left middle cerebellar peduncle suggests an old infarct. IMPRESSION: No acute intracranial findings. ACT 112: Negative or not required by law. Electronically signed by: Robbie Box M.D. 02/20/2024 3:21 PM Brain MRI 02/20/24 17:11 EXAM: MR brain wo con CLINICAL HISTORY: AMS this morning, overall weakness. period of confusion and slurred speech, headache. hx of stroke in May. best scans possible, pt claustrophobic, sedated. INPATIENT TECHNIQUE: Different pulse sequences were performed in different planes for the brain without GD-DTPA injection. Images were sent through PACs for interpretation. COMPARISON: Prior CT dated 06/03/2023 FINDINGS: Subacute infarction is seen at the left insula of Reil and the left temporal lobe, exhibiting bright signals on DWI, low signals on the ADC map, and bright signals on T2 and FLAIR WI. Old lacunar infarction with microcystic gliosis is seen at the right periventricular region. It follows CSF signals on different pulse sequences. Altered deep white matter signals are seen at the forceps minor, forceps major, periventricular, and centrum semiovale regions. These exhibit bright signals on T2 and FLAIR WI and intermediate signals on T1 WI. Findings suggest consequences of small vessel disease, e.g., hypertensive and/or diabetic vasculopathy. Mild widening of the frontoparietal sulci and sylvian fissures, and basal cisterns. Findings Are consistent with a normal aging brain. Normal MRI appearance of the cerebellar parenchymal signals. Normal MRI appearance of the central miller matter aggregates. Normal size and configuration of the cerebral ventricles. Normal MRI appearance of different anatomical parts of the brain stem, namely the midbrain, valeria, and medulla oblongata. Normal MRI appearance of the petrous temporal bones, brainstem, vestibule cochlear nerves, and cerebellopontine angles with no definite masses. No shift of midline structures. No intracerebral or extra-axial hematomas or masses. Normal MRI appearance of orbital structures, both globes, optic nerves, optic chiasm, optic tracts, and optic radiations. The scanned paranasal sinuses are unremarkable. IMPRESSION: 1. Subacute infarction is seen at the left insula of Reil and the left temporal lobe exhibiting bright signals on DWI, low signals on ADCmap, and bright signals on T2 and FLAIR WI. 2. Old lacunar infarction with microcystic gliosis is seen at the right periventricular region. 3. Altered deep white matter signals with anatomical distribution and imaging features consistent with the consequences of small vessel disease, e.g., hypertensive and/or diabetic vasculopathy. (Fazekas grade 1). 4. Normal aging brain. 5. The comparison is consistent with a progressive course. [facility]'s ER was called at at 6:32 PM [employer]ANCIAL ANALYST, 02/20/[address] Jean was informed about the presence of critical medical findings. Electronically signed by Pat Sanchez 02-20-2024 7:41 PM Carotid Doppler Study 02/20/24 17:11 Exam(s): US CAROTID EXAM: US Duplex Bilateral Extracranial Arteries CLINICAL HISTORY: Reason for exam: cva eval, slurred speech. TECHNIQUE: Real-time duplex ultrasound scan of the extracranial arteries integrating B-mode two-dimensional vascular structure, Doppler spectral analysis and color flow Doppler imaging. COMPARISON: No relevant prior studies available. FINDINGS: Right common carotid artery: Right common carotid artery 85 cm/s. No occlusion or significant stenosis on color flow and spectral Doppler imaging. Right internal carotid artery: Right internal carotid artery 60 cm/s. Mild atherosclerotic plaque in the right carotid bulb. No occlusion or significant stenosis on color flow and spectral Doppler imaging. Right external carotid artery: Right external carotid artery 108 cm/s. No occlusion or significant stenosis on color flow and spectral Doppler imaging. Right vertebral artery: Right vertebral artery 56 cm/s, antegrade. Right ICA/CCA ratio: Right ICA/CCA ratio 0.71. Left common carotid artery: Left common carotid artery 93 cm/s. No occlusion or significant stenosis on color flow and spectral Doppler imaging. Left internal carotid artery: Left internal carotid artery 65 cm/s. Mild atherosclerotic plaque in the left carotid bulb. No occlusion or significant stenosis on color flow and spectral Doppler imaging. Left external carotid artery: Left external carotid artery, 110 cm/s. No occlusion or significant stenosis on color flow and spectral Doppler imaging. Left vertebral artery: Left vertebral artery 68 cm/s, antegrade. Left ICA/CCA ratio: Left ICA/CCA ratio 0.7. Lymph nodes: Unremarkable. No lymphadenopathy. CAROTID STENOSIS REFERENCE USING SRU CRITERIA: Mild - <50% stenosis. ICA PSV is less than 125 cm/second and plaque or intimal thickening is visible. Moderate - 50-69% stenosis. ICA PSV is 125 to 230 cm/second and plaque is visible. Severe - 70-94% stenosis. ICA PSV is more than 230 cm/second and visible plaque with lumen narrowing is seen. Near occlusion - 95-99% stenosis. ICA PSV is variable and significant plaque with luminal narrowing is seen. Occluded - 100% stenosis. No flow identified. IMPRESSION: Small amount of atherosclerotic plaque is visible in both carotid bulbs. The velocity measurements and velocity ratios are consistent with less than 50% stenosis bilaterally. Electronically signed by: Dimitris Cortes MD 02/20/24 23:31 PM Head MRA 02/20/24 17:11 EXAM: MR angio head wo con CLINICAL HISTORY: AMS this morning, overall weakness. period of confusion and slurred speech, headache. hx of stroke in May. best scans possible, pt claustrophobic, sedated. INPATIENT TECHNIQUE: MR angiography of the head ([place]) was performed by the 3D TOF technique without Intravenous contrast. MPR images were obtained. Images were sent through PACs for diagnostic interpretation. COMPARISON: MRI study for the brain, dated the same day. FINDINGS: The internal carotid arteries (ICAs), anterior cerebral arteries (ACAs) (A1 to A4), anterior communicating artery (A COM A), and middle cerebral arteries (MCAs) (M1 to M4). These show normal flow signals and form the anterior circulation. The V4 segments of the vertebral arteries form the basilar and posterior cerebral arteries. Each [employer] from P1 to P4, as well as the posterior communicating arteries, forms the posterior circulation and shares in the formation of the [place]. 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 The anterior and posterior circulations show atherosclerotic changes with Intimal vascular irregularities. Segmental stenosis is seen at the M2 segment of the left middle cerebral artery. Peripheral attenuation of the left M3 and M4 (Sylvian branches), which could be incriminated, reported recent infarction. No major vascular occlusion aneurysms or AVM. IMPRESSION: 1. 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 2. The anterior and posterior circulations show atherosclerotic changes with Intimal vascular irregularities. Segmental stenosis is seen at the M2 segment of the left middle cerebral artery. Peripheral attenuation of the left M3 and M4 (Sylvian branches), which could be incriminated, reported recent infarction. No major vascular occlusion aneurysms or AVM. 3. The comparison matches the MRI findings. [facility]'s ER was called at at 6:32 PM [employer]CIAL ANALYST, 02/20/[address] Jean was informed about the presence of critical medical findings. Electronically signed by Pat Sanchez 02-20-2024 7:51 PM PG Care Time/CCT Total # of Minutes Spent Total Time Spent with Patient: Total time spent is greater than 50% in coordination of care (as documented) at patient's floor/unit and/or counseling patient: Coding Level of Care Code 42305 SUB INP/OBS CARE 2/35MIN Diagnoses Confusion R41.0 History of CVA with residual deficit I69.30 Severe obstructive sleep apnea G47.33 Stage 3b chronic kidney disease N18.32 Chronic kidney disease stage 3 subtype: stage 3b (GFR 30-44) Chronic diastolic (congestive) heart failure I50.32 Type II diabetes mellitus E11.9 (4) Chronic kidney disease, stage III (moderate) Chronic kidney disease stage 3 subtype: stage 3b (GFR 30-44) Qualified Code(s): N18.32 - Chronic kidney disease, stage 3b
--- NOTE | 2024-02-21 13:54 | Pharmacy Report ---
Pharmacy Glycemic Short Note 2 - Date of Service February 21, 2024 - Glycemic Short BSG Results (Last 24 hours): 02/20/24 02/20/24 02/20/24 13:23 21:05 21:59 Glucose 199 H POC Glucose 210 H 213 H 02/21/24 02/21/24 02/21/24 00:57 03:43 05:32 Glucose 203 H POC Glucose 188 H 101 H 02/21/24 02/21/24 08:22 12:03 Glucose POC Glucose 202 H 227 H OUTPATIENT ANTIDIABETIC REGIMEN: * Levemir 20 unit bid (per family), Novolog ESTEFANIA, nicole ASSESSMENT: * Patient presenting with confusion, concerns for CVA. Type 2 diabetic managed on insulin outpatient. Patient's family reports Levemir 20 units bid - will continue this dosing for now. Weight based stress 3 dosing ordered for novolog, reasonable to continue for now PLAN FOR INPATIENT GLYCEMIC CONTROL: * Hold outpatient oral diabetes medications * Basal insulin * Lantus 20 units SQ BID * Bolus insulin * NovoLog per scale ACHS or Q6hrs while NPO * Goal Range: Low 110 mg/dL - High 140 mg/dL * Correction Factor: 10 mg/dL/unit * Nutritional / Prandial insulin per carb ratio of 1 unit per 5 grams CHO consumed
[2024-02-22 06:35] LABS: Basophils # (auto) 0.05 K/uL (0.00-0.20); Basophils % (auto) 0.5 %; Eosinophils % (auto) 0.9 %; Hematocrit (blood only) 41.5 % (37.0-47.0); Hemoglobin 13.9 g/dl (12.0-16.0); Immature Granulocytes # (auto) 0.04 K/uL (0.01-0.20); Immature Granulocytes % (auto) 0.4 %; Lymphocytes # (auto) 2.27 K/uL (1.20-3.40); Lymphocytes % (auto) 20.8 %; Mean Corpuscular Hemoglobin 29.2 pg (25.0-34.0); Mean Corpuscular Hgb Conc 33.5 g/dL (32.0-36.0); Mean Corpuscular Volume 87.2 fL (80.0-100.0); Mean Platelet Volume 11.5 fL (9.4-12.4); Monocytes # (auto) 0.73 K/uL (0.11-0.59); Monocytes % (auto) 6.7 %; Neutrophils % (auto) 70.7 %; Platelet Count 200 K/uL (130-400); RDW Coefficient of Variation 14.5 % (11.5-14.5); RDW Standard Deviation 46.7 fL (36.4-46.3); Red Blood Count 4.76 M/uL (4.20-5.40); White Blood Count 10.89 K/ul (4.8-10.8)
[2024-02-22 07:05] LABS: BUN Creatinine Ratio 27.2 (10-20); Calcium 9.3 mg/dl (8.6-10.3); Creatinine Clr Calc Pharmacy 82.2 ml/min; Potassium 3.4 mmol/L (3.5-5.1)
[2024-02-22] MEDS: POTASSIUM CHLORIDE CRTAB 20 MEQ TABCR PO STA (08:28)
[2024-02-22] MEDS: LANTUS PER UNIT CHARGE SQ SCH (08:50)
--- NOTE | 2024-02-22 10:37 | XCELERA ---
[id number]
[2024-02-22 11:24] LABS: iSTAT Arterial Blood Gas HCO3 25 meg/L (19-24); iSTAT Arterial Blood Gas pCO2 36 mmHg (35-46); iSTAT Arterial Blood Gas pH 7.44 (7.35-7.45); iSTAT Arterial Blood Gas pO2 65 mmHg (80-95); iSTAT Carbon Dioxide 26 mmol/L (24-31); iSTAT Hematocrit 42 % (37-47); iSTAT Hemoglobin 14.3 g/dl (12.0-16.0); iSTAT Potassium 3.4 mmol/L (3.3-5.0); iSTAT Sodium 137 mmol/L (135-144)
--- NOTE | 2024-02-22 11:49 | CT Scan Report ---
CT OF THE HEAD WITHOUT CONTRAST CLINICAL HISTORY: Recent stroke, now altered again COMPARISON STUDY: Head CT and MRI of the the brain February 20, 2024. CT DOSE: 547.75 mGy.cm TECHNIQUE: Helical axial images of the head were obtained without IV contrast. Automated exposure con trol was utilized for the study. A dose lowering technique was utilized adhering to the principles o f ALARA. FINDINGS: No acute intracranial hemorrhage, midline shift or mass effect is present. The small acute infarcts within the left temporal lobe on MRI of February 20, 2024 not well-visualized by MRI. The dena tricular system is unremarkable. The basal cisterns are patent. No extra-axial collections are presen t. There are no findings to suggest acute dural sinus thrombosis or acute territorial infarct. No sig nificant calvarial abnormalities are present. Visualized portions of the sinuses and mastoid air cell s are clear. IMPRESSION: 1. No acute intracranial findings. 2. The small acute infarcts within left temporal lobe on MRI of February 20, 2024 are not well-visuali zed by CT. ACT 112: Negative or not required by law. Electronically signed by: Robbie Box M.D. 02/22/2024 11:47 AM
--- NOTE | 2024-02-22 13:37 | Hospitalist Progress Note ---
Date of Service February 22, 2024 Assessment & Plan (1) Confusion: Plan: New onset confusion and slurred speech Admitted as CVA vs metabolic encephalopathy (UTI) This is most likely due to CVA. UTI has been ruled out with negative urinalysis and culture MRI brain showed a subacute infarct in the left temporal lobe. Stroke workup Echocardiogram negative Carotid duplex negative Patient has been on aspirin Plavix added to regimen Continue high-dose statin Crestor 20 mg A1c 7.9 LDL 54 Discontinue IV ceftriaxone as this is not a UTI PT/OT consulted Speech therapy consulted Today 02/21, patient seemed to be altered. ABG did not show CO2 narcosis. Repeat head CT did not show a new stroke or any hemorrhagic transformation. Consult neurology (2) History of CVA with residual deficit: Plan: CVA 05/2023 of left cerebellar and valeria, hemiplegia of left side - Patient currently has loop recorder to monitor for events since May - continue baby aspirin and rosuvastatin 20 Plavix added due to new stroke (3) Severe obstructive sleep apnea: Plan: patient reports she has not worn her CPAP in months; ordered as needed (4) Chronic kidney disease, stage III (moderate): Plan: Renal impairment is due to diabetic nephropathy, hypertensive nephrosclerosis and diastolic heart failure - baseline creatinine 1-1.7 - Currently stable - Avoid nephrotoxic agents - Promote oral hydration (5) Chronic diastolic (congestive) heart failure: Plan: History of HFpEF; follows with heart failure clinic - Dry weight ~ 280 - Last echocardiogram 06/07 Show normal LV function, EF 55 to 60%, mild LVH - Heart healthy, low-sodium diet - Strict I&O monitoring - Daily weights - continue home medications - torsemide and potassium chloride (6) Type II diabetes mellitus: Plan: Controlled on insulin and semaglutide at home -A1c 7.9 - SSI with target BSG range 110-140mg/dL, CF 5, carb ratio 2 - Home long-acting insulin decreased from 80 units BID to 60 BID during hospital stay and diet control - Pharmacy glycemic consult - T2DM diet Plan Chronic stable diagnoses: Hypothyroidism continue levothyroxine GERD - continue PPI and cimetidine HTN - continue losartan VTE ppx: Heparin Q12 Diet: T2DM, Heart healthy, low sodium diet. If the patient is unsafe to eat because of altered mental status, will make her n.p.o. and give IV fluids instead Code status: full Admission and Anticipated Discharge Date Admission Date: February 20, 2024 Subjective Patient was seen and examined at 10:05 AM. She was noted to be altered. She seems to be awake but had a gaze. Did not verbalize. Would not follow commands. I ordered an ABG to rule out CO2 narcosis but the patient does have a history of sleep apnea. The ABG did not show hypercarbia. Ordered a repeat CT head which did not show a new stroke or hemorrhagic conversion. Consulted neurology. Updated the family. Review of Systems Review of Systems: All systems reviewed & are unremarkable except as noted in Subjective Physical Exam Physical Exam: General: Seems to be awake with a gaze but not responding. Morbidly obese Heart: S1, S2/regular rate and rhythm, no murmur rubs or gallops Lungs: Clear to auscultation bilaterally. Normal effort Abdomen: Soft/nontender/nondistended. No hepatosplenomegaly Extremities: No clubbing/cyanosis. No edema Behavior: Appropriate, cooperative Results & Data Results & Data Vital Signs (Past 12 Hours) Vital Signs Temp Pulse Pulse Resp BP Pulse Ox O2 Del Method 02/22/24 12:28 36.5 C 88 16 142/72 H 93 Room Air 02/22/24 12:08 93 02/22/24 08:44 36.4 C L 91 H 16 134/80 96 Room Air 02/22/24 07:20 Nasal Cannula 02/22/24 07:12 88 02/22/24 03:47 36.4 C L 90 18 157/82 H 91 Room Air O2 Flow Rate 02/22/24 12:28 02/22/24 12:08 02/22/24 08:44 02/22/24 07:20 2 02/22/24 07:12 02/22/24 03:47 Laboratory Results Abnormal lab results 02/21/24 02/22/24 02/22/24 Range/Units 20:34 05:22 08:42 WBC 10.89 H (4.8-10.8) K/ul RDW Std Deviation 46.7 H (36.4-46.3) fL Neut # (Auto) 7.70 H (1.40-6.50) K/uL Ness # (Auto) 0.73 H (0.11-0.59) K/uL POC pO2 (80-95) mmHg POC HCO3 (19-24) hortencia/L Potassium 3.4 L (3.5-5.1) mmol/L Anion Gap 12 H (3-11) BUN/Creatinine Ratio 27.2 H (10-20) Glucose 204 H (70-99(Fasting)) mg/dl POC Glucose 186 H 187 H (70-99) mg/dl 02/22/24 02/22/24 Range/Units 11:28 12:02 WBC (4.8-10.8) K/ul RDW Std Deviation (36.4-46.3) fL Neut # (Auto) (1.40-6.50) K/uL Ness # (Auto) (0.11-0.59) K/uL POC pO2 65 L (80-95) mmHg POC HCO3 25 H (19-24) hortencia/L Potassium (3.5-5.1) mmol/L Anion Gap (3-11) BUN/Creatinine Ratio (10-20) Glucose (70-99(Fasting)) mg/dl POC Glucose 159 H (70-99) mg/dl Diagnostic Findings Head CT 02/22/24 10:41 CT OF THE HEAD WITHOUT CONTRAST CLINICAL HISTORY: Recent stroke, now altered again COMPARISON STUDY: Head CT and MRI of the the brain February 20, 2024. CT DOSE: 547.75 mGy.cm TECHNIQUE: Helical axial images of the head were obtained without IV contrast. Automated exposure control was utilized for the study. A dose lowering technique was utilized adhering to the principles of ALARA. FINDINGS: No acute intracranial hemorrhage, midline shift or mass effect is present. The small acute infarcts within the left temporal lobe on MRI of February 20, 2024 not well-visualized by MRI. The ventricular system is unremarkable. The basal cisterns are patent. No extra-axial collections are present. There are no findings to suggest acute dural sinus thrombosis or acute territorial infarct. No significant calvarial abnormalities are present. Visualized portions of the sinuses and mastoid air cells are clear. IMPRESSION: 1. No acute intracranial findings. 2. The small acute infarcts within left temporal lobe on MRI of February 20, 2024 are not well-visualized by CT. ACT 112: Negative or not required by law. Electronically signed by: Robbie Box M.D. 02/22/2024 11:47 AM PG Care Time/CCT Total # of Minutes Spent Total Time Spent with Patient: Total time spent is greater than 50% in coordination of care (as documented) at patient's floor/unit and/or counseling patient: Coding Level of Care Code 38171 SUB INP/OBS CARE 2/35MIN Diagnoses Confusion R41.0 History of CVA with residual deficit I69.30 Severe obstructive sleep apnea G47.33 Stage 3b chronic kidney disease N18.32 Chronic kidney disease stage 3 subtype: stage 3b (GFR 30-44) Chronic diastolic (congestive) heart failure I50.32 Type II diabetes mellitus E11.9 (4) Chronic kidney disease, stage III (moderate) Chronic kidney disease stage 3 subtype: stage 3b (GFR 30-44) Qualified Code(s): N18.32 - Chronic kidney disease, stage 3b
--- NOTE | 2024-02-22 14:33 | Pharmacy Report ---
Pharmacy Glycemic Short Note 2 - Date of Service February 22, 2024 - Glycemic Short BSG Results (Last 24 hours): 02/21/24 02/21/24 02/22/24 17:16 20:34 05:22 Glucose 204 H POC Glucose 97 186 H 02/22/24 02/22/24 08:42 12:02 Glucose POC Glucose 187 H 159 H OUTPATIENT ANTIDIABETIC REGIMEN: * Levemir 20 unit bid (per family), Novolog SSI, ozempic ASSESSMENT: 02/21 * Patient received total of 81 units of insulin yesterday, of which 40 units were basal insulin * Fasting BSG 187 mg/dL - will have scale for BID basal and titrate up to 20-25 units bid * Lunch BSG improving, may scale back on novolog now that more basal is on board 02/20 * Patient presenting with confusion, concerns for CVA. Type 2 diabetic managed on insulin outpatient. Patient's family reports Levemir 20 units bid - will continue this dosing for now. Weight based stress 3 dosing ordered for novolog, reasonable to continue for now PLAN FOR INPATIENT GLYCEMIC CONTROL: * Hold outpatient oral diabetes medications * Basal insulin * Lantus 20-25 units SQ BID * Bolus insulin * NovoLog per scale ACHS or Q6hrs while NPO * Goal Range: Low 110 mg/dL - High 140 mg/dL * Correction Factor: 15 mg/dL/unit * Nutritional / Prandial insulin per carb ratio of 1 unit per 6 grams CHO consumed
--- NOTE | 2024-02-22 20:20 | Electrocardiogram Report ---
Test Reason : Blood Pressure : */* mmHG Vent. Rate : 97 BPM Atrial Rate : 99 BPM P-R Int : 224 ms QRS Dur : 86 ms QT Int : 350 ms P-R-T Axes : 14 -41 33 degrees QTcB Int : 444 ms Sinus rhythm with 1st degree A-V block Left axis deviation Low voltage QRS Abnormal ECG When compared with ECG of 03-Jun-2023 06:43, No significant change Confirmed by Aaron Campos ([id number]) on 02/22/2024 8:20:21 PM Referred By: REFERRED SELF Confirmed By: Aaron Campos
--- NOTE | 2024-02-23 07:59 | Neurology Consultation ---
Date of Consultation February 23, 2024 Assessment & Plan (1) Acute CVA (cerebrovascular accident): (2) Severe obstructive sleep apnea: (3) Excessive daytime sleepiness: (4) History of CVA with residual deficit: Plan This patient had a small but significant stroke in May 2023 in the left valeria and left superior cerebellar hemisphere resulting in some left sided ataxia and double vision. Apparently the symptoms are still present but were too difficult for me to assess today given her sleepiness/level of alertness. Recent imaging shows multiple, tiny, acute (within the last week) infarcts in the left temporal lobe and insular cortex. I would not expect these small strokes to have much clinical accompaniment (although dysarthria is always possible). There is a small hypointensity/hypodensity in the left cerebellar peduncle, consistent with her previous stroke May 2023). Her excessive sleepiness and difficulty arousing is troublesome and probably is related to her severe sleep apnea and lack of use of CPAP. I cannot exclude hypercarbia or some other pulmonary condition creating excessive sleepiness. This patient has multiple risk factors for stroke including hypertension, diabetes, dyslipidemia, and sleep apnea. The new stroke occurred on 81 mg aspirin. There is always been a concern that she has had embolic phenomenon but no source of emboli has ever been identified despite aggressive testing. The etiology of the left temporal strokes currently is difficult to be certain but again, no embolic source has been identified. These are likely ischemic. There is no evidence that a central nervous system infection is present at this time. Recommendations: 1. Agree with dual antiplatelet therapy (81 mg aspirin +75 mg clopidogrel) for a total of 3 weeks, and then discontinue aspirin and remain on clopidogrel alone. 2. Repeat MRI of the brain (this time with and without contrast) 3. Increase modafinil to 200 mg in the morning (and eventually may titrate up to 200 mg twice daily). 4. Hold on other neurologic testing for now but could consider EEG or lumbar puncture. 5. Increase activity as able. 6. The patient follows with [facility] neurology and should return to them as an outpatient. 7. Arterial blood gas and other testing for hypercarbia/hypoxia per hospitalist. Overall, I spent a total of 100 minutes with this case including review of records, review of CT and MRI films, direct evaluation the patient at bedside, report generation, and discussion of the case with the patient and RN at bedside, Dr. Ahumada, and Dr. Box radiology, including differential diagnosis and treatment options. History of Present Illness Reason for Consultation: Patient is a 69-year-old, who was asked to see at the request of Dr. Vega, for neurologic consultation regarding stroke and excessive daytime sleepiness. This patient has a history of left pontine and left cerebellar hemispheric stroke in May 2023 that resulted after a fall in her bathroom which resulted in a significant right proximal femur fracture. She ended up being evaluated at [facility]. The etiology of the stroke was unknown and an embolic source was postulated. However, echocardiogram was unremarkable and no shunt was present. She had a RUTHIE and a TCD bubble study. In addition she had prolonged loop recorder monitoring and no significant cardiac dysrhythmia was identified. She was put on 81 mg aspirin and 20 mg rosuvastatin which she has been on since May. stroke been followed by the [facility] stroke team. Apparently CT angiography of the head and neck were largely unremarkable with no significant stenoses. Patient has multiple risk factors for stroke including hypertension, type 2 diabetes, dyslipidemia, and sleep apnea. Apparently, she has significant sleep apnea but does not wear CPAP. She can have significant daytime sleepiness and is on 100 mg modafinil in the morning. Despite extensive rehabilitation efforts, the patient has not been ambulating and has been essentially bedridden since her fracture. Her last outpatient (televisit) with [facility] neurology was on February 04. They described her as alert and oriented with adequate fund of knowledge, memory, and attention span. Language was fluent with good comprehension and there was no dysarthria or aphasia. Apparently, she has persistent left sided ataxia and double vision. She is supposed to be seeing an business advisor because of the persistent poststroke double vision but I am uncertain if she has seen any yet. Patient arrived at the emergency room on February 19 with some waxing and waning confusion that occurred throughout the morning hours. There was a concern about UTI (family felt that her clinical presentation was much like it was when she had a UTI). She arrived on February 19 at 1314 with a temperature of 36.7, pulse of 100, respiratory rate 18, blood pressure 140/100, and O2 saturation 96%. In the emergency room she was felt to have some slurred speech and both legs were diffusely weak. Apparently she was awake, alert, and oriented x 3 in the emergency room. CBC showed a borderline white count of 10.9. She was not anemic. CHEM profile was remarkable for glucose of 199 and alkaline phosphorus of 116. B12, folate, TSH, and urinalysis were unremarkable. Chest x-ray showed some cardiomegaly and small pleural effusion/atelectasis. CT scan of the head was largely unremarkable for acute changes. Transesophageal echocardiogram was unremarkable showed no shunt. MRI of the brain showed a few scattered acute/subacute tiny lesions in the left insular cortex and around the left temporal lobe. There was a mild to moderate amount of old small vessel ischemic disease seen as well. There was some very mild hypodensity suggesting the old left cerebellar/pontine infarct in the left cerebellar peduncle on a couple of different images. I reviewed these MRI films with Dr. Box The patient has been getting harder to wake up each morning over the last several days. It can take several hours before she is fully awake. No body has noticed any new weakness, numbness, or other neurologic deficits. Repeat CT scan of the head February 21 was obtained and showed 2 or 3 of the new tiny left temporal area strokes noted on MRI. The hypodensity in the left cerebellar peduncle was noted also. I reviewed these films with Dr. Box. MR angiography of the head obtained February 19 was largely unremarkable although there is a few scattered stenoses of a mild to moderate nature, especially of the left middle cerebral artery distribution. No significant stenoses or arteriovenous anomalies were noted. I reviewed these films with Dr. Box. Carotid ultrasound was obtained on February 19 and showed small amount of plaque in the carotid bulbs (less than 50% stenosis bilaterally) This morning, around 0800, the patient was arousable but quickly went back to sleep. She was not able to hold conversations and could not stay awake enough. I came back around 1030 and the patient remained sleepy and her exam was much like it was earlier this morning. Attending Physician: Nick Costello MD Allergies Allergy/AdvReac Type Severity Reaction Status Date / Time No Known Drug Allergies Allergy Verified 12/25/23 13:38 Home Medications Medication Instructions Recorded Confirmed Type multivitamin 1 tab PO QAM 07/24/18 02/20/24 History omega-3 360 an-tbo-upe-fish oil 1 cap PO QAM 07/24/18 02/20/24 History 1,200 mg capsule,delayed release (Fish Oil) blood sugar diagnostic (OneTouch #100 ea 04/19/19 12/25/23 Rx Ultra Blue Test Strip) blood-glucose meter (OneTouch #1 ea 04/19/19 12/25/23 Rx Ultra2 Meter) lancets 30 gauge (OneTouch Delica #200 ea 04/19/19 12/25/23 Rx Lancets) vitamin B complex 1 tab PO QAM 10/15/19 02/20/24 History diclofenac sodium 1 % topical gel 2 g topical QID PRN knee pain #700 07/10/20 02/20/24 Rx (Voltaren) grams insulin syringe-needle U-100 1 mL #500 ea 04/01/22 12/25/23 Rx 31 gauge x 5/16" (BD Insulin Syringe Ultra-Fine) insulin aspart U-100 100 unit/mL 1 unit (0.01 mL) subcut .COMPLEX 06/12/22 1 04/21/23 Rx subcutaneous solution (Novolog #270 mL U-100 Insulin aspart) albuterol sulfate 90 mcg/actuation 2 puff inhalation QID PRN 06/24/22 02/20/24 Rx aerosol inhaler (Proventil HFA) Shortness Of Breath #3 Inhalers chlorpheniramine maleate 4 mg 4 mg PO Q12H 30 days #60 tabs 07/23/22 02/20/24 Rx tablet (Allergy Relief (chlorpheniramine)) ipratropium bromide 21 mcg (0.03 2 spray intranasal TID PRN nasal 08/12/22 02/20/24 Rx %) nasal spray drainage #90 mL Monoject Insulin Syringe 1 mL 25 #500 ea 02/11/23 12/25/23 Rx gauge x 5/8" (insulin syringe-needle U-100) sodium chloride, sodium See Rx Instructions .Route 06/03/23 02/20/24 History bicarb-nasal rinse squeeze bottle .COMPLEX PRN nasal decongestant with packet (Neilmed Sinus Rinse Complete with packet) torsemide 20 mg tablet 40 mg PO DAILY water rentention 06/03/23 02/20/24 History aspirin 81 mg tablet,delayed 81 mg PO DAILY 08/05/23 02/20/24 History release docusate sodium 100 mg capsule 100 mg PO DAILY PRN Constipation 08/05/23 02/20/24 History (Dulcolax Stool Softener (docusate)) cholecalciferol (vitamin D3) 125 125 mcg PO DAILY #90 caps 08/18/23 02/20/24 Rx mcg (5,000 unit) capsule levothyroxine 50 mcg tablet 50 mcg PO QAM #90 tabs 09/09/23 02/20/24 Rx modafinil 100 mg tablet (Provigil) 100 mg PO QAM #90 tabs 09/09/23 02/20/24 Rx potassium chloride 20 mEq 40 meq (2 x 20 mEq) PO DAILY #180 09/09/23 02/20/24 Rx tablet,extended release tabs rosuvastatin 20 mg tablet 20 mg PO HS #90 tabs 09/09/23 02/20/24 Rx diaper,brief,adult,disposable #3 Bags 09/23/23 12/25/23 Rx (Disposable Brief) ondansetron HCl 4 mg tablet 4 mg PO Q8H PRN nausea and 10/14/23 02/20/24 Rx vomiting #60 tabs pseudoephedrine HCl 120 mg 120 mg PO BID #180 tabs 10/14/23 02/20/24 Rx tablet,extended release (Sudafed 12 Hour) tramadol 50 mg tablet 50 mg PO TID PRN pain #90 tabs 10/14/23 02/20/24 Rx cimetidine 400 mg tablet 400 mg PO BID #180 tabs 12/29/23 02/20/24 Rx losartan 25 mg tablet 25 mg PO HS #90 tabs 12/29/23 02/20/24 Rx meclizine 12.5 mg tablet 12.5 mg PO TID PRN dizziness #30 12/29/23 02/20/24 Rx tabs omeprazole 20 mg capsule,delayed 20 mg PO QAM #90 caps 12/29/23 02/20/24 Rx release semaglutide 1 mg/dose (4 mg/3 mL) 1 mg (0.75 mL) subcut .COMPLEX #9 01/06/24 02/20/24 Rx subcutaneous pen injector mL cyclobenzaprine 5 mg tablet 5 mg PO BID 02/20/24 02/20/24 History insulin detemir U-100 100 unit/mL 20 - 25 unit subcut BID 02/21/24 02/21/24 History subcutaneous solution (Levemir U-100 Insulin) Patient History Medical History Chronic sinusitis follows with Dr Zabala H/O needle biopsy L breast due to enlarged lymph nodes History of colon polyps Pancreatitis Sleep apnea cpap (non-compliant) Surgical History Status post open reduction and internal fixation (ORIF) of fracture right femur with medullary [place] 05/[address] [facility] [place] of cataract surgery RT 06/2021 LT 07/2021 History of ERCP Hx of removal of cyst left hand History of removal of cyst off left foot History of left knee surgery ligaments and tendon repair History of colonoscopy History of tooth extraction all upper teeth, some lower teeth Family History Mother Family history of diabetes mellitus Pancreatitis Hypertension Diabetes Father Family hx of colon cancer Hypertension Colorectal cancer Colonic polyp Deep vein thrombosis Brother Heart disease Myocardial infarction Sudden Grandmother (Maternal) Alzheimer disease Osteoarthritis Ovarian cancer Grandfather Heart disease Other No family history of adverse response to anesthesia No family history of bleeding disorder Rheumatoid arthritis Denies family history of SIDS (sudden infant syndrome) Prostate cancer Osteoporosis Coronary heart disease Dyslipidemia Cerebral aneurysm Bipolar disorder Clotting disorder Crohn's disease Dementia Depression Kidney disease Breast cancer Schizophrenia Congenital kidney disease Gestational diabetes Lung cancer COPD (chronic obstructive pulmonary disease) Pulmonary embolism Lung disease Ulcerative colitis Stroke Asthma Cystic kidney disease Social History Smoking Status: Never smoker Second Hand Exposure: Yes (parents smoked); Do You Dip or Chew Tobacco: No; Hx Alcohol Use: Yes Alcohol type: beer, wine and hard liquor Hx Substance Use: No Preferred Language: Swedish Communication Ability: Effective Visual Impairment: No Limitations Hearing Ability: Hard of Hearing Basket Grader Required: No Beliefs That Will Affect Care: None marital status: Current Living Situation: Spouse and Family Current Living Situation Comment: Lives with and daughter current occupational status: retired 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 Other Information That Helps Us Care for You: No Feels Safe at Home: Yes Safety Concerns: Feels Safe At This Time Childhood Exposure to Second-Hand Smoke: Yes Diet: regular caffeine: Yes during the past year weight has: increased > 10 lbs Dental Care, Regularly: No Physical Activity Frequency: Does not Exercise Seatbelt Use: always Sunscreen Use: Yes Assistive Devices: Denture - Upper Review of Systems Review of Systems: Unobtainable due to cognitive status Exam (Neuro) Physical Exam: At around 0800: She was lying in bed sleeping with an irregular breathing pattern and some noticeable short pauses to her breathing (consistent with sleep apnea). She would open her eyes with elevating the head of the bed, gentle shaking, or a somewhat loud voice. She would briefly make eye contact but then look away or close her eyes again. Despite multiple attempts to wake her up she remained in this sort of fluctuating transition between awake and asleep the whole time. At no time should she hold any conversation, and although she said a few words she would not follow commands or answer questions. Eyes were front and seem to move in all directions in a conjugate manner. Pupils were 4 mm and bilaterally reactive to light. There is no facial droop and tongue is midline. Neck was supple She spontaneously move both arms and head good symmetrical strength and resistance being essentially normal quality both proximally distally in the upper extremities. She would not move her legs and had little to no withdrawal of her legs despite deep pain or other stimulation. She would quickly say "ouch" when a painful stimuli was administered, but did not withdraw or move her legs. Reflexes were absent in the legs and 1/4 in the arms. She had no obvious abnormal involuntary movements or coordination issues but coordination could not be adequately tested. At around 1030: Patient's ability to wake up and speak was unchanged from earlier this morning. I wondered about a mild right facial droop. There was no specific right arm weakness Results & Data Vital Signs (Past 12 Hours) Vital Signs Temp Pulse Pulse Resp BP Pulse Ox O2 Del Method 02/23/24 07:46 99 H 18 118/61 94 Room Air 02/23/24 07:15 93 H 02/23/24 02:38 36.3 C L 92 H 18 138/84 92 Room Air 02/23/24 00:08 91 H 02/22/24 22:40 36.9 C 90 18 148/81 H 91 Room Air 02/22/24 20:12 Room Air PG Care Time/CCT Total # of Minutes Spent Total Time Spent with Patient: Total time spent is greater than 50% in coordination of care (as documented) at patient's floor/unit and/or counseling patient: Coding Level of Care Code 64572 INT INP/OBS CARE MIN Diagnoses Acute CVA (cerebrovascular accident) I63.9 Severe obstructive sleep apnea G47.33 Excessive daytime sleepiness G47.19 History of CVA with residual deficit I69.30 Time Spent (min) 100
--- NOTE | 2024-02-23 15:01 | Hospitalist Progress Note ---
Date of Service February 23, 2024 Assessment & Plan (1) Confusion: Plan: She appears to have a metabolic encephalopathy related to her underlying ischemic CVA. However, there may be a component of toxic encephalopathy from the cyclobenzaprine which she has been getting twice daily on a scheduled basis. This has been discontinued. Supportive care. (2) History of CVA with residual deficit: Plan: CVA 05/2023 of left cerebellar and valeria, hemiplegia of left side. Supportive care. Continue current medical management (3) Severe obstructive sleep apnea: Plan: patient reports she has not worn her CPAP in months. No evidence of severe CO2 retention to cause CO2 narcosis (4) Chronic kidney disease, stage III (moderate): Plan: Stable. Monitor intake and output. Serial labs (5) Chronic diastolic (congestive) heart failure: Plan: No overt CHF. Monitor intake and output. Serial labs (6) Type II diabetes mellitus: Plan: Controlled on insulin and semaglutide at home. ADA diet. Sliding scale coverage as needed. Basal insulin therapy. Plan The family is considering simply taking the patient home for continued care rather than go to SNF facility. It is unlikely that she would be approved to go to [facility] because she is unable to participate with any therapy at this time. Admission and Anticipated Discharge Date Admission Date: February 20, 2024 Subjective Awake but disoriented and nonverbal with me. I spoke with neurology regarding her case. She is receiving scheduled doses of Flexeril which can affect her mental status. This has been temporarily discontinued. Free T3 and free T4 are normal. I spoke to her daughter by phone and she will discuss with family but they think they will simply take her home when the time comes since [facility] referral is likely to get denied due to her inability to participate with any therapy at this time. Review of Systems 2 Review of Systems: The patient is unable to answer any questions regarding review of systems at this time Physical Exam 2 Physical Exam: General-alert but nonverbal with me and appears confused. No fever. Morbidly obese HEENThead atraumatic and normocephalic, pupils equal and reactive to light, extraocular muscles intact Neck-no lymphadenopathy or thyromegaly, trachea midline Chest-clear to auscultation. No rales, wheezing or rhonchi Cardiac-regular rate and rhythm, normal S1 and S2 Abdomen-normal bowel sounds, no hepatosplenomegaly Extremities-chronic appearing nonpitting edema below the knees bilaterally Neuro-cranial nerves II through XII intact, motor and sensory function within normal limits, strength symmetrical, no focal deficits Psych-cannot assess. She is nonverbal with me Results & Data Results & Data Vital Signs (Past 12 Hours) Vital Signs Pulse Pulse Resp BP Pulse Ox O2 Del Method 02/23/24 13:46 94 H 02/23/24 11:19 90 18 164/76 H 93 Room Air 02/23/24 07:46 99 H 18 118/61 94 Room Air 02/23/24 07:15 93 H Laboratory Results 02/22/24 05:22 02/22/24 05:22 PG Care Time/CCT Total # of Minutes Spent Total Time Spent with Patient: Total time spent is greater than 50% in coordination of care (as documented) at patient's floor/unit and/or counseling patient: Coding Level of Care Code 11932 SUB INP/OBS CARE 3/50MIN Diagnoses Confusion R41.0 History of CVA with residual deficit I69.30 Severe obstructive sleep apnea G47.33 Stage 3b chronic kidney disease N18.32 Chronic kidney disease stage 3 subtype: stage 3b (GFR 30-44) Chronic diastolic (congestive) heart failure I50.32 Type II diabetes mellitus E11.9 (4) Chronic kidney disease, stage III (moderate) Chronic kidney disease stage 3 subtype: stage 3b (GFR 30-44) Qualified Code(s): N18.32 - Chronic kidney disease, stage 3b
--- NOTE | 2024-02-24 16:05 | Hospitalist Progress Note ---
Date of Service February 24, 2024 Assessment & Plan (1) Confusion: Plan: She appears to have a metabolic encephalopathy related to her underlying ischemic CVA. However, there may be a component of toxic encephalopathy from the cyclobenzaprine which she has been getting twice daily on a scheduled basis. This has been discontinued. Supportive care. Hopefully her mental status will improve over time (2) History of CVA with residual deficit: Plan: CVA 05/2023 of left cerebellar and valeria. Supportive care. Continue current medical management (3) Severe obstructive sleep apnea: Plan: patient reports she has not worn her CPAP in months. No evidence of severe CO2 retention to cause CO2 narcosis (4) Chronic kidney disease, stage III (moderate): Plan: Stable. Monitor intake and output. Serial labs (5) Chronic diastolic (congestive) heart failure: Plan: No overt CHF. Monitor intake and output. Serial labs (6) Type II diabetes mellitus: Plan: Controlled on insulin and semaglutide at home. ADA diet. Sliding scale coverage as needed. Basal insulin therapy. (7) Morbid obesity: Plan: BMI greater than 40. Supportive care. Significant weight loss recommended Plan The family wishes to take her home tomorrow, February 24, with home health services. They can pursue home hospice care when they are at that point. Admission and Anticipated Discharge Date Admission Date: February 20, 2024 Subjective No significant change. Nursing states that she has not had a bowel movement for several days. MiraLAX and Colace ordered on a scheduled basis if she is able to take them. The family desires to take her home with home health services tomorrow, February 24. Review of Systems 2 Review of Systems: The patient is unable to answer any questions regarding review of systems at this time Physical Exam 2 Physical Exam: General-semiawake but nonverbal with me. No fever. Morbidly obese HEENThead atraumatic and normocephalic, pupils equal and reactive to light, extraocular muscles intact Neck-no lymphadenopathy or thyromegaly, trachea midline Chest-clear to auscultation. No rales, wheezing or rhonchi Cardiac-regular rate and rhythm, normal S1 and S2 Abdomen-normal bowel sounds, no hepatosplenomegaly Extremities-chronic appearing nonpitting edema below the knees bilaterally Neuro-cranial nerves II through XII intact, motor and sensory function within normal limits, strength symmetrical, no focal deficits Psych-cannot assess. She is nonverbal with me Results & Data Results & Data Vital Signs (Past 12 Hours) Vital Signs Temp Pulse Pulse Resp BP BP Pulse Ox 02/24/24 15:32 36.8 C 91 H 18 109/66 92 02/24/24 11:05 36.9 C 84 16 132/71 93 02/24/24 07:41 36.4 C L 87 16 115/79 91 02/24/24 06:34 88 O2 Del Method 02/24/24 15:32 Room Air 02/24/24 11:05 Room Air 02/24/24 07:41 Room Air 02/24/24 06:34 Laboratory Results 02/22/24 05:22 02/22/24 05:22 PG Care Time/CCT Total # of Minutes Spent Total Time Spent with Patient: Total time spent is greater than 50% in coordination of care (as documented) at patient's floor/unit and/or counseling patient: Coding Level of Care Code 37965 SUB INP/OBS CARE 3/50MIN Diagnoses Confusion R41.0 History of CVA with residual deficit I69.30 Severe obstructive sleep apnea G47.33 Stage 3b chronic kidney disease N18.32 Chronic kidney disease stage 3 subtype: stage 3b (GFR 30-44) Chronic diastolic (congestive) heart failure I50.32 Type II diabetes mellitus E11.9 Morbid obesity E66.01 (4) Chronic kidney disease, stage III (moderate) Chronic kidney disease stage 3 subtype: stage 3b (GFR 30-44) Qualified Code(s): N18.32 - Chronic kidney disease, stage 3b
[2024-02-24] MEDS: traMADol HCL 50 MG TABLET PO STA (18:23)
[2024-02-24] MEDS: DOCUSATE SODIUM 100 MG CAP PO SCH (20:08)
[2024-02-24] MEDS: POLYETHYLENE (MIRALAX) 17 GM PACK PO SCH (20:08)
[2024-02-24 23:28] VITALS: O2SAT 92
[2024-02-25 07:43] VITALS: PULSE 91; RESP 16; TEMP 98.6
[2024-02-25] MEDS: traMADol HCL 50 MG TABLET PO PRN (09:29)
--- NOTE | 2024-02-25 09:58 | Neurology Progress Note ---
Date of Service February 25, 2024 Assessment & Plan (1) Acute CVA (cerebrovascular accident): (2) Severe obstructive sleep apnea: (3) Excessive daytime sleepiness: (4) History of CVA with residual deficit: Plan This patient had a small but significant stroke in May 2023 in the left valeria and left superior cerebellar hemisphere resulting in some left sided ataxia and double vision. She has some left arm ataxia which is a residual from this stroke. MRI of the brain February 19, shows multiple, tiny, acute (within a week) infarcts in the left temporal lobe and insular cortex. I would not expect these small strokes to have much clinical accompaniment (although dysarthria is always possible). There is a small hypointensity/hypodensity in the left cerebellar peduncle, consistent with her previous stroke May 2023). Her excessive sleepiness and difficulty arousing is much improved today and we had a normal conversation. The sleepiness was probably multifactorial and due to the stroke, medication, and sleep apnea. She is still not getting CPAP. This patient has multiple risk factors for stroke including hypertension, diabetes, dyslipidemia, and sleep apnea. The new stroke occurred on 81 mg aspirin. There is always been a concern that she has had embolic phenomenon but no source of emboli has ever been identified despite aggressive testing. The etiology of the left temporal strokes currently is difficult to be certain but again, no embolic source has been identified. These are likely ischemic. There is no evidence that a central nervous system infection is present at this time. Recommendations: 1. Continue dual antiplatelet therapy (81 mg aspirin +75 mg clopidogrel) for a total of 3 weeks, and then discontinue aspirin and remain on clopidogrel alone. 2. Continue modafinil to 200 mg in the morning (and eventually may titrate up t o 200 mg twice daily). 3. I see no need for additional neurologic testing at this time, including EEG or LP. 4. Increase activity as able and consider physical and Occupational Therapy. 5. The patient follows with [facility] neurology and should return to them as an outpatient. Overall, I spent a total of 35 minutes with this case including review of records, direct evaluation the patient at bedside, report generation, and discussion of the case with the patient and RN at bedside, Dr. Costello, including differential diagnosis and treatment options. Admission and Anticipated Discharge Date Admission Date: February 20, 2024 Subjective Patient is much better today, being much more alert, talkative and pleasant. She has no headache. Her arms and legs feel to her, about the way they do normally. Blood pressure is 121/73 with a pulse of 90 and regular. She is afebrile at 37.0. Results & Data Vital Signs (Past 12 Hours) Vital Signs Temp Pulse Pulse Resp BP BP Pulse Ox 02/25/24 07:43 37.0 C 91 H 16 121/73 92 02/25/24 07:40 02/25/24 06:34 93 H 02/25/24 03:36 36.5 C 94 H 18 147/81 H 92 02/24/24 23:26 36.5 C 90 20 113/70 92 O2 Del Method 02/25/24 07:43 Room Air 02/25/24 07:40 Room Air 02/25/24 06:34 02/25/24 03:36 Room Air 02/24/24 23:26 Room Air Exam (Neuro) Physical Exam: She is awake and alert. Speech is without aphasia or dysarthria. Mood is normal and affect is appropriate. Thought processes are intact to conversation Pupils are 3 mm spine reactive to light. Extraocular muscles are intact without nystagmus. There is no facial droop. Tongue is midline. The patient has no actual drift with outstretched arms. There is some ataxia with the left upper extremity and some clumsiness with rapid alternating movements. The right upper extremity has good strength (5/5 diffusely) and facility. The patient has pain when she tries to move her legs proximally and has 23/5 strength bilaterally. Distally, her strength is 4/5 with tibialis anterior, toe extensors, and gastrocnemius muscles bilaterally. Toes are downgoing to plantar stimulation on the and equivocal on the right PG Care Time/CCT Total # of Minutes Spent Total Time Spent with Patient: Total time spent is greater than 50% in coordination of care (as documented) at patient's floor/unit and/or counseling patient: Coding Level of Care Code 81532 SUB INP/OBS CARE 2/35MIN Diagnoses Acute CVA (cerebrovascular accident) I63.9 Severe obstructive sleep apnea G47.33 Excessive daytime sleepiness G47.19 History of CVA with residual deficit I69.30
--- NOTE | 2024-02-25 11:17 | Hospitalist Progress Note ---
Date of Service February 25, 2024 Assessment & Plan (1) Confusion: Plan: She appears to have a metabolic encephalopathy related to her underlying ischemic CVA. There may have been a toxic encephalopathy component from the cyclobenzaprine which has been discontinued. Now resolved. Her mental status appears to be back to baseline. (2) History of CVA with residual deficit: Plan: CVA 05/2023 of left cerebellar and valeria. Supportive care. Continue current medical management (3) Severe obstructive sleep apnea: Plan: patient reports she has not worn her CPAP in months. No evidence of severe CO2 retention to cause CO2 narcosis (4) Chronic kidney disease, stage III (moderate): Plan: Stable. Monitor intake and output. Serial labs (5) Chronic diastolic (congestive) heart failure: Plan: No overt CHF. Monitor intake and output. Serial labs (6) Type II diabetes mellitus: Plan: Controlled on insulin and semaglutide at home. ADA diet. Sliding scale coverage as needed. Basal insulin therapy. (7) Morbid obesity: Plan: BMI greater than 40. Supportive care. Significant weight loss recommended Plan Home today, February 24, with home health services. Admission and Anticipated Discharge Date Admission Date: February 20, 2024 Subjective Remarkably alert and oriented at the time of my examination. She is conversing normally with me today. I suspect she had toxic encephalopathy from the scheduled dosing of cyclobenzaprine which has now resolved. She is scheduled to go home today with home health services. She is currently medically stable. She tells me she does not normally have a Brock catheter in place at home. This will be removed before she leaves. Review of Systems 2 Review of Systems: Constitutionalno fever or chills ENTno blurred vision, no double vision, no epistaxis, no sore throat Respiratoryno cough, no wheezing, no shortness of breath Cardiacno palpitations, no chest pain, no syncope Rex nausea, vomiting, diarrhea, melena, hematochezia GUFoley catheter in place. No hematuria Musculoskeletalno joint pain, no muscle tenderness Skinno bruising, no rashes, no pruritus Neurono isolated weakness, no paresthesia Psychno depression, no anxiety Physical Exam 2 Physical Exam: General-alert and oriented x3, no fever, no chills HEENT-head atraumatic and normocephalic, pupils equal and reactive to light, extraocular muscles intact Neck-no lymphadenopathy or thyromegaly, trachea midline Chest-clear to auscultation. No rales, wheezing or rhonchi Cardiac-regular rate and rhythm, normal S1 and S2 Abdomen-normal bowel sounds, no hepatosplenomegaly Extremities-no cyanosis, clubbing, or edema Neuro-cranial nerves II through XII intact, motor and sensory function within normal limits, strength symmetrical, no focal deficits Psych-normal affect, normal mood Results & Data Results & Data Vital Signs (Past 12 Hours) Vital Signs Temp Pulse Pulse Resp BP BP Pulse Ox 02/25/24 07:43 37.0 C 91 H 16 121/73 92 02/25/24 07:40 02/25/24 06:34 93 H 02/25/24 03:36 36.5 C 94 H 18 147/81 H 92 02/24/24 23:26 36.5 C 90 20 113/70 92 O2 Del Method 02/25/24 07:43 Room Air 02/25/24 07:40 Room Air 02/25/24 06:34 02/25/24 03:36 Room Air 02/24/24 23:26 Room Air Laboratory Results 02/22/24 05:22 02/22/24 05:22 PG Care Time/CCT Total # of Minutes Spent Total Time Spent with Patient: Total time spent is greater than 50% in coordination of care (as documented) at patient's floor/unit and/or counseling patient: Coding Level of Care Code 82707 SUB INP/OBS CARE 2/35MIN Diagnoses Confusion R41.0 History of CVA with residual deficit I69.30 Severe obstructive sleep apnea G47.33 Stage 3b chronic kidney disease N18.32 Chronic kidney disease stage 3 subtype: stage 3b (GFR 30-44) Chronic diastolic (congestive) heart failure I50.32 Type II diabetes mellitus E11.9 Morbid obesity E66.01 (4) Chronic kidney disease, stage III (moderate) Chronic kidney disease stage 3 subtype: stage 3b (GFR 30-44) Qualified Code(s): N18.32 - Chronic kidney disease, stage 3b
--- NOTE | 2024-02-25 11:23 | Discharge Summary ---
Discharge Summary Date of Service February 25, 2024 Principal Dx & Hospital Course #1 = Principal Diagnosis (1) Confusion: She appears to have a metabolic encephalopathy related to her underlying ischemic CVA. There may have been a toxic encephalopathy component from the cyclobenzaprine which has been discontinued. Now resolved. Her mental status appears to be back to baseline. 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 Supportive care. Continue current medical management (3) Severe obstructive sleep apnea: patient reports she has not worn her CPAP in months. No evidence of severe CO2 retention to cause CO2 narcosis (4) Chronic kidney disease, stage III (moderate): Stable. Monitor intake and output. Serial labs (5) Chronic diastolic (congestive) heart failure: No overt CHF. Monitor intake and output. Serial labs (6) Type II diabetes mellitus: Controlled on insulin and semaglutide at home. ADA diet. Sliding scale coverage as needed. Basal insulin therapy. (7) Morbid obesity: BMI greater than 40. Supportive care. Significant weight loss recommended Plan Home today, February 24, with home health services. Admission HPI Per Admitting Provider Patient is a 69-year-old female with past medical history of CVA 05/2023, type II DM, CKD, CARMENCITA, HFpEF, hypothyroidism, GERD. She presents today due to altered mental status. patient's daughter and at bedside updated, provide additional history. He stated that she woke up around 3 AM to go to the bathroom and had normal cognition. When she woke up at 730 this morning she had confusion and slurred speech. They stated all day the confusion has waxed and waned. She has no new neurologic deficits, although has left-sided weakness from her previous stroke in May. Her slurred speech has since resolved. At baseline she is normally alert and oriented x 4; on exam today she was disoriented to self and time. The family stated that she has had a loop recorder in since May due to her previous stroke, no events have been recorded to their knowledge. She has not worn her CPAP in several months. As per the patient's family, she is confused every morning but only last about 10 to 15 minutes. Patient endorses dizziness since this morning.She also has a chronic cough with sputum production. Patient denies lightheadedness, vision changes, rhinorrhea, sore throat, dyspnea, dyspnea on exertion, chest pain, abdominal pain, nausea, vomiting, diarrhea, constipation, dysuria, hematuria, edema, numbness, tingling. She denies past history of cancer. She does not use oxygen at baseline. She did not take her home medications this morning. She wishes to be full code at this time. The patient was discussed with Dr. Srinivasan at the time of the admission/consult. Discharge Exam General-alert and oriented x3, no fever, no chills HEENT-head atraumatic and normocephalic, pupils equal and reactive to light, extraocular muscles intact Neck-no lymphadenopathy or thyromegaly, trachea midline Chest-clear to auscultation. No rales, wheezing or rhonchi Cardiac-regular rate and rhythm, normal S1 and S2 Abdomen-normal bowel sounds, no hepatosplenomegaly Extremities-no cyanosis, clubbing, or edema Neuro-cranial nerves II through XII intact, motor and sensory function within normal limits, strength symmetrical, no focal deficits Psych-normal affect, normal mood Discharge Plan Discharge Items Patient Disposition: Home - Home Health Services Reason For Visit: CONFUSION, UTI Discharge Diagnosis: Acute ischemic CVA, combined toxic and metabolic encephalopathy Activity: Resume your previous activity Non-emergency contact: Primary Care Provider Call non-emergency contact if: your symptoms worsen Follow-up/Referrals: Smita Ortiz CRNP [Primary Care Provider] - Diet: Carb Consistent or DM2 and Heart Healthy Addtl Attending Provider Instructions: Take all medications as directed. Plavix (clopidogrel) is new. See primary care provider soon as possible Pending Studies at Discharge: No Stand-Alone Forms: My [facility], Smoking Cessation Medications and DC Order Prescriptions: New clopidogrel 75 mg Tablet 75 mg PO QAM Qty: 30 0RF Continued vitamin B complex Tablet 1 tab PO QAM (DME) OneTouch Ultra Blue Test Strip strip See Rx Instructions .ROUTE .MEDSUPPLY Qty: 100 3RF Rx Instructions: As directed (DME) blood-glucose meter [OneTouch Ultra2 Meter] misc See Rx Instructions .ROUTE .MEDSUPPLY Qty: 1 0RF Rx Instructions: As directed (DME) lancets [OneTouch Delica Lancets] 30 gauge misc See Rx Instructions .ROUTE .MEDSUPPLY Qty: 200 3RF Rx Instructions: As directed diclofenac sodium [Voltaren] 1 % gel 2 g TOP QID PRN (Reason: knee pain) Qty: 700 1RF (DME) insulin syringe-needle U-100 [BD Insulin Syringe Ultra-Fine] 1 mL 31 gauge x 5/16 syringe See Rx Instructions .Route Qty: 500 3RF Rx Instructions: As directed inject 5 times daily dx E11.9 insulin aspart U-100 [Novolog U-100 Insulin aspart] 100 unit/mL solution 1 unit SQ .COMPLEX Qty: 270 3RF Rx Instructions: SSI used ipratropium bromide 21 mcg (0.03 %) spray,non-aerosol 2 spray intranasal TID PRN (Reason: nasal drainage) Qty: 90 3RF Rx Instructions: administer into each nostril (DME) Monoject Insulin Syringe 1 mL 25 gauge x 5/8" syringe See Dose Instructions .ROUTE .MEDSUPPLY Qty: 500 3RF Rx Instructions: USE TO INJECT INSULIN 5 TIMES DAILY aspirin 81 mg tablet,delayed release (DR/EC) 81 mg PO DAILY docusate sodium [Dulcolax Stool Softener (dss)] 100 mg capsule 100 mg PO DAILY PRN (Reason: Constipation) cholecalciferol (vitamin D3) 125 mcg (5,000 unit) capsule 125 mcg PO DAILY Qty: 90 1RF levothyroxine 50 mcg tablet 50 mcg PO QAM Qty: 90 3RF potassium chloride 20 mEq tablet extended release 40 meq PO DAILY Qty: 180 3RF rosuvastatin 20 mg tablet 20 mg PO HS Qty: 90 3RF modafinil [Provigil] 100 mg tablet 100 mg PO QAM Qty: 90 1RF ondansetron HCl 4 mg tablet 4 mg PO Q8H PRN (Reason: nausea and vomiting) Qty: 60 5RF Rx Instructions: family isnt sure of this medication tramadol 50 mg tablet 50 mg PO TID PRN (Reason: pain) Qty: 90 2RF meclizine 12.5 mg tablet 12.5 mg PO TID PRN (Reason: dizziness) Qty: 30 3RF semaglutide 1 mg/dose (4 mg/3 mL) pen injector 1 mg subcut .COMPLEX Qty: 9 3RF Rx Instructions: on saturdays, 1 mg subcutaneously once weekly; albuterol sulfate [Proventil HFA] 90 mcg/actuation HFA aerosol inhaler 2 puff INHALATION QID PRN (Reason: Shortness Of Breath) Qty: 3 1RF cimetidine 400 mg tablet 400 mg PO BID Qty: 180 3RF Rx Instructions: administer with meals omeprazole 20 mg capsule,delayed release(DR/EC) 20 mg PO QAM Qty: 90 3RF losartan 25 mg tablet 25 mg PO HS Qty: 90 3RF (DME) Disposable Brief Misc See Rx Instructions .Route Qty: 3 5RF Rx Instructions: SIZE 3XL Fit Right Briefs multivitamin Tablet 1 tab PO QAM omega 5-vvw-aus-fish oil [Fish Oil] 360-1,200 mg Capsule,Delayed Release(Dr/Ec) 1 cap PO QAM Levemir U-100 Insulin 100 unit/mL Solution 20 - 25 unit SUBCUT BID torsemide 20 mg tablet 40 mg PO DAILY Rx Instructions: May increase to 60 mg daily PRN for weight gain, edema, shortness of breath Neilmed Sinus Rinse Complete Packet With Rinse Device See Rx Instructions .Route .COMPLEX PRN (Reason: nasal decongestant) Rx Instructions: use daily; Discontinued pseudoephedrine HCl [Sudafed 12 Hour] 120 mg tablet extended release 120 mg PO BID Qty: 180 1RF chlorpheniramine maleate [Allergy Relief(chlorpheniramn)] 4 mg tablet 4 mg PO Q12H 30 Days Qty: 60 3RF cyclobenzaprine 5 mg tablet 5 mg PO BID Discharge Orders: Discharge Order (Routine); Ordered 02/25/24 Ordered By: Nick Riddle/Other Patient Handouts: Managing Type 2 Diabetes Admission Data Admit Date/Time: 02/20/24 17:26 Attending Provider: Nick Costello Admit Provider: Shai Srinivasan Primary Care Provider: Smita Ortiz Other Providers: Shai Srinivasan; Robin Carlson; [place]; [facility] Hospital Stay Data Consultations 02/20/24 16:26 ED Decision to Admit Stat 02/22/24 10:46 Consult Neurology Routine Diagnostic Imagining Performed 02/20/24 14:23 CT head/brain wo con Stat 02/20/24 17:11 MR angio head wo con Urgent MRI Brain [MR brain wo con] Urgent US carotid doppler BI Urgent 02/22/24 10:41 CT head/brain wo con Stat Pending Results Patient Have Any Pending Studies at Discharge: No Discharge Instructions Given to Patient (Per Discharging Provider) Take all medications as directed. Plavix (clopidogrel) is new. See primary care provider soon as possible Total Time Total Time Spent Total Time Spent (In Minutes): 45 minutes Coding Level of Care Code 74932 INP/OBS DISCH >30 MIN Diagnoses Confusion R41.0 History of CVA with residual deficit I69.30 Severe obstructive sleep apnea G47.33 Stage 3b chronic kidney disease N18.32 Chronic kidney disease stage 3 subtype: stage 3b (GFR 30-44) Chronic diastolic (congestive) heart failure I50.32 Type II diabetes mellitus E11.9 Morbid obesity E66.01
[2024-02-25] MEDS: INFLUENZA VACC TS2024-25(65y+)/PF (IIV3) 0.5mL Syr IM ONE (12:13)
[2024-02-25 12:18] VITALS: BP 113/70
== END 2024-02-25 12:18 | disposition home health service (06) | DRG 64 ==
LOC: ED 13:01 → SUATTDRO 17:26 → EDINP 17:26 → 2N 19:18